=== PATIENT | male | born 1950 | race Caucasian/White ===

== ENCOUNTER 2020-07-22 20:35 | Inpatient (IN) | payer MEDICARE, SELFPAY ==
[2020-07-23] VITALS (7 sets, daily range): BP systolic 131–142; BP diastolic 72–81; PULSE 80–100; RESP 20; TEMP 36.7–39.5; O2SAT 90–96; BMI 27.4
--- NOTE | 2020-07-23 06:36 | PM.IMHP ---
History of Present Illness Date of Service: 07/23/20 Chief Complaint: shortness of breath patient presents to the hospital with complaints of shortness of breath, cough, fever and chills. Patient was recently diagnosed with COVID-19. Was recently seen in the hospital and sent home. Patient not hypoxic, satting in the 90s on room air. Chest x-ray shows multifocal pneumonia patient returns today saying that his symptoms are worsening, he is not feeling better. On arrival to the ED hemodynamically stable with no hypoxia chest x-ray showing multifocal pneumonia Review of Systems Review of Systems: Yes all other systems are reviewed and are negative [facility] Social History Advance Directives: No Advance Directives Information Provided: No Meds Allergies Allergy/AdvReac Type Severity Reaction Status Date / Time No Known Allergies Allergy Unverified 07/09/20 15:41 [No Known Allergies*] Physical Exam Vital Signs and Narrative: Vital Signs: Body Mass Index 27.4 Const: Other: appears ill, no apparent distress Orientation/consciousness: patient oriented x3 Eyes: General: appearance normal, both eyes and all related structures Resp: Effort & Inspection: normal respiratory effort, Actively coughing and labored Cardio: Rate: regular rate Rhythm: regular rhythm Skin: General skin exam: no rashes or lesions noted Neuro: General: patient oriented x3 Extrem: General: Yes normal to inspection Assessment and Plan (1) Multifocal pneumonia: Status: Acute - secondary to COVID-19 infection versus bacterial infection - chest x-ray showing multifocal pneumonia with no hypoxia Plan - ceftriaxone azithromycin - monitor respiratory status (2) COVID-19 virus infection: Status: Acute
[2020-07-23] MEDS: Enoxaparin Sodium 40 MG/0.4 ML SYRINGE SUBCUT (07:58)
[2020-07-23] MEDS: ondansetron HCL 4 MG/2 ML VIAL IVPUSH (07:58)
[2020-07-23] MEDS: Acetaminophen 325 MG TABLET 650 MG PO ×3 (10:55→22:19)
[2020-07-23] MEDS: cefTRIAXone sodium 1 GM in 0.9 % Sodium Chloride 50 ML IV (11:03)
[2020-07-23 11:52] LABS: Hematocrit 33.6 % (42-52); Imm Gran Abs Auto 0.04 X10*3/uL (0.00-0.03); Imm Gran Pct Auto 0.5 % (0.0-0.4); Lymphocytes Absolute Auto 0.3 X10*3/uL (1.2-4.9); Lymphocytes Percent Auto 4.3 % (20-40); MANUAL DIFF FLAG SCAN; Mean Corpuscular HGB Conc 32.7 g/dl (31.0-36.0); Mean Corpuscular Hemoglobin 32.4 pg (27.0-33.0); Mean Corpuscular Volume 98.8 fL (80-98); Mean Platelet Volume 9.6 fL (9.4-12.4); Monocytes Absolute Auto 0.2 X10*3/uL (0.1-1.2); Monocytes Percent Auto 2.7 % (2-11); Neutrophils Absolute Auto 7.3 X10*3/uL (2.0-8.3); Neutrophils Percent Auto 92.5 % (45-73); Platelet Count 191 X10*3/uL (160-400); Red Cell Distribution Width 11.3 % (11.0-16.0); SCAN SMEAR FLAG 1; White Blood Count 7.9 X10*3/uL (4.8-10.8)
[2020-07-23 12:27] LABS: Anion Gap 13 (12-20); Carbon Dioxide 23 mmol/L (22-29); Chloride 109 mmol/L (96-108); Potassium 4.5 mmol/l (3.3-5.1); Sodium 140 mmol/L (135-145)
[2020-07-23 12:31] LABS: SLIDE REVIEW VERIFIED
--- NOTE | 2020-07-23 13:46 | MHC.CM.PN ---
CM met with patient at the bedside who reports he is independent and lives with his . Patient does not have a HCP and declines filling one out today. Discussed discharge plan home no services. Family will provide transport. CM will continue to follow patient for discharge needs.
[2020-07-23] MEDS: Levothyroxine Sodium 100 MCG TABLET PO (15:44)
[2020-07-23] MEDS: Cyanocobalamin (Vitamin B-12) 100 MCG TABLET PO (15:45)
[2020-07-23] MEDS: Cholecalciferol (Vitamin D3) 25 MCG TABLET PO (15:45)
[2020-07-23] MEDS: Albuterol Sulfate (0.083%) 2.5 MG/3 ML VIAL.NEB 5 MG INHALE (17:22)
[2020-07-24] VITALS: BP 128/62; PULSE 81; RESP 20; TEMP 39.1; O2SAT 2
[2020-07-24 03:30] VITALS: BP 134/71; PULSE 82; RESP 20; TEMP 38.7; O2SAT 94
[2020-07-24] MEDS: Acetaminophen 325 MG TABLET 650 MG PO ×4 (04:10→22:22)
[2020-07-24] MEDS: Enoxaparin Sodium 40 MG/0.4 ML SYRINGE SUBCUT (04:11)
[2020-07-24] MEDS: cefTRIAXone sodium 1 GM in 0.9 % Sodium Chloride 50 ML IV (06:25)
[2020-07-24 07:41] VITALS: BP 109/60; PULSE 73; RESP 20; TEMP 37.8; O2SAT 96
[2020-07-24] MEDS: Levothyroxine Sodium 100 MCG TABLET PO (08:59)
[2020-07-24] MEDS: Cyanocobalamin (Vitamin B-12) 100 MCG TABLET PO (08:59)
[2020-07-24] MEDS: Cholecalciferol (Vitamin D3) 25 MCG TABLET PO (08:59)
[2020-07-24 12:00] VITALS: BP 139/64; PULSE 91; RESP 20; TEMP 39.4; O2SAT 92
--- NOTE | 2020-07-24 14:30 | PC.NURSE ---
1200 temp of [address] Dunlap. pt was medicated with tylenol repeat temp was 102. pt also on 2 iv antibiotics
--- NOTE | 2020-07-24 14:33 | MHC.CM.PN ---
DP home no services family transport
[2020-07-24 16:00] VITALS: BP 137/72; PULSE 89; RESP 24; TEMP 39.5; O2SAT 93
--- NOTE | 2020-07-24 16:12 | P.PNIM_ITS ---
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[employer] no headache no dizziness CVS no chest pain, no palpitation Gastrointestinal no nausea no vomiting Skin no rash Physical Exam Vital Signs and I&O and Narrative: Vital Signs and I&O: Vital Signs Temp 103.1 F H 07/24/20 16:00 Pulse 89 07/24/20 16:00 Resp 24 H 07/24/20 16:00 BP 137/72 07/24/20 16:00 Pulse Ox 93 07/24/20 16:00 Intake & Output 07/23/20 07/24/20 07/24/20 18:59 06:59 18:59 Intake Total 780 / 1020 240 / 1020 540 / 540 Output Total 2 / 2 Balance 778 / 1018 240 / 1018 540 / 540 Urine Output (Aver age ml/kg/hr) 0.00 0.00 0.00 Intake: Intake, Oral Elvis unt 480 / 720 240 / 720 240 / 240 Intake, IV Amoun t 300 / 300 300 / 300 Azithromycin 5 00 mg In 0.9 % 250 / 250 250 / 250 Sodium Chlorid e PVC Free 250 ml @ 250 mls/hr I V Q24H [facility] Rx#: [id number] cefTRIAXone so dium 1 gm In 0.9 50 / 50 50 / 50 % Sodium Chlor karina 50 ml @ 100 mls/hr IV Q24H [facility] Rx#: [id number] Output: Output, Urine Am ount 2 / 2 Other: Breakfast % Eate n 100% Lunch % Eaten 100% Dinner % Eaten 75% Number of Unmeas ured Voids 3 1 Urine Bathroom Bathroom Bathroom Body Mass Index 27.4 general patient is sitting comfortably in bed in no acute distress Neck is supple Respiratory bilateral coarse breath sound, no wheeze, no rhonchi CVS regular rate rhythm Gastrointestinal abdomen soft nontender bowel sounds are audible Skin no rash Neuro nonfocal, moving all 4 extremities Objective Data Current Medications Generic Name Dose Route Start Last Admin Trade Name Freq PRN Reason Stop Dose Admin Acetaminophen 650 mg 07/23/20 05:30 07/24/20 11:09 Acetaminophen 325 Mg Tablet PO 650 mg Q6H PRN Administration Pain, Mild (Pain Scale 1-3) Albuterol Sulfate 2.5 mg 07/23/20 12:25 Albuterol Sulfate (0.083%) 2.5 Mg/3 Ml Vial.Neb INHALE Q3H PRN sob Cyanocobalamin 100 mcg 07/23/20 12:30 07/24/20 08:59 Cyanocobalamin (Vitamin B-12) 100 Mcg Tablet PO 100 mcg DAILY [facility] Administration Enoxaparin Sodium 40 mg 07/23/20 06:00 07/24/20 04:11 Enoxaparin Sodium 40 Mg/0.4 Ml Syringe SUBCUT 40 mg Q24H [facility] Administration Ceftriaxone Sodium 1 gm/ 50 mls @ 100 mls/hr 07/23/20 07:00 07/24/20 14:03 Sodium Chloride IV Infused Q24H [facility] Infusion Azithromycin 500 mg/ Sodium 250 mls @ 250 mls/hr 07/23/20 07:00 07/24/20 14:0 1 Chloride IV Infused Q24H [facility] Infusion Levothyroxine Sodium 100 mcg 07/23/20 12:30 07/24/20 08:59 Levothyroxine Sodium 100 Mcg Tablet PO 100 mcg DAILY PEPE Administration Ondansetron HCl 4 mg 07/23/20 05:32 07/23/20 07:58 Ondansetron Hcl 4 Mg/2 Ml Vial IVPUSH 4 mg Q8H PRN Administration Nausea and Vomiting Pharmacy Consult 1 each 07/23/20 07:19 Consult Rx Perform Med Rec MISCELLANE ONCE PRN Consult order Vitamin D 25 mcg 07/23/20 12:30 07/24/20 08:59 Cholecalciferol (Vitamin D3) 25 Mcg Tablet PO 25 mcg DAILY PEPE Administration Labs CBC & Chem 7: 07/23/20 11:20 07/23/20 11:20 Assessment and Plan (1) COVID-19 virus infection: Problem details: persistent fever , patient shortness of breath and cough is better no hypoxia, will check CRP ,CBC and electrolyte tomorrow morning continue supportive care. Status: Acute (2) Multifocal pneumonia: Problem details: Likely due to COVID 19 infection continue IV ceftriaxone and azithromycin follow CRP if negative then in will discontinue antibiotics Status: Acute (3) Hypothyroidism: Problem details: continue Synthroid. Status: Acute
--- NOTE | 2020-07-24 16:55 | PC.NURSE ---
Temperature 103.1 , oxygen saturation 92 % 0n 2l via nc, pt reporting some sob. Dr estrella was notified. Pt medicated with Tylenol 650 mg PO. Md planningto add cough medication and steroids. Pt informed
[2020-07-24] MEDS: guaiFENesin DM 100/10/5 ML 5 ML SYRUP 10 ML PO ×2 (17:00→22:22)
[2020-07-24 19:21] VITALS: BP 110/66; PULSE 79; RESP 20; TEMP 37.6; O2SAT 92
[2020-07-25] VITALS (8 sets, daily range): BP systolic 124–161; BP diastolic 69–80; PULSE 60–90; RESP 18–20; TEMP 36.6–38.3; O2SAT 93–98
[2020-07-25] MEDS: guaiFENesin DM 100/10/5 ML 5 ML SYRUP 10 ML PO ×4 (05:31→22:57)
[2020-07-25] MEDS: Enoxaparin Sodium 40 MG/0.4 ML SYRINGE SUBCUT (05:32)
[2020-07-25] MEDS: cefTRIAXone sodium 1 GM in 0.9 % Sodium Chloride 50 ML IV (05:34)
[2020-07-25] MEDS: Acetaminophen 325 MG TABLET 650 MG PO ×3 (06:08→18:01)
[2020-07-25 06:41] LABS: Hematocrit 35.1 % (42-52); Hemoglobin 11.6 g/dl (14.0-18.0); Imm Gran Abs Auto 0.11 X10*3/uL (0.00-0.03); Imm Gran Pct Auto 1.1 % (0.0-0.4); Lymphocytes Absolute Auto 0.3 X10*3/uL (1.2-4.9); Lymphocytes Percent Auto 3.2 % (20-40); MANUAL DIFF FLAG SCAN; Mean Corpuscular Hemoglobin 32.6 pg (27.0-33.0); Mean Corpuscular Volume 98.6 fL (80-98); Monocytes Absolute Auto 0.2 X10*3/uL (0.1-1.2); Neutrophils Absolute Auto 9.6 X10*3/uL (2.0-8.3); Neutrophils Percent Auto 93.7 % (45-73); Platelet Count 232 X10*3/uL (160-400); Red Blood Count 3.56 X10*6/uL (4.60-5.80); Red Cell Distribution Width 11.3 % (11.0-16.0); SCAN SMEAR FLAG 1; White Blood Count 10.3 X10*3/uL (4.8-10.8)
[2020-07-25 07:00] LABS: C Reactive Protein 29.14 mg/dL (< or = 0.50)
[2020-07-25 07:14] LABS: SLIDE REVIEW VERIFIED
[2020-07-25] MEDS: Cyanocobalamin (Vitamin B-12) 100 MCG TABLET PO (09:56)
[2020-07-25] MEDS: Levothyroxine Sodium 100 MCG TABLET PO (09:56)
[2020-07-25] MEDS: Cholecalciferol (Vitamin D3) 25 MCG TABLET PO (09:57)
--- NOTE | 2020-07-25 14:29 | P.PNIM_ITS ---
Subjective Subjective Date of Service: 07/25/20 Interval History: admitted for shortness of breath with recently diagnosed COVID-19 infection patient feels better this morning is still complaining of back and chest pain with coughing no further bouts of fever since yesterday afternoon, no nausea vomiting tolerating diet. 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 CVS no chest pain, no palpitation Gastrointestinal no nausea no vomiting Skin no rash Physical Exam Vital Signs and I&O and Narrative: Vital Signs and I&O: Vital Signs Temp 98.7 F 07/25/20 11:31 Pulse 75 07/25/20 11:31 Resp 20 07/25/20 11:31 BP 130/69 07/25/20 11:31 Pulse Ox 95 07/25/20 11:31 Intake & Output 07/24/20 07/25/20 07/25/20 18:59 06:59 18:59 Intake Total 540 / 1590 1050 / 1590 500 / 500 Output Total 450 / 450 Balance 540 / 1590 1050 / 1590 50 / 50 Urine Output (Aver age ml/kg/hr) 0.46 Intake: Intake, Oral [place] unt 240 / 1240 1000 / 1240 250 / 250 Intake, IV Amoun t 300 / 350 50 / 350 250 / 250 Azithromycin 5 00 mg In 0.9 % 250 / 250 250 / 250 Sodium Chlorid e PVC Free 250 ml @ 250 mls/hr I V Q24H [facility] Rx#: [id number] cefTRIAXone so dium 1 gm In 0.9 50 / 100 50 / 100 % Sodium Chlor karina 50 ml @ 100 mls/hr IV Q24H [facility] Rx#: [id number] Output: Output, Urine Am ount 450 / 450 Other: Breakfast % Eate n 100% 100% Lunch % Eaten 25% Number of Unmeas ured Voids 1 2 Urine Bathroom Bathroom Bathroom Body Mass Index 27.4 General patient is sitting comfortably in bed in no acute distress Neck supple Respiratory bilateral coarse breath sound, no wheeze, no rhonchi , no respiratory distress CVS regular rate rhythm Gastrointestinal abdomen soft, nontender, bowel sounds are audible. Skin no rash Neuro nonfocal, moving all 4 extremities Objective Data Current Medications Generic Name Dose Route Start Last Admin Trade Name Freq PRN Reason Stop Dose Admin Acetaminophen 650 mg 07/23/20 05:30 10/03/20 12:05 Acetaminophen 325 Mg Tablet PO 650 mg Q6H PRN Administration Pain, Mild (Pain Scale 1-3) Albuterol Sulfate 2.5 mg 07/23/20 12:25 Albuterol Sulfate (0.083%) 2.5 Mg/3 Ml Vial.Neb INHALE Q3H PRN sob Cyanocobalamin 100 mcg 07/23/20 12:30 07/25/20 09:56 Cyanocobalamin (Vitamin B-12) 100 Mcg Tablet PO 100 mcg DAILY PEPE Administration Enoxaparin Sodium 40 mg 07/23/20 06:00 07/25/20 05:32 Enoxaparin Sodium 40 Mg/0.4 Ml Syringe SUBCUT 40 mg Q24H [facility] Administration Guaifenesin/Dextromethorphan 10 ml 07/24/20 17:00 07/25/20 09:56 Guaifenesin Dm 100/10/5 Ml 5 Ml Syrup PO 10 ml Q6H [facility] Administration Ceftriaxone Sodium 1 gm/ 50 mls @ 100 mls/hr 07/23/20 07:00 07/25/20 06:26 Sodium Chloride IV Infused Q24H [facility] Infusion Azithromycin 500 mg/ Sodium 250 mls @ 250 mls/hr 07/23/20 07:00 07/25/20 07:34 Chloride IV Infused Q24H [facility] Infusion Dexamethasone Sodium Phosphate 50.6 mls @ 202.4 mls/hr 07/24/20 17:06 07/25/20 09:56 6 mg/ Sodium Chloride IV 07/27/20 09:14 202.4 mls/hr DAILY [facility] Administration Levothyroxine Sodium 100 mcg 07/23/20 12:30 07/25/20 09:56 Levothyroxine Sodium 100 Mcg Tablet PO 100 mcg DAILY [facility]PE Administration Ondansetron HCl 4 mg 07/23/20 05:32 07/23/20 07:58 Ondansetron Hcl 4 Mg/2 Ml Vial IVPUSH 4 mg Q8H PRN Administration Nausea and Vomiting Pharmacy Consult 1 each 07/23/20 07:19 Consult Rx Perform Med Rec MISCELLANE ONCE PRN Consult order Vitamin D 25 mcg 07/23/20 12:30 07/25/20 09:57 Cholecalciferol (Vitamin D3) 25 Mcg Tablet PO 25 mcg DAILY [facility]PE Administration Labs CBC & Chem 7: 07/25/20 06:04 07/23/20 11:20 Labs: Laboratory Results - last 24 hr 07/25/20 07/25/20 06:04 06:04 MCV 98.6 H MCH 32.6 MCHC 33.0 RDW 11.3 Plt Count 232 MPV 10.0 Immature Gran % (Auto) 1.1 H Neut % (Auto) 93.7 H Lymph % (Auto) 3.2 L [place] % (Auto) 2.0 Eos % (Auto) 0.0 Baso % (Auto) 0.0 Neut # (Auto) 9.6 H Lymph # (Auto) 0.3 L [place] # (Auto) 0.2 Eos # (Auto) 0.0 Baso # (Auto) 0.0 Abs Immat Gran (auto) 0.11 H Absolute Nucleated RBC 0.000 Nucleated RBC % (auto) 0.0 Smear Tech's Comments VERIFIED C-Reactive Protein 29.14 H Assessment and Plan (1) COVID-19 virus infection: Problem details: persistent fever , patient shortness of breath and cough is better no hypoxia, will check CRP ,CBC and electrolyte tomorrow morning continue supportive care. Status: Acute (2) Multifocal pneumonia: Problem details: Likely due to COVID 19 infection continue IV ceftriaxone and azithromycin follow CRP if negative then in will discontinue antibiotics Status: Acute (3) Hypothyroidism: Problem details: continue Synthroid. Status: Acute Assessment and Plan: (1) COVID-19 virus infection: No further bout of fever since yesterday, patient shortness of breath and cough is improving no hypoxia, CRP 29.14 ,CBC and electrolyte is stable, continue supportive care. will encourage ambulation (2) Multifocal pneumonia: Likely due to COVID 19 infection continue IV ceftriaxone and azithromycin will checks procalcitonin, if negative then will discontinue antibiotics Status: Acute (3) Hypothyroidism: Problem details: continue Synthroid.
[2020-07-25 15:22] LABS: Procalcitonin 1.14 ng/mL
[2020-07-26] MEDS: Acetaminophen 325 MG TABLET 650 MG PO ×3 (00:17→22:03)
[2020-07-26 03:52] VITALS: BP 122/69; PULSE 71; RESP 18; TEMP 37.1; O2SAT 96
[2020-07-26] MEDS: guaiFENesin DM 100/10/5 ML 5 ML SYRUP 10 ML PO ×4 (06:17→21:58)
[2020-07-26] MEDS: Enoxaparin Sodium 40 MG/0.4 ML SYRINGE SUBCUT (06:18)
[2020-07-26] MEDS: cefTRIAXone sodium 1 GM in 0.9 % Sodium Chloride 50 ML IV (06:21)
[2020-07-26 07:03] VITALS: BP 144/77; PULSE 81; RESP 22; TEMP 37.4; O2SAT 92
[2020-07-26] MEDS: Cyanocobalamin (Vitamin B-12) 100 MCG TABLET PO (09:44)
[2020-07-26] MEDS: Cholecalciferol (Vitamin D3) 25 MCG TABLET PO (09:44)
[2020-07-26] MEDS: Levothyroxine Sodium 100 MCG TABLET PO (09:45)
[2020-07-26 11:48] VITALS: BP 147/78; PULSE 88; RESP 18; TEMP 37.5; O2SAT 94
[2020-07-26 16:00] VITALS: BP 135/68; PULSE 78; RESP 18; TEMP 37.7; O2SAT 94
--- NOTE | 2020-07-26 17:01 | P.PNIM_ITS ---
Subjective Subjective Interval History: admitted for shortness of breath with recently diagnosed COVID-19 infection patient complaining of generalized pain and fever still coughing and complaining of chest tightness, feels like his asthma ,still having fever but low-grade, tolerating diet. 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 Gastrointestinal no nausea, no vomiting Skin no rash Physical Exam Vital Signs and I&O and Narrative: Vital Signs and I&O: Vital Signs Temp 99.8 F 07/26/20 16:00 Pulse 78 07/26/20 16:00 Resp 18 07/26/20 16:00 BP 135/68 07/26/20 16:00 Pulse Ox 94 07/26/20 16:00 Intake & Output 07/25/20 07/26/20 07/26/20 18:59 06:59 18:59 Intake Total 500 / 1180 680 / 1180 550 / 550 Output Total 450 / 700 250 / 700 650 / 650 Balance 50 / 480 430 / 480 -100 / -100 Urine Output (Aver age ml/kg/hr) 0.46 0.25 0.66 Intake: Intake, Oral Elvis unt 250 / 930 680 / 930 250 / 250 Intake, IV Amoun t 250 / 250 300 / 300 Azithromycin 5 00 mg In 0.9 % 250 / 250 250 / 250 Sodium Chlorid e PVC Free 250 ml @ 250 mls/hr I V Q24H [facility] Rx#: [id number] cefTRIAXone so dium 1 gm In 0.9 50 / 50 % Sodium Chlor karina 50 ml @ 100 mls/hr IV Q24H [facility] Rx#: [id number] Output: Output, Urine Am ount 450 / 700 250 / 700 650 / 650 Other: Meal Refused No NPO No Breakfast % Eate n 100% 50% Lunch % Eaten 25% 50% Number of Incont inent Voids 1 Urine Bathroom Urinal Urinal Urine Color Yellow Body Mass Index 27.4 General appears flushed due to fever, no acute respiratory distress Neck supple Respiratory bilateral coarse diminished breath sound, no rhonchi , no respiratory distress CVS regular rate rhythm Gastrointestinal abdomen soft, nontender, bowel sounds are audible. Skin no rash Neuro nonfocal, moving all 4 extremities Objective Data Current Medications Generic Name Dose Route Start Last Admin Trade Name Freq PRN Reason Stop Dose Admin Acetaminophen 650 mg 07/23/20 05:30 07/26/20 10:52 Acetaminophen 325 Mg Tablet PO 650 mg Q6H PRN Administration Pain, Mild (Pain Scale 1-3) Albuterol Sulfate 2.5 mg 07/23/20 12:25 Albuterol Sulfate (0.083%) 2.5 Mg/3 Ml Vial.Neb INHALE Q3H PRN sob Albuterol Sulfate 2 puff 07/26/20 20:00 Albuterol Sulfate 90 Mcg 18 Gm Inhaler INHALE RQ4H WHILE AWAKE [facility] Cyanocobalamin 100 mcg 07/23/20 12:30 07/26/20 09:44 Cyanocobalamin (Vitamin B-12) 100 Mcg Tablet PO 100 mcg DAILY PEPE Administration Enoxaparin Sodium 40 mg 07/23/20 06:00 07/26/20 06:18 Enoxaparin Sodium 40 Mg/0.4 Ml Syringe SUBCUT 40 mg Q24H [facility] Administration Guaifenesin/Dextromethorphan 10 ml 07/24/20 17:00 07/26/20 16:44 Guaifenesin Dm 100/10/5 Ml 5 Ml Syrup PO 10 ml Q6H [facility] Administration Ceftriaxone Sodium 1 gm/ 50 mls @ 100 mls/hr 07/23/20 07:00 07/26/20 07:19 Sodium Chloride IV Infused Q24H [facility] Infusion Dexamethasone Sodium Phosphate 50.6 mls @ 202.4 mls/hr 07/24/20 17:06 07/26/20 10:52 6 mg/ Sodium Chloride IV 07/27/20 09:14 200 mls/hr DAILY [facility] Administration Azithromycin 500 mg/ Sodium 250 mls @ 125 mls/hr 07/27/20 07:00 Chloride IV Q24H [facility] Levothyroxine Sodium 100 mcg 07/23/20 12:30 07/26/20 09:45 Levothyroxine Sodium 100 Mcg Tablet PO 100 mcg DAILY [facility] Administration Ondansetron HCl 4 mg 07/23/20 05:32 07/23/20 07:58 Ondansetron Hcl 4 Mg/2 Ml Vial IVPUSH 4 mg Q8H PRN Administration Nausea and Vomiting Pharmacy Consult 1 each 07/23/20 07:19 Consult Rx Perform Med Rec MISCELLANE ONCE PRN Consult order Vitamin D 25 mcg 07/23/20 12:30 07/26/20 09:44 Cholecalciferol (Vitamin D3) 25 Mcg Tablet PO 25 mcg DAILY [facility]PE Administration Labs CBC & Chem 7: 07/25/20 06:04 07/23/20 11:20 Assessment and Plan (1) COVID-19 virus infection: Problem details: Status: Acute (2) Multifocal pneumonia: Problem details: Status: Acute (3) Hypothyroidism: Problem details: Status: Acute Assessment and Plan: (1) COVID-19 virus infection: patient was doing better yesterday but started to have low-grade fever since yesterday evening, today have shortness of breath and cough requiring 4 L of oxygen, increased requirement of oxygen since admission CRP 29.14 ,CBC and electrolyte is stable, continue supportive care. continue IV steroid and incentive spirometry, add scheduled MDI and cough medication will encourage ambulation patient with underlying history of asthma that is contributing to symptoms of shortness of breath and chest tightness. (2) Multifocal pneumonia: Likely due to COVID 19 infection ,on IV ceftriaxone and azithromycin procalcitonin, 1.14 will continue antibiotics Status: Acute (3) Hypothyroidism: continue Synthroid.
[2020-07-26 20:00] VITALS: BP 126/60; PULSE 71; RESP 16; TEMP 37.4; O2SAT 96
[2020-07-27] VITALS (7 sets, daily range): BP systolic 120–154; BP diastolic 59–74; PULSE 57–86; RESP 16–19; TEMP 36.1–37.2; O2SAT 93–98
[2020-07-27] MEDS: Enoxaparin Sodium 40 MG/0.4 ML SYRINGE SUBCUT (06:37)
[2020-07-27] MEDS: guaiFENesin DM 100/10/5 ML 5 ML SYRUP 10 ML PO ×4 (06:37→22:40)
[2020-07-27] MEDS: Levothyroxine Sodium 100 MCG TABLET PO (07:41)
[2020-07-27] MEDS: cefTRIAXone sodium 1 GM in 0.9 % Sodium Chloride 50 ML IV (07:41)
[2020-07-27] MEDS: Cyanocobalamin (Vitamin B-12) 100 MCG TABLET PO (07:42)
[2020-07-27] MEDS: Cholecalciferol (Vitamin D3) 25 MCG TABLET PO (07:42)
[2020-07-27] MEDS: Azithromycin 500 MG in 0.9 % Sodium Chloride 250 ML 125 MG IV (08:33)
--- NOTE | 2020-07-27 14:18 | MHC.CM.PN ---
DP home no services family will provide transport.
--- NOTE | 2020-07-27 16:00 | HO.PM.IMPN ---
Subjective Subjective Interval History: admitted for shortness of breath with recently diagnosed COVID-19 infection patient feeling better this morning less short of breath, no chest tightness, less oxygen requirements on 2 L with finger oximetry 93%, patient using incentive spirometry and frequently changing position. 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 Gastrointestinal no nausea, no vomiting Skin no rash Physical Exam Vital Signs and I&O and Narrative: Vital Signs and I&O: Vital Signs Temp 98.7 F 07/27/20 12:00 Pulse 86 07/27/20 12:00 Resp 18 07/27/20 12:00 BP 130/72 07/27/20 12:00 Pulse Ox 96 07/27/20 13:00 Intake & Output 07/26/20 07/27/20 07/27/20 18:59 06:59 18:59 Intake Total 600.6 / 771.2 170.6 / 771.2 660 / 660 Output Total 1050 / 1050 Balance -449.4 / -278.8 170.6 / -278.8 660 / 660 Urine Output (Aver age ml/kg/hr) 1.07 1.07 1.07 Intake: Intake, Oral Elvis unt 250 / 370 120 / 370 360 / 360 Intake, IV Amoun t 350.6 / 401.2 50.6 / 401.2 300 / 300 Azithromycin 5 00 mg In 0.9 % 250 / 250 Sodium Chlorid e 250 ml @ 125 mls/hr IV Q24H [facility] Rx#: [id number] Azithromycin 5 00 mg In 0.9 % 250 / 250 Sodium Chlorid e PVC Free 250 ml @ 250 mls/hr I V Q24H [facility] Rx#: [id number] cefTRIAXone so dium 1 gm In 0.9 50 / 50 50 / 50 % Sodium Chlor karina 50 ml @ 100 mls/hr IV Q24H [facility] Rx#: [id number] dexAMETHasone Sod Phosphate/PF 50.6 / 50.6 6 mg In 0.9 % Sodium Chloride 50 ml @ 202.4 mls/hr IV ONCE ONE Rx#:[id number] dexAMETHasone sod phosphate 6 50.6 / 50.6 mg In 0.9 % So dium Chloride 50 ml @ 202.4 mls /hr IV DAILY [facility] Rx#:[id number] Output: Output, Urine Am ount 1050 / 1050 Other: Meal Refused No NPO No Breakfast % Eate n 50% 100% Lunch % Eaten 50% 100% Dinner % Eaten 50% Number of Unmeas ured Voids 1 Urine Urinal Urinal Bathroom Urine Color Yellow Yellow Body Mass Index 27.4 General Sitting comfortably, no acute respiratory distress Neck supple Respiratory bilateral coarse diminished breath sound, no rhonchi , no respiratory distress CVS regular rate rhythm Gastrointestinal abdomen soft, nontender, bowel sounds are audible. Skin no rash Neuro nonfocal, moving all 4 extremities Objective Data Current Medications Generic Name Dose Route Start Last Admin Trade Name Freq PRN Reason Stop Dose Admin Acetaminophen 650 mg 07/23/20 05:30 07/26/20 22:03 Acetaminophen 325 Mg Tablet PO 650 mg Q6H PRN Administration Pain, Mild (Pain Scale 1-3) Albuterol Sulfate 2.5 mg 07/23/20 12:25 Albuterol Sulfate (0.083%) 2.5 Mg/3 Ml Vial.Neb INHALE Q3H PRN sob Albuterol Sulfate 2 puff 07/26/20 20:00 07/27/20 14:19 Albuterol Sulfate 90 Mcg 18 Gm Inhaler INHALE 2 puff RQ4H WHILE AWAKE [facility] Administration Cyanocobalamin 100 mcg 07/23/20 12:30 07/27/20 07:42 Cyanocobalamin (Vitamin B-12) 100 Mcg Tablet PO 100 mcg DAILY [facility] Administration Enoxaparin Sodium 40 mg 07/23/20 06:00 07/27/20 06:37 Enoxaparin Sodium 40 Mg/0.4 Ml Syringe SUBCUT 40 mg Q24H [facility] Administration Guaifenesin/Dextromethorphan 10 ml 07/24/20 17:00 07/27/20 11:17 Guaifenesin Dm 100/10/5 Ml 5 Ml Syrup PO 10 ml Q6H [facility] Administration Ceftriaxone Sodium 1 gm/ 50 mls @ 100 mls/hr 07/23/20 07:00 07/27/20 08:11 Sodium Chloride IV Infused Q24H [facility] Infusion Azithromycin 500 mg/ Sodium 250 mls @ 125 mls/hr 07/27/20 07:00 07/27/20 10:56 Chloride IV Infused Q24H [facility] Infusion Levothyroxine Sodium 100 mcg 07/23/20 12:30 07/27/20 07:41 Levothyroxine Sodium 100 Mcg Tablet PO 100 mcg DAILY [facility] Administration Ondansetron HCl 4 mg 07/23/20 05:32 07/23/20 07:58 Ondansetron Hcl 4 Mg/2 Ml Vial IVPUSH 4 mg Q8H PRN Administration Nausea and Vomiting Pharmacy Consult 1 each 07/23/20 07:19 Consult Rx Perform Med Rec MISCELLANE ONCE PRN Consult order Vitamin D 25 mcg 07/23/20 12:30 07/27/20 07:42 Cholecalciferol (Vitamin D3) 25 Mcg Tablet PO 25 mcg DAILY [facility] Administration Labs CBC & Chem 7: 07/25/20 06:04 07/23/20 11:20 Assessment and Plan (1) COVID-19 virus infection: Problem details: Status: Acute (2) Multifocal pneumonia: Problem details: Status: Acute (3) Hypothyroidism: Problem details: Status: Acute Assessment and Plan: (1) COVID-19 virus infection: patient clinical condition improved this morning, less shortness of breath and less oxygen requirement, no further bouts of high-grade fever CRP 29.14 ,CBC and electrolyte stable, continue supportive care. continue IV steroid and incentive spirometry, scheduled MDI and cough medication, encourage out of bed and ambulation patient with underlying history of asthma likely contributing to symptoms. if unable to wean oxygen in next 24-48 hours will do home O2 evaluation. (2) Multifocal pneumonia: Likely due to COVID 19 infection ,on IV ceftriaxone and azithromycin procalcitonin, 1.14 will continue antibiotics Status: Acute (3) Hypothyroidism: continue Synthroid.
[2020-07-27] MEDS: Acetaminophen 325 MG TABLET 650 MG PO (20:09)
[2020-07-28] VITALS (9 sets, daily range): BP systolic 125–150; BP diastolic 65–74; PULSE 53–86; RESP 16–20; TEMP 36.2–39.2; O2SAT 90–94
[2020-07-28] MEDS: guaiFENesin DM 100/10/5 ML 5 ML SYRUP 10 ML PO (04:54)
[2020-07-28] MEDS: Enoxaparin Sodium 40 MG/0.4 ML SYRINGE SUBCUT (05:08)
[2020-07-28] MEDS: cefTRIAXone sodium 1 GM in 0.9 % Sodium Chloride 50 ML IV (06:14)
[2020-07-28] MEDS: Azithromycin 500 MG in 0.9 % Sodium Chloride 250 ML 250 MG IV (06:45)
[2020-07-28 06:52] LABS: Basophils Percent Auto 0.1 % (0-2); Hematocrit 34.1 % (42-52); Hemoglobin 11.3 g/dl (14.0-18.0); Imm Gran Abs Auto 0.27 X10*3/uL (0.00-0.03); Imm Gran Pct Auto 2.8 % (0.0-0.4); Lymphocytes Absolute Auto 0.5 X10*3/uL (1.2-4.9); Lymphocytes Percent Auto 5.7 % (20-40); MANUAL DIFF FLAG SCAN; Mean Corpuscular HGB Conc 33.1 g/dl (31.0-36.0); Mean Corpuscular Hemoglobin 32.3 pg (27.0-33.0); Mean Corpuscular Volume 97.4 fL (80-98); Mean Platelet Volume 11.1 fL (9.4-12.4); Monocytes Absolute Auto 0.2 X10*3/uL (0.1-1.2); Monocytes Percent Auto 2.5 % (2-11); Neutrophils Absolute Auto 8.5 X10*3/uL (2.0-8.3); Neutrophils Percent Auto 88.9 % (45-73); Platelet Count 167 X10*3/uL (160-400); Red Cell Distribution Width 11.5 % (11.0-16.0); SCAN SMEAR FLAG 1; White Blood Count 9.5 X10*3/uL (4.8-10.8)
[2020-07-28 07:19] LABS: Anion Gap 13 (12-20); Blood Urea Nitrogen 23 mg/dL (9-16); Calcium 8.1 mg/dL (8.4-10.2); Carbon Dioxide 27 mmol/L (22-29); Chloride 104 mmol/L (96-108); Creatinine Clr Calc Pharmacy 67.8; Estimated Glomerular Filt Rate > 60; Glucose Random 104 mg/dL (60-115); Potassium 4.6 mmol/l (3.3-5.1); Sodium 139 mmol/L (135-145)
[2020-07-28 07:26] LABS: SLIDE REVIEW VERIFIED
[2020-07-28] MEDS: Cyanocobalamin (Vitamin B-12) 100 MCG TABLET PO (07:55)
[2020-07-28] MEDS: Levothyroxine Sodium 100 MCG TABLET PO (07:55)
[2020-07-28] MEDS: Cholecalciferol (Vitamin D3) 25 MCG TABLET PO (07:55)
[2020-07-28] MEDS: Acetaminophen 325 MG TABLET 650 MG PO ×3 (08:29→20:44)
--- NOTE | 2020-07-28 10:51 | P.CDIC_ITS ---
CDI Concurrent Query Service Date: 07/29/20 Documentation Clarification: Please clarify if you are treating a proba ble/suspected/likely or confirmed: Viral Sepsis due to Covid 19-Pneumonia POA Please specify if known Provider Response: Other Other Diagnosis: sepsis due to COVID-19 infection. PLEASE DO NOT DELETE/MODIFY EXISTING CONTENT Additional information is needed in order to code to the highest accuracy and appropriate Severity of Illness (SOI). Please clarify the information noted below in your progress notes and discharge summary. Risk Factors/Clinical Indicators/Treatments Patient returned to [facility] after recent diagnosis of Covid 19 with shortness of breath, Temp 103.1 HR 24(H) CRP 29.14 Procalcitonin 1.14, placed on IV Ceftriaxone, IV Azithromycin, oxygen, follow CRP. Admit. CDS: Margarette Edwards CCS, CDIS Contact Number: [phone] Please Review the information above and exercise your independent professional judgment in responding to the query. If you concur, pleas document in the PROGRESS NOTES and DISCHARGE SUMMARY. If you do not agree with the query, please document in the query above. THIS QUERY IS PART OF THE PERMANENT MEDICAL RECORD
[2020-07-28] MEDS: guaiFENesin DM 200/20/10 ML 10 ML SYRUP PO ×3 (11:13→23:36)
--- NOTE | 2020-07-28 17:41 | P.PNIM_ITS ---
Subjective Subjective Date of Service: 07/28/20 Review of Systems General no headache no dizziness no fever chills. CVS no chest pain, no palpitation. Respiratory no cough no sputum production no respiratory distress. Gastrointestinal no nausea no vomiting, no abdominal pain Physical Exam Vital Signs and I&O and Narrative: Vital Signs and I&O: Vital Signs Temp 99.6 F 07/28/20 16:00 Pulse 80 07/28/20 16:00 Resp 18 07/28/20 16:00 BP 129/65 07/28/20 16:00 Pulse Ox 92 07/28/20 16:00 Intake & Output 07/27/20 07/28/20 07/28/20 18:59 06:59 18:59 Intake Total 870 / 1960 1090 / 1960 750 / 750 Output Total 303 / 303 1000 / 1000 Balance 870 / 1657 787 / 1657 -250 / -250 Urine Output (Aver age ml/kg/hr) 0.31 1.02 Intake: Intake, Oral Elvis unt 570 / 1610 1040 / 1610 220 / 220 Intake, Oral Sup plement Amount 280 / 280 Intake, IV Amoun t 300 / 350 50 / 350 250 / 250 Azithromycin 5 00 mg In 0.9 % 250 / 250 250 / 250 Sodium Chlorid e 250 ml @ 125 mls/hr IV Q24H [facility] Rx#: [id number] cefTRIAXone so dium 1 gm In 0.9 50 / 100 50 / 100 % Sodium Chlor karina 50 ml @ 100 mls/hr IV Q24H [facility] Rx#: [id number] Output: Output, Urine Am ount 303 / 303 1000 / 1000 Other: Meal Refused Yes Breakfast % Eate n 100% Lunch % Eaten 100% 50% Dinner % Eaten 100% Urine Bathroom Urine Color Yellow Body Mass Index 27.4 General patient resting comfortably in no acute distress. Neck is supple no JVD. CVS regular rate rhythm, Respiratory lungs clear to auscultation, diminished breath sound, no respiratory distress, few scattered wheeze, no rhonchi. Gastrointestinal abdomen soft, nontender, bowel sounds audible, no no guarding , no rigidity. Extremities no clubbing cyanosis or edema. Neuro nonfocal patient moving all 4 extremity speech clear. Skin no rash Objective Data Current Medications Generic Name Dose Route Start Last Admin Trade Name Freq PRN Reason Stop Dose Admin Acetaminophen 650 mg 07/23/20 05:30 07/28/20 14:53 Acetaminophen 325 Mg Tablet PO 650 mg Q6H PRN Administration Pain, Mild (Pain Scale 1-3) Albuterol Sulfate 2.5 mg 07/23/20 12:25 Albuterol Sulfate (0.083%) 2.5 Mg/3 Ml Vial.Neb INHALE Q3H PRN sob Albuterol Sulfate 2 puff 07/28/20 08:00 07/28/20 15:14 Albuterol Sulfate 90 Mcg 18 Gm Inhaler INHALE 2 puff RQ4H WHILE AWAKE PEPE Administration Cyanocobalamin 100 mcg 07/23/20 12:30 07/28/20 07:55 Cyanocobalamin (Vitamin B-12) 100 Mcg Tablet PO 100 mcg DAILY PEPE Administration Enoxaparin Sodium 40 mg 07/23/20 06:00 07/28/20 05:08 Enoxaparin Sodium 40 Mg/0.4 Ml Syringe SUBCUT 40 mg Q24H PEPE Administration Guaifenesin/Dextromethorphan 10 ml 07/28/20 11:15 07/28/20 16:22 Guaifenesin Dm 200/20/10 Ml 10 Ml Syrup PO 10 ml Q6H PEPE Administration Ceftriaxone Sodium 1 gm/ 50 mls @ 100 mls/hr 07/23/20 07:00 07/28/20 06:44 Sodium Chloride IV Infused Q24H PEPE Infusion Azithromycin 500 mg/ Sodium 250 mls @ 125 mls/hr 07/27/20 07:00 07/28/20 08:29 Chloride IV Infused Q24H PEPE Infusion Levothyroxine Sodium 100 mcg 07/23/20 12:30 07/28/20 07:55 Levothyroxine Sodium 100 Mcg Tablet PO 100 mcg DAILY PEPE Administration Ondansetron HCl 4 mg 07/23/20 05:32 07/23/20 07:58 Ondansetron Hcl 4 Mg/2 Ml Vial IVPUSH 4 mg Q8H PRN Administration Nausea and Vomiting Pharmacy Consult 1 each 07/23/20 07:19 Consult Rx Perform Med Rec MISCELLANE ONCE PRN Consult order Vitamin D 25 mcg 07/23/20 12:30 07/28/20 07:55 Cholecalciferol (Vitamin D3) 25 Mcg Tablet PO 25 mcg DAILY PEPE Administration Labs CBC & Chem 7: 07/28/20 05:58 07/28/20 05:58 Labs: Laboratory Results - last 24 hr 07/28/20 07/28/20 05:58 05:58 MCV 97.4 MCH 32.3 MCHC 33.1 RDW 11.5 Plt Count 167 D MPV 11.1 Immature Gran % (Auto) 2.8 H Neut % (Auto) 88.9 H Lymph % (Auto) 5.7 L [place] % (Auto) 2.5 Eos % (Auto) 0.0 Baso % (Auto) 0.1 Neut # (Auto) 8.5 H Lymph # (Auto) 0.5 L [place] # (Auto) 0.2 Eos # (Auto) 0.0 Baso # (Auto) 0.0 Abs Immat Gran (auto) 0.27 H Absolute Nucleated RBC 0.000 Nucleated RBC % (auto) 0.0 Smear Tech's Comments VERIFIED Anion Gap 13 Estim Creat Clear Calc 67.8 Estimated GFR > 60 Random Glucose 104 Calcium 8.1 L Assessment and Plan (1) COVID-19 virus infection: Problem details: Status: Acute (2) Multifocal pneumonia: Problem details: Status: Acute (3) Hypothyroidism: Problem details: Status: Acute Assessment and Plan: (1) COVID-19 virus infection/ patient on admission had sepsis related to COVID- 19 infection with fever and tachycardia, sepsis now resolved. patient clinical condition improving graduallye, less shortness of breath , having low-grade fevers, requiring oxygen by nasal cannula, no further bouts of high-grade fever CRP 29.14 ,CBC and electrolyte stable, continue supportive care. continue IV steroid and incentive spirometry, scheduled MDI and cough medication, encourage out of bed and ambulation patient with underlying history of asthma likely contributing to symptoms. will add Spiriva, and gradually wean oxygen. will follow CRP (2) Multifocal pneumonia: Likely due to COVID 19 infection ,on IV ceftriaxone and azithromycin procalcitonin, 1.14 will continue antibiotics for total 7 day Status: Acute (3) Hypothyroidism: continue Synthroid.
[2020-07-29] VITALS (10 sets, daily range): BP systolic 106–126; BP diastolic 55–66; PULSE 71–88; RESP 16–20; TEMP 36.6–38.4; O2SAT 86–93
[2020-07-29] MEDS: Acetaminophen 325 MG TABLET 650 MG PO ×3 (02:32→21:10)
[2020-07-29] MEDS: Enoxaparin Sodium 40 MG/0.4 ML SYRINGE SUBCUT (05:56)
[2020-07-29] MEDS: guaiFENesin DM 200/20/10 ML 10 ML SYRUP PO ×3 (05:56→21:11)
[2020-07-29] MEDS: cefTRIAXone sodium 1 GM in 0.9 % Sodium Chloride 50 ML IV (05:57)
[2020-07-29] MEDS: Azithromycin 500 MG in 0.9 % Sodium Chloride 250 ML 250 MG IV (06:33)
[2020-07-29] MEDS: Levothyroxine Sodium 100 MCG TABLET PO (08:00)
[2020-07-29] MEDS: Cholecalciferol (Vitamin D3) 25 MCG TABLET PO (08:01)
[2020-07-29] MEDS: Cyanocobalamin (Vitamin B-12) 100 MCG TABLET PO (08:01)
--- NOTE | 2020-07-29 12:00 | MHC.CM.PN ---
DP per MD rounds Pt continues 4L O2 via [place] Spo2 93%. Home o2 eval will be done once Pt can andrade 2lo2 via [place]. Home no services family transport. CM will follow.
--- NOTE | 2020-07-29 17:10 | HO.PM.IMPN ---
Subjective Subjective Date of Service: 07/29/20 Interval History: patient admitted with shortness of breath with recently diagnosed COVID-19 infection. Patient feels better complaining of less shortness of breath and cough is sitting on chair comfortably, no acute issues overnight patient continue to require 4 L of oxygen Review of Systems General no headache no dizziness no fever chills. CVS no chest pain, no palpitation. Respiratory no cough ,no sputum, production, no respiratory distress. Gastrointestinal no nausea, no vomiting, no abdominal pain Physical Exam Vital Signs and I&O and Narrative: Vital Signs and I&O: Vital Signs Temp 99.1 F 07/29/20 15:13 Pulse 88 07/29/20 15:13 Resp 20 07/29/20 15:13 BP 126/61 07/29/20 15:13 Pulse Ox 90 L 07/29/20 15:13 Intake & Output 07/28/20 07/29/20 07/29/20 18:59 06:59 18:59 Intake Total 990 / 1160 170 / 1160 590 / 590 Output Total 1399 / 1999 600 / 2000 700 / 700 Balance -410 / -840 -430 / -840 -110 / -110 Urine Output (Aver age ml/kg/hr) 1.43 0.61 0.71 Intake: Intake, Oral [place] unt 460 / 460 340 / 340 Intake, Oral Sup plement Amount 280 / 280 Intake, Intraper itoneal Amount 120 / 120 Intake, IV Amoun t 250 / 300 50 / 300 250 / 250 Azithromycin 5 00 mg In 0.9 % 250 / 250 250 / 250 Sodium Chlorid e 250 ml @ 125 mls/hr IV Q24H [facility] Rx#: [id number] cefTRIAXone so dium 1 gm In 0.9 50 / 50 % Sodium Chlor karina 50 ml @ 100 mls/hr IV Q24H [facility] Rx#: [id number] Output: Output, Urine Am ount 1399 / 1999 600 / 2000 700 / 700 Other: Meal Refused Yes No Lunch % Eaten 50% 75% Dinner % Eaten 100% Urine Urinal Urinal Urine Color Concentrated Yellow Body Mass Index 27.4 General patient resting comfortably in no acute distress. Neck is supple no JVD. CVS regular rate rhythm, Respiratory lungs clear to auscultation, no respiratory distress, diminished breath sound, occasional wheeze, no rhonchi. Gastrointestinal abdomen soft, nontender, bowel sounds audible, no no guarding , no rigidity. Extremities no clubbing cyanosis or edema. Neuro nonfocal patient moving all 4 extremity speech clear. Skin no rash Objective Data Current Medications Generic Name Dose Route Start Last Admin Trade Name Freq PRN Reason Stop Dose Admin Acetaminophen 650 mg 07/23/20 05:30 07/29/20 15:11 Acetaminophen 325 Mg Tablet PO 650 mg Q6H PRN Administration Pain, Mild (Pain Scale 1-3) Albuterol Sulfate 2.5 mg 07/23/20 12:25 Albuterol Sulfate (0.083%) 2.5 Mg/3 Ml Vial.Neb INHALE Q3H PRN sob Albuterol Sulfate 2 puff 07/28/20 08:00 07/29/20 07:40 Albuterol Sulfate 90 Mcg 18 Gm Inhaler INHALE 2 puff RQ4H WHILE AWAKE PEPE Administration Cyanocobalamin 100 mcg 07/23/20 12:30 07/29/20 08:01 Cyanocobalamin (Vitamin B-12) 100 Mcg Tablet PO 100 mcg DAILY PEPE Administration Enoxaparin Sodium 40 mg 07/23/20 06:00 07/29/20 05:56 Enoxaparin Sodium 40 Mg/0.4 Ml Syringe SUBCUT 40 mg Q24H PEPE Administration Guaifenesin/Dextromethorphan 10 ml 07/28/20 11:15 07/29/20 12:20 Guaifenesin Dm 200/20/10 Ml 10 Ml Syrup PO 10 ml Q6H PEPE Administration Ceftriaxone Sodium 1 gm/ 50 mls @ 100 mls/hr 07/23/20 07:00 07/29/20 06:31 Sodium Chloride IV Infused Q24H [facility] Infusion Azithromycin 500 mg/ Sodium 250 mls @ 125 mls/hr 07/27/20 07:00 07/29/20 07:53 Chloride IV Infused Q24H [facility] Infusion Levothyroxine Sodium 100 mcg 07/23/20 12:30 07/29/20 08:00 Levothyroxine Sodium 100 Mcg Tablet PO 100 mcg DAILY PEPE Administration Ondansetron HCl 4 mg 07/23/20 05:32 07/23/20 07:58 Ondansetron Hcl 4 Mg/2 Ml Vial IVPUSH 4 mg Q8H PRN Administration Nausea and Vomiting Pharmacy Consult 1 each 07/23/20 07:19 Consult Rx Perform Med Rec MISCELLANE ONCE PRN Consult order Tiotropium [place] 1 puff 07/28/20 08:00 07/29/20 08:55 Tiotropium [place] 18 Mcg Cap.W.Dev INHALE 1 puff RDAILY PEPE Administration Vitamin D 25 mcg 07/23/20 12:30 07/29/20 08:01 Cholecalciferol (Vitamin D3) 25 Mcg Tablet PO 25 mcg DAILY PEPE Administration Labs CBC & Chem 7: 07/28/20 05:58 07/28/20 05:58 Labs: Laboratory Results - last 24 hr 07/28/20 05:58 C-Reactive Protein 8.70 H Assessment and Plan (1) Acute respiratory failure with hypoxia: Status: Acute (2) COVID-19 virus infection: Problem details: Status: Acute (3) Hypothyroidism: Problem details: Status: Acute (4) Multifocal pneumonia: Problem details: Status: Acute Assessment and Plan: (1) Acute hypoxic respiratory failure/ COVID-19 virus infection/ patient on admission had sepsis related to COVID-19 infection with fever and tachycardia, sepsis now resolved. patient clinical condition improving gradually, less shortness of breath , having low-grade fevers, requiring oxygen 4 L by nasal cannula, unable to wean down, no further bouts of high-grade fever CRP 29.14 on admission trended down to 8.7,CBC and electrolyte stable, continue supportive care. continue IV steroid and incentive spirometry, scheduled MDI and cough medication, encourage out of bed and ambulation patient with underlying history of asthma likely contributing to symptoms. continue Spiriva, and gradually wean oxygen. (2) Multifocal pneumonia: Likely due to COVID 19 infection ,on IV ceftriaxone and azithromycin day 6, procalcitonin, 1.14 will continue antibiotics for total 7 day Status: Acute (3) Hypothyroidism: continue Synthroid.
[2020-07-30 03:21] VITALS: BP 128/69; PULSE 73; RESP 18; TEMP 37.1; O2SAT 92
[2020-07-30] MEDS: Acetaminophen 325 MG TABLET 650 MG PO ×4 (04:50→22:56)
[2020-07-30] MEDS: guaiFENesin DM 200/20/10 ML 10 ML SYRUP PO ×4 (04:50→22:57)
[2020-07-30] MEDS: Enoxaparin Sodium 40 MG/0.4 ML SYRINGE SUBCUT (04:56)
[2020-07-30] MEDS: Azithromycin 500 MG in 0.9 % Sodium Chloride 250 ML 125 MG IV (06:05)
[2020-07-30 07:48] VITALS: BP 114/57; PULSE 76; RESP 16; TEMP 37.1; O2SAT 93
[2020-07-30] MEDS: Fluticasone Propionate Nasal 16 GM SPRAY 1 SPRAY NOSTRIL-B (07:49)
[2020-07-30] MEDS: Levothyroxine Sodium 100 MCG TABLET PO (07:49)
[2020-07-30] MEDS: Cholecalciferol (Vitamin D3) 25 MCG TABLET PO (07:49)
[2020-07-30] MEDS: Cyanocobalamin (Vitamin B-12) 100 MCG TABLET PO (07:49)
[2020-07-30 11:05] VITALS: BP 124/70; PULSE 81; RESP 18; TEMP 37.2; O2SAT 92
[2020-07-30 16:00] VITALS: BP 138/66; PULSE 72; RESP 18; TEMP 36.8; O2SAT 91
--- NOTE | 2020-07-30 17:22 | P.PNIM_ITS ---
Subjective Subjective Date of Service: 07/30/20 Interval History: shortness of breath with recently diagnosed COVID-19 infection. Review of Systems Patient says shortness of breath is slightly better, has slightly dry cough. Physical Exam Vital Signs and I&O and Narrative: Vital Signs and I&O: Vital Signs Temp 98.2 F 07/30/20 16:00 Pulse 72 07/30/20 16:00 Resp 18 07/30/20 16:00 BP 138/66 07/30/20 16:00 Pulse Ox 91 L 07/30/20 16:00 Intake & Output 07/29/20 07/30/20 07/30/20 18:59 06:59 18:59 Intake Total 590 / 950 360 / 950 250 / 250 Output Total 700 / 1675 975 / 1675 500 / 500 Balance -110 / -725 -615 / -725 -250 / -250 Urine Output (Aver age ml/kg/hr) 0.71 0.99 0.51 Intake: Intake, Oral [place] unt 340 / 700 360 / 700 Intake, IV Amoun t 250 / 250 250 / 250 Azithromycin 5 00 mg In 0.9 % 250 / 250 250 / 250 Sodium Chlorid e 250 ml @ 125 mls/hr IV Q24H [facility] Rx#: [id number] Output: Output, Urine Am ount 700 / 1675 975 / 1675 500 / 500 Other: Meal Refused No Breakfast % Eate n 100% Lunch % Eaten 75% 100% Dinner % Eaten 75% Number of Bowel Movements 1 Urine Urinal Urine Color Dilute Body Mass Index 27.4 physio: Cvs: rrr, [id number] . res: lungs fair air entry, diminished breath sound, occasional wheeze, no rhonchi. abd: no rebound or guarding ,nt, bs present. ext pulses present , no cyanosis , no edema neuro: axo3 , nonfocal. Objective Data Current Medications Generic Name Dose Route Start Last Admin Trade Name Freq PRN Reason Stop Dose Admin Acetaminophen 650 mg 07/23/20 05:30 07/30/20 16:49 Acetaminophen 325 Mg Tablet PO 650 mg Q6H PRN Administration Pain, Mild (Pain Scale 1-3) Albuterol Sulfate 2.5 mg 07/23/20 12:25 Albuterol Sulfate (0.083%) 2.5 Mg/3 Ml Vial.Neb INHALE Q3H PRN sob Albuterol Sulfate 2 puff 07/28/20 08:00 07/30/20 15:14 Albuterol Sulfate 90 Mcg 18 Gm Inhaler INHALE 2 puff RQ4H WHILE AWAKE PEPE Administration Cyanocobalamin 100 mcg 07/23/20 12:30 07/30/20 07:49 Cyanocobalamin (Vitamin B-12) 100 Mcg Tablet PO 100 mcg DAILY PEPE Administration Enoxaparin Sodium 40 mg 07/23/20 06:00 07/30/20 04:56 Enoxaparin Sodium 40 Mg/0.4 Ml Syringe SUBCUT 40 mg Q24H PEPE Administration Guaifenesin/Dextromethorphan 10 ml 07/28/20 11:15 07/30/20 16:49 Guaifenesin Dm 200/20/10 Ml 10 Ml Syrup PO 10 ml Q6H PEPE Administration Azithromycin 500 mg/ Sodium 250 mls @ 125 mls/hr 07/27/20 07:00 07/30/20 09:5 3 Chloride IV Infused Q24H [facility]PE Infusion Levothyroxine Sodium 100 mcg 07/23/20 12:30 07/30/20 07:49 Levothyroxine Sodium 100 Mcg Tablet PO 100 mcg DAILY PEPE Administration Ondansetron HCl 4 mg 07/23/20 05:32 07/23/20 07:58 Ondansetron Hcl 4 Mg/2 Ml Vial IVPUSH 4 mg Q8H PRN Administration Nausea and Vomiting Pharmacy Consult 1 each 07/23/20 07:19 Consult Rx Perform Med Rec MISCELLANE ONCE PRN Consult order Tiotropium [place] 1 puff 07/28/20 08:00 07/30/20 07:47 Tiotropium [place] 18 Mcg Cap.W.Dev INHALE 1 puff RDAILY PEPE Administration Vitamin D 25 mcg 07/23/20 12:30 07/30/20 07:49 Cholecalciferol (Vitamin D3) 25 Mcg Tablet PO 25 mcg DAILY EPPE Administration Labs CBC & Chem 7: 07/28/20 05:58 07/28/20 05:58 Progress Note: A&P (1) COVID-19 virus infection: Problem details: Status: Acute (2) Acute respiratory failure with hypoxia: Status: Acute (3) Multifocal pneumonia: Problem details: Status: Acute Assessment and Plan: 1. Acute hypoxic respiratory failure/ COVID-19 virus infection/ patient on admission had sepsis related to COVID-19 infection with fever and tachycardia, sepsis now resolved. today shortness of breath seems improving , having low-grade fevers improving , requiring oxygen 4 L by nasal cannula yesterday CRP 29.14 on admission trended down to 8.7 continue IV steroid and incentive spirometry, scheduled MDI and cough medica tion, ceftriaxone 7 days -switched to po ceftin , continue azithromycin, encourage out of bed , Spiriva, and gradually wean oxygen. 2. Multifocal pneumonia: Likely due to COVID 19 infection ,on IV ceftriaxone and azithromycin day 6, procalcitonin, 1.14 will continue antibiotics for total 7 day Status: Acute 3. Hypothyroidism: continue Synthroid. (4) Hypothyroidism: Problem details: Status: Acute
[2020-07-30 19:05] VITALS: BP 115/55; PULSE 74; RESP 18; TEMP 37.2; O2SAT 92
[2020-07-31] VITALS (7 sets, daily range): BP systolic 109–141; BP diastolic 58–76; PULSE 62–82; RESP 18–20; TEMP 36–37.4; O2SAT 90–93
[2020-07-31] MEDS: guaiFENesin DM 200/20/10 ML 10 ML SYRUP PO ×4 (05:30→23:55)
[2020-07-31] MEDS: Enoxaparin Sodium 40 MG/0.4 ML SYRINGE SUBCUT (05:30)
[2020-07-31] MEDS: Azithromycin 500 MG in 0.9 % Sodium Chloride 250 ML 125 MG IV (06:36)
[2020-07-31] MEDS: Cholecalciferol (Vitamin D3) 25 MCG TABLET PO (07:36)
[2020-07-31] MEDS: Cyanocobalamin (Vitamin B-12) 100 MCG TABLET PO (07:36)
[2020-07-31] MEDS: Levothyroxine Sodium 100 MCG TABLET PO (07:36)
--- NOTE | 2020-07-31 10:13 | PM.PNPUL ---
Subjective Subjective Principal diagnosis: COVID pneumonia Interval history: this gentleman has been admitted since 07/24 with fever and shortness of breath, chest x-ray showing infiltrate on both sides. he has been hypoxemic. tested positive for COVID-19 fraction. he has been treated with IV ease Rocephin, Zithromax, IV dexamethasone for 4 days, and oxygen supplements. clinically he is recovering but still requires oxygen. he has been a febrile denies much cough or expectoration. pulmonary evaluation requested because of his continued dependence on oxygen. Objective Data Labs CBC & Chem 7: 07/28/20 05:58 07/28/20 05:58 Physical Exam Vital Signs and I&O and Narrative: Vital Signs and I&O: Vital Signs Temp 98.7 F 07/31/20 07:58 Pulse 77 07/31/20 07:58 Resp 20 07/31/20 07:58 BP 122/76 07/31/20 07:58 Pulse Ox 91 L 07/31/20 07:58 Intake & Output 07/30/20 07/31/20 07/31/20 18:59 06:59 18:59 Intake Total 250 / 500 250 / 500 250 / 250 Output Total 500 / 1700 1200 / 1700 Balance -250 / -1200 -950 / -1200 250 / 250 Urine Output (Aver age ml/kg/hr) 0.51 1.22 1.22 Intake: Intake, Oral Elvis unt 250 / 250 Intake, IV Amoun t 250 / 250 250 / 250 Azithromycin 5 00 mg In 0.9 % 250 / 250 250 / 250 Sodium Chlorid e 250 ml @ 125 mls/hr IV Q24H [facility] Rx#: [id number] Output: Output, Urine Am ount 500 / 1700 1200 / 1700 Other: Meal Refused No NPO No Breakfast % Eate n 100% Lunch % Eaten 100% Dinner % Eaten 75% Urine Urinal Urinal Urine Color Dilute Pale Yellow Body Mass Index 27.4 Const: Other: he is alert and orientated and does not seem to be in distress at this time. HENMT: Other: nose is clear, no throat infection. noted Neck: Neck: Yes normal visual inspection, Yes no lymphadenopathy and Yes trachea midline Thyroid: Thyroid normal Chest: Chest palpation & inspection: normal inspection of the chest Resp: Other: percussion note resonant, breath sounds are equal on both sides but it is seem to be diminished. no wheezes or crepitations are heard. Cardio: Other: rhythm is regular heart sounds normal, no murmur. GI: Other: abdomen flat soft nontender no palpable mass. Psych: Appearance: grossly normal
[2020-07-31] MEDS: dexAMETHasone 6 MG TABLET PO ×2 (11:04→19:53)
[2020-07-31] MEDS: Acetaminophen 325 MG TABLET 650 MG PO ×2 (11:12→19:53)
--- NOTE | 2020-07-31 13:14 | MHC.CM.PN ---
Patient is still requiring 3 liters O2, unable to wean. Discharge plan is home no services. CM will continue to follow patient for discharge needs.
--- NOTE | 2020-07-31 16:40 | W.PM.IDCN ---
History of Present Illness Data of Consult Service Date: 07/31/20 Requesting physician: Janeen Ann Primary Care Provider: Unknown Physician HPI Reason for consult: shortness of breath He presents with shortness of breath and vomiting and diarrhea for 5 days He has positive COVID test on 07/19, now day 12 He has no fever or chills He is on 3 1/2 liter oxygen PMFSH Past Medical History Medical History Hypothyroidism Social History Social History Currently Displaying Signs/Symptoms of Drug Intoxication Withdrawal: No Advance Directives: No Advance Directives Information Provided: No Do you have thoughts of harming others: None Do you have a plan to hurt others: No Plan service: No Current occupational status: retired [employer] Allergies Allergy/AdvReac Type Severity Reaction Status Date / Time No Known Allergies Allergy Verified 07/23/20 17:58 [No Known Allergies*] Home Medications Medication Instructions Recorded Confirmed Type albuterol sulfate [ProAir HFA] 2 puff INHALATION Q4H PRN 07/23/20 07/23/20 History cholecalciferol (vitamin D3) 25 mcg PO DAILY 07/23/20 07/23/20 History [Vitamin D3] cyanocobalamin (vitamin B-12) 100 mcg PO DAILY 07/23/20 07/23/20 History fluticasone furoate [Arnuity 1 inh INHALATION DAILY 07/23/20 07/23/20 History Ellipta] fluticasone propionate [Flonase] 2 spray INTRANASAL DAILY PRN 07/23/20 07/23/20 History levothyroxine 100 mcg PO DAILY 07/23/20 07/23/20 History lisinopril 10 mg PO DAILY 07/23/20 07/23/20 History loratadine 10 mg PO DAILY 07/23/20 07/23/20 History rosuvastatin 5 mg PO DAILY 07/23/20 07/23/20 History Physical Exam Vital Signs and I&O and Narrative: Vital Signs and I&O: Vital Signs Temp 97.6 F 07/31/20 16:00 Pulse 70 07/31/20 16:00 Resp 18 07/31/20 16:00 BP 141/72 H 07/31/20 16:00 Pulse Ox 93 07/31/20 16:00 Intake & Output 07/30/20 07/31/20 07/31/20 18:59 06:59 18:59 Intake Total 250 / 500 250 / 500 610 / 610 Output Total 500 / 1700 1200 / 1700 1000 / 1000 Balance -250 / -1200 -950 / -1200 -390 / -390 Urine Output (Aver age ml/kg/hr) 0.51 1.22 1.02 Intake: Intake, Oral [place] unt 250 / 250 360 / 360 Intake, IV Amoun t 250 / 250 250 / 250 Azithromycin 5 00 mg In 0.9 % 250 / 250 250 / 250 Sodium Chlorid e 250 ml @ 125 mls/hr IV Q24H [facility] Rx#: [id number] Output: Output, Urine Am ount 500 / 1700 1200 / 1700 1000 / 1000 Other: Meal Refused No No NPO No No Breakfast % Eate n 100% 75% Lunch % Eaten 100% Dinner % Eaten 75% Urine Urinal Urinal Urinal Urine Color Dilute Pale Yellow Yellow Body Mass Index 27.4 Const: General: no acute distress HENMT: Head: Yes normal to inspection Resp: Effort & Inspection: able to speak in complete sentences Cardio: Rate: regular rate Rhythm: regular rhythm GI: Inspection: Yes normal to inspection : General: Yes no CVA tenderness Back/Spine/Pelvis: Back: no CVA tenderness Skin: General skin exam: no rashes or lesions noted Extrem: General: Yes normal to inspection Assessment and Plan (1) Acute respiratory failure with hypoxia: Status: Acute Possibly lung damage from COVID MISC-A,some postCOVID damage Now not generally contagious Check COVID antibodies Supportive care per Pulmonary Did stop ZIthromax (2) COVID-19 virus infection: Status: Acute
--- NOTE | 2020-07-31 18:41 | PM.IMPN ---
Subjective Subjective Date of Service: 07/31/20 Interval History: Pneumonia Review of Systems Shortness of breath slowly improving but still difficult to wean. Physical Exam Vital Signs and I&O and Narrative: Vital Signs and I&O: Vital Signs Temp 97.6 F 07/31/20 16:00 Pulse 70 07/31/20 16:00 Resp 18 07/31/20 16:00 BP 141/72 H 07/31/20 16:00 Pulse Ox 93 07/31/20 16:00 Intake & Output 07/30/20 07/31/20 07/31/20 18:59 06:59 18:59 Intake Total 250 / 500 250 / 500 610 / 610 Output Total 500 / 1700 1200 / 1700 1000 / 1000 Balance -250 / -1200 -950 / -1200 -390 / -390 Urine Output (Aver age ml/kg/hr) 0.51 1.22 1.02 Intake: Intake, Oral [place] unt 250 / 250 360 / 360 Intake, IV Amoun t 250 / 250 250 / 250 Azithromycin 5 00 mg In 0.9 % 250 / 250 250 / 250 Sodium Chlorid e 250 ml @ 125 mls/hr IV Q24H [facility] Rx#: [id number] Output: Output, Urine Am ount 500 / 1700 1200 / 1700 1000 / 1000 Other: Meal Refused No No NPO No No Breakfast % Eate n 100% 75% Lunch % Eaten 100% Dinner % Eaten 75% Urine Urinal Urinal Urinal Urine Color Dilute Pale Yellow Yellow Body Mass Index 27.4 physio: cvs: [id number], [id number] , no murmur res: lungs fair air entry, diminished breath sound, occasional wheeze, no rales or wheezin abd: no rebound or guarding ,nt, bs present. ext pulses present , no cyanosis neuro: axo3 , nonfocal. Objective Data Current Medications Generic Name Dose Route Start Last Admin Trade Name Freq PRN Reason Stop Dose Admin Acetaminophen 650 mg 07/23/20 05:30 07/31/20 11:12 Acetaminophen 325 Mg Tablet PO 650 mg Q6H PRN Administration Pain, Mild (Pain Scale 1-3) Albuterol Sulfate 2.5 mg 07/23/20 12:25 Albuterol Sulfate (0.083%) 2.5 Mg/3 Ml Vial.Neb INHALE Q3H PRN sob Albuterol Sulfate 2 puff 07/28/20 08:00 07/31/20 15:34 Albuterol Sulfate 90 Mcg 18 Gm Inhaler INHALE Not Given RQ4H WHILE AWAKE [facility] Cefuroxime Axetil 500 mg 07/30/20 18:00 07/31/20 17:27 Cefuroxime Axetil 500 Mg Tablet PO 500 mg Q12H [facility] Administration Cyanocobalamin 100 mcg 07/23/20 12:30 07/31/20 07:36 Cyanocobalamin (Vitamin B-12) 100 Mcg Tablet PO 100 mcg DAILY [facility] Administration Dexamethasone 6 mg 07/31/20 10:30 07/31/20 11:04 Dexamethasone 6 Mg Tablet PO 6 mg BID [facility]PE Administration Enoxaparin Sodium 40 mg 07/23/20 06:00 07/31/20 05:30 Enoxaparin Sodium 40 Mg/0.4 Ml Syringe SUBCUT 40 mg Q24H [facility]PE Administration Guaifenesin/Dextromethorphan 10 ml 07/28/20 11:15 07/31/20 17:27 Guaifenesin Dm 200/20/10 Ml 10 Ml Syrup PO 10 ml Q6H [facility]PE Administration Levothyroxine Sodium 100 mcg 07/23/20 12:30 07/31/20 07:36 Levothyroxine Sodium 100 Mcg Tablet PO 100 mcg DAILY [facility] Administration Ondansetron HCl 4 mg 07/23/20 05:32 07/23/20 07:58 Ondansetron Hcl 4 Mg/2 Ml Vial IVPUSH 4 mg Q8H PRN Administration Nausea and Vomiting Pharmacy Consult 1 each 07/23/20 07:19 Consult Rx Perform Med Rec MISCELLANE ONCE PRN Consult order Tiotropium [place] 1 puff 07/28/20 08:00 07/31/20 08:44 Tiotropium [place] 18 Mcg Cap.W.Dev INHALE 1 puff RDAILY [facility] Administration Vitamin D 25 mcg 07/23/20 12:30 07/31/20 07:36 Cholecalciferol (Vitamin D3) 25 Mcg Tablet PO 25 mcg DAILY [facility] Administration Labs CBC & Chem 7: 07/28/20 05:58 07/28/20 05:58 Progress Note: A&P (1) Acute respiratory failure with hypoxia: Status: Acute (2) COVID-19 virus infection: Status: Acute (3) Multifocal pneumonia: Status: Acute (4) Hypothyroidism: Problem details: Status: Acute Assessment and Plan: 1. Acute hypoxic respiratory failure/ COVID-19 virus infection/ patient on admission had sepsis related to COVID-19 infection with fever and tachycardia, sepsis now resolved. today shortness of breath seems improving , having low-grade fevers improving , requiring oxygen 4 L by nasal cannula yesterday CRP 29.14 on admission trended down to 8.7 continue IV steroid and incentive spirometry, scheduled MDI and cough medication, ceftriaxone 7 days -switched to po ceftin , continue azithromycin, encourage out of bed , Spiriva, and gradually wean oxygen. 2. Multifocal pneumonia: Thought to be likely due to COVID 19 infection ,on IV ceftriaxone and azithromycin day 6, procalcitonin, 1.14 will continue antibiotics for total 7 day pulmonary evaluation added- recommended to continue above management in addition add dexamethasone 6 mg bid . Id evaluation added. 3. Hypothyroidism: continue Synthroid.
[2020-08-01] VITALS (7 sets, daily range): BP systolic 120–140; BP diastolic 64–75; PULSE 60–81; RESP 16–18; TEMP 36.1–36.6; O2SAT 89–98
--- NOTE | 2020-08-01 | XR_ITS ---
EXAMINATION: XR CHEST CLINICAL INFORMATION: Pneumonia. COMPARISON: CXR from 07/19/2020. Chest CT from 07/22/2020. TECHNIQUE: Frontal view of the chest was obtained. FINDINGS: Lungs are well expanded. Interval worsening of interstitial and airspace opacities of both lungs. These findings are nonspecific and could be caused by viral or bacterial pneumonia. Differential diagnosis includes COVID-19 pneumonitis. Cardiac silhouette has normal size and contour. No pleural effusion or pneumothorax. The visualized bones are intact. Degenerative arthropathy of the shoulders. IMPRESSION: Interval worsening of multilobar pneumonia compared to 07/19/2020 and 07/22/2020.
[2020-08-01] MEDS: guaiFENesin DM 200/20/10 ML 10 ML SYRUP PO ×4 (05:59→22:56)
[2020-08-01] MEDS: Enoxaparin Sodium 40 MG/0.4 ML SYRINGE SUBCUT (05:59)
[2020-08-01] MEDS: Cyanocobalamin (Vitamin B-12) 100 MCG TABLET PO (08:23)
[2020-08-01] MEDS: dexAMETHasone 6 MG TABLET PO (08:23)
[2020-08-01] MEDS: Cholecalciferol (Vitamin D3) 25 MCG TABLET PO (08:23)
[2020-08-01] MEDS: Levothyroxine Sodium 100 MCG TABLET PO (08:23)
--- NOTE | 2020-08-01 09:56 | PM.PNPUL ---
Subjective Subjective Principal diagnosis: COVID pneumonia Interval history: Pneumonia this gentleman has recovered from active COVID-19 infection. subjectively he feels well and has no distress. he is also remaining afebrile. he does not have much cough or expectoration. the main issue at this time is that he still remains hypoxic and requires oxygen 3.5 L/minute. since yesterday started on dexamethasone 6 mg b.i.d. for possibility of post COVID-19 fraction pneumonitis and VQ abnormalities. today he feels little bit better but still needs oxygen Objective Data Labs CBC & Chem 7: 07/28/20 05:58 07/28/20 05:58 Physical Exam Vital Signs: Vital Signs: Vital Signs Temp Pulse Resp BP Pulse Ox 08/01/20 08:00 98 F 67 16 120/71 90 L 08/01/20 03:18 96.9 F 60 18 129/70 98 07/31/20 23:28 97.8 F 62 18 141/75 H 90 L 07/31/20 19:13 96.8 F 82 18 137/72 90 L 07/31/20 16:00 97.6 F 70 18 141/72 H 93 07/31/20 10:49 98.5 F 78 18 122/58 L 91 L Body Mass Index 27.4 Const: Other: appears well, in no acute distress, on oxygen 3.5 L/minute HENMT: Other: normal Eyes: General: appearance normal, both eyes and all related structures Neck: Other: normal Chest: Other: no chest wall deformity or tenderness noted Resp: Other: percussion note is resonant breath sounds equal on both sides I did not hear any wheezes or crepitations. Cardio: Other: rhythm regular, heart sounds are normal, no murmur or gallop GI: Other: flat soft nontender no palpable mass Skin: General skin exam: no rashes or lesions noted Neuro: Other: no focal motor or sensory deficit except for general muscular weakness Psych: Appearance: grossly normal
--- NOTE | 2020-08-01 10:01 | PM.PNPUL ---
Subjective Subjective Principal diagnosis: COVID pneumonia Interval history: Pneumonia this gentleman has recovered from active COVID-19 infection. subjectively he feels well and has no distress. he is also remaining afebrile. he does not have much cough or expectoration. the main issue at this time is that he still remains hypoxic and requires oxygen 3.5 L/minute. since yesterday started on dexamethasone 6 mg b.i.d. for possibility of post COVID-19 fraction pneumonitis and VQ abnormalities. today he feels little bit better but still needs oxygen Objective Data Labs CBC & Chem 7: 07/28/20 05:58 07/28/20 05:58 Physical Exam Vital Signs: Vital Signs: Vital Signs Temp Pulse Resp BP Pulse Ox 08/01/20 08:00 98 F 67 16 120/71 90 L 08/01/20 03:18 96.9 F 60 18 129/70 98 07/31/20 23:28 97.8 F 62 18 141/75 H 90 L 07/31/20 19:13 96.8 F 82 18 137/72 90 L 07/31/20 16:00 97.6 F 70 18 141/72 H 93 07/31/20 10:49 98.5 F 78 18 122/58 L 91 L Body Mass Index 27.4
--- NOTE | 2020-08-01 12:51 | PC.NURSE ---
respirstory therapy in room, pt having low sats 87% on 4 liters. HE has been placed on 5L humidified oxygen by respiratory. MD aware, will monitor oxygen saturation hourly. Pt reports his nose was dry and congested but denies pain.
--- NOTE | 2020-08-01 13:59 | P.PNIM_ITS ---
Subjective Subjective Date of Service: 08/01/20 Interval History: acute respiratory failure. Review of Systems has shortness of breath with walking and desats intermittently, increased oxygen joel on 5 L now. Physical Exam Vital Signs: Vital Signs: Vital Signs Temp Pulse Resp BP Pulse Ox 08/01/20 13:28 16 92 08/01/20 12:00 97.4 F 81 18 140/75 H 89 L 08/01/20 08:00 98 F 67 16 120/71 90 L 08/01/20 03:18 96.9 F 60 18 129/70 98 07/31/20 23:28 97.8 F 62 18 141/75 H 90 L 07/31/20 19:13 96.8 F 82 18 137/72 90 L 07/31/20 16:00 97.6 F 70 18 141/72 H 93 Body Mass Index 27.4 Physical exam: Cvs: [id number], [id number] , no murmur res: seems slighty diminshed at bases , no rales or wheezin abd: no rebound or guarding ,nt, bs present. ext pulses present , no cyanosis neuro: axo3 , nonfocal. Objective Data Current Medications Generic Name Dose Route Start Last Admin Trade Name Freq PRN Reason Stop Dose Admin Acetaminophen 650 mg 07/23/20 05:30 07/31/20 19:53 Acetaminophen 325 Mg Tablet PO 650 mg Q6H PRN Administration Pain, Mild (Pain Scale 1-3) Albuterol Sulfate 2.5 mg 07/23/20 12:25 Albuterol Sulfate (0.083%) 2.5 Mg/3 Ml Vial.Neb INHALE Q3H PRN sob Albuterol Sulfate 2 puff 07/28/20 08:00 08/01/20 11:40 Albuterol Sulfate 90 Mcg 18 Gm Inhaler INHALE 2 puff RQ4H WHILE AWAKE [facility] Administration Cefuroxime Axetil 500 mg 07/30/20 18:00 08/01/20 05:59 Cefuroxime Axetil 500 Mg Tablet PO 500 mg Q12H [facility] Administration Cyanocobalamin 100 mcg 07/23/20 12:30 08/01/20 08:23 Cyanocobalamin (Vitamin B-12) 100 Mcg Tablet PO 100 mcg DAILY [facility] Administration Dexamethasone Sodium Phosphate 6 mg 08/01/20 21:00 Dexamethasone Sod Phosphate 4 Mg/Ml Vial IVPUSH BID [facility] Enoxaparin Sodium 40 mg 07/23/20 06:00 08/01/20 05:59 Enoxaparin Sodium 40 Mg/0.4 Ml Syringe SUBCUT 40 mg Q24H [facility] Administration Guaifenesin/Dextromethorphan 10 ml 07/28/20 11:15 08/01/20 12:06 Guaifenesin Dm 200/20/10 Ml 10 Ml Syrup PO 10 ml Q6H [facility] Administration Levothyroxine Sodium 100 mcg 07/23/20 12:30 08/01/20 08:23 Levothyroxine Sodium 100 Mcg Tablet PO 100 mcg DAILY [facility] Administration Ondansetron HCl 4 mg 07/23/20 05:32 07/23/20 07:58 Ondansetron Hcl 4 Mg/2 Ml Vial IVPUSH 4 mg Q8H PRN Administration Nausea and Vomiting Pharmacy Consult 1 each 07/23/20 07:19 Consult Rx Perform Med Rec MISCELLANE ONCE PRN Consult order Tiotropium [place] 1 puff 07/28/20 08:00 08/01/20 08:02 Tiotropium [place] 18 Mcg Cap.W.Dev INHALE 1 puff RDAILY [facility] Administration Vitamin D 25 mcg 07/23/20 12:30 08/01/20 08:23 Cholecalciferol (Vitamin D3) 25 Mcg Tablet PO 25 mcg DAILY [facility] Administration Labs CBC & Chem 7: 07/28/20 05:58 07/28/20 05:58 Progress Note: A&P (1) Acute respiratory failure with hypoxia: Status: Acute (2) COVID-19 virus infection: Status: Acute (3) Multifocal pneumonia: Problem details: Status: Acute (4) Hypothyroidism: Problem details: Status: Acute Assessment and Plan: 1. Acute hypoxic respiratory failure/ COVID-19 virus infection/ patient on admission had sepsis related to COVID-19 infection with fever and tachycardia, sepsis now resolved. today shortness of breath seems improving , having low-grade fevers improving , requiring oxygen 5L by nasal cannula yesterday CRP 29.14 on admission trended down to 8.7 Added procalcitonin level, chest x-ray, Legionella antigen, HIV continue monitor oxygen switched to IV dexamethasone and incentive spirometry, scheduled MDI and cough medication, may need to start on broad-spectrum antibiotics depending on chest x-ray and above labs results. encourage out of bed , Spiriva, and gradually wean oxygen. 2. Multifocal pneumonia: Thought to be likely due to COVID 19 infection , Received ceftriaxone and azithromycin for 8 Days. discussed with Pulmonary recommended to discuss further with id : recommended to continue above management and evaluation with above labs and chest x-ray and further management accordingly afterwards. 3. Hypothyroidism: continue Synthroid.
[2020-08-01 15:37] LABS: Anion Gap 15 (12-20); Blood Urea Nitrogen 27 mg/dL (9-16); Calcium 9.2 mg/dL (8.4-10.2); Carbon Dioxide 26 mmol/L (22-29); Chloride 102 mmol/L (96-108); Creatinine Clr Calc Pharmacy 57.3; Estimated Glomerular Filt Rate > 60; Glucose Random 155 mg/dL (60-115); Potassium 4.9 mmol/l (3.3-5.1); Sodium 138 mmol/L (135-145)
[2020-08-01] MEDS: dexAMETHasone sod phosphate 4 MG/ML VIAL 6 MG IVPUSH (21:38)
[2020-08-02 03:21] VITALS: BP 108/58; PULSE 60; RESP 19; TEMP 36; O2SAT 96
[2020-08-02] MEDS: Enoxaparin Sodium 40 MG/0.4 ML SYRINGE SUBCUT (06:11)
[2020-08-02] MEDS: guaiFENesin DM 200/20/10 ML 10 ML SYRUP PO ×4 (06:12→21:36)
[2020-08-02 06:13] LABS: Hematocrit 30.3 % (42-52); Hemoglobin 9.7 g/dl (14.0-18.0); Mean Corpuscular Hemoglobin 31.8 pg (27.0-33.0); Mean Corpuscular Volume 99.3 fL (80-98); Mean Platelet Volume 9.5 fL (9.4-12.4); Platelet Count 474 X10*3/uL (160-400); Red Blood Count 3.05 X10*6/uL (4.60-5.80); Red Cell Distribution Width 11.9 % (11.0-16.0); White Blood Count 15.5 X10*3/uL (4.8-10.8)
[2020-08-02 06:45] LABS: Anion Gap 13 (12-20); Blood Urea Nitrogen 27 mg/dL (9-16); Calcium 8.4 mg/dL (8.4-10.2); Carbon Dioxide 25 mmol/L (22-29); Chloride 103 mmol/L (96-108); Creatinine Clr Calc Pharmacy 62.7; Estimated Glomerular Filt Rate > 60; Glucose Random 166 mg/dL (60-115); Sodium 136 mmol/L (135-145)
[2020-08-02 07:45] VITALS: BP 126/73; PULSE 69; RESP 16; TEMP 36.2; O2SAT 92
[2020-08-02] MEDS: dexAMETHasone sod phosphate 4 MG/ML VIAL 6 MG IVPUSH ×2 (07:58→21:35)
[2020-08-02] MEDS: Levothyroxine Sodium 100 MCG TABLET PO (07:58)
[2020-08-02] MEDS: Cyanocobalamin (Vitamin B-12) 100 MCG TABLET PO (07:59)
[2020-08-02] MEDS: Cholecalciferol (Vitamin D3) 25 MCG TABLET PO (07:59)
[2020-08-02 10:52] LABS: MRSA Nasal PCR NEGATIVE (Negative); SA Nasal PCR NEGATIVE (Negative)
[2020-08-02 11:16] VITALS: BP 109/64; PULSE 72; RESP 16; TEMP 36.7; O2SAT 94
[2020-08-02] MEDS: Piperacillin Sodium/Tazobactam 3.375 GM in 0.9 % Sodium Chloride 50 ML IV ×3 (11:17→21:36)
[2020-08-02 13:40] LABS: Procalcitonin 0.16 ng/mL
[2020-08-02] MEDS: 0.9 % Sodium Chloride Flush 3 ML SYRINGE IVFLUSH ×2 (15:29→21:36)
--- NOTE | 2020-08-02 15:30 | HO.PM.IMPN ---
Subjective Subjective Date of Service: 08/02/20 Interval History: acute respiratory failure secondary to pneumonia. Review of Systems shortness of breath seems slightly better but still has difficulty, denies any chest pain or abdominal pain or fever or chills. Physical Exam Vital Signs: Vital Signs: Vital Signs Temp Pulse Resp BP Pulse Ox 08/02/20 11:16 98.1 F 72 16 109/64 94 08/02/20 07:45 97.1 F 69 16 126/73 92 08/02/20 03:21 96.8 F 60 19 108/58 L 96 08/01/20 23:26 97.4 F 60 18 124/74 96 08/01/20 20:00 97.7 F 66 18 123/71 95 08/01/20 16:00 98 F 80 18 120/64 93 Body Mass Index 27.4 Physical exam: Cvs: [id number], [id number] , no murmur res: Diminished at bases, otherwise air entry seems slightly better than yesterday. abd: no rebound or guarding ,nt, bs present. ext pulses present , no cyanosis neuro: axo3 , nonfocal. Objective Data Current Medications Generic Name Dose Route Start Last Admin Trade Name Freq PRN Reason Stop Dose Admin Acetaminophen 650 mg 07/23/20 05:30 07/31/20 19:53 Acetaminophen 325 Mg Tablet PO 650 mg Q6H PRN Administration Pain, Mild (Pain Scale 1-3) Albuterol Sulfate 2.5 mg 07/23/20 12:25 Albuterol Sulfate (0.083%) 2.5 Mg/3 Ml Vial.Neb INHALE Q3H PRN sob Albuterol Sulfate 2 puff 07/28/20 08:00 08/02/20 15:04 Albuterol Sulfate 90 Mcg 18 Gm Inhaler INHALE 2 puff RQ4H WHILE AWAKE [facility] Administration Cyanocobalamin 100 mcg 07/23/20 12:30 08/02/20 07:59 Cyanocobalamin (Vitamin B-12) 100 Mcg Tablet PO 100 mcg DAILY [facility] Administration Dexamethasone Sodium Phosphate 6 mg 08/01/20 21:00 08/02/20 07:58 Dexamethasone Sod Phosphate 4 Mg/Ml Vial IVPUSH 6 mg BID [facility] Administration Enoxaparin Sodium 40 mg 07/23/20 06:00 08/02/20 06:11 Enoxaparin Sodium 40 Mg/0.4 Ml Syringe SUBCUT 40 mg Q24H [facility] Administration Guaifenesin/Dextromethorphan 10 ml 07/28/20 11:15 08/02/20 11:18 Guaifenesin Dm 200/20/10 Ml 10 Ml Syrup PO 10 ml Q6H [facility] Administration Piperacillin Sod/Tazobactam 50 mls @ 100 mls/hr 08/02/20 10:00 08/02/20 15:28 Sod 3.375 gm/ Sodium Chloride IV 100 mls/hr Q6H [facility] Administration Vancomycin HCl 750 mg/ Sodium 265 mls @ 265 mls/hr 08/02/20 21:00 Chloride IV Q12H [facility] Levothyroxine Sodium 100 mcg 07/23/20 12:30 08/02/20 07:58 Levothyroxine Sodium 100 Mcg Tablet PO 100 mcg DAILY [facility] Administration Ondansetron HCl 4 mg 07/23/20 05:32 07/23/20 07:58 Ondansetron Hcl 4 Mg/2 Ml Vial IVPUSH 4 mg Q8H PRN Administration Nausea and Vomiting Pharmacy Consult 1 each 07/23/20 07:19 Consult Rx Perform Med Rec MISCELLANE ONCE PRN Consult order Sodium Chloride 3 ml 08/02/20 16:00 08/02/20 15:29 0.9 % Sodium Chloride Flush 3 Ml Syringe IVFLUSH 3 ml QSHIFT [facility] Administration Tiotropium [place] 1 puff 07/28/20 08:00 08/02/20 07:40 Tiotropium [place] 18 Mcg Cap.W.Dev INHALE 1 puff RDAILY [facility] Administration Vitamin D 25 mcg 07/23/20 12:30 08/02/20 07:59 Cholecalciferol (Vitamin D3) 25 Mcg Tablet PO 25 mcg DAILY [facility] Administration Labs CBC & Chem 7: 08/02/20 05:31 08/02/20 05:31 Assessment and Plan (1) Acute respiratory failure with hypoxia: Status: Acute (2) COVID-19 virus infection: Status: Acute (3) Hypothyroidism: Problem details: Status: Acute (4) Multifocal pneumonia: Problem details: Status: Acute Assessment and Plan: (1) Acute hypoxic respiratory failure/ COVID-19 virus infection/ patient on admission had sepsis related to COVID-19 infection with fever and tachycardia, sepsis now resolved. patient clinical condition improving gradually, Still shortness of breath shortness of breath requiring oxygen 5 L by nasal cannula, unable to wean down, no further bouts of high-grade fever CRP 29.14 on admission trended down to 8.7,CBC and electrolyte stable, continue supportive care. yesterday discussed with ID: Added procalcitonin, chest x-ray shows slightly worsening of infiltrates, HIV pending continue IV steroid and incentive spirometry, scheduled MDI , id recommended to add Vanco and Zosyn- his MRSA nares is negative so will switch to IV doxycycline instead Vanco. patient with underlying history of asthma likely contributing to symptoms. continue Spiriva, and gradually wean oxygen. (2) Multifocal pneumonia: Likely due to COVID 19 infection ,on IV ceftriaxone and azithromycin day 6, procalcitonin, 1.14 will continue antibiotics for total 7 day Status: Acute (3) Hypothyroidism: continue Synthroid.
[2020-08-02 16:15] VITALS: BP 124/66; PULSE 66; RESP 18; TEMP 36.6; O2SAT 94
[2020-08-02] MEDS: Doxycycline Hyclate 100 MG in 0.9 % Sodium Chloride 250 ML 250 MG IV (17:05)
[2020-08-02 20:00] VITALS: BP 116/58; PULSE 69; RESP 18; TEMP 36.6; O2SAT 97
[2020-08-03] VITALS (7 sets, daily range): BP systolic 112–129; BP diastolic 60–76; PULSE 55–75; RESP 16–20; TEMP 36.7–36.8; O2SAT 93–96
[2020-08-03] MEDS: Enoxaparin Sodium 40 MG/0.4 ML SYRINGE SUBCUT (05:00)
[2020-08-03] MEDS: guaiFENesin DM 200/20/10 ML 10 ML SYRUP PO ×3 (05:00→22:01)
[2020-08-03] MEDS: Piperacillin Sodium/Tazobactam 3.375 GM in 0.9 % Sodium Chloride 50 ML IV ×4 (05:01→22:01)
[2020-08-03] MEDS: Doxycycline Hyclate 100 MG in 0.9 % Sodium Chloride 250 ML 250 MG IV ×2 (05:01→18:20)
[2020-08-03 08:53] LABS: HIV AB/AG Nonreactive (Nonreactive); HIV Num 1 0.12 S/CO (0.00-0.99)
[2020-08-03] MEDS: Cyanocobalamin (Vitamin B-12) 100 MCG TABLET PO (09:37)
[2020-08-03] MEDS: 0.9 % Sodium Chloride Flush 3 ML SYRINGE IVFLUSH ×3 (09:37→22:01)
[2020-08-03] MEDS: dexAMETHasone sod phosphate 4 MG/ML VIAL 6 MG IVPUSH ×2 (09:37→22:01)
[2020-08-03] MEDS: Levothyroxine Sodium 100 MCG TABLET PO (09:38)
[2020-08-03] MEDS: Cholecalciferol (Vitamin D3) 25 MCG TABLET PO (09:38)
[2020-08-03 13:15] LABS: Vancomycin Trough 4.8 mcg/mL (10.0-20.0)
--- NOTE | 2020-08-03 16:32 | HO.PM.IMPN ---
Subjective Subjective Date of Service: 08/03/20 Interval History: acute respiratory failure secondary to pneumonia. Review of Systems Patient still short of breath, but slightly seems better than yesterday. Denies any chest pain or abdominal pain or fever or chills. Physical Exam Vital Signs: Vital Signs: Vital Signs Temp Pulse Resp BP Pulse Ox 08/03/20 15:55 98.2 F 66 18 116/68 95 08/03/20 12:00 98.2 F 75 20 121/71 93 08/03/20 08:00 98.2 F 65 20 112/71 93 08/03/20 06:45 94 08/03/20 03:55 98.0 F 58 16 129/76 96 08/03/20 00:00 98.0 F 55 16 122/60 96 08/02/20 20:00 98 F 69 18 116/58 L 97 Body Mass Index 27.4 Physical exam: cvs: [id number], [id number] , no murmur res: grossly fair air entry slightly diminished at bases, has few scattered rhonchi. abd: no rebound or guarding ,nt, bs present. ext pulses present , no cyanosis neuro: axo3 , nonfocal. Objective Data Current Medications Generic Name Dose Route Start Last Admin Trade Name Freq PRN Reason Stop Dose Admin Acetaminophen 650 mg 07/23/20 05:30 07/31/20 19:53 Acetaminophen 325 Mg Tablet PO 650 mg Q6H PRN Administration Pain, Mild (Pain Scale 1-3) Albuterol Sulfate 2.5 mg 07/23/20 12:25 Albuterol Sulfate (0.083%) 2.5 Mg/3 Ml Vial.Neb INHALE Q3H PRN sob Albuterol Sulfate 2 puff 07/28/20 08:00 08/03/20 12:03 Albuterol Sulfate 90 Mcg 18 Gm Inhaler INHALE 2 puff RQ4H WHILE AWAKE [facility] Administration Cyanocobalamin 100 mcg 07/23/20 12:30 08/03/20 09:37 Cyanocobalamin (Vitamin B-12) 100 Mcg Tablet PO 100 mcg DAILY [facility] Administration Dexamethasone Sodium Phosphate 6 mg 08/01/20 21:00 08/03/20 09:37 Dexamethasone Sod Phosphate 4 Mg/Ml Vial IVPUSH 6 mg BID [facility] Administration Enoxaparin Sodium 40 mg 07/23/20 06:00 08/03/20 05:00 Enoxaparin Sodium 40 Mg/0.4 Ml Syringe SUBCUT 40 mg Q24H [facility] Administration Guaifenesin/Dextromethorphan 10 ml 07/28/20 11:15 08/03/20 14:26 Guaifenesin Dm 200/20/10 Ml 10 Ml Syrup PO 10 ml Q6H [facility] Administration Piperacillin Sod/Tazobactam 50 mls @ 100 mls/hr 08/02/20 10:00 08/03/20 10:05 Sod 3.375 gm/ Sodium Chloride IV 0 mls/hr Q6H [facility] Infusion Doxycycline Hyclate 100 mg/ 250 mls @ 250 mls/hr 08/02/20 18:00 08/03/20 06:05 Sodium Chloride IV Infused Q12H [facility] Infusion Levothyroxine Sodium 100 mcg 07/23/20 12:30 08/03/20 09:38 Levothyroxine Sodium 100 Mcg Tablet PO 100 mcg DAILY [facility] Administration Ondansetron HCl 4 mg 07/23/20 05:32 07/23/20 07:58 Ondansetron Hcl 4 Mg/2 Ml Vial IVPUSH 4 mg Q8H PRN Administration Nausea and Vomiting Pharmacy Consult 1 each 07/23/20 07:19 Consult Rx Perform Med Rec MISCELLANE ONCE PRN Consult order Sodium Chloride 3 ml 08/02/20 16:00 08/03/20 09:37 0.9 % Sodium Chloride Flush 3 Ml Syringe IVFLUSH 3 ml QSHIFT [facility] Administration Tiotropium [place] 1 puff 07/28/20 08:00 08/03/20 07:50 Tiotropium [place] 18 Mcg Cap.W.Dev INHALE Not Given RDAILY [facility] Vitamin D 25 mcg 07/23/20 12:30 08/03/20 09:38 Cholecalciferol (Vitamin D3) 25 Mcg Tablet PO 25 mcg DAILY [facility] Administration Labs CBC & Chem 7: 08/02/20 05:31 08/02/20 05:31 Assessment and Plan (1) Acute respiratory failure with hypoxia: Status: Acute (2) Multifocal pneumonia: Problem details: Status: Acute Assessment and Plan: (1) Acute hypoxic respiratory failure/ COVID-19 virus infection/ patient on admission had sepsis related to COVID-19 infection with fever and tachycardia, sepsis now resolved. patient clinical condition improving gradually, Still shortness of breath shortness of breath taper oxygen 3L by nasal cannula, unable to wean down, no further bouts of high-grade fever CRP 29.14 on admission trended down to 8.7,CBC and electrolyte stable, continue supportive care. procalcitonin level seems improving, chest x-ray shows slightly worsening of infiltrates, HIV pending, sars I gG pending. continue IV steroid and incentive spirometry, scheduled MDI , id recommended to add Vanco and Zosyn MRSA nares is negative switch to IV doxycycline instead Vanco/ continue zosyn. patient with underlying history of asthma likely contributing to symptoms. continue Spiriva, and gradually wean oxygen. (2) Multifocal pneumonia: Likely due to COVID 19 infection , initially received azithromycin and ceftriaxone, subsequently you to question of worsening pneumonia on chest x-ray started on above antibiotics IV doxy /Zosyn. (3) Hypothyroidism: continue Synthroid. (3) COVID-19 virus infection: Status: Acute (4) Hypothyroidism: Problem details: Status: Acute
[2020-08-04] VITALS (7 sets, daily range): BP systolic 107–136; BP diastolic 59–72; PULSE 52–68; RESP 16–19; TEMP 35.7–36.9; O2SAT 90–96
--- NOTE | 2020-08-04 04:10 | PC.NURSE ---
PT TITRATED TO ROOM AIR WITH O2 SATS 92-94%. PT DENIES SOB/COUGH. CALL [facility]A IN REACH. WILL CONTINUE TO MONITOR
[2020-08-04] MEDS: guaiFENesin DM 200/20/10 ML 10 ML SYRUP PO ×4 (04:51→22:21)
[2020-08-04] MEDS: Piperacillin Sodium/Tazobactam 3.375 GM in 0.9 % Sodium Chloride 50 ML IV ×4 (04:51→20:46)
[2020-08-04] MEDS: Doxycycline Hyclate 100 MG in 0.9 % Sodium Chloride 250 ML 250 MG IV ×2 (04:52→18:26)
[2020-08-04] MEDS: Enoxaparin Sodium 40 MG/0.4 ML SYRINGE SUBCUT (04:52)
[2020-08-04] MEDS: dexAMETHasone sod phosphate 4 MG/ML VIAL 6 MG IVPUSH ×2 (08:24→20:46)
[2020-08-04] MEDS: Cyanocobalamin (Vitamin B-12) 100 MCG TABLET PO (08:24)
[2020-08-04] MEDS: 0.9 % Sodium Chloride Flush 3 ML SYRINGE IVFLUSH ×3 (08:25→17:39)
[2020-08-04] MEDS: Levothyroxine Sodium 100 MCG TABLET PO (08:25)
[2020-08-04] MEDS: Cholecalciferol (Vitamin D3) 25 MCG TABLET PO (08:25)
[2020-08-04 11:30] LABS: SARS COV2 IgG Positive (Negative)
--- NOTE | 2020-08-04 16:38 | PM.PNPUL ---
Subjective Subjective Principal diagnosis: COVID pneumonia Interval history: improving slowly, oxygen requirements decreasing, exercise tolerance improving. Objective Data Labs CBC & Chem 7: 08/02/20 05:31 08/02/20 05:31 Labs: Laboratory Results - last 24 hr 08/01/20 08/01/20 14:17 14:17 HIV 1&2 Ab/P24 Ag 4thGn Nonreactive SARS-CoV-2 IgG Ab Positive Review of Systems Constitutional: Denies fever(s) and Denies malaise Cardiovascular: Denies chest pain Respiratory: Reports dyspnea ( mild shortness of breath with activity) and Denies wheezing Allergic/Immunologic: Denies wheezing Physical Exam Vital Signs: Vital Signs: Vital Signs Temp Pulse Resp BP Pulse Ox 08/04/20 16:00 97.5 F 66 16 128/69 96 08/04/20 11:12 97.8 F 65 18 122/72 91 L 08/04/20 08:00 97.9 F 68 16 124/66 90 L 08/04/20 03:35 98.3 F 61 18 115/68 93 08/04/20 00:00 98.4 F 52 18 107/59 L 91 L 08/03/20 19:22 98.1 F 63 18 119/66 96 Body Mass Index 27.4 Const: General: no acute distress, alert and awake Eyes: Sclerae: sclerae normal EOM: EOMs intact bilaterally Neck: Neck: Yes no lymphadenopathy, Yes trachea midline and Yes supple Resp: Effort & Inspection: normal respiratory effort and no respiratory distress Auscultation: clear to auscultation bilaterally Cardio: Rate: regular rate Rhythm: regular rhythm Heart sounds: no gallops, no murmurs and no rubs GI: Palpation (GI): Soft to palpation and Other GI palpation findings present ( Nontender) Auscultation: normal bowel sounds Extrem: General: Yes no pedal edema, No clubbing and No cyanosis Assessment and Plan Assessment and plan (1) Acute respiratory failure with hypoxia: Status: Acute (2) COVID-19 virus infection: Status: Acute Assessment and Plan: Impression: 69-year-old gentleman with acute hypoxic respiratory failure secondary to COVID-19 pneumonia with residual pneumonitis improving slowly on systemic glucocorticoids. No evidence of bacterial pneumonia at this time. Recommendations: Consider discontinuation of broad-spectrum antibiotic. Consider slow taper of systemic glucocorticoids over next 2 weeks. Time Spent With Patient Time: Total time spent is greater than 50% in coordination of care (as documented) at patient's floor/unit and/or counseling patient: Time with patient: 15 - 24 minutes
--- NOTE | 2020-08-04 18:51 | P.PNIM_ITS ---
Subjective Subjective Date of Service: 08/03/20 Interval History: acute respiratory failure secondary to pneumonia. Review of Systems Patient still short of breath, but seems slowly improving Physical Exam Vital Signs: Vital Signs: Vital Signs Temp Pulse Resp BP Pulse Ox 08/04/20 16:00 97.5 F 66 16 128/69 96 08/04/20 11:12 97.8 F 65 18 122/72 91 L 08/04/20 08:00 97.9 F 68 16 124/66 90 L 08/04/20 03:35 98.3 F 61 18 115/68 93 08/04/20 00:00 98.4 F 52 18 107/59 L 91 L 08/03/20 19:22 98.1 F 63 18 119/66 96 Body Mass Index 27.4 physical exam: Cvs: [id number], [id number] , no murmur res: Grossly fair entry slightly better than yesterday, no wheezing or rales abd: no rebound or guarding ,nt, bs present. ext pulses present , no cyanosis neuro: axo3 , nonfocal. Objective Data Current Medications Generic Name Dose Route Start Last Admin Trade Name Freq PRN Reason Stop Dose Admin Acetaminophen 650 mg 07/23/20 05:30 07/31/20 19:53 Acetaminophen 325 Mg Tablet PO 650 mg Q6H PRN Administration Pain, Mild (Pain Scale 1-3) Albuterol Sulfate 2.5 mg 07/23/20 12:25 Albuterol Sulfate (0.083%) 2.5 Mg/3 Ml Vial.Neb INHALE Q3H PRN sob Albuterol Sulfate 2 puff 07/28/20 08:00 08/04/20 16:20 Albuterol Sulfate 90 Mcg 18 Gm Inhaler INHALE 2 puff RQ4H WHILE AWAKE PEPE Administration Cyanocobalamin 100 mcg 07/23/20 12:30 08/04/20 08:24 Cyanocobalamin (Vitamin B-12) 100 Mcg Tablet PO 100 mcg DAILY PEPE Administration Dexamethasone Sodium Phosphate 6 mg 08/01/20 21:00 08/04/20 08:24 Dexamethasone Sod Phosphate 4 Mg/Ml Vial IVPUSH 6 mg BID PEPE Administration Enoxaparin Sodium 40 mg 07/23/20 06:00 08/04/20 04:52 Enoxaparin Sodium 40 Mg/0.4 Ml Syringe SUBCUT 40 mg Q24H PEPE Administration Guaifenesin/Dextromethorphan 10 ml 07/28/20 11:15 08/04/20 17:39 Guaifenesin Dm 200/20/10 Ml 10 Ml Syrup PO 10 ml Q6H PEPE Administration Piperacillin Sod/Tazobactam 50 mls @ 100 mls/hr 08/02/20 10:00 08/04/20 18:18 Sod 3.375 gm/ Sodium Chloride IV Infused Q6H PEPE Infusion Doxycycline Hyclate 100 mg/ 250 mls @ 250 mls/hr 08/02/20 18:00 08/04/20 18:26 Sodium Chloride IV 250 mls/hr Q12H PEPE Administration Levothyroxine Sodium 100 mcg 07/23/20 12:30 08/04/20 08:25 Levothyroxine Sodium 100 Mcg Tablet PO 100 mcg DAILY PEPE Administration Ondansetron HCl 4 mg 07/23/20 05:32 07/23/20 07:58 Ondansetron Hcl 4 Mg/2 Ml Vial IVPUSH 4 mg Q8H PRN Administration Nausea and Vomiting Pharmacy Consult 1 each 07/23/20 07:19 Consult Rx Perform Med Rec MISCELLANE ONCE PRN Consult order Sodium Chloride 3 ml 08/02/20 16:00 08/04/20 17:39 0.9 % Sodium Chloride Flush 3 Ml Syringe IVFLUSH 3 ml QSHIFT PEPE Administration Tiotropium [place] 1 puff 07/28/20 08:00 08/04/20 07:57 Tiotropium [place] 18 Mcg Cap.W.Dev INHALE 1 puff RDAILY PEPE Administration Vitamin D 25 mcg 07/23/20 12:30 08/04/20 08:25 Cholecalciferol (Vitamin D3) 25 Mcg Tablet PO 25 mcg DAILY PEPE Administration Labs CBC & Chem 7: 08/02/20 05:31 08/02/20 05:31 Assessment and Plan (1) Acute respiratory failure with hypoxia: Status: Acute (2) COVID-19 virus infection: Status: Acute (3) Multifocal pneumonia: Problem details: Status: Acute Assessment and Plan: (1) Acute hypoxic respiratory failure/ COVID-19 virus infection/ patient on admission had sepsis related to COVID-19 infection with fever and tachycardia, sepsis now resolved. patient clinical condition improving gradually, Still shortness of breath shortness of breath taper oxygen 2L to 1 liter by nasal cannula, slowly improving, no further bouts of high-grade fever CRP 29.14 on admission trended down to 8.7,CBC and electrolyte stable, continue supportive care. procalcitonin level seems improving, chest x-ray shows slightly worsening of infiltrates, HIV pending, sars I gG pending. continue IV steroid and incentive spirometry, scheduled MDI ,doxyand Zosyn day 3 MRSA nares is negative patient with underlying history of asthma likely contributing to symptoms. continue Spiriva, and gradually wean oxygen. (2) Multifocal pneumonia: Likely due to COVID 19 infection , initially received azithromycin and ceftriaxone, subsequently you to question of worsening pneumonia on chest x-ray started on above antibiotics IV doxy /Zosyn. (3) Hypothyroidism: continue Synthroid. (4) Hypothyroidism: Problem details: Status: Acute
[2020-08-04] MEDS: Acetaminophen 325 MG TABLET 650 MG PO (22:19)
[2020-08-05] MEDS: Piperacillin Sodium/Tazobactam 3.375 GM in 0.9 % Sodium Chloride 50 ML IV ×4 (03:02→22:32)
[2020-08-05 03:24] VITALS: BP 111/63; PULSE 80; RESP 19; TEMP 36.4; O2SAT 95
[2020-08-05] MEDS: Doxycycline Hyclate 100 MG in 0.9 % Sodium Chloride 250 ML 250 MG IV ×2 (04:54→18:41)
[2020-08-05] MEDS: guaiFENesin DM 200/20/10 ML 10 ML SYRUP PO ×4 (04:54→22:33)
[2020-08-05] MEDS: Enoxaparin Sodium 40 MG/0.4 ML SYRINGE SUBCUT (05:15)
[2020-08-05 07:16] VITALS: BP 123/73; PULSE 53; RESP 16; TEMP 36.6; O2SAT 94
[2020-08-05] MEDS: Cholecalciferol (Vitamin D3) 25 MCG TABLET PO (08:53)
[2020-08-05] MEDS: Levothyroxine Sodium 100 MCG TABLET PO (08:53)
[2020-08-05] MEDS: dexAMETHasone sod phosphate 4 MG/ML VIAL 6 MG IVPUSH ×2 (08:53→20:12)
[2020-08-05] MEDS: 0.9 % Sodium Chloride Flush 3 ML SYRINGE IVFLUSH ×3 (08:53→23:48)
[2020-08-05] MEDS: Cyanocobalamin (Vitamin B-12) 100 MCG TABLET PO (08:53)
--- NOTE | 2020-08-05 14:56 | PC.RT ---
Pt walked for home 02 eval. pt taken off o2 and sp02 remained 92 at rest on room air. o2 titrated to all the way to 6L with spo2 dropping below 88 and long recovery when placed back on 3L o2 . MD notified and would like to keep patient in the hospital. Documentation for this walk would not save because rt unable to enter parameters into system.
--- NOTE | 2020-08-05 15:08 | MHC.CM.PN ---
DP on hold today due to O2 eval. Home with family transport at discharge.
--- NOTE | 2020-08-05 15:10 | P.PNIM_ITS ---
Subjective Subjective Date of Service: 08/05/20 Interval History: acute hypoxic respiratory failure sec Topneumonia. Review of Systems patient still short of breath specially when walking require more oxygen. Denies any chest pain or abdominal pain Physical Exam Vital Signs: Vital Signs: Vital Signs Temp Pulse Resp BP Pulse Ox 08/05/20 07:16 97.9 F 53 16 123/73 94 08/05/20 03:24 97.6 F 80 19 111/63 95 08/04/20 23:38 96.2 F L 66 19 136/68 96 08/04/20 20:00 98 F 64 18 123/72 95 08/04/20 16:00 97.5 F 66 16 128/69 96 Body Mass Index 27.4 physical exam: cvs: [id number], [id number] , no murmur res: air enrty seems similar to yesterday, slightly diminished at bases. abd: no rebound or guarding ,nt, bs present. ext pulses present , no cyanosis neuro: axo3 , nonfocal. Objective Data Current Medications Generic Name Dose Route Start Last Admin Trade Name Freq PRN Reason Stop Dose Admin Acetaminophen 650 mg 07/23/20 05:30 08/04/20 22:19 Acetaminophen 325 Mg Tablet PO 650 mg Q6H PRN Administration Pain, Mild (Pain Scale 1-3) Albuterol Sulfate 2.5 mg 07/23/20 12:25 Albuterol Sulfate (0.083%) 2.5 Mg/3 Ml Vial.Neb INHALE Q3H PRN sob Albuterol Sulfate 2 puff 07/28/20 08:00 08/05/20 11:42 Albuterol Sulfate 90 Mcg 18 Gm Inhaler INHALE 2 puff RQ4H WHILE AWAKE PEPE Administration Cyanocobalamin 100 mcg 07/23/20 12:30 08/05/20 08:53 Cyanocobalamin (Vitamin B-12) 100 Mcg Tablet PO 100 mcg DAILY PEPE Administration Dexamethasone Sodium Phosphate 6 mg 08/01/20 21:00 08/05/20 08:53 Dexamethasone Sod Phosphate 4 Mg/Ml Vial IVPUSH 6 mg BID PEPE Administration Enoxaparin Sodium 40 mg 07/23/20 06:00 08/05/20 05:15 Enoxaparin Sodium 40 Mg/0.4 Ml Syringe SUBCUT 40 mg Q24H PEPE Administration Guaifenesin/Dextromethorphan 10 ml 07/28/20 11:15 08/05/20 12:28 Guaifenesin Dm 200/20/10 Ml 10 Ml Syrup PO 10 ml Q6H PEPE Administration Piperacillin Sod/Tazobactam 50 mls @ 100 mls/hr 08/02/20 10:00 08/05/20 10:16 Sod 3.375 gm/ Sodium Chloride IV Infused Q6H PEPE Infusion Doxycycline Hyclate 100 mg/ 250 mls @ 250 mls/hr 08/02/20 18:00 08/05/20 06:10 Sodium Chloride IV Infused Q12H PEPE Infusion Levothyroxine Sodium 100 mcg 07/23/20 12:30 08/05/20 08:53 Levothyroxine Sodium 100 Mcg Tablet PO 100 mcg DAILY PEPE Administration Ondansetron HCl 4 mg 07/23/20 05:32 07/23/20 07:58 Ondansetron Hcl 4 Mg/2 Ml Vial IVPUSH 4 mg Q8H PRN Administration Nausea and Vomiting Pharmacy Consult 1 each 07/23/20 07:19 Consult Rx Perform Med Rec MISCELLANE ONCE PRN Consult order Sodium Chloride 3 ml 08/02/20 16:00 08/05/20 08:53 0.9 % Sodium Chloride Flush 3 Ml Syringe IVFLUSH 3 ml QSHIFT PEPE Administration Tiotropium [place] 1 puff 07/28/20 08:00 08/05/20 08:20 Tiotropium [place] 18 Mcg Cap.W.Dev INHALE 1 puff RDAILY PEPE Administration Vitamin D 25 mcg 07/23/20 12:30 08/05/20 08:53 Cholecalciferol (Vitamin D3) 25 Mcg Tablet PO 25 mcg DAILY PEPE Administration Labs CBC & Chem 7: 08/02/20 05:31 08/02/20 05:31 Assessment and Plan (1) Acute respiratory failure with hypoxia: Status: Acute (2) COVID-19 virus infection: Status: Acute (3) Multifocal pneumonia: Problem details: Status: Acute Assessment and Plan: (1) Acute hypoxic respiratory failure/ COVID-19 virus infection/ patient on admission had sepsis related to COVID-19 infection with fever and tachycardia, sepsis now resolved. patient clinical condition improving gradually, Still shortness of breath shortness of breath oxygen 4 liter by nasal cannula, no further bouts of high-grade fever CRP 29.14 on admission trended down to 8.7,CBC and electrolyte stable, continue supportive care. procalcitonin level seems improving, chest x-ray shows slightly worsening of infiltrates, HIV pending, sars I gG pending. continue IV steroid and incentive spirometry, scheduled MDI ,latoya Zosyn day 3 MRSA nares is negative patient with underlying history of asthma likely contributing to symptom s. continue Spiriva, and gradually wean oxygen. Needs pulmonary follow-up because patient is still needs excessive oxygen. (2) Multifocal pneumonia: Likely due to COVID 19 infection , initially received azithromycin and ceftriaxone, subsequently you to question of worsening pneumonia on chest x-ray started on above antibiotics IV doxy /Zosyn. (3) Hypothyroidism: continue Synthroid. (4) Hypothyroidism: Problem details: Status: Acute
[2020-08-05 15:33] VITALS: BP 125/77; PULSE 69; RESP 20; TEMP 36.6; O2SAT 97
[2020-08-05 18:42] LABS: Legionella Ag Urine Not Detected (Not Detected)
[2020-08-05 19:53] VITALS: BP 102/51; PULSE 71; RESP 18; TEMP 36.5; O2SAT 95
[2020-08-06] VITALS (7 sets, daily range): BP systolic 110–132; BP diastolic 66–78; PULSE 60–74; RESP 14–20; TEMP 36.1–36.9; O2SAT 93–98
[2020-08-06] MEDS: guaiFENesin DM 200/20/10 ML 10 ML SYRUP PO ×4 (04:25→23:52)
[2020-08-06] MEDS: Piperacillin Sodium/Tazobactam 3.375 GM in 0.9 % Sodium Chloride 50 ML IV ×3 (04:25→15:10)
[2020-08-06] MEDS: Doxycycline Hyclate 100 MG in 0.9 % Sodium Chloride 250 ML 250 MG IV (06:02)
[2020-08-06] MEDS: Enoxaparin Sodium 40 MG/0.4 ML SYRINGE SUBCUT (06:02)
[2020-08-06 06:58] LABS: Hematocrit 34.4 % (42-52); Hemoglobin 10.9 g/dl (14.0-18.0); Mean Corpuscular HGB Conc 31.7 g/dl (31.0-36.0); Mean Corpuscular Hemoglobin 32.2 pg (27.0-33.0); Mean Corpuscular Volume 101.5 fL (80-98); Mean Platelet Volume 9.2 fL (9.4-12.4); Platelet Count 492 X10*3/uL (160-400); Red Blood Count 3.39 X10*6/uL (4.60-5.80); Red Cell Distribution Width 12.6 % (11.0-16.0); White Blood Count 13.1 X10*3/uL (4.8-10.8)
[2020-08-06] MEDS: 0.9 % Sodium Chloride Flush 3 ML SYRINGE IVFLUSH ×3 (08:53→23:52)
[2020-08-06] MEDS: Cholecalciferol (Vitamin D3) 25 MCG TABLET PO (08:53)
[2020-08-06] MEDS: Cyanocobalamin (Vitamin B-12) 100 MCG TABLET PO (08:53)
[2020-08-06] MEDS: Levothyroxine Sodium 100 MCG TABLET PO (08:53)
[2020-08-06] MEDS: dexAMETHasone sod phosphate 4 MG/ML VIAL 6 MG IVPUSH (08:54)
--- NOTE | 2020-08-06 15:21 | P.PNIM_ITS ---
Subjective Subjective Date of Service: 08/06/20 Interval History: Seen in f/u for covid related acute hypoxic respiratory failure. He is still fairly hypoxic with O2 droping even at 6 liters by nasal canula Review of Systems denies sob no fever Physical Exam Vital Signs: Vital Signs: Vital Signs Temp Pulse Resp BP Pulse Ox 08/06/20 13:12 93 08/06/20 11:09 97.0 F 66 16 110/66 96 08/06/20 07:43 98.0 F 60 16 132/78 98 08/06/20 03:57 98.4 F 62 18 119/76 98 08/06/20 00:00 98.2 F 69 20 125/71 96 08/05/20 19:53 97.7 F 71 18 102/51 L 95 08/05/20 15:33 97.8 F 69 20 125/77 97 Body Mass Index 27.4 Constitutional Awake and Alert, No apparent distress Neck Supple, No lymphadenopathy Cardiovascular RRR, No M/R/G, S1 S2, No S3 S4, No pedal edema Respiratory normal respiratory effort Gastrointestinal Non tender, Non-distended Skin No rash Neurological Alert & oriented x3 Psychological Appropriate affect Objective Data Current Medications Generic Name Dose Route Start Last Admin Trade Name Freq PRN Reason Stop Dose Admin Acetaminophen 650 mg 07/23/20 05:30 08/04/20 22:19 Acetaminophen 325 Mg Tablet PO 650 mg Q6H PRN Administration Pain, Mild (Pain Scale 1-3) Albuterol Sulfate 2 puff 07/28/20 08:00 08/06/20 11:23 Albuterol Sulfate 90 Mcg 18 Gm Inhaler INHALE 2 puff RQ4H WHILE AWAKE PEPE Administration Cyanocobalamin 100 mcg 07/23/20 12:30 08/06/20 08:53 Cyanocobalamin (Vitamin B-12) 100 Mcg Tablet PO 100 mcg DAILY PEPE Administration Dexamethasone Sodium Phosphate 6 mg 08/01/20 21:00 08/06/20 08:54 Dexamethasone Sod Phosphate 4 Mg/Ml Vial IVPUSH 6 mg BID PEPE Administration Enoxaparin Sodium 40 mg 07/23/20 06:00 08/06/20 06:02 Enoxaparin Sodium 40 Mg/0.4 Ml Syringe SUBCUT 40 mg Q24H PPEE Administration Guaifenesin/Dextromethorphan 10 ml 07/28/20 11:15 08/06/20 10:51 Guaifenesin Dm 200/20/10 Ml 10 Ml Syrup PO 10 ml Q6H PEPE Administration Piperacillin Sod/Tazobactam 50 mls @ 100 mls/hr 08/02/20 10:00 08/06/20 15:10 Sod 3.375 gm/ Sodium Chloride IV 100 mls/hr Q6H PEPE Administration Doxycycline Hyclate 100 mg/ 250 mls @ 250 mls/hr 08/02/20 18:00 08/06/20 07:21 Sodium Chloride IV Infused Q12H PEPE Infusion Levothyroxine Sodium 100 mcg 07/23/20 12:30 08/06/20 08:53 Levothyroxine Sodium 100 Mcg Tablet PO 100 mcg DAILY PEPE Administration Ondansetron HCl 4 mg 07/23/20 05:32 07/23/20 07:58 Ondansetron Hcl 4 Mg/2 Ml Vial IVPUSH 4 mg Q8H PRN Administration Nausea and Vomiting Pharmacy Consult 1 each 07/23/20 07:19 Consult Rx Perform Med Rec MISCELLANE ONCE PRN Consult order Sodium Chloride 3 ml 08/02/20 16:00 08/06/20 15:11 0.9 % Sodium Chloride Flush 3 Ml Syringe IVFLUSH 3 ml QSHIFT PEPE Administration Tiotropium [place] 1 puff 07/28/20 08:00 08/06/20 08:04 Tiotropium [place] 18 Mcg Cap.W.Dev INHALE 1 puff RDAILY PEPE Administration Vitamin D 25 mcg 07/23/20 12:30 08/06/20 08:53 Cholecalciferol (Vitamin D3) 25 Mcg Tablet PO 25 mcg DAILY PEPE Administration Labs CBC & Chem 7: 08/06/20 05:52 08/02/20 05:31 Assessment and Plan (1) Acute respiratory failure with hypoxia: Status: Acute (2) COVID-19 virus infection: Status: Acute (3) Multifocal pneumonia: Problem details: Status: Acute Assessment and Plan: 1 Acute hypoxic respiratory failure due to covid 19 sequelae covid 19 pneumonia underlying asthma/reactive airway disease -continue Dexamethasone, change to PO 6 mg daily for total of 10 days -D/C IV Zosyn and Doxycyline -bronchodilators by MDI -wean off oxygen - consider rehab at discharge 2. hypothyroidism--LT4 3.Vit B12 def--oral replacement 4. He is requiring too much oxygen at this point to go home, but refusing rehab
[2020-08-07] VITALS: BP 115/69; PULSE 65; RESP 18; TEMP 36.7; O2SAT 96
[2020-08-07 04:00] VITALS: BP 115/57; PULSE 66; RESP 19; TEMP 36.6; O2SAT 96
[2020-08-07] MEDS: Enoxaparin Sodium 40 MG/0.4 ML SYRINGE SUBCUT (06:48)
[2020-08-07] MEDS: guaiFENesin DM 200/20/10 ML 10 ML SYRUP PO ×2 (06:48→10:50)
[2020-08-07] MEDS: Cyanocobalamin (Vitamin B-12) 100 MCG TABLET PO (07:37)
[2020-08-07] MEDS: Levothyroxine Sodium 100 MCG TABLET PO (07:37)
[2020-08-07] MEDS: 0.9 % Sodium Chloride Flush 3 ML SYRINGE IVFLUSH (07:37)
[2020-08-07] MEDS: dexAMETHasone 6 MG TABLET PO (07:37)
[2020-08-07] MEDS: Cholecalciferol (Vitamin D3) 25 MCG TABLET PO (07:37)
[2020-08-07 08:00] VITALS: BP 116/73; PULSE 76; RESP 20; TEMP 36.9; O2SAT 96
[2020-08-07 12:00] VITALS: BP 125/66; PULSE 88; RESP 18; TEMP 36.4; O2SAT 95
--- NOTE | 2020-08-07 12:29 | MHC.CM.PN ---
DC home [facility] new oxygen. Family transport.
[2020-08-07 13:43] VITALS: PULSE 82; O2SAT 96
--- NOTE | 2020-08-07 14:27 | MHC.CM.PN ---
DP home with [facility] via family transport. SPO2 WNL on AA
--- NOTE | 2020-08-07 15:16 | P.DS_ITS ---
DS: Providers Provider Date of admission: 07/23/20 04:30 Primary care physician: Unknown Physician Consults: 07/31/20 09:27 Consult to Pulmonology Routine Consulting Provider: [facility] Reason for consultation: acute repiratory failure /pneumonia Has provider been notified: No 07/31/20 12:09 Consult to Infectious Diseases Routine Consulting Provider: Leana Lindsay Reason for consultation: ?ACUTE RESPIRATORY FAILURE / PNEUMONIA/COVID - question me need plasma Has provider been notified: No DS: Diagnosis Discharge Diagnosis (1) Acute respiratory failure with hypoxia: Status: Acute (2) COVID-19 virus infection: Status: Acute (3) Multifocal pneumonia: Status: Acute Problem details: DS: Summary Hospital Course Hospital Course: Patient presented with acute hypoxic respriatory failure and tested positive for covid and found to have multifocal penumonia which was treated with IV Zosyn and Doxycyline with advise of infectious disease and now will be discharged home with oral Doxycyline and Augmentin. Hospital course was lenghty due to persistent hypoxia which fortunately has now resolved and sating 94 to 97 % on room air and very eager to go home. He is advised to follow up with PCP within a week and to self isolate until complete therapy Time Spent with Patient Time attestation: Total time spent providing and/or coordinating discharge services: Physical Exam Vital Signs: Vital Signs: Vital Signs Temp Pulse Resp BP Pulse Ox 08/07/20 12:00 97.6 F 88 18 125/66 95 08/07/20 08:00 98.4 F 76 20 116/73 96 08/07/20 04:00 98 F 66 19 115/57 L 96 08/07/20 00:00 98.1 F 65 18 115/69 96 08/06/20 20:00 97.9 F 66 14 125/69 96 08/06/20 16:00 97.5 F 74 16 118/66 96 Body Mass Index 27.4 Constitutional Awake and Alert, No apparent distress Neck Supple, No lymphadenopathy Cardiovascular RRR, No M/R/G, S1 S2, No S3 S4, No pedal edema Respiratory normal respiratory effort Gastrointestinal Non tender, Non-distended Skin No rash Neurological Alert & oriented x3 Psychological Appropriate affect Discharge Plan Discharge Anticipated Discharge Date/Time: 08/07/20 14:39 Patient Disposition: Home Health Service Referrals: YUAN ROWLEY [Other] ([facility] oxygen management education ) Physician,Unknown [Primary Care Provider] - Discharge Medications: New amoxicillin-pot clavulanate [Augmentin] 875-125 mg tablet 1 tab PO BID Qty: 10 RF: 0 doxycycline monohydrate 100 mg capsule 100 mg PO BID Qty: 10 RF: 0 dexamethasone 4 mg tablet 8 mg PO DAILY Qty: 10 RF: 0 Continued levothyroxine 100 mcg Tablet 100 mcg PO DAILY RF: 0 albuterol sulfate [ProAir HFA] 90 mcg/actuation Hfa Aerosol Inhaler 2 puff INHALATION Q4H PRN (Reason: cough/wheeze) RF: 0 loratadine 10 mg Tablet 10 mg PO DAILY RF: 0 Arnuity Ellipta 100 mcg/actuation Blister With Device 1 inh INHALATION DAILY RF: 0 cyanocobalamin (vitamin B-12) 100 mcg Tablet 100 mcg PO DAILY RF: 0 lisinopril 10 mg Tablet 10 mg PO DAILY RF: 0 fluticasone propionate 50 mcg/actuation [place],Suspension 2 spray INTRANASAL DAILY PRN (Reason: Allergic Symptoms) RF: 0 rosuvastatin 5 mg Tablet 5 mg PO DAILY RF: 0 cholecalciferol (vitamin D3) [Vitamin D3] 25 mcg (1,000 unit) Tablet 25 mcg PO DAILY RF: 0 Discharge Orders: Discharge Order (Routine); Ordered 08/07/20 Ordered By: Bryan Cooper Diet: advance to your usual diet Activity on Discharge: As tolerated Discharge Date/Time: 08/07/20 16:13 Visit Report Forms: Patient Portal Discharge page Care Plan Goals: Acute hypoxic respiratory failure/ COVID-19 virus infection/ patient on admission had sepsis related to COVID-19 infection : Initially received dexamethasone, antibiotics, oxygen: But his respiratory failure afterwards -subsequently was seen by infectious disease and it was thought that probably have component of bacterial pneumonia on top of that: Patient antibiotics was changed to Vanco and Zosyn that time and then switched to p.o. doxy and Augmentin upon discharge. in addition patient will also receive p.o. dexamethasone at home. Patient condition seems to be improved significantly, home oxygen evaluation is still pending. CDC Guidelines for home isolation: - Stay away from others - Limit contact with pets and animals: If you must care for a pet, wash your hands before and after interacting with them - Wear a mask if you are sick - Cover your mouth and nose with a tissue when you cough or sneeze. Dispose of tissues in a lined trash can and wash your hands immediately with soap and water for at least 20 seconds. If soap and water are not available, clean hands with alcohol-based hand sleeve setter safety stitch that contains at least 60% alcohol. - Clean your hands often with soap and water for at least 20 seconds - Avoid touching your eyes, nose and mouth with unwashed hands - Do not share dishes, drinking glasses, cups, eating utensils, towels, or bedding with other people in your home. After using these items, wash them thoroughly with soap and water or put in the lingo cleaner. - Clean high-touch surfaces in your isolation area ( sick room and bathroom) every day; let a caregiver clean and disinfect high-touch surfaces in other areas of the home. Clean the area or item with soap and water or another detergent if it is dirty. Then, use a household disinfectant. Seek medical attention, but call first: - Seek medical care right away if your illness is worsening (for example, if you have difficulty breathing). - Call your doctor before going in: Before going to the doctor's office or emergency room, call ahead and tell them your symptoms. They will tell you what to do. - If possible, put on a facemask before you enter the building. If you can't put on a facemask, try to keep a safe distance from other people (at least 6 feet away). This will help protect the people in the office or waiting room. - Follow care instructions from your healthcare provider and local health department: Your local health authorities will give instructions on checking your symptoms and reporting information. Emergency warning signs for COVID-19: - Difficulty breathing or shortness of breath - Persistent pain or pressure in the chest - New confusion or inability to arouse - Bluish lips or face Additional Instructions: - [] Health Concerns: As above. Plan of Treatment: as above.
== END 2020-08-07 16:13 | disposition home health service (06) | DRG 871 ==
LOC: HO.ED 07-23 05:20 → HO.IMC 07-23 05:33
PROVIDERS: Hospitalist; Internal Medicine; Admitting Provider Internal Medicine; Visit Provider Internal Medicine
DX: A41.89 Other specified sepsis (principal); U07.1 COVID-19; J12.89 Other viral pneumonia; J96.01 Acute respiratory failure with hypoxia; E53.8 Deficiency of other specified B group vitamins; E03.9 Hypothyroidism, unspecified; Z79.51 Long term (current) use of inhaled steroids; Z79.890 Hormone replacement therapy; Z79.899 Other long term (current) drug therapy
CPT/HCPCS: 36415; 71045; 80048; 80051; 80202; 84145; 85025; 85027; 86140; 86769; 87389; 87449; 87640; 87641; 94664; 96365; 96375; 99285; J0456; J0696; J1100; J1650; J2405; J3370; J8540

== ENCOUNTER 2020-11-17 10:16 | Outpatient (REF) | payer MEDICARE, SELFPAY | END 2020-11-17 10:17 | disposition home or self-care (01) | LOC: HO.LAB 10:16 | PROVIDERS: Visit Provider Internal Medicine | DX: Z20.822 Contact with and (suspected) exposure to COVID-19 (principal) | CPT/HCPCS: 36415; C9803; U0003 ==

== ENCOUNTER 2021-02-03 12:31 | Outpatient (REF) | payer MEDICARE, SELFPAY | END 2021-02-03 12:32 | disposition home or self-care (01) | LOC: HO.LAB 12:31 | PROVIDERS: Visit Provider Internal Medicine | DX: Z20.822 Contact with and (suspected) exposure to COVID-19 (principal) | CPT/HCPCS: C9803; U0003; U0005 ==

== ENCOUNTER 2021-04-05 10:53 | Outpatient (REF) | payer MEDICARE, SELFPAY | END 2021-04-05 10:54 | disposition home or self-care (01) | LOC: HO.LAB 10:53 | PROVIDERS: PCP Internal Medicine; Visit Provider Internal Medicine | DX: Z20.822 Contact with and (suspected) exposure to COVID-19 (principal) | CPT/HCPCS: C9803; U0003; U0005 ==

== ENCOUNTER → 2022-01-04 09:51 | Outpatient (BNVA) | payer MEDICARE, SELFPAY | PROVIDERS: PCP Internal Medicine; Visit Provider Hospitalist | DX: J45.909 Unspecified asthma, uncomplicated (principal); R05.3 Chronic cough | CPT/HCPCS: 99202 ==

== ENCOUNTER 2022-01-18 10:28 | Outpatient (REF) | payer OTHER, SELFPAY ==
--- NOTE | ~2022-01-18 | XR_ITS ---
EXAMINATION: XR CHEST CLINICAL INFORMATION: Asthma. COMPARISON: Chest 08/01/2020 TECHNIQUE: 2 views of the chest were obtained. FINDINGS: The lungs are well-expanded and clear of acute process. The heart size and pulmonary vascularity is normal. No gross bony abnormality seen. XR/XR chest 2V IMPRESSION: Unremarkable chest exam.
[2022-01-18 10:42] LABS: MANUAL DIFF FLAG NO
[2022-01-18 11:02] LABS: Basophils Percent Auto 0.2 % (0-2); Eosinophils Absolute Auto 0.2 X10*3/uL (0.0-0.4); Eosinophils Percent Auto 5.1 % (0-4); Hematocrit 44.8 % (42.0-52.0); Hemoglobin 14.1 g/dl (14.0-18.0); Imm Gran Abs Auto 0.02 X10*3/uL (0.00-0.03); Imm Gran Pct Auto 0.4 % (0.0-0.4); Lymphocytes Absolute Auto 1.7 X10*3/uL (1.2-4.9); Lymphocytes Percent Auto 37.6 % (20-40); Mean Corpuscular HGB Conc 31.5 g/dl (31.0-36.0); Mean Corpuscular Hemoglobin 32.3 pg (27.0-33.0); Mean Corpuscular Volume 102.8 fL (80.0-98.0); Monocytes Absolute Auto 0.4 X10*3/uL (0.1-1.2); Monocytes Percent Auto 9.2 % (2-11); Neutrophils Absolute Auto 2.2 x10*3/uL (2.0-8.3); Neutrophils Percent Auto 47.5 % (45-73); Platelet Count 230 X10*3/uL (160-400); Red Blood Count 4.36 X10*6/uL (4.60-5.80); Red Cell Distribution Width 11.3 % (11.0-16.0); White Blood Count 4.6 X10*3/uL (4.8-10.8)
[2022-01-18 11:42] LABS: Erythrocyte Sedimentation Rate 2 MM/HR (0-15)
== END 2022-01-18 10:29 | disposition home or self-care (01) ==
LOC: HO.XRAY 10:28
PROVIDERS: PCP Internal Medicine; Visit Provider Hospitalist
DX: J45.909 Unspecified asthma, uncomplicated (principal)
CPT/HCPCS: 36415; 71046; 82785; 85025; 85652; 86003

== ENCOUNTER → 2022-03-03 09:28 | Outpatient (BNVA) | payer OTHER, SELFPAY | PROVIDERS: PCP Internal Medicine; Visit Provider Hospitalist | DX: J45.909 Unspecified asthma, uncomplicated (principal); R05.3 Chronic cough | CPT/HCPCS: 99212 ==

== ENCOUNTER 2022-03-14 07:07 | Outpatient (REF) | payer OTHER, SELFPAY ==
--- NOTE | ~2022-03-14 | XR_ITS ---
EXAMINATION: XR KNEE, RIGHT XR KNEE AP STANDING CLINICAL INFORMATION: Pain. COMPARISON: Radiographs dated 08/12/2019. TECHNIQUE: AP and axial views of the right knee were obtained. AP bilateral standing view of the knees was obtained. FINDINGS: There is moderately severe asymmetric narrowing of the medial joint space compartment of the right knee, and the lateral joint base compartment is well-maintained. There is a secondary mild valgus configuration. There is mild narrowing of the right patellofemoral compartment. There is mild tricompartment peripheral osteophyte formation. No fracture or dislocation is seen. There is a moderate to large joint effusion. No foreign body is seen. 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 XR/XR knee standing BI IMPRESSION: 1. There is tricompartment osteoarthritic change of the left knee, most pronounced of the lateral joint space compartment, where it is moderately severe. There is a secondary mild valgus configuration of the right knee. 2. There is a moderately large right knee joint effusion. 3. 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
--- NOTE | ~2022-03-14 | XR_ITS ---
EXAMINATION: XR KNEE, RIGHT XR KNEE AP STANDING CLINICAL INFORMATION: Pain. COMPARISON: Radiographs dated 08/12/2019. TECHNIQUE: AP and axial views of the right knee were obtained. AP bilateral standing view of the knees was obtained. FINDINGS: There is moderately severe asymmetric narrowing of the medial joint space compartment of the right knee, and the lateral joint base compartment is well-maintained. There is a secondary mild valgus configuration. There is mild narrowing of the right patellofemoral compartment. There is mild tricompartment peripheral osteophyte formation. No fracture or dislocation is seen. There is a moderate to large joint effusion. No foreign body is seen. 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 XR/XR knee RT 2V IMPRESSION: 1. There is tricompartment osteoarthritic change of the left knee, most pronounced of the lateral joint space compartment, where it is moderately severe. There is a secondary mild valgus configuration of the right knee. 2. There is a moderately large right knee joint effusion. 3. 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
== END 2022-03-14 07:08 | disposition home or self-care (01) ==
LOC: HO.HOSX 07:07
PROVIDERS: Visit Provider Orthopaedic Surgery
DX: M17.11 Unilateral primary osteoarthritis, right knee (principal)
CPT/HCPCS: 20610; 73560; 73565; 99212; J1100

== ENCOUNTER → 2022-07-11 12:06 | Outpatient (BNVA) | payer OTHER, SELFPAY | PROVIDERS: PCP Internal Medicine; Visit Provider Orthopaedic Surgery | DX: M17.11 Unilateral primary osteoarthritis, right knee (principal); Z96.652 Presence of left artificial knee joint | CPT/HCPCS: 20610; 99212; J1100 ==

== ENCOUNTER → 2022-09-08 09:13 | Outpatient (BNVA) | payer OTHER, SELFPAY | PROVIDERS: PCP Internal Medicine; Visit Provider Hospitalist | DX: J45.909 Unspecified asthma, uncomplicated (principal); R05.3 Chronic cough | CPT/HCPCS: 99212 ==

== ENCOUNTER → 2022-10-10 11:38 | Outpatient (BNVA) | payer OTHER, SELFPAY | PROVIDERS: PCP Internal Medicine; Visit Provider Orthopaedic Surgery | DX: M17.11 Unilateral primary osteoarthritis, right knee (principal) | CPT/HCPCS: 99212 ==

== ENCOUNTER → 2022-11-03 10:57 | Outpatient (BNVA) | payer OTHER, SELFPAY | PROVIDERS: PCP Internal Medicine; Visit Provider Orthopaedic Surgery | DX: M17.11 Unilateral primary osteoarthritis, right knee (principal) | CPT/HCPCS: 20610; 99212; J7318 ==

== ENCOUNTER 2022-12-12 19:17 | Emergency (ER) | payer OTHER, SELFPAY ==
[2022-12-12 20:37] VITALS: BP 131/79; PULSE 83; RESP 20; TEMP 37; O2SAT 96; BMI 27.3
--- NOTE | 2022-12-12 20:39 | ED_ITS ---
HPI - SOB/Dyspnea General Chief Complaint: Dyspnea Stated Complaint: asthma Related Data Home Medications Medication Instructions Recorded Confirmed albuterol sulfate 90 mcg/actuation 2 puff inhalation Q4H PRN 07/23/20 10/10/22 aerosol inhaler (ProAir HFA) cough/wheeze cholecalciferol (vitamin D3) 25 25 mcg PO DAILY 07/23/20 10/10/22 mcg (1,000 unit) tablet (Vitamin D3) cyanocobalamin (vitamin B-12) 100 100 mcg PO DAILY 07/23/20 10/10/22 mcg tablet levothyroxine 100 mcg tablet 100 mcg PO DAILY 07/23/20 10/10/22 lisinopril 10 mg tablet 10 mg PO DAILY 07/23/20 10/10/22 rosuvastatin 5 mg tablet 5 mg PO DAILY 07/23/20 10/10/22 ibuprofen 800 mg tablet 800 mg PO TID 03/03/22 10/10/22 tamsulosin 0.4 mg capsule 0.4 mg PO DAILY 09/08/22 10/10/22 Previous Rx's Medication Instructions Recorded azelastine 137 mcg (0.1 %) nasal 2 spray intranasal BID 30 days #30 01/04/22 spray aerosol mL montelukast 10 mg tablet 10 mg PO BEDTIME 30 days #30 tabs 01/04/22 (Singulair) benzonatate 200 mg capsule 200 mg PO BID PRN cough 30 days 03/03/22 #30 caps fluticasone furoate 100 1 inh inhalation DAILY #30 ea 03/03/22 mcg/actuation blister powder for inhalation (Arnuity Ellipta) fluticasone propionate 50 2 spray intranasal DAILY PRN 03/03/22 mcg/actuation nasal Allergic Symptoms #16 grams spray,suspension loratadine 10 mg tablet 10 mg PO DAILY 30 days #30 tabs 03/03/22 Allergies Allergy/AdvReac Type Severity Reaction Status Date / Time No Known Allergies Allergy Verified 12/12/22 20:40 [No Known Allergies*] [facility] Past Medical History Medical History (Updated 12/15/22 @ 18:59 by HERMAN Jordan) Asthma Chronic allergic rhinitis Chronic cough Hypothyroidism Social History Social History (Updated 01/04/22 @ 10:09 by REGINALDO Holliday) Patient Tobacco Use Status: Never used Tobacco Advance Directives: No Advance Directives Information Provided: No service: No Current occupational status: retired Physical Exam Vital Signs: Vital Signs: Last Vital Signs Temp 98.6 F 12/12/22 20:37 Pulse 83 12/12/22 20:37 Resp 20 12/12/22 20:37 BP 131/79 12/12/22 20:37 Pulse Ox 96 12/12/22 20:37 O2 Del Method 12/12/22 20:37 BMI result Body Mass Index 27.3 Course Course Course Narrative: RME - 72 yo male with history of asthma, multifocal PNA who presents to the ER for evaluation of 3 days of SOB, wheezing, productive cough. No improvement with inhalers and OTC cough medications. Reports coughing is causing chest wall antonio ns. Worse at night and when laying flat. No fever, chills, or sick contacts. VSS in triage. Lungs diminished but not wheezy, speaking in complete sentences. Will get CXR, EKG, lab workup. Stable to go to waiting room until treatment room is available. Discharge Plan Discharge Clinical Impression: Cough Patient Disposition: Elopement Prescriptions: No Action levothyroxine 100 mcg Tablet 100 mcg PO DAILY albuterol sulfate [ProAir HFA] 90 mcg/actuation Hfa Aerosol Inhaler 2 puff INHALATION Q4H PRN (Reason: cough/wheeze) cyanocobalamin (vitamin B-12) 100 mcg Tablet 100 mcg PO DAILY lisinopril 10 mg Tablet 10 mg PO DAILY rosuvastatin 5 mg Tablet 5 mg PO DAILY cholecalciferol (vitamin D3) [Vitamin D3] 25 mcg (1,000 unit) Tablet 25 mcg PO DAILY ibuprofen 800 mg tablet 800 mg PO TID benzonatate 200 mg capsule 200 mg PO BID PRN (Reason: cough) 30 Days Qty: 30 3RF Arnuity Ellipta 100 mcg/actuation blister with device 1 inh INHALATION DAILY Qty: 30 11RF fluticasone propionate 50 mcg/actuation spray,suspension 2 spray INTRANASAL DAILY PRN (Reason: Allergic Symptoms) Qty: 16 11RF loratadine 10 mg tablet 10 mg PO DAILY 30 Days Qty: 30 11RF azelastine 137 mcg (0.1 %) aerosol,spray 2 spray intranasal BID 30 Days Qty: 30 6RF Rx Instructions: administer into each nostril montelukast [Singulair] 10 mg tablet 10 mg PO BEDTIME 30 Days Qty: 30 11RF tamsulosin 0.4 mg capsule 0.4 mg PO DAILY Interventions: ED Discharge Assessment Last Done: 12/12/22 21:14 Discharge Date/Time: 12/12/22 21:18
== END 2022-12-12 21:18 | disposition left against medical advice (07) ==
PROVIDERS: Emergency Provider Emergency Medicine; PCP Internal Medicine
DX: R06.02 Shortness of breath (principal); R05.9 Cough, unspecified; Z79.899 Other long term (current) drug therapy
CPT/HCPCS: 99282

== ENCOUNTER → 2023-02-02 11:23 | Outpatient (BNVA) | payer OTHER, SELFPAY | PROVIDERS: PCP Internal Medicine; Visit Provider Orthopaedic Surgery | DX: M17.11 Unilateral primary osteoarthritis, right knee (principal); M71.21 Synovial cyst of popliteal space [Baker], right knee | CPT/HCPCS: 99212 ==

== ENCOUNTER → 2023-05-30 13:12 | Outpatient (BNV) | payer OTHER, SELFPAY | PROVIDERS: Admitting Provider Orthopaedic Surgery; PCP Internal Medicine; Visit Provider Internal Medicine Cardiovascular Disease | DX: R94.31 Abnormal electrocardiogram [ECG] [EKG] (principal) | CPT/HCPCS: 93010 ==

== ENCOUNTER 2023-06-15 09:27 | Outpatient (AMB) | payer OTHER, SELFPAY ==
[2023-06-15 09:39] VITALS: BMI 27.4
--- NOTE | 2023-06-15 09:39 | A.OFFVIS_ITS ---
Intake Vital Signs 06/15/23 09:39 Height 5 ft 8 in Weight 180 lb BMI 27.4 Intake Visit Reasons: Preop RT TKA 06/20/23 NE Intake Note: Jeremiah is a 72 year old male who presents today for a pre op appointment for his right TKA, 06/20/23 NE. Patient reports still having pain and discomfort in his right knee. Allergies Latex, Natural Rubber Allergy (Verified 06/15/23 09:40) Rash HPI Preop RT TKA 06/20/23 NE HPI0 Details 72-year-old male, who is [place] speaking, presents in the office today for his preoperative history and physical exam prior to a right total knee art hroplasty to be performed on 06/20/[address] Erickson. The patient reports he is still having pain with discomfort in the right knee. OF NOTE: Should not place PATTY wrap after surgery due to prior allergic reaction. Patient has an allergy history, as follows: -Latex; rash Patient is currently taking, as follows: -Albuterol sulfate 90 mcg/actuation aerosol inhaler(ProAir HFA) -Azelastine 2 sprays intranasal BID -Benzonatate 200 mg PO BID PRN -Celecoxib 200 mg PO daily -Cholecalciferol (Vitamin D3) 25 mcg PO daily -Cyanocobalamin (Vitamin B-12) 100 mcg PO daily -Docusate sodium 100 mg PO BID -Fluticasone furoate 100 mcg/actuation (Arnuity Ellipta) 1 inhalation daily -Ibuprofen 800 mg PO TID PRN -Levothyroxine 100 mcg PO daily -Lisinopril 10 mg PO daily -Loratadine 10 mg PO daily -Montelukast 10 mg PO bedtime -Rosuvastatin 5 mg PO bedtime -Tamsulosin 0.4 mg PO bedtime Patient has a medical history, as follows: -Asthma -Chronic allergic rhinitis -Hx of renal calculi -Hypothyroidism Patient has a surgical history, as follows: -Hx of lithotripsy -Hx of total left knee arthroplasty; 2020 -Hx of colonoscopy -Hx of cystoscopy PFSH Medical History Asthma Chronic allergic rhinitis Chronic cough Hx of renal calculi Hypothyroidism Surgical History H/O lithotripsy History of total left knee replacement (TKR) Hx of colonoscopy Hx of cystoscopy Social History Household Members: Spouse Housing: Apartment Are you a primary wound care nurse to a significant other at home: No Do you presently have visiting nurse or other home services: Yes (DIGITAL MARKETING ANALYST 2-3 x week for ) Patient Tobacco Use Status: Never used Tobacco service: No Current occupational status: retired Review of Systems Const All systems reviewed & are unremarkable except as noted in HPI and below Physical Exam Vital Signs: BMI result Body Mass Index 27.4 Const General: cooperative, healthy appearing, comfortable, no acute distress, well developed, alert and awake Orientation/consciousness: patient oriented x3 HEENT Head: Yes normal to inspection, Yes normocephalic and Yes atraumatic Eyes General: appearance normal, both eyes and all related structures Neck Neck: Yes normal visual inspection and Yes no lymphadenopathy Resp Effort & Inspection: normal respiratory effort and able to speak in complete sentences Cardio Rate: regular rate Peripheral pulses: Peripheral pulses 2+ throughout GI Inspection: Yes normal to inspection Palpation (GI): Soft to palpation Skin General skin exam: no rashes or lesions noted Neuro General: patient oriented x3 Extrem Other: Right Knee: Skin is clean, dry, and intact. Stevens's cyst TTP lateral and medial joint line Psych Appearance: grossly normal Mental Status: mental status grossly normal Affect: normal affect Attitude: cooperative Assessment & Plan Assessment & Plan (1) Osteoarthritis of right knee: Code(s): M17.11 - Unilateral primary osteoarthritis, right knee (2) Synovial cyst of popliteal space [Stevens], right knee: Code(s): M71.21 - Synovial cyst of popliteal space [Stevens], right knee Plan Mr. Thomas is a 72-year-old male, who is [place] speaking, presents in the office today for his preoperative history and physical exam prior to a right total knee arthroplasty to be performed on 06/20/[address] Erickson. The patient reports he is still having pain with discomfort in the right knee. Patient has an allergy history, as follows: -Latex; rash Patient is currently taking, as follows: -Albuterol sulfate 90 mcg/actuation aerosol inhaler(ProAir HFA) -Azelastine 2 sprays intranasal BID -Benzonatate 200 mg PO BID PRN -Celecoxib 200 mg PO daily -Cholecalciferol (Vitamin D3) 25 mcg PO daily -Cyanocobalamin (Vitamin B-12) 100 mcg PO daily -Docusate sodium 100 mg PO BID -Fluticasone furoate 100 mcg/actuation (Arnuity Ellipta) 1 inhalation daily -Ibuprofen 800 mg PO TID PRN -Levothyroxine 100 mcg PO daily -Lisinopril 10 mg PO daily -Loratadine 10 mg PO daily -Montelukast 10 mg PO bedtime -Rosuvastatin 5 mg PO bedtime -Tamsulosin 0.4 mg PO bedtime Patient has a medical history, as follows: -Asthma -Chronic allergic rhinitis -Hx of renal calculi -Hypothyroidism Patient has a surgical history, as follows: -Hx of lithotripsy -Hx of total left knee arthroplasty; 2020 -Hx of colonoscopy -Hx of cystoscopy I discussed in detail the procedure and what to expect pre and post operatively. We discussed the risks, benefits and alternatives to the surgery as well as the rehabilitation course. The risks; which include, but are not limited to infection, bleeding, nerve injury, ongoing pain, swelling, and stiffness, perioperative risk of injury to bones and soft tissues, and blood clots. I have answered all questions and with their understanding they have consented to move forward with a right total knee arthroplasty to be performed on 06/20/[address] Slade Erickson. Follow up will be at the post operative appointment on 07/06/2023 at 2:00 pm, or sooner if needed. OF NOTE: Should not place PATTY wrap after surgery due to prior allergic reaction. Orders: Orders Type and Screen 06/13/23 Z01.812 - Encounter for preprocedural laboratory examination Patient Instructions: Scribed for Shanda Ortiz PA-C by Micaela Crawford health care / medical job titles, on 06/15/2023 at 9:29 am, EST. Coding Level of Care Code Global (80421) Diagnoses Osteoarthritis of right knee M17.11 Synovial cyst of popliteal space [Stevens], right knee M71.21
== END 2023-06-15 11:18 | disposition home or self-care (01) ==
PROVIDERS: Visit Provider Physician Assistant
DX: M17.11 Unilateral primary osteoarthritis, right knee (principal); M71.21 Synovial cyst of popliteal space [Baker], right knee
CPT/HCPCS: 99024

== ENCOUNTER → 2023-06-15 09:27 | Outpatient (BNVA) | payer OTHER, SELFPAY | PROVIDERS: Visit Provider Physician Assistant ==

== ENCOUNTER 2023-06-20 05:59 | Inpatient (IN) | payer OTHER, SELFPAY ==
--- NOTE | 2023-05-30 | ECG_ITS ---
Test Reason : PREOP Blood Pressure : / mmHG Vent. Rate : 073 BPM Atrial Rate : 073 BPM P-R Int : 170 ms QRS Dur : 082 ms QT Int : 340 ms P-R-T Axes : 067 -41 064 degrees QTc Int : 374 ms Normal sinus rhythm Left axis deviation Nonspecific ST and T wave abnormality Abnormal ECG When compared with ECG of 22-JUL-2020 21:29, Nonspecific T wave abnormality now evident in Lateral leads Referred By: Jad Martínez Electronically Signed By:Froylan Gonzalez
[2023-05-30 12:06] VITALS: BP 147/83; PULSE 81; RESP 16; O2SAT 95; BMI 27.4
--- NOTE | 2023-05-30 12:20 | HO.ANESPROP2 ---
Documented by User: Katya Lopez NP 06/19/23 09:09 HPI - Anesthesia Eval Consult details Narrative: 72yo M for Right Knee Replacement Total, 06/20/23 Medically optimized s/p L TKA 2020 with spinal/block. No issues per patient. No recent illness No CP Asthma stable. Elipta daily. Albuterol 1-2 x weekly PMFSH Active Problems Active Problems: All Active Problems (Updated 05/30/23 @ 12:06 by Maria A Arvizu RN) Multifocal pneumonia (Acute) COVID-19 virus infection (Acute) Acute respiratory failure with hypoxia (Acute) Osteoarthritis of right knee (Acute) Synovial cyst of popliteal space [Stevens], right knee (Acute) Chronic allergic rhinitis (Acute) Chronic cough (Acute) Asthma (Acute) Past Medical History Medical History Asthma BPH (benign prostatic hyperplasia) Chronic allergic rhinitis Chronic cough Hx of renal calculi Hyperlipidemia Hypertension Hypothyroidism Family History Family history of problems with anesthesia: No Surgical History Surgical History H/O lithotripsy History of total left knee replacement (TKR) Hx of colonoscopy Hx of cystoscopy History of Problems with Anesthesia: No Social History Social History Household Members: Spouse Housing: Apartment Are you a primary managed care liaison to a significant other at home: No Do you presently have visiting nurse or other home services: No Patient Tobacco Use Status: Never used Tobacco Use of substances other than those prescribed or required for medical reasons: No Currently Displaying Signs/Symptoms of Drug Intoxication Withdrawal: No Have you been hit, kicked, punched, or otherwise hurt by someone within the past year? If so, by whom?: No Do you feel safe in your current relationship?: No Current Relationship Is there a partner from a previous relationship who is making you feel unsafe now?: No Are you made to feel afraid or neglected: No Are you DNR?: No Advance Directives: No Advance Directives Information Provided: Yes Advance Directives on File: No Do you have thoughts of harming others: None Do you have a plan to hurt others: No Plan Recently lost weight without trying: No Eating poorly because of decreased appetite: No Nutrition Risks: No Nutritional Risk Poor oral hygiene: No service: No Current occupational status: retired Meds Allergies Allergy/AdvReac Type Severity Reaction Status Date / Time Latex, Natural Rubber Allergy Rash Verified 06/15/23 09:40 Home Medications Medication Instructions Recorded Confirmed Last Taken Type albuterol sulfate 90 mcg/actuation 2 puff inhalation Q4H PRN 07/23/20 06/20/23 06/20/23 History aerosol inhaler (ProAir HFA) cough/wheeze cholecalciferol (vitamin D3) 25 25 mcg PO DAILY 07/23/20 06/20/23 06/16/23 History mcg (1,000 unit) tablet (Vitamin D3) cyanocobalamin (vitamin B-12) 100 100 mcg PO DAILY 07/23/20 06/20/23 06/16/23 History mcg tablet levothyroxine 100 mcg tablet 100 mcg PO DAILY 07/23/20 06/20/23 06/16/23 History lisinopril 10 mg tablet 10 mg PO DAILY 07/23/20 06/20/23 06/16/23 History rosuvastatin 5 mg tablet 5 mg PO BEDTIME 07/23/20 06/20/23 06/16/23 History ibuprofen 800 mg tablet 800 mg PO TID PRN Pain 03/03/22 06/20/23 06/13/23 History tamsulosin 0.4 mg capsule 0.4 mg PO BEDTIME 09/08/22 06/20/23 06/16/23 History celecoxib 200 mg capsule 200 mg PO DAILY 05/30/23 06/20/23 06/13/23 History docusate sodium 100 mg capsule 100 mg PO BID 05/30/23 06/20/23 06/16/23 History fluticasone furoate 100 1 inh inhalation DAILY 05/30/23 06/20/23 06/16/23 History mcg/actuation blister powder for inhalation (Arnuity Ellipta) Exam Exam Date and Time: May 30, 2023 1220 Height,Weight and Vital Signs: Height 5 ft 8 in Weight 81.8 kg Last Vital Signs Pulse 81 05/30/23 12:06 Resp 16 05/30/23 12:06 BP 147/83 H 05/30/23 12:06 Pulse Ox 95 05/30/23 12:06 O2 Del Method Room Air 05/30/23 12:06 Pertinent Lab Results Pertinent Lab Results: Lab Results 05/30/23 05/30/23 05/30/23 Range/Units 12:30 12:55 12:55 WBC 6.3 (4.8-10.8) X10*3/uL RBC 4.26 L (4.60-5.80) X10*6/uL Hgb 14.0 (14.0-18.0) g/dl Hct 43.0 (42.0-52.0) % MCV 100.9 H (80.0-98.0) fL MCH 32.9 (27.0-33.0) pg MCHC 32.6 (31.0-36.0) g/dl RDW 11.7 (11.0-16.0) % Plt Count 317 D (160-400) X10*3/uL MPV 10.0 (9.4-12.4) fL Immature Gran % (Auto) 0.3 (0.0-0.4) % Neut % (Auto) 70.8 (45-73) % Lymph % (Auto) 18.0 L (20-40) % Arroyo % (Auto) 8.0 (2-11) % Eos % (Auto) 2.7 (0-4) % Baso % (Auto) 0.2 (0-2) % Lymph # (Auto) 1.1 L (1.2-4.9) X10*3/uL Arroyo # (Auto) 0.5 (0.1-1.2) X10*3/uL Eos # (Auto) 0.2 (0.0-0.4) X10*3/uL Baso # (Auto) 0.0 (0.0-0.2) X10*3/uL Abs Immat Gran (auto) 0.02 (0.00-0.03) X10*3/uL Absolute Neuts (auto) 4.5 (2.0-8.3) x10*3/uL Absolute Nucleated RBC 0.000 (0.0-0.012) X10*3/uL Nucleated RBC % (auto) 0.0 (0.0-0.2) /100WBC Sodium 139 (135-145) mmol/L Potassium 4.3 (3.3-5.1) mmol/L Chloride 104 (96-108) mmol/L Carbon Dioxide 29 (22-29) mmol/L Anion Gap 10 L (12-20) BUN 16 (9-16) mg/dL Creatinine 1.18 (0.5-1.4) mg/dL Estim Creat Clear Calc 53.9 Estimated GFR > 60 Random Glucose 98 (60-115) mg/dL Calcium 9.4 D (8.4-10.2) mg/dL Nasal Screen MRSA (PCR) NEGATIVE (Negative) Nasal S. aureus Screen NEGATIVE (Negative) Nasal MRSA/S.aureus Interp SEE NOTE Narrative Narrative: EKG 05/2023 Vent. Rate : 073 BPM ? ? Atrial Rate : 073 BPM ?? P-R Int : 170 ms? QRS Dur : 082 ms ? ? QT Int : 340 ms ? ? ? P-R-T Axes : 067 -41 064 degrees ?? QTc Int : 374 ms ? Normal sinus rhythm Left axis deviation Nonspecific ST and T wave abnormality Abnormal ECG When compared with ECG of 22-JUL-2020 21:29, Nonspecific T wave abnormality now evident in Lateral leads Airway Mallampati Class: II TM Dist: >3cm Neck ROM: Full Partial: Upper Heart: RRR Lungs: CTAB Assessment and Plan Assessment Anesthesia Assessment: Anesthesia Plan Discussed and PAT Visit Final Anesthetic Review Family History of Problems with Anesthesia: No History of Problems with Anesthesia: No Documented by User: Jose Cruz Pickens MD 06/21/23 02:00 [facility] Past Medical History Medical History Asthma BPH (benign prostatic hyperplasia) Chronic allergic rhinitis Chronic cough Hx of renal calculi Hyperlipidemia Hypertension Hypothyroidism Surgical History Surgical History H/O lithotripsy History of total left knee replacement (TKR) Hx of colonoscopy Hx of cystoscopy Social History Social History Household Members: Spouse Housing: Apartment Are you a primary managed care liaison to a significant other at home: No Do you presently have visiting nurse or other home services: No Patient Tobacco Use Status: Never used Tobacco Use of substances other than those prescribed or required for medical reasons: No Currently Displaying Signs/Symptoms of Drug Intoxication Withdrawal: No Have you been hit, kicked, punched, or otherwise hurt by someone within the past year? If so, by whom?: No Do you feel safe in your current relationship?: No Current Relationship Is there a partner from a previous relationship who is making you feel unsafe now?: No Are you made to feel afraid or neglected: No Are you DNR?: No Advance Directives: No Advance Directives Information Provided: Yes Advance Directives on File: No Do you have thoughts of harming others: None Do you have a plan to hurt others: No Plan Recently lost weight without trying: No Eating poorly because of decreased appetite: No Nutrition Risks: No Nutritional Risk Poor oral hygiene: No service: No Current occupational status: retired [employer] Allergies Allergy/AdvReac Type Severity Reaction Status Date / Time Latex, Natural Rubber Allergy Rash Verified 06/15/23 09:40 Home Medications Medication Instructions Recorded Confirmed Last Taken Type albuterol sulfate 90 mcg/actuation 2 puff inhalation Q4H PRN 07/23/20 06/20/23 06/20/23 History aerosol inhaler (ProAir HFA) cough/wheeze cholecalciferol (vitamin D3) 25 25 mcg PO DAILY 07/23/20 06/20/23 06/16/23 History mcg (1,000 unit) tablet (Vitamin D3) cyanocobalamin (vitamin B-12) 100 100 mcg PO DAILY 07/23/20 06/20/23 06/16/23 History mcg tablet levothyroxine 100 mcg tablet 100 mcg PO DAILY 07/23/20 06/20/23 06/16/23 History lisinopril 10 mg tablet 10 mg PO DAILY 07/23/20 06/20/23 06/16/23 History rosuvastatin 5 mg tablet 5 mg PO BEDTIME 07/23/20 06/20/23 06/16/23 History ibuprofen 800 mg tablet 800 mg PO TID PRN Pain 03/03/22 06/20/23 06/13/23 History tamsulosin 0.4 mg capsule 0.4 mg PO BEDTIME 09/08/22 06/20/23 06/16/23 History celecoxib 200 mg capsule 200 mg PO DAILY 05/30/23 06/20/23 06/13/23 History docusate sodium 100 mg capsule 100 mg PO BID 05/30/23 06/20/23 06/16/23 History fluticasone furoate 100 1 inh inhalation DAILY 05/30/23 06/20/23 06/16/23 History mcg/actuation blister powder for inhalation (Arnuity Ellipta) Exam Airway Loose/Missing/Broken Teeth: Yes Assessment and Plan Assessment Anesthesia Assessment: Chart Reviewed Final Anesthetic Review NPO: Yes Final Preanesthetic Review: Meds/Allgs Chart Reviewed, Consent Obtained/Reviewed and Anes Risks/Benef Reviewed Patient Risk: Intermediate Procedure Risk: Intermediate Anesthetic Plan Anesthetic Plan: Spinal, Regional Block and Agree w/ Assess. and Plan Disposition: Standard PACU
[2023-05-30 12:56] LABS: MANUAL DIFF FLAG NO
[2023-05-30 14:10] LABS: Basophils Percent Auto 0.2 % (0-2); Eosinophils Absolute Auto 0.2 X10*3/uL (0.0-0.4); Eosinophils Percent Auto 2.7 % (0-4); Imm Gran Abs Auto 0.02 X10*3/uL (0.00-0.03); Imm Gran Pct Auto 0.3 % (0.0-0.4); Lymphocytes Absolute Auto 1.1 X10*3/uL (1.2-4.9); Mean Corpuscular HGB Conc 32.6 g/dl (31.0-36.0); Mean Corpuscular Hemoglobin 32.9 pg (27.0-33.0); Mean Corpuscular Volume 100.9 fL (80.0-98.0); Monocytes Absolute Auto 0.5 X10*3/uL (0.1-1.2); Neutrophils Absolute Auto 4.5 x10*3/uL (2.0-8.3); Neutrophils Percent Auto 70.8 % (45-73); Platelet Count 317 X10*3/uL (160-400); Red Blood Count 4.26 X10*6/uL (4.60-5.80); Red Cell Distribution Width 11.7 % (11.0-16.0); White Blood Count 6.3 X10*3/uL (4.8-10.8)
[2023-05-30 14:27] LABS: MRSA Nasal PCR NEGATIVE (Negative); SA Nasal PCR NEGATIVE (Negative)
[2023-05-30 14:56] LABS: Anion Gap 10 (12-20); Blood Urea Nitrogen 16 mg/dL (9-16); Calcium 9.4 mg/dL (8.4-10.2); Carbon Dioxide 29 mmol/L (22-29); Chloride 104 mmol/L (96-108); Creatinine Clr Calc Pharmacy 53.9; Estimated Glomerular Filt Rate > 60; Glucose Random 98 mg/dL (60-115); Potassium 4.3 mmol/L (3.3-5.1); Sodium 139 mmol/L (135-145)
[2023-06-20] VITALS (11 sets, daily range): BP systolic 101–144; BP diastolic 53–88; PULSE 51–95; RESP 16–20; TEMP 36.1–37.9; O2SAT 94–98; BMI 28.8
--- NOTE | ~2023-06-20 | XR_ITS ---
EXAMINATION: XR KNEE, RIGHT CLINICAL INFORMATION: Right total knee arthroplasty. COMPARISON: Right knee radiographs dated 03/14/2020. TECHNIQUE: 2 view of the right knee. FINDINGS: The patient is status post right knee arthroplasty showing good anatomic alignment and no evidence for hardware malfunction. Mild to moderate intra-articular and subcutaneous air is seen. Multiple surgical skin clips are seen anteriorly. XR/XR knee RT 2V IMPRESSION: Postoperative changes without hardware abnormality.
[2023-06-20] MEDS: Lactated Ringers 1,000 ML 100 ML IVCONT ×3 (06:37→19:34)
[2023-06-20 06:51] LABS: Hematocrit 38.2 % (42.0-52.0); Hemoglobin 12.5 g/dl (14.0-18.0)
--- NOTE | 2023-06-20 07:27 | MHC.SHP ---
Pre-Procedural Eval Section A Date of Service: 06/20/23 The patient is an INPATIENT: No Changes since office visit: No Cold of Flu in the past 2 weeks, No New Medical Problems, No Changes in Medication and No Patient answered all questions The History & Physical has been completed within 30 days and I have reviewed it.: Yes Section B Chief Complaint: Unilateral primary osteoarthritis, right knee Allergies: Allergies Allergy/AdvReac Type Severity Reaction Status Date / Time Latex, Natural Rubber Allergy Rash Verified 06/15/23 09:40 Plan I have reviewed the history and physical and performed a pertinent physical examination on my patient. No changes have occurred unless specified. Time Spent With Patient Time: Total time managing care of this patient today ____ minutes.
--- NOTE | 2023-06-20 09:00 | PM.OP ---
Brief Operative Note Date of Service: 06/20/23 Pre-op diagnosis: Right knee OA Post-op diagnosis: same Procedure: Right TKA Implants: Nilam Triathalon press fit cruciate retaining 01/25/12/32a Surgeon: Slade Erickson MD Anesthesia: GETA and regional Was an Carbon Sequestration Plant Engineer used for this Procedure?: Yes Carbon Sequestration Plant Engineer: Jad Martínez Estimated blood loss (mL): 20 Tourniquet time (min): 48 IV fluids (mL): 1,000 Pathology: other Condition: stable Disposition: PACU
[2023-06-20] MEDS: oxyCODONE HCl Immed Release 5 MG TABLET PO ×2 (11:10→15:05)
[2023-06-20] MEDS: HYDROmorphone HCl 0.5 MG/0.5 ML SYRINGE 0.25 MG IVPUSH ×2 (12:23→16:12)
[2023-06-20] MEDS: ceFAZolin Sodium/Dextrose,Iso 2 GM/50 ML PIGGYBACK IV (12:24)
[2023-06-20] MEDS: Acetaminophen 325 MG TABLET 650 MG PO ×2 (12:24→19:35)
--- NOTE | 2023-06-20 13:30 | HO.PM.IMCN ---
History of Present Illness Data of Consult Service Date: 06/20/23 Requesting physician: Slade Erickson Primary Care Provider: Lester Rivera III, MD HPI Reason for consult: medical management 72-year-old male with history of moderate persistent asthma, hypothyroidism, hypertension, hyperlipidemia, BPH chronic allergic cough, and osteoarthritis of the right knee admitted to Orthopedic surgery with consult placed to hospital service for medical management. He underwent TKA of the right knee earlier today. Currently reports poorly controlled pain rated as a 9/10 in the right knee. RN has notified orthopedic team. Does still have some numbness in the right lower extremity s/p nerve block. He has no other complaints at this time. Denies any alcohol use, cigarette smoking, or illicit drug use. Review of Systems Review of Systems: Yes all other systems are reviewed and are negative [facility] Medical History Asthma BPH (benign prostatic hyperplasia) Chronic allergic rhinitis Chronic cough Hx of renal calculi Hyperlipidemia Hypertension Hypothyroidism Surgical History H/O lithotripsy History of total left knee replacement (TKR) Hx of colonoscopy Hx of cystoscopy Social History Household Members: Spouse Housing: Apartment Are you a primary daycare provider to a significant other at home: No Do you presently have visiting nurse or other home services: No Patient Tobacco Use Status: Never used Tobacco Use of substances other than those prescribed or required for medical reasons: No Have you been hit, kicked, punched, or otherwise hurt by someone within the past year? If so, by whom?: No Do you feel safe in your current relationship?: No Current Relationship Is there a partner from a previous relationship who is making you feel unsafe now?: No Are you made to feel afraid or neglected: No Are you DNR?: No Advance Directives: No Advance Directives Information Provided: Yes Advance Directives on File: No Do you have thoughts of harming others: None Do you have a plan to hurt others: No Plan Recently lost weight without trying: No Eating poorly because of decreased appetite: No Nutrition Risks: No Nutritional Risk Poor oral hygiene: No service: No Current occupational status: retired Meds Allergies Allergy/AdvReac Type Severity Reaction Status Date / Time Latex, Natural Rubber Allergy Rash Verified 06/15/23 09:40 Active Medications: Current Medications Acetaminophen (Acetaminophen 325 Mg Tablet) 650 mg PO Q6H PRN PRN Reason: Pain, Mild (Pain Scale 1-3) Last Admin: 06/20/23 12:24 Dose: 650 mg Aspirin (Aspirin 325 Mg Tablet) 325 mg PO BID [facility] Celecoxib (Celecoxib 200 Mg Capsule) 200 mg PO BID [facility] Docusate Sodium (Docusate Sodium 100 Mg Capsule) 100 mg PO BID [facility] Hydromorphone HCl (Hydromorphone Hcl 0.5 Mg/0.5 Ml Syringe) 0.25 mg IVPUSH Q4H PRN; Protocol PRN Reason: Pain, Severe (Pain Scale 7-10) Last Admin: 06/20/23 12:23 Dose: 0.25 mg Lactated Ringer's (Lr) 1,000 mls @ 100 mls/hr IVCONT .Q10H [facility] Stop: 06/21/23 09:19 Last Admin: 06/20/23 09:58 Dose: 100 mls/hr Cefazolin Sodium/Dextrose (Ancef) 2 gm in 50 mls @ 100 mls/hr IV POSTOP ONE Stop: 06/20/23 14:29 Last Infusion: 06/20/23 13:18 Dose: Infused Levothyroxine Sodium (Levothyroxine Sodium 100 Mcg Tablet) 100 mcg PO DAILY@0600 [facility] Ondansetron HCl (Ondansetron Hcl 4 Mg/2 Ml Vial) 4 mg IVPUSH Q8H PRN PRN Reason: Nausea and Vomiting Oxycodone HCl (Oxycodone Hcl Immed Release 5 Mg Tablet) 5 mg PO Q4H PRN PRN Reason: Pain, Moderate(Pain Scale 4-6) Last Admin: 06/20/23 11:10 Dose: 5 mg Oxycodone HCl (Oxycodone Hcl Er 10 Mg Tab.Er.12h) 10 mg PO BID [facility] Sodium Chloride (0.9 % Sodium Chloride Flush 3 Ml Syringe) 3 ml IVFLUSH QSHIFT [facility] Home Medications Medication Instructions Recorded Confirmed Last Taken Type albuterol sulfate 90 mcg/actuation 2 puff inhalation Q4H PRN 07/23/20 06/20/23 06/20/23 History aerosol inhaler (ProAir HFA) cough/wheeze cholecalciferol (vitamin D3) 25 25 mcg PO DAILY 07/23/20 06/20/23 06/16/23 History mcg (1,000 unit) tablet (Vitamin D3) cyanocobalamin (vitamin B-12) 100 100 mcg PO DAILY 07/23/20 06/20/23 06/16/23 History mcg tablet levothyroxine 100 mcg tablet 100 mcg PO DAILY 07/23/20 06/20/23 06/16/23 History lisinopril 10 mg tablet 10 mg PO DAILY 07/23/20 06/20/23 06/16/23 History rosuvastatin 5 mg tablet 5 mg PO BEDTIME 07/23/20 06/20/23 06/16/23 History ibuprofen 800 mg tablet 800 mg PO TID PRN Pain 03/03/22 06/20/23 06/13/23 History tamsulosin 0.4 mg capsule 0.4 mg PO BEDTIME 09/08/22 06/20/23 06/16/23 History celecoxib 200 mg capsule 200 mg PO DAILY 05/30/23 06/20/23 06/13/23 History docusate sodium 100 mg capsule 100 mg PO BID 05/30/23 06/20/23 06/16/23 History fluticasone furoate 100 1 inh inhalation DAILY 05/30/23 06/20/23 06/16/23 History mcg/actuation blister powder for inhalation (Arnuity Ellipta) Physical Exam Vital Signs and Narrative: Vital Signs: Last Vital Signs Temp 97.4 F 06/20/23 11:11 Pulse 55 06/20/23 11:11 Resp 20 06/20/23 11:11 BP 132/75 06/20/23 11:11 Pulse Ox 96 06/20/23 11:11 O2 Del Method Room Air 06/20/23 11:11 BMI result Body Mass Index 28.8 Constitutional - Awake and Alert, No apparent distress Eyes - PERRLA, EOMI Cardiovascular - S1S2, RRR, No edema Respiratory - Normal lung expansion, Normal respiratory effort, No respiratory distress, CTA bilaterally Gastrointestinal - NT / ND; +BS; No rebound or guarding Extremities - no calf tenderness bilaterally, no swelling Musculoskeletal - post-op bandage right knee in place Skin - Warm/Dry Neurological - Alert & oriented x3, decreased sensation right lower extremity Results Labs 06/20/23 06:38 05/30/23 12:55 Labs: Laboratory Results - last 24 hr 06/20/23 06:39 Blood Type A Negative Antibody Screen NEGATIVE Imaging Radiologist's Impressions: Impressions Knee X-Ray 06/20/23 09:57 IMPRESSION: Postoperative changes without hardware abnormality. Assessment and Plan (1) Osteoarthritis of right knee: Status: Acute Plan 72-year-old male with history of moderate persistent asthma, hypothyroidism, hypertension, hyperlipidemia, BPH chronic allergic cough, and osteoarthritis of the right knee admitted to Orthopedic surgery with consult placed to hospital service for medical management. # osteoarthritis right knee s/p right TKA pod 0 -plan/pain management per Orthopedic surgery -uncontrolled pain levels reported to Orthopedic team by RN # hypertension -blood pressure reasonably controlled -resume lisinopril on discharge # hypothyroidism -continue levothyroxine # BPH -resume Flomax # moderate persistent asthma -no acute exacerbation -continue maintenance inhalers, Singulair, albuterol p.r.n. # chronic allergic cough -continue home meds # HLD -resume rosuvastatin on discharge Thank you for allowing us to participate in this consult. We will continue following Time Spent With Patient Time: Total time managing care of this patient today ____ minutes.
[2023-06-20] MEDS: ondansetron HCL 4 MG/2 ML VIAL IVPUSH (15:29)
[2023-06-20] MEDS: Montelukast Sodium 10 MG TABLET PO (19:34)
[2023-06-20] MEDS: Docusate Sodium 100 MG CAPSULE PO (19:35)
[2023-06-20] MEDS: oxyCODONE HCl ER 10 MG TAB.ER.12H PO (19:35)
[2023-06-20] MEDS: Celecoxib 200 MG CAPSULE PO (19:35)
[2023-06-20] MEDS: Tamsulosin HCL 0.4 MG CAPSULE PO (19:35)
[2023-06-21] VITALS (7 sets, daily range): BP systolic 109–155; BP diastolic 56–77; PULSE 65–93; RESP 16–18; TEMP 36.4–36.8; O2SAT 93–96
[2023-06-21] MEDS: Lactated Ringers 1,000 ML 100 ML IVCONT (04:49)
[2023-06-21] MEDS: oxyCODONE HCl Immed Release 5 MG TABLET PO ×2 (04:49→11:03)
[2023-06-21] MEDS: Acetaminophen 325 MG TABLET 650 MG PO ×3 (04:53→16:12)
[2023-06-21 06:01] LABS: MANUAL DIFF FLAG NO
[2023-06-21 06:03] LABS: Basophils Percent Auto 0.1 % (0-2); Eosinophils Absolute Auto 0.1 X10*3/uL (0.0-0.4); Eosinophils Percent Auto 0.6 % (0-4); Hematocrit 36.9 % (42.0-52.0); Hemoglobin 12.3 g/dl (14.0-18.0); Imm Gran Abs Auto 0.03 X10*3/uL (0.00-0.03); Imm Gran Pct Auto 0.3 % (0.0-0.4); Lymphocytes Absolute Auto 0.8 X10*3/uL (1.2-4.9); Lymphocytes Percent Auto 9.3 % (20-40); Mean Corpuscular HGB Conc 33.3 g/dl (31.0-36.0); Mean Corpuscular Hemoglobin 33.1 pg (27.0-33.0); Mean Corpuscular Volume 99.2 fL (80.0-98.0); Mean Platelet Volume 9.5 fL (9.4-12.4); Monocytes Absolute Auto 0.9 X10*3/uL (0.1-1.2); Monocytes Percent Auto 10.1 % (2-11); Neutrophils Absolute Auto 6.9 x10*3/uL (2.0-8.3); Neutrophils Percent Auto 79.6 % (45-73); Platelet Count 218 X10*3/uL (160-400); Red Blood Count 3.72 X10*6/uL (4.60-5.80); Red Cell Distribution Width 11.8 % (11.0-16.0); White Blood Count 8.7 X10*3/uL (4.8-10.8)
[2023-06-21 06:19] LABS: Anion Gap 11 (12-20); Blood Urea Nitrogen 15 mg/dL (9-16); Calcium 8.4 mg/dL (8.4-10.2); Carbon Dioxide 25 mmol/L (22-29); Chloride 105 mmol/L (96-108); Creatinine Clr Calc Pharmacy 59.4; Estimated Glomerular Filt Rate > 60; Glucose Fasting 131 mg/dL (60-99); Potassium 4.4 mmol/L (3.3-5.1); Sodium 137 mmol/L (135-145)
--- NOTE | 2023-06-21 07:36 | PM.PNORT ---
Subjective Subjective Date of Service: 06/21/23 Interval history: POD1 s/p RTKA. Patient is resting in bed comfortably. No overnight events. Pain is managed. No additional complaints. Physical Exam Vital Signs: Vital Signs: Last Vital Signs Temp 98.1 F 06/21/23 07:15 Pulse 65 06/21/23 07:15 Resp 16 06/21/23 07:15 BP 129/67 06/21/23 07:15 Pulse Ox 94 06/21/23 07:15 O2 Del Method Room Air 06/21/23 07:15 BMI result Body Mass Index 28.8 Const: General: cooperative, healthy appearing and no acute distress Resp: Effort & Inspection: normal respiratory effort and able to speak in complete sentences Cardio: Rate: regular rate Peripheral pulses: Peripheral pulses 2+ throughout GI: Palpation (GI): Soft to palpation Skin: Lesions: no lesions Rashes: no rashes Extrem: Other: Right knee Dressing is c/d/i. Able to dorsi/plantar flex. NVI. Procedures Date of Service Date of Service: 06/21/23 Progress Note: A&P Assessment and plan (1) Status post total knee replacement, right: Status: Acute Plan Continue pain mgmnt Begin ASA for dvt ppx begin PT for RTKA Dispo planning-Pending PT eval, pain mgmnt Time Spent With Patient Time: Total time managing care of this patient today ____ minutes. Quality Stroke Does the patient have a stroke diagnosis?: No VTE Prior VTE?: No VTE Risk Level:: Medical - moderate - high VTE Device Contraindication: N/A - Device Ordered VTE Drug Contraindication: N/A - Med Ordered
[2023-06-21] MEDS: HYDROmorphone HCl 0.5 MG/0.5 ML SYRINGE 0.25 MG IVPUSH ×2 (08:00→19:40)
[2023-06-21] MEDS: Celecoxib 200 MG CAPSULE PO ×2 (08:01→18:32)
[2023-06-21] MEDS: Aspirin 325 MG TABLET PO ×2 (08:01→19:39)
[2023-06-21] MEDS: oxyCODONE HCl ER 10 MG TAB.ER.12H PO ×2 (08:01→18:32)
[2023-06-21] MEDS: Loratadine 10 MG TABLET PO (08:01)
[2023-06-21] MEDS: Docusate Sodium 100 MG CAPSULE PO ×2 (08:01→19:40)
[2023-06-21] MEDS: Levothyroxine Sodium 100 MCG TABLET PO (08:01)
--- NOTE | 2023-06-21 08:15 | P.DS_ITS ---
DS: Providers Provider Date of Service: 06/22/23 Date of admission: 06/20/23 05:59 Primary care physician: Lester Rivera III, MD Consults: 06/20/23 10:53 Consult to Hospitalist Routine Comment: Consulting Provider: Hospitalist Reason For Exam: MEDICAL MANAGEMENT DS: Diagnosis Discharge Diagnosis (1) Status post total knee replacement, right: Status: Acute DS: Summary Hospital Course Hospital Course: The patient underwent a successful left total knee arthroplasty, they were transferred to PACU and then to the floor to recover. During their stay, their vitals were stable, afebrile at 98.1. Labs were unremarkable, H/H 12.3/36.9. POD 1 they were started on Aspirin 325mg po bid for DVT ppx, they also received Physical Therapy services twice a day. Prior to discharge, their dressing was changed, incision clean dry and intact, new Aquacel dressing applied and the plan was to be discharged home with VNA services. Time Spent with Patient Time attestation: Total time managing care of this patient today ____ minutes. Discharge coordination time: Less than 30 minutes Quality: Safe Use of Opioids Does Pt have an Active Cancer Diagnosis on the Problem List?: No Quality: Stroke Does the patient have a stroke diagnosis?: No Physical Exam Vital Signs: Vital Signs: Last Vital Signs Temp 98.1 F 06/21/23 07:15 Pulse 65 06/21/23 07:15 Resp 16 06/21/23 07:15 BP 129/67 06/21/23 07:15 Pulse Ox 94 06/21/23 07:15 O2 Del Method Room Air 06/21/23 07:15 BMI result Body Mass Index 28.8 Const: General: cooperative, healthy appearing and no acute distress Resp: Effort & Inspection: normal respiratory effort and able to speak in complete sentences Cardio: Rate: regular rate Peripheral pulses: Peripheral pulses 2+ t hroughout GI: Palpation (GI): Soft to palpation Skin: Lesions: no lesions Rashes: no rashes Extrem: Other: Right knee Dressing is c/d/i. Able to dorsi/plantar flex. NVI. DS: Data Data Completed and Pending Pending studies at discharge: Pending at discharge 06/20/23 09:01 Surgical [PTH] Routine Labs on day of discharge: Laboratory Results - last 24 hr 06/21/23 06/21/23 05:52 05:52 WBC 8.7 RBC 3.72 L Hgb 12.3 L Hct 36.9 L MCV 99.2 H MCH 33.1 H MCHC 33.3 RDW 11.8 Plt Count 218 D MPV 9.5 Immature Gran % (Auto) 0.3 Neut % (Auto) 79.6 H Lymph % (Auto) 9.3 L [place] % (Auto) 10.1 Eos % (Auto) 0.6 Baso % (Auto) 0.1 Lymph # (Auto) 0.8 L [place] # (Auto) 0.9 Eos # (Auto) 0.1 Baso # (Auto) 0.0 Abs Immat Gran (auto) 0.03 Absolute Neuts (auto) 6.9 Absolute Nucleated RBC 0.000 Nucleated RBC % (auto) 0.0 Sodium 137 Potassium 4.4 Chloride 105 Carbon Dioxide 25 Anion Gap 11 L BUN 15 Creatinine 1.18 Estim Creat Clear Calc 59.4 Estimated GFR > 60 Fasting Glucose 131 H Calcium 8.4 D Discharge Plan Discharge Anticipated Discharge Date/Time: 06/22/23 15:14 Patient Disposition: Home Health Service Discharge Diagnosis: s/p RTKA Referrals: Jad Martínez PA-C [Physician Product Marketing Consultant] - 07/06/23 2:00 pm Discharge Medications: No Action montelukast 10 mg tablet 10 mg PO BEDTIME Qty: 90 0RF fluticasone propionate 50 mcg/actuation spray,suspension 2 spray intranasal DAILY PRN (Reason: for allergies) Qty: 16 0RF levothyroxine 100 mcg Tablet 100 mcg PO DAILY albuterol sulfate [ProAir HFA] 90 mcg/actuation Hfa Aerosol Inhaler 2 puff INHALATION Q4H PRN (Reason: cough/wheeze) cyanocobalamin (vitamin B-12) 100 mcg Tablet 100 mcg PO DAILY lisinopril 10 mg Tablet 10 mg PO DAILY rosuvastatin 5 mg Tablet 5 mg PO BEDTIME cholecalciferol (vitamin D3) [Vitamin D3] 25 mcg (1,000 unit) Tablet 25 mcg PO DAILY docusate sodium 100 mg capsule 100 mg PO BID Arnuity Ellipta 100 mcg/actuation Blister With Device 1 inh INHALATION DAILY celecoxib 200 mg Capsule 200 mg PO DAILY ibuprofen 800 mg tablet 800 mg PO TID PRN (Reason: Pain) benzonatate 200 mg capsule 200 mg PO BID PRN (Reason: cough) 30 Days Qty: 30 3RF loratadine 10 mg tablet 10 mg PO DAILY 30 Days Qty: 30 11RF azelastine 137 mcg (0.1 %) aerosol,spray 2 spray intranasal BID 30 Days Qty: 30 6RF Rx Instructions: administer into each nostril tamsulosin 0.4 mg capsule 0.4 mg PO BEDTIME Discharge Orders: Discharge Order (Routine); Ordered 06/22/23 Ordered By: Shanda Ortiz Diet: Advance to usual diet Activity on Discharge: Use cane or walker Stand Alone Forms: Patient Portal Discharge page Care Plan Goals: restore fxn to left knee Health Concerns: none Plan of Treatment: Physical Therapy for ROM 0-120, quad strength, gait training. Use walker for ambulation Limit stair climbing, No shower, No tub bath, No driving Continue anticoagulant Keep Aquacel dressing clean, dry and intact. Follow up with orthopedics in 2 weeks Assessment: stable for d/c
--- NOTE | 2023-06-21 08:16 | P.F2F_ITS ---
Service Date Service Date: 06/22/23 Encounter Date of encounter: 06/22/23 Reasons for Services Signs and symptoms assessed: s/p LTKA. Pt. is considered homebound due to recent surgery. Unable to drive, poor balance, poor gait mechanics. Reason for physical therapy: home safety and mobility, therapeutic exercises, restore joint function, gait/transfer training, assess need for DME and ADL training Homebound: Leaving the home is medically contraindicated at this time without the asist of a device and/or another person due th the listed conditions above and below. Reason homebound: unsteady gait / fall risk, leg weakness, pain with ambulation, pain with transfers, poor balance / fall risk and unable to drive Certification: Based on the above findings, I certify that this patient is confined to the home and needs intermittent retirement care, physical therapy and/or speech therapy, or continues to need occupational therapy. The patient is under my care, and I have initiated the establishment of the plan of care. The patient will be followed by a physician who will periodically review the plan of care. Time Spent With Patient Time: Total time managing care of this patient today ____ minutes.
--- NOTE | 2023-06-21 08:21 | W.PM.OPN ---
Operative Note Operative Note Date of Service: 06/20/23 Narrative: Date of Service: 06/20/23 Pre-op diagnosis: Right knee OA Post-op diagnosis: same Procedure: Right TKA Implants: [place] [employer] press fit cruciate retaining 01/25/12cr/32a Surgeon: Slade Erickson MD Anesthesia: GETA and regional Was an Scooping Machine Tender used for this Procedure?: Yes Scooping Machine Tender: Jad Martínez Estimated blood loss (mL): 20 Tourniquet time (min): 48 IV fluids (mL): 1,000 Pathology: other Condition: stable Disposition: PACU Procedure in detail: The patient was brought to the operating room and prepped and draped in standard sterile fashion. A time-out was called to identify proper site proper procedure proper surgeon and IV antibiotics were administered. 1 g of IV tranexamic acid wa administered. I began by making a midline incision to the retinaculum and performed a medial parapatellar arthrotomy. The patella was translated laterally and the knee was flexed up. There was medial comaprtment eburnation. I performed a small medial peel and resected the infrapatellar fat pad. Meigs's line was then used to drill my intramedullary femoral guide and my distal femur cut of 10mm was made in 5 degrees of valgus while protecting the soft tissues. I then measured a # 4 femur and placed my cutting guide and made my anterior posterior and chamfer cuts protecting the soft tissues at all times. Once I was satisfied with my cuts I turned my attention to the tibia. I removed the meniscus medially and laterally and , using an external cutting guide, in line with the tibial crest and the third ray, I made my distal tibial cut in 3 deg slope of while protecting the PCL the posterior soft tissues at all times. An extension block was used to confirm appropriate amount of bony resection. I then sized a #4 tibia and once I was satisfied that there was complete tibial coverage I placed my trial and with the trial femur in place took the knee through range of motion. I was satisfied with the extension and flexion as well as the stability and balance at 0, 30 and 90 degrees. I then turned my attention to the patella where I removed 1 cm from the undersurface of the patella and then trialed a 32a patellar button. Again the knee was taken through range of motion I was satisfied with the tracking. I then returned to the femur and drilled my femoral lug holes and prepared the tibia. A femoral bone plug was placed and the knee was irrigated copiously. I then press fit the patella, tibia and femur in standard fashion. I trialed different inserts until I selected a #12 insert. The final insert was placed and a 3 minutes iodine soak with local TXA was performed. A Werewolf cautery wand was used to maintain hemostasis over the capsule and meniscal beds, the gutters and peripatellar soft tissues. The knee was then closed with a running Quill suture, a 3 0 Vicryl and renée on the skin. Patient was then placed in sterile dressing and brought to recovery room in stable condition there were no known complications.
[2023-06-21] MEDS: oxyCODONE HCl Immed Release 5 MG TABLET 10 MG PO ×2 (12:38→16:12)
--- NOTE | 2023-06-21 13:40 | P.PNIM_ITS ---
Subjective Subjective Date of Service: 06/21/23 Interval History: Good pain control is status post right knee arthroplasty felt little lightheaded while ambulating with physical therapy otherwise denies headache lightheadedness or dizziness no chest pain no palpitation, tolerating diet no nausea no vomiting no abdominal pain no other acute issues overnight. Review of Systems All other system reviewed and negative. Physical Exam Vital Signs: Vital Signs: Last Vital Signs Temp 98.1 F 06/21/23 07:15 Pulse 65 06/21/23 08:25 Resp 16 06/21/23 07:15 BP 129/67 06/21/23 08:25 Pulse Ox 94 06/21/23 08:25 O2 Del Method Room Air 06/21/23 07:15 BMI result Body Mass Index 28.8 Const: Other: General alert oriented x3, in no acute distress. Neck supple no JVD. CVS regular rate rhythm, Respiratory lungs clear to auscultation, no respiratory distress, no wheeze, no rhonchi. Gastrointestinal abdomen soft, non tender, bowel sounds audible, no guarding , no rigidity. Extremities right knee bandage in place. Neuro non focal , speech clear. Skin no rash Psych appropriate affect Objective Data Active Medications Acetaminophen (Acetaminophen 325 Mg Tablet) 650 mg PO Q6H PRN PRN Reason: Pain, Mild (Pain Scale 1-3) Last Admin: 06/21/23 11:03 Dose: 650 mg Documented By: EMANI Albuterol Sulfate (Albuterol Sulfate 90 Mcg 8 Gm Inhaler) 2 puff INHALE Q4H PRN PRN Reason: cough/wheeze Aspirin (Aspirin 325 Mg Tablet) 325 mg PO BID [facility] Last Admin: 06/21/23 08:01 Dose: 325 mg Documented By: CHEMA Benzonatate (Benzonatate 100 Mg Capsule) 200 mg PO BID PRN PRN Reason: cough Celecoxib (Celecoxib 200 Mg Capsule) 200 mg PO BID [facility] Last Admin: 06/21/23 08:01 Dose: 200 mg Documented By: CHEMA Docusate Sodium (Docusate Sodium 100 Mg Capsule) 100 mg PO BID [facility] Last Admin: 06/21/23 08:01 Dose: 100 mg Documented By: CHEMA Fluticasone Propionate (Fluticasone Propionate Nasal 16 Gm Lead) 2 spray NOSTRIL-B DAILY PRN PRN Reason: for allergies Hydromorphone HCl (Hydromorphone Hcl 0.5 Mg/0.5 Ml Syringe) 0.25 mg IVPUSH Q4H PRN; Protocol PRN Reason: Pain, Severe (Pain Scale 7-10) Last Admin: 06/21/23 08:00 Dose: 0.25 mg Documented By: CHEMA Levothyroxine Sodium (Levothyroxine Sodium 100 Mcg Tablet) 100 mcg PO DAILY@0600 [facility] Last Admin: 06/21/23 08:01 Dose: 100 mcg Documented By: CHEMA Loratadine (Loratadine 10 Mg Tablet) 10 mg PO DAILY [facility] Last Admin: 06/21/23 08:01 Dose: 10 mg Documented By: CHEMA Montelukast Sodium (Montelukast Sodium 10 Mg Tablet) 10 mg PO BEDTIME [facility] Last Admin: 06/20/23 19:34 Dose: 10 mg Documented By: CINTHIA Non-Formulary Medication (Fluticasone Furoate [Arnuity Ellipta]) 1 inhalation INHALE DAILY [facility] Ondansetron HCl (Ondansetron Hcl 4 Mg/2 Ml Vial) 4 mg IVPUSH Q8H PRN PRN Reason: Nausea and Vomiting Last Admin: 06/20/23 15:29 Dose: 4 mg Documented By: TRAMINO Oxycodone HCl (Oxycodone Hcl Er 10 Mg Tab.Er.12h) 10 mg PO BID [facility] Last Admin: 06/21/23 08:01 Dose: 10 mg Documented By: CHEMA Oxycodone HCl (Oxycodone Hcl Immed Release 5 Mg Tablet) 10 mg PO Q4H PRN PRN Reason: Pain, Moderate(Pain Scale 4-6) Last Admin: 06/21/23 12:38 Dose: 10 mg Documented By: EMANI Sodium Chloride (0.9 % Sodium Chloride Flush 3 Ml Syringe) 3 ml IVFLUSH QSHIFT [facility] Last Admin: 06/21/23 08:04 Dose: Not Given Documented By: CHEMA Non-Admin Reason: IV Running Tamsulosin HCl (Tamsulosin Hcl 0.4 Mg Capsule) 0.4 mg PO BEDTIME [facility] Last Admin: 06/20/23 19:35 Dose: 0.4 mg Documented By: CINTHIA Labs 06/21/23 05:52 08/30/23 05:52 Labs: Laboratory Results - last 24 hr 06/21/23 06/21/23 05:52 05:52 MCV 99.2 H MCH 33.1 H MCHC 33.3 RDW 11.8 Plt Count 218 D MPV 9.5 Immature Gran % (Auto) 0.3 Neut % (Auto) 79.6 H Lymph % (Auto) 9.3 L [place] % (Auto) 10.1 Eos % (Auto) 0.6 Baso % (Auto) 0.1 Lymph # (Auto) 0.8 L [place] # (Auto) 0.9 Eos # (Auto) 0.1 Baso # (Auto) 0.0 Abs Immat Gran (auto) 0.03 Absolute Neuts (auto) 6.9 Absolute Nucleated RBC 0.000 Nucleated RBC % (auto) 0.0 Anion Gap 11 L Estim Creat Clear Calc 59.4 Estimated GFR > 60 Fasting Glucose 131 H Calcium 8.4 D Assessment and Plan (1) Status post total knee replacement, right: Status: Acute (2) Asthma: Status: Acute (3) Chronic allergic rhinitis: Status: Acute Plan 72-year-old male with history of moderate persistent asthma, hypothyroidism, hypertension, hyperlipidemia, BPH chronic allergic cough, and osteoarthritis of the right knee admitted to Orthopedic surgery with consult placed to hospital service for medical management. # osteoarthritis right knee s/p right TKA pod 0 -plan/pain management per Orthopedic surgery -good pain control DC IV fluids , recommend incentive spirometry, stool softeners # hypertension -blood pressure stable continue to hold lisinopril today , follow BP closely # hypothyroidism -continue levothyroxine # BPH -resume Flomax # moderate persistent asthma -no acute exacerbation -continue maintenance inhalers, Singulair, albuterol p.r.n. # chronic allergic cough -no worsening symptoms, continue home meds # HLD -resume rosuvastatin Disposition as per Orthopedic surgery Time Spent With Patient Time: Total time managing care of this patient today ____ minutes. Quality Stroke Does the patient have a stroke diagnosis?: No VTE Prior VTE?: No VTE Risk Level:: Medical - moderate - high VTE Device Contraindication: N/A - Device Ordered VTE Drug Contraindication: N/A - Med Ordered
--- NOTE | 2023-06-21 14:18 | HO.POSTANES ---
Post Anesthesia Evaluation Post Anesthesia Evaluation Date of Service: 06/21/23 Vital Signs: Vital Signs Temp Pulse Resp BP Pulse Ox O2 Del Method 06/21/23 14:00 65 129/67 94 06/21/23 08:25 65 129/67 94 06/21/23 07:15 98.1 F 65 16 129/67 94 Room Air 06/21/23 02:53 97.5 F 66 17 109/56 L 93 Room Air Anesthesia: Spinal and Nerve Block Mental Status: Awake Pain Control: Satisfactory Nausea/Vomiting: None Hydration: Adequate Anesthesia-Related Issues: No Anes. Related Issues
--- NOTE | 2023-06-21 15:20 | MHC.CM.PN ---
pt lives with has own ride home will be going home w/hvns
[2023-06-21] MEDS: Montelukast Sodium 10 MG TABLET PO (19:39)
[2023-06-21] MEDS: Tamsulosin HCL 0.4 MG CAPSULE PO (19:40)
[2023-06-21] MEDS: 0.9 % Sodium Chloride Flush 3 ML SYRINGE IVFLUSH (19:40)
[2023-06-21] MEDS: ondansetron HCL 4 MG/2 ML VIAL IVPUSH (19:43)
[2023-06-21] MEDS: traZODone HCL 50 MG TABLET PO (20:08)
--- NOTE | 2023-06-21 20:52 | PM.EVENT ---
Event Note Date of Service: 06/21/23 Event Note: Rn notified provider of mechanical fall sustained by patient this evening. He got out of bed to use the restroom, lost his footing and fell. The patient reports he landed on his buttocks and on the right elbow. He denies any head strike. RNs assisted patient immediately. He was easily assisted to his feet and ambulated to the bathroom without issue per nursing staff. On exam, patient is resting comfortably in bed is alert and oriented x4. He currently denies any pain. RN to notify Orthopedic team. Time Spent With Patient Time: Total time managing care of this patient today ____ minutes.
--- NOTE | 2023-06-21 22:34 | PC.NURSE ---
Around 2024 pt got up to use the bathroom using his walker, he lost his balance and fell back onto his buttocks and hit his right elbow. Assisted pt back up, and he ambulated to the bathroom using the walker. No injuries sustained. Hospitalist, ortho team and nursing supervisor claims made aware. Hospitalist examined patient. High fall risk precautions placed - red socks, bed alarm, bracelet, red star outside door and telestiter placed. Will continue to monitor.
[2023-06-22] MEDS: Acetaminophen 325 MG TABLET 650 MG PO ×2 (05:38→11:24)
[2023-06-22] MEDS: Levothyroxine Sodium 100 MCG TABLET PO (05:38)
[2023-06-22] MEDS: oxyCODONE HCl Immed Release 5 MG TABLET 10 MG PO ×2 (05:38→11:25)
[2023-06-22 05:39] LABS: MANUAL DIFF FLAG NO
[2023-06-22 05:44] LABS: Basophils Percent Auto 0.1 % (0-2); Eosinophils Absolute Auto 0.1 X10*3/uL (0.0-0.4); Eosinophils Percent Auto 0.9 % (0-4); Hematocrit 35.2 % (42.0-52.0); Hemoglobin 11.5 g/dl (14.0-18.0); Imm Gran Abs Auto 0.03 X10*3/uL (0.00-0.03); Imm Gran Pct Auto 0.4 % (0.0-0.4); Lymphocytes Absolute Auto 0.8 X10*3/uL (1.2-4.9); Lymphocytes Percent Auto 9.8 % (20-40); Mean Corpuscular HGB Conc 32.7 g/dl (31.0-36.0); Mean Corpuscular Hemoglobin 32.5 pg (27.0-33.0); Mean Corpuscular Volume 99.4 fL (80.0-98.0); Mean Platelet Volume 9.7 fL (9.4-12.4); Monocytes Absolute Auto 0.7 X10*3/uL (0.1-1.2); Monocytes Percent Auto 8.1 % (2-11); Neutrophils Absolute Auto 6.6 x10*3/uL (2.0-8.3); Neutrophils Percent Auto 80.7 % (45-73); Platelet Count 218 X10*3/uL (160-400); Red Blood Count 3.54 X10*6/uL (4.60-5.80); Red Cell Distribution Width 11.8 % (11.0-16.0); White Blood Count 8.1 X10*3/uL (4.8-10.8)
[2023-06-22 06:05] LABS: Anion Gap 11 (12-20); Blood Urea Nitrogen 11 mg/dL (9-16); Calcium 8.8 mg/dL (8.4-10.2); Carbon Dioxide 26 mmol/L (22-29); Chloride 104 mmol/L (96-108); Creatinine Clr Calc Pharmacy 63.2; Estimated Glomerular Filt Rate > 60; Glucose Fasting 110 mg/dL (60-99); Potassium 4.4 mmol/L (3.3-5.1); Sodium 137 mmol/L (135-145)
[2023-06-22 07:44] VITALS: BP 126/77; PULSE 90; O2SAT 94
[2023-06-22] MEDS: Celecoxib 200 MG CAPSULE PO (07:44)
[2023-06-22] MEDS: Loratadine 10 MG TABLET PO (07:44)
[2023-06-22] MEDS: Docusate Sodium 100 MG CAPSULE PO (07:44)
[2023-06-22] MEDS: Aspirin 325 MG TABLET PO (07:45)
[2023-06-22] MEDS: oxyCODONE HCl ER 10 MG TAB.ER.12H PO (07:45)
[2023-06-22] MEDS: 0.9 % Sodium Chloride Flush 3 ML SYRINGE IVFLUSH (07:45)
[2023-06-22 08:00] VITALS: BP 111/65; PULSE 92; RESP 18; TEMP 36.7; O2SAT 92
--- NOTE | 2023-06-22 09:09 | HO.PM.IMPN ---
Subjective Subjective Date of Service: 06/22/23 Interval History: Events from last night noted patient lost balance and fell down, no head injury or trauma, complaining of good pain control right knee, no bowel movement and tolerating diet no nausea no vomiting no abdominal pain no other acute issues overnight. Review of Systems All other system reviewed and negative Physical Exam Vital Signs: Vital Signs: Last Vital Signs Temp 98.0 F 06/22/23 08:00 Pulse 92 06/22/23 08:00 Resp 18 06/22/23 08:00 BP 111/65 06/22/23 08:00 Pulse Ox 92 06/22/23 08:00 O2 Del Method Room Air 06/22/23 08:00 BMI result Body Mass Index 28.8 Const: Other: General alert oriented x3, in no acute distress.? Neck? supple no JVD. CVS? regular rate rhythm, Respiratory lungs clear to auscultation, no respiratory distress, no wheeze, no rhonchi. Gastrointestinal abdomen soft, non tender, bowel sounds audible,? no guarding , no rigidity. Extremities right knee bandage in place. Neuro non focal , speech clear. Skin no rash Psych appropriate affect Objective Data Active Medications Acetaminophen (Acetaminophen 325 Mg Tablet) 650 mg PO Q6H PRN PRN Reason: Pain, Mild (Pain Scale 1-3) Last Admin: 06/22/23 05:38 Dose: 650 mg Documented By: BERNARDO Albuterol Sulfate (Albuterol Sulfate 90 Mcg 8 Gm Inhaler) 2 puff INHALE Q4H PRN PRN Reason: cough/wheeze Aspirin (Aspirin 325 Mg Tablet) 325 mg PO BID [facility] Last Admin: 06/22/23 07:45 Dose: 325 mg Documented By: ASIA Benzonatate (Benzonatate 100 Mg Capsule) 200 mg PO BID PRN PRN Reason: cough Celecoxib (Celecoxib 200 Mg Capsule) 200 mg PO BID [facility] Last Admin: 06/22/23 07:44 Dose: 200 mg Documented By: ASIA Docusate Sodium (Docusate Sodium 100 Mg Capsule) 100 mg PO BID [facility] Last Admin: 06/22/23 07:44 Dose: 100 mg Documented By: ASIA Fluticasone Propionate (Fluticasone Propionate Nasal 16 Gm [place]) 2 spray NOSTRIL-B DAILY PRN PRN Reason: for allergies Hydromorphone HCl (Hydromorphone Hcl 0.5 Mg/0.5 Ml Syringe) 0.25 mg IVPUSH Q4H PRN; Protocol PRN Reason: Pain, Severe (Pain Scale 7-10) Last Admin: 06/21/23 19:40 Dose: 0.25 mg Documented By: BERNARDO Levothyroxine Sodium (Levothyroxine Sodium 100 Mcg Tablet) 100 mcg PO DAILY@0600 [facility] Last Admin: 06/22/23 05:38 Dose: 100 mcg Documented By: BERNARDO Loratadine (Loratadine 10 Mg Tablet) 10 mg PO DAILY [facility] Last Admin: 06/22/23 07:44 Dose: 10 mg Documented By: ASIA Montelukast Sodium (Montelukast Sodium 10 Mg Tablet) 10 mg PO BEDTIME [facility] Last Admin: 06/21/23 19:39 Dose: 10 mg Documented By: BERNARDO Non-Formulary Medication (Fluticasone Furoate [Arnuity Ellipta]) 1 inhalation INHALE DAILY [facility] Ondansetron HCl (Ondansetron Hcl 4 Mg/2 Ml Vial) 4 mg IVPUSH Q8H PRN PRN Reason: Nausea and Vomiting Last Admin: 06/21/23 19:43 Dose: 4 mg Documented By: BERNARDO Oxycodone HCl (Oxycodone Hcl Er 10 Mg Tab.Er.12h) 10 mg PO BID [facility] Last Admin: 06/22/23 07:45 Dose: 10 mg Documented By: ASIA Oxycodone HCl (Oxycodone Hcl Immed Release 5 Mg Tablet) 10 mg PO Q4H PRN PRN Reason: Pain, Moderate(Pain Scale 4-6) Last Admin: 06/22/23 05:38 Dose: 10 mg Documented By: BERNARDO Sodium Chloride (0.9 % Sodium Chloride Flush 3 Ml Syringe) 3 ml IVFLUSH QSHIFT [facility] Last Admin: 06/22/23 07:45 Dose: 3 ml Documented By: ASIA Tamsulosin HCl (Tamsulosin Hcl 0.4 Mg Capsule) 0.4 mg PO BEDTIME [facility] Last Admin: 06/21/23 19:40 Dose: 0.4 mg Documented By: BERNARDO Trazodone HCl (Trazodone Hcl 50 Mg Tablet) 50 mg PO BEDTIME MRX1 PRN PRN Reason: insomnia\ Last Admin: 06/21/23 20:08 Dose: 50 mg Documented By: BERNARDO Labs 06/22/23 05:16 06/22/23 05:16 Labs: Laboratory Results - last 24 hr 06/22/23 06/22/23 05:16 05:16 MCV 99.4 H MCH 32.5 MCHC 32.7 RDW 11.8 Plt Count 218 MPV 9.7 Immature Gran % (Auto) 0.4 Neut % (Auto) 80.7 H Lymph % (Auto) 9.8 L [place] % (Auto) 8.1 Eos % (Auto) 0.9 Baso % (Auto) 0.1 Lymph # (Auto) 0.8 L [place] # (Auto) 0.7 Eos # (Auto) 0.1 Baso # (Auto) 0.0 Abs Immat Gran (auto) 0.03 Absolute Neuts (auto) 6.6 Absolute Nucleated RBC 0.000 Nucleated RBC % (auto) 0.0 Anion Gap 11 L Estim Creat Clear Calc 63.2 Estimated GFR > 60 Fasting Glucose 110 H Calcium 8.8 Assessment and Plan (1) Status post total knee replacement, right: Status: Acute (2) Asthma: Status: Acute (3) Chronic allergic rhinitis: Status: Acute Plan 72-year-old male with history of moderate persistent asthma, hypothyroidism, hypertension, hyperlipidemia, BPH chronic allergic cough, and osteoarthritis of the right knee admitted to Orthopedic surgery with consult placed to hospital service for medical management. # osteoarthritis right knee s/p right TKA pod 2 -plan/pain management per Orthopedic surgery -good pain control, on Colace no bowel movement will add milk of Mag, encourage whatincentive spirometry, continue stool softeners, add MiraLax # hypertension -blood pressure stable, resume lisinopril upon discharge # hypothyroidism -continue levothyroxine # BPH -resume Flomax # moderate persistent asthma -no acute exacerbation -continue maintenance inhalers, Singulair, albuterol p.r.n. # chronic allergic cough -no worsening symptoms, continue home meds # HLD -resume rosuvastatin Disposition as per Orthopedic surgery Time Spent With Patient Time: Total time managing care of this patient today ____ minutes. Quality Stroke Does the patient have a stroke diagnosis?: No VTE Prior VTE?: No VTE Risk Level:: Medical - moderate - high VTE Device Contraindication: N/A - Device Ordered VTE Drug Contraindication: N/A - Med Ordered
--- NOTE | 2023-06-22 09:25 | MHC.CM.PN ---
PT WILL DC HOME TODAY WITH [facility]IA [facility]
[2023-06-22] MEDS: Milk of Magnesia 30 ML ORAL.SUSP PO (09:26)
[2023-06-22] MEDS: polyethylene glycoL 3350 17 GM POWD.PACK PO (09:28)
== END 2023-06-22 12:13 | disposition home health service (06) | DRG 470 ==
LOC: HO.SSSA 06:01 → HO.S3 09:58
PROVIDERS: Physician Assistant; Admitting Provider Orthopaedic Surgery; PCP Internal Medicine; Visit Provider Orthopaedic Surgery
PROC: 0SRC0JA Replacement of Right Knee Joint with Synthetic Substitute, Uncemented, Open Approach (ICD-10-PCS; CPT 27447; principal; 2023-06-20 07:30)
DX: M17.11 Unilateral primary osteoarthritis, right knee (principal); N40.0 Benign prostatic hyperplasia without lower urinary tract symptoms; J45.30 Mild persistent asthma, uncomplicated; E78.5 Hyperlipidemia, unspecified; E03.9 Hypothyroidism, unspecified; G89.18 Other acute postprocedural pain; Z79.51 Long term (current) use of inhaled steroids; Z79.82 Long term (current) use of aspirin; Z79.890 Hormone replacement therapy; Z79.899 Other long term (current) drug therapy
CPT/HCPCS: 36415; 73560; 80048; 85014; 85018; 85025; 86850; 86900; 86901; 87640; 87641; 88305; 88311; 93005; 97110; 97116; 97162; C1776; J0690; J1170; J2405; J2795

== ENCOUNTER → 2023-06-20 05:59 | Outpatient (BNV) | payer OTHER, SELFPAY | PROVIDERS: Admitting Provider Orthopaedic Surgery; PCP Internal Medicine; Visit Provider Orthopaedic Surgery | DX: Z47.1 Aftercare following joint replacement surgery (principal); Z96.651 Presence of right artificial knee joint | CPT/HCPCS: 27447; 99024; G0180 ==

== ENCOUNTER → 2023-06-20 05:59 | Outpatient (BNV) | payer OTHER, SELFPAY | PROVIDERS: Admitting Provider Orthopaedic Surgery; PCP Internal Medicine; Visit Provider Physician Assistant | DX: J45.909 Unspecified asthma, uncomplicated (principal); Z96.651 Presence of right artificial knee joint; J30.9 Allergic rhinitis, unspecified | CPT/HCPCS: 99222; 99232; 99499 ==

== ENCOUNTER 2023-07-06 13:44 | Outpatient (AMB) | payer OTHER, SELFPAY ==
--- NOTE | 2023-07-06 13:53 | MHC.OFFVIS ---
Intake Intake Visit Reasons: PO-RT TKA 06/20/23 NE Intake Note: Jeremiah a 72 year old male who presents today for a post operative right TKA on 06/20/23. Patient reports he continues to have pain and pain medication is causing him itchiness. His pain level is 8 out of 10. Allergies Latex, Natural Rubber Allergy (Verified 07/06/23 13:56) Rash HPI PO-RT TKA 06/20/23 NE HPI Details 72-year-old male who returns to the office today for post-op right TKA, 06/20/[address] Erickson. He continues to have pain in his knee and rates the pain as 8 on the scale of 0-10. He also c/o experiencing itchiness with the medication. He is doing well otherwise and has no concerns today. [facility] Medical History BPH (benign prostatic hyperplasia) Hyperlipidemia Hypertension Hx of renal calculi Osteoarthritis of right knee Chronic allergic rhinitis Chronic cough Asthma Hypothyroidism Surgical History Hx of cystoscopy H/O lithotripsy Hx of colonoscopy History of total left knee replacement (TKR) Social History Household Members: Spouse Housing: Apartment Are you a primary home health care coordinator to a significant other at home: No Do you presently have visiting nurse or other home services: No Patient Tobacco Use Status: Never used Tobacco service: No Current occupational status: retired Review of Systems Const All systems reviewed & are unremarkable except as noted in HPI and below Physical Exam Extrem Other: Right knee: Incision clean, dry and intact. No erythema or joint effusion. ROM is 0-110 degrees Calf supple, nontender. NVI. Assessment & Plan Assessment & Plan (1) Status post total knee replacement, right: Code(s): Z96.651 - Presence of right artificial knee joint Plan Titus removed, steri strips applied. He will begin to transition to Outpatient PT to continue working on Gait training, ROM and quad strength. No driving for another 4 weeks. He will require ppx abx for dental procedures. He will f/u in 4 weeks, sooner if needed. Patient Instructions: Scribed for Barry-Olivia Martínez PA-C, by Uday Kendrick, medical records clerk, on 07/06/2023 at 2:00 PM GISELA. Barry Tang-Olivia Martínez PA-C, have personally reviewed and agree with the information entered by the scribe. Coding Level of Care Code Global (00212) Diagnoses Status post total knee replacement, right Z96.651
== END 2023-07-06 14:34 | disposition home or self-care (01) ==
PROVIDERS: Visit Provider Physician Assistant
DX: Z96.651 Presence of right artificial knee joint (principal)
CPT/HCPCS: 99024

== ENCOUNTER → 2023-07-06 13:44 | Outpatient (BNVA) | payer OTHER, SELFPAY | PROVIDERS: Visit Provider Physician Assistant ==

== ENCOUNTER 2023-07-24 14:00 | Outpatient (RCR) | payer OTHER, SELFPAY ==
--- NOTE | 2023-07-06 14:45 | MHC.PT.EP ---
[facility] [place] Office [place] Office [place] Office [address] Mark Roman [address] [phone] F: [phone] F: [phone] F: [phone] F: [phone] Physical Therapy Plan of Care Date of Evaluation: 07/06/23 Date of Surgery: 06/20/23 Diagnosis: S/P RIGHT TKA Assessment: 72 YO MALE REF TO PT S/P Rt TKA ON 06/20/23. HE RESIDES W HIS IN A 4TH FLOOR APT, (+) ELEVATOR AND IS CURRENTLY AMB W A CANE. OBJECTIVE FINDINGS: PO ROM DEFICITS RIGHT KNEE, TIGHT HIP FLEXORS/ CALF MM, (+) STRENGTH DEFICITS, AND PAIN IN RIGHT KNEE. FUNCTIONALLY, THE Pt IS LIMITED WITH STANDING АННА, ALTERED GAIT MECHANICS, STAIR MGMT, AND RESTRICTED WITH MORE PHYSICALLY DEMANDING ADLs. Pt WOULD BENEFIT FROM PT AT THIS TIME TO GUIDE HIM IN HIS POST-OP COURSE, DEV A PROGR HEP, ADDRESS PAIN MGMT, AND OBTAINING MAXIMAL LEVEL OF FUNCTIONAL INDEPENDENCE. Frequency and Duration: The patient will be seen 2 X WK x 8 WKS Short Term Goals: *Pt DEMON Rt KNEE AROM 0* TO 120* *Pt WILL DEMON EFFICIENT GAIT MECHANICS W LEAST RESTRICTIVE ASST DEVICE ON LEVEL GROUND AND STAIRS *Pt'S RIGHT KNEE PAIN WILL DECR TO 2-3/10 *Pt DEMON APPROP BED MOB/ POSITIONING/ SIT <-> STAND/ CAR TRANSFERS Sports Commentator Goals: *Pt WILL IMPROVE LUMBOPELVIC/ Rt LE STRENGTH TO AT LEAST 5-/5 *Pt PERFORM REG ADLs EVIDENT W IMPROVED LEFI SCORE *Pt INDEP W PROGR HEP AND SELF-SX MGMT TECHN Treatment Plan: Modalities to reduce pain, spasms and effusion. Manual therapy to restore motion and function. Therapeutic exercise to improve strength and flexibility. Neuromuscular re-education for posture and balance. Therapeutic activities to return to functional activities of daily living. Electronically signed by: ALLEN CARRINGTON,PT Please sign and return to therapist. Thank you for your referral.
--- NOTE | 2023-07-27 15:06 | MHC.PT.DC ---
[facility] [place] Office [place] Office [place] Office [address] Mark Roman [address] [facility] [phone] F: [phone] F: [phone] F: [phone] F: [phone] Physical Therapy Discharge Report Diagnosis: S/P RIGHT TKA Date of Surgery: 06/20/23 Date of Evaluation: 07/06/23 Date of Discharge: 07/27/23 Treatments to Date: 5 Cancellations to Date: 0 No Shows to Date: 0 Discharge Status: Physician Discontinued Tx Discharge Summary: THE Pt IS DISCHARGED THIS DATE DUE TO SUSTAINING A FALL AND CHANGE IN STATUS Electronically signed by: ALLEN CARRINGTON,PT Please sign and return to therapist. Thank you for your referral.
== END 2023-07-27 15:07 | disposition home or self-care (01) ==
LOC: HO.PT 14:00
PROVIDERS: PCP Internal Medicine; Visit Provider Physician Assistant
DX: Z96.651 Presence of right artificial knee joint (principal)
CPT/HCPCS: 97110; 97140; 97162

== ENCOUNTER 2023-07-26 15:18 | Inpatient (IN) | payer OTHER, SELFPAY ==
--- NOTE | ~2023-07-26 | XR_ITS ---
EXAMINATION: XR CHEST CLINICAL INFORMATION: Fall COMPARISON: Chest x-ray 01/18/2022 TECHNIQUE: Frontal view of the chest was obtained. FINDINGS: No significant abnormality is noted involving the heart, lungs, mediastinum, bony thorax or soft tissues. XR/XR chest 1V IMPRESSION: Unremarkable examination.
--- NOTE | ~2023-07-26 | XR_ITS ---
EXAMINATION: XR HIP, RIGHT CLINICAL INFORMATION: Pain COMPARISON: Same-day knee radiographs TECHNIQUE: AP view of the right hip. FINDINGS: Only a limited single view was obtained as patient was unable to tolerate positioning. The distal femoral diaphyseal fracture is only partially imaged. No other fracture or dislocation. Atherosclerotic vascular calcification. Mild degenerative changes of the hip with degenerative spurring. XR/XR hip RT w PEL1V IMPRESSION: The distal femoral diaphyseal fracture is only partially imaged, better characterized on same-day knee radiographs. No other fracture or dislocation.
--- NOTE | ~2023-07-26 | XR_ITS ---
EXAMINATION: XR KNEE, RIGHT CLINICAL INFORMATION: Fall COMPARISON: Knee radiographs 06/20/2023 TECHNIQUE: Two views of the right knee. FINDINGS: Acute comminuted and displaced fracture of the distal femoral diaphysis with posterior displacement of the distal fracture fragment by one shaft width. Status post total knee arthroplasty in anatomic alignment. Atherosclerotic vascular calcification. Large suprapatellar joint effusion. Soft tissue swelling. XR/XR knee RT 4V IMPRESSION: 1. Acute comminuted and displaced fracture of the distal femoral diaphysis with posterior displacement of the distal fracture fragment by one shaft width. 2. Status post total knee arthroplasty in anatomic alignment. 3. Large suprapatellar joint effusion and soft tissue swelling.
[2023-07-26 15:46] VITALS: BP 151/90; BP 160/100; PULSE 115; PULSE 86; RESP 20; TEMP 36.8; O2SAT 96; O2SAT 98; BMI 27.4
--- NOTE | 2023-07-26 15:54 | ED_ITS ---
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 He reports pain in R thigh and knee. He denies LOC or headstrike. No numbness. complaint: fall Onset (ago): hour(s) (1) Fall from: standing Fall witnessed: no Place fall occurred: home Loss of consciousness: none Prolonged down time: no Symptoms prior to fall: none Context: tripped/slipped Location of injury - extremities: right: thigh and knee Severity: severe Quality: crushing Associated symptoms (after fall): unable to walk Related Data Home Medications Medication Instructions Recorded Confirmed cholecalciferol (vitamin D3) 25 25 mcg PO DAILY 07/23/20 07/26/23 mcg (1,000 unit) tablet (Vitamin D3) cyanocobalamin (vitamin B-12) 100 100 mcg PO DAILY 07/23/20 07/26/23 mcg tablet levothyroxine 100 mcg tablet 100 mcg PO DAILY 07/23/20 07/26/23 lisinopril 10 mg tablet 10 mg PO DAILY 07/23/20 07/26/23 rosuvastatin 5 mg tablet 5 mg PO BEDTIME 07/23/20 07/26/23 ibuprofen 800 mg tablet 800 mg PO TID PRN Pain 03/03/22 07/26/23 tamsulosin 0.4 mg capsule 0.4 mg PO BEDTIME 09/08/22 07/26/23 fluticasone furoate 100 1 inh inhalation DAILY 05/30/23 07/26/23 mcg/actuation blister powder for inhalation (Arnuity Ellipta) albuterol sulfate 90 mcg/actuation 2 puff inhalation Q4H PRN wheezing 07/26/23 07/26/23 aerosol inhaler sennosides 8.6 mg-docusate sodium 1 tab PO DAILY 07/26/23 07/26/23 50 mg tablet (Stimulant Laxative Plus) Previous Rx's Medication Instructions Recorded loratadine 10 mg tablet 10 mg PO DAILY 30 days #30 tabs 03/03/22 montelukast 10 mg tablet 10 mg PO BEDTIME #90 tabs 05/02/23 fluticasone propionate 50 2 spray intranasal DAILY PRN for 05/29/23 mcg/actuation nasal allergies #16 grams spray,suspension acetaminophen 325 mg tablet 650 mg (2 x 325 mg) PO Q6H PRN 06/22/23 Pain, Mild (Pain Scale 1-3) 30 days #240 tabs aspirin 325 mg tablet 325 mg PO BID 42 days #84 tabs 06/22/23 celecoxib 200 mg capsule 200 mg PO BID 30 days #60 caps 06/22/23 docusate sodium 100 mg capsule 100 mg PO BID 30 days #60 caps 06/22/23 oxycodone-acetaminophen 5 mg-325 1 tab PO Q6H PRN pain 7 days #28 07/06/23 mg tablet (Percocet) tabs Allergies Allergy/AdvReac Type Severity Reaction Status Date / Time Latex, Natural Rubber Allergy Rash Verified 07/26/23 19:34 Review of Systems 2 Review of Systems: Constitutional : No Fever, No Chills ENT/Mouth : No Ear Pain, No Hoarseness, No sore throat Eyes: No Eye Pain, No Swelling, No Redness, No Foreign Body Cardiovascular : No Chest Pain, No SOB Respiratory : No Cough, No Dyspnea Gastrointestinal : No Nausea, No Vomiting, No Diarrhea, No abdominal Pain Genitourinary : No Dysuria, No Hematuria Musculoskeletal : positive joint pain, No Myalgias, pos Joint Swelling Skin : No Skin lacerations, No rash Neuro : No Weakness, No Numbness, No Loss of Consciousness, No Dizziness, No Headache Psych : No Anxiety/Panic, No Depression All other systems reviewed and are negative [facility] Past Medical History Attestation statement: The following information was validated with the patient. Source: old records reviewed Medical History BPH (benign prostatic hyperplasia) Hyperlipidemia Hypertension Hx of renal calculi Osteoarthritis of right knee Chronic allergic rhinitis Chronic cough Asthma Hypothyroidism Surgical History Hx of cystoscopy H/O lithotripsy Hx of colonoscopy History of total left knee replacement (TKR) Social History Social History Household Members: Spouse Housing: Apartment Are you a primary anesthesiologist and critical care to a significant other at home: No Do you presently have visiting nurse or other home services: No Patient Tobacco Use Status: Never used Tobacco Smoked in Last 30 Days: No Use of substances other than those prescribed or required for medical reasons: No Advance Directives: No Advance Directives Information Provided: No Nutrition Risks: No Nutritional Risk service: No Current occupational status: retired Physical Exam 2 Vital Signs: Vital Signs: Last Vital Signs Temp 98.5 F 07/26/23 19:20 Pulse 84 07/26/23 19:20 Resp 18 07/26/23 19:20 BP 142/82 H 07/26/23 19:20 Pulse Ox 95 07/26/23 19:20 O2 Del Method Room Air 07/26/23 19:20 BMI result Body Mass Index 27.4 Appearance: Alert. Oriented X3. No acute distress. Eyes: Pupils equal, round and reactive to light. ENT: Pharynx normal. Neck: Normal inspection. Neck supple. CVS: Normal heart rate and rhythm. Pulses normal. Respiratory: No respiratory distress. Breath sounds normal. Abdomen: Soft and nontender. Skin: Skin warm and dry. Normal skin color. Normal skin turgor. Extremities: R leg rotated externally distal NV intact c/o pain to palpation in R thigh and knee - compartments are soft and compressible Neuro: Oriented X 3. No motor deficit. No sensory deficit. Course Course Course Narrative: IV dilaudid for pain ordered improved pain Medications Administered Generic Name Dose Route Start Last Admin Trade Name Kamron PRN Reason Stop Dose Admin Atorvastatin Calcium 20 mg 07/26/23 21:00 07/26/23 20:49 Atorvastatin Calcium 20 Mg Tablet PO 20 mg BEDTIME PEPE Administration Celecoxib 200 mg 07/26/23 21:00 07/26/23 20:51 Celecoxib 200 Mg Capsule PO 200 mg BID PPEE Administration Docusate Sodium 100 mg 07/26/23 21:00 07/26/23 20:49 Docusate Sodium 100 Mg Capsule PO 100 mg BID PEPE Administration Docusate Sodium 100 mg 07/26/23 21:00 07/26/23 20:51 Docusate Sodium 100 Mg Capsule PO Not Given BID PEPE Hydromorphone HCl 0.25 mg 07/26/23 18:44 07/26/23 19:32 Hydromorphone Hcl 0.5 Mg/0.5 Ml Syringe IVPUSH 0.25 mg Q4H PRN Administration Pain, Severe (Pain Scale 7-10) Protocol Lactated Ringer's 1,000 mls @ 100 mls/hr 07/26/23 18:45 07/26/23 19:22 Lr IVCONT 100 mls/hr .Q10H PEPE Administration Montelukast Sodium 10 mg 07/26/23 21:00 07/26/23 20:50 Montelukast Sodium 10 Mg Tablet PO 10 mg BEDTIME PEPE Administration Oxycodone HCl 10 mg 07/26/23 21:00 07/26/23 20:48 Oxycodone Hcl Er 10 Mg Tab.Er.12h PO 10 mg BID PEPE Administration Tamsulosin HCl 0.4 mg 07/26/23 21:00 07/26/23 20:50 Tamsulosin Hcl 0.4 Mg Capsule PO 0.4 mg BEDTIME PEPE Administration Discontinued Medications Generic Name Dose Route Start Last Admin Trade Name Freq PRN Reason Stop Dose Admin Hydromorphone HCl 1 mg 07/26/23 17:16 07/26/23 17:21 Hydromorphone Hcl 1 Mg/Ml Syringe IVPUSH 07/26/23 17:17 1 mg ONCE ONE Administration Protocol Morphine Sulfate 4 mg 07/26/23 15:47 07/26/23 15:57 Morphine Sulfate 4 Mg/Ml Cartridge IVPUSH 07/26/23 15:48 4 mg ONCE ONE Administration Protocol Ondansetron HCl 4 mg 07/26/23 15:47 07/26/23 15:58 Ondansetron Hcl 4 Mg/2 Ml Vial IVPUSH 07/26/23 15:48 4 mg ONCE ONE Administration Medical Decision Making Medical Decision Making MDM Narrative: 72 yo male with PMH of hypothyroidism, HLD, asthma s/p R TKR 06/20 now with mechanical fall no head or neck pain c/o pain in R knee and hip distal NV intact - IV morphine for pain, labs and xray ordered, concern for fracture. Differential Diagnosis Differential Diagnoses: The differential diagnosis associated with the presentation includes fracture contusion sprain strain Admission/Observation Consideration of admission/observation: Escalation of care including admission/observation considered admit Consult Healthcare Provider Management of the patient was discussed with: Senior Principal Process Engineer (orthopedics) Mauricio SUTTON to admit Lab Data MDM Lab Attestation statement: I reviewed the patient's lab results. 07/26/23 16:04 07/26/23 16:04 Labs: Lab Results 07/26/23 07/26/23 Range/Units 16:04 18:12 WBC 10.1 (4.8-10.8) X10*3/uL RBC 3.90 L (4.60-5.80) X10*6/uL Hgb 12.6 L (14.0-18.0) g/dl Hct 37.7 L (42.0-52.0) % MCV 96.7 (80.0-98.0) fL MCH 32.3 (27.0-33.0) pg MCHC 33.4 (31.0-36.0) g/dl RDW 12.1 (11.0-16.0) % Plt Count 254 (160-400) X10*3/uL MPV 9.7 (9.4-12.4) fL Immature Gran % (Auto) 0.4 (0.0-0.4) % Neut % (Auto) 79.6 H (45-73) % Lymph % (Auto) 12.6 L (20-40) % [place] % (Auto) 5.7 (2-11) % Eos % (Auto) 1.4 (0-4) % Baso % (Auto) 0.3 (0-2) % Lymph # (Auto) 1.3 (1.2-4.9) X10*3/uL [place] # (Auto) 0.6 (0.1-1.2) X10*3/uL Eos # (Auto) 0.1 (0.0-0.4) X10*3/uL Baso # (Auto) 0.0 (0.0-0.2) X10*3/uL Abs Immat Gran (auto) 0.04 H (0.00-0.03) X10*3/uL Absolute Neuts (auto) 8.0 (2.0-8.3) x10*3/uL Absolute Nucleated RBC 0.000 (0.0-0.012) X10*3/uL Nucleated RBC % (auto) 0.0 (0.0-0.2) /100WBC PT 11.7 (11.1-13.3) SEC INR 1.0 (0.9-1.1) Sodium 138 (135-145) mmol/L Potassium 4.0 (3.3-5.1) mmol/L Chloride 105 (96-108) mmol/L Carbon Dioxide 25 (22-29) mmol/L Anion Gap 12 (12-20) BUN 11 (9-16) mg/dL Creatinine 1.13 (0.5-1.4) mg/dL Estim Creat Clear Calc 56.3 Estimated GFR > 60 Random Glucose 169 H (60-115) mg/dL Calcium 8.5 (8.4-10.2) mg/dL Blood Type A Negative Antibody Screen NEGATIVE Independent Interpretation I performed an independent interpretation of an: EKG and Plain X-Ray (fracture) Interpretation: Rate: 87 Rhythm: NSR [place]: left, LVH Normal P waves. Normal SHWETA. Normal QRS complex. ST T wave : no RYAN, nonspecific findings qTC: normal prior studies: no acute ischemia The study has been interpreted contemporaneously by me. . Radiology Impression Discussion of test interpretation with radiology: I have reviewed the radiologist's reading. Independent Historian Clinical information obtained from an independent historian. History obtained from or confirmed by: EMS External Record Review External record reviewed: Inpatient record Critical Care Time Critical Care Time Critical Care Time: Yes Total Critical Care Time: 45 Attestation: repeat IV pain medications, pain improved with IV morphine/dilaudid, ortho consult, admission I attest to this time spent taking care of the patient Discharge Plan Discharge Clinical Impression: Femur fracture, right Qualifiers: Encounter type: initial encounter Femur location: distal, unspecified portion F racture type: closed Fracture morphology: unspecified fracture morphology Q ualified Code(s): S72.401A - Unspecified fracture of lower end of right femur, initial encounter for closed fracture Fall Qualifiers: Encounter type: initial encounter Qualified Code(s): W19.XXXA - Unspecified fall, initial encounter Patient Disposition: Admitted As Inpatient
[2023-07-26] MEDS: Morphine Sulfate 4 MG/ML CARTRIDGE IVPUSH (15:57)
[2023-07-26] MEDS: ondansetron HCL 4 MG/2 ML VIAL IVPUSH (15:58)
[2023-07-26 16:11] LABS: MANUAL DIFF FLAG NO
[2023-07-26 16:17] LABS: Basophils Percent Auto 0.3 % (0-2); Eosinophils Absolute Auto 0.1 X10*3/uL (0.0-0.4); Eosinophils Percent Auto 1.4 % (0-4); Hematocrit 37.7 % (42.0-52.0); Hemoglobin 12.6 g/dl (14.0-18.0); Imm Gran Abs Auto 0.04 X10*3/uL (0.00-0.03); Imm Gran Pct Auto 0.4 % (0.0-0.4); Lymphocytes Absolute Auto 1.3 X10*3/uL (1.2-4.9); Lymphocytes Percent Auto 12.6 % (20-40); Mean Corpuscular HGB Conc 33.4 g/dl (31.0-36.0); Mean Corpuscular Hemoglobin 32.3 pg (27.0-33.0); Mean Corpuscular Volume 96.7 fL (80.0-98.0); Mean Platelet Volume 9.7 fL (9.4-12.4); Monocytes Absolute Auto 0.6 X10*3/uL (0.1-1.2); Monocytes Percent Auto 5.7 % (2-11); Neutrophils Percent Auto 79.6 % (45-73); Platelet Count 254 X10*3/uL (160-400); Red Cell Distribution Width 12.1 % (11.0-16.0); White Blood Count 10.1 X10*3/uL (4.8-10.8)
[2023-07-26 16:22] LABS: Prothrombin Time 11.7 SEC (11.1-13.3)
[2023-07-26 16:28] LABS: Anion Gap 12 (12-20); Blood Urea Nitrogen 11 mg/dL (9-16); Calcium 8.5 mg/dL (8.4-10.2); Carbon Dioxide 25 mmol/L (22-29); Chloride 105 mmol/L (96-108); Creatinine Clr Calc Pharmacy 56.3; Estimated Glomerular Filt Rate > 60; Glucose Random 169 mg/dL (60-115); Sodium 138 mmol/L (135-145)
--- NOTE | 2023-07-26 17:18 | ECG_ITS ---
Test Reason : FALL Blood Pressure : / mmHG Vent. Rate : 087 BPM Atrial Rate : 087 BPM P-R Int : 162 ms QRS Dur : 082 ms QT Int : 344 ms P-R-T Axes : 050 -44 057 degrees QTc Int : 413 ms Normal sinus rhythm Left axis deviation Minimal voltage criteria for LVH, may be normal variant ( R in aVL ) Nonspecific ST and T wave abnormality Abnormal ECG When compared with ECG of 30-MAY-2023 13:12, No significant change was found Referred By: Lianna Ojeda Electronically Signed By:RAYMOND ONEAL
[2023-07-26] MEDS: HYDROmorphone HCl 1 MG/ML SYRINGE IVPUSH (17:21)
--- NOTE | 2023-07-26 18:15 | PHA.MEDREC ---
Pharmacy Consult ? Medication Reconciliation Pharmacy has completed the medication reconciliation. Patient confirmed medications. Patient confirmed taking medications that have no recent fill including levothyroxine, tamsulosin and Arnuity Ellipta Arianne AlmodovarD
[2023-07-26 19:20] VITALS: BP 142/82; PULSE 84; RESP 18; TEMP 36.9; O2SAT 95
[2023-07-26] MEDS: Lactated Ringers 1,000 ML 100 ML IVCONT (19:22)
--- NOTE | 2023-07-26 19:30 | PC.NURSE ---
This casualty underwriter assumed care at 1900, AOx4, pt reports 10/10 right leg pain, after falling today. Pt unable to move right leg, swelling noted to knee and lower thigh, pedal pulses palpable, pt able to wiggle toes on right foot. Family at bedside, and updated with plan of care. Plan for NPO after midnight.
[2023-07-26] MEDS: HYDROmorphone HCl 0.5 MG/0.5 ML SYRINGE 0.25 MG IVPUSH (19:32)
--- NOTE | 2023-07-26 19:40 | P.CONHOSP_ITS ---
History of Present Illness Data of Consult Service Date: 07/26/23 Primary Care Provider: Lester Rivera III, MD [facility] Reason for consult: Pre-op clearance Patient is a 72-year-old male with a PMH of moderate persistent asthma, hypothyroidism, HTN, HLD, BPH, and osteo arthritis of the right knee s/p right TKA on 06/20/2023 who presents to the hospital today after mechanical fall and suffering a comminuted and displaced fracture of the distal femoral diaphysis. Hospitalist consult for preop clearance. Patient states that he has been progressing well after his recent TKA. Has been attending sessions with PT and feels like he has been moving around more effectively until earlier today. Patient was visiting his granddaughter and they have a ?soft? floor that had water on it. Patient slipped and fell backwards, landing on his right leg as it was twisted and under him. Patient heard a crack and immediately felt a great deal of pain in his right knee all the way to right hip. Patient denies loss of consciousness, head strike, any lightheadedness or dizziness. No numbness or tingling. No loss of bowel or bladder function. No saddle anesthesia. Patient also denies any systemic symptoms: No fever, chills, nausea, vomiting. Denies chest pain/pressure, palpitations. No abdominal pain. Labs reviewed. No leukocytosis. Stable H&H of 12.6/37.7. Electrolytes WNL. Renal function baseline. CXR showed no evidence for acute cardiopulmonary disease. X-ray of hip and pelvis and right knee showed acute comminuted and displaced fracture of the distal femoral diaphysis with posterior displacement of the distal fracture fragment by 1 shaft with. Right TKA a in anatomic alignment with large suprapatellar joint effusion and soft tissue swelling. EKG showed normal sinus rhythm with nonspecific ST and t-wave abnormalities. Review of Systems 2 Review of Systems: Mechanical fall at home Right leg pain from knee to hip Denies any other symptoms [facility] Medical History BPH (benign prostatic hyperplasia) Hyperlipidemia Hypertension Hx of renal calculi Osteoarthritis of right knee Chronic allergic rhinitis Chronic cough Asthma Hypothyroidism Surgical History Hx of cystoscopy H/O lithotripsy Hx of colonoscopy History of total left knee replacement (TKR) Social History Household Members: Spouse Housing: Apartment Are you a primary ambulatory care to a significant other at home: No Do you presently have visiting nurse or other home services: No Patient Tobacco Use Status: Never used Tobacco Smoked in Last 30 Days: No Use of substances other than those prescribed or required for medical reasons: No Advance Directives: No Advance Directives Information Provided: No Nutrition Risks: No Nutritional Risk service: No Current occupational status: retired [employer] Allergies Allergy/AdvReac Type Severity Reaction Status Date / Time Latex, Natural Rubber Allergy Rash Verified 07/26/23 19:34 Active Medications: Current Medications Acetaminophen (Acetaminophen 325 Mg Tablet) 650 mg PO Q6H PRN PRN Reason: Pain, Mild (Pain Scale 1-3) Celecoxib (Celecoxib 200 Mg Capsule) 200 mg PO BID [facility] Docusate Sodium (Docusate Sodium 100 Mg Capsule) 100 mg PO BID [facility] Hydromorphone HCl (Hydromorphone Hcl 0.5 Mg/0.5 Ml Syringe) 0.25 mg IVPUSH Q4H PRN; Protocol PRN Reason: Pain, Severe (Pain Scale 7-10) Last Admin: 07/26/23 19:32 Dose: 0.25 mg Lactated Ringer's (Lr) 1,000 mls @ 100 mls/hr IVCONT .Q10H [facility] Last Admin: 07/26/23 19:22 Dose: 100 mls/hr Ondansetron HCl (Ondansetron Hcl 4 Mg/2 Ml Vial) 4 mg IVPUSH Q8H PRN PRN Reason: Nausea and Vomiting Oxycodone HCl (Oxycodone Hcl Immed Release 5 Mg Tablet) 5 mg PO Q4H PRN PRN Reason: Pain, Moderate(Pain Scale 4-6) Oxycodone HCl (Oxycodone Hcl Er 10 Mg Tab.Er.12h) 10 mg PO BID [facility] Sodium Chloride (0.9 % Sodium Chloride Flush 3 Ml Syringe) 3 ml IVFLUSH QSHIFT [facility] Home Medications Medication Instructions Recorded Confirmed Last Taken Type cholecalciferol (vitamin D3) 25 25 mcg PO DAILY 07/23/20 07/26/23 06/16/23 History mcg (1,000 unit) tablet (Vitamin D3) cyanocobalamin (vitamin B-12) 100 100 mcg PO DAILY 07/23/20 07/26/23 06/16/23 History mcg tablet levothyroxine 100 mcg tablet 100 mcg PO DAILY 07/23/20 07/26/23 06/16/23 History lisinopril 10 mg tablet 10 mg PO DAILY 07/23/20 07/26/23 06/16/23 History rosuvastatin 5 mg tablet 5 mg PO BEDTIME 07/23/20 07/26/23 06/16/23 History ibuprofen 800 mg tablet 800 mg PO TID PRN Pain 03/03/22 07/26/23 06/13/23 History tamsulosin 0.4 mg capsule 0.4 mg PO BEDTIME 09/08/22 07/26/23 06/16/23 History fluticasone furoate 100 1 inh inhalation DAILY 05/30/23 07/26/23 06/16/23 History mcg/actuation blister powder for inhalation (Arnuity Ellipta) albuterol sulfate 90 mcg/actuation 2 puff inhalation Q4H PRN wheezing 07/26/23 07/26/23 Unknown History aerosol inhaler sennosides 8.6 mg-docusate sodium 1 tab PO DAILY 07/26/23 07/26/23 Unknown History 50 mg tablet (Stimulant Laxative Plus) Physical Exam 2 Vital Signs and Narrative: Vital Signs: Last Vital Signs Temp 98.5 F 07/26/23 19:20 Pulse 84 07/26/23 19:20 Resp 18 07/26/23 19:20 BP 142/82 H 07/26/23 19:20 Pulse Ox 95 07/26/23 19:20 O2 Del Method Room Air 07/26/23 19:20 BMI result Body Mass Index 27.4 General: AOx3, no acute distress Resp: CTA bilaterally CVS: S1, S2, RRR GI: +BS, NT, no distention Skin: No rash Neuro: Cranial nerves II-XII grossly intact bilaterally. Motor grossly intact bilaterally Musculoskeletal: Right upper leg extremely tender. Right knee externally rotated. Extremities: No edema Psych: Appropriate affect Results Labs 07/26/23 16:04 07/26/23 16:04 Labs: Laboratory Results - last 24 hr 07/26/23 07/26/23 16:04 18:12 MCV 96.7 MCH 32.3 MCHC 33.4 RDW 12.1 Plt Count 254 MPV 9.7 Immature Gran % (Auto) 0.4 Neut % (Auto) 79.6 H Lymph % (Auto) 12.6 L [place] % (Auto) 5.7 Eos % (Auto) 1.4 Baso % (Auto) 0.3 Lymph # (Auto) 1.3 [place] # (Auto) 0.6 Eos # (Auto) 0.1 Baso # (Auto) 0.0 Abs Immat Gran (auto) 0.04 H Absolute Neuts (auto) 8.0 Absolute Nucleated RBC 0.000 Nucleated RBC % (auto) 0.0 PT 11.7 INR 1.0 Anion Gap 12 Estim Creat Clear Calc 56.3 Estimated GFR > 60 Random Glucose 169 H Calcium 8.5 Blood Type A Negative Antibody Screen NEGATIVE Imaging Radiologist's Impressions: Impressions Hip/Pelvis X-Ray 07/26/23 16:42 IMPRESSION: The distal femoral diaphyseal fracture is only partially imaged, better characterized on same-day knee radiographs. No other fracture or dislocation. Knee X-Ray 07/26/23 16:42 IMPRESSION: 1. Acute comminuted and displaced fracture of the distal femoral diaphysis with posterior displacement of the distal fracture fragment by one shaft width. 2. Status post total knee arthroplasty in anatomic alignment. 3. Large suprapatellar joint effusion and soft tissue swelling. Chest X-Ray 07/26/23 17:45 IMPRESSION: Unremarkable examination. Assessment and Plan (1) Fall: Qualifiers: Encounter type: initial encounter Qualified Code(s): W19.XXXA - Unspecified fall, initial encounter Status: Acute (2) Femur fracture, right: Qualifiers: Encounter type: initial encounter Femur location: distal, unspecified portion Fracture morphology: unspecified fracture morphology Fracture type: c losed Qualified Code(s): S72.401A - Unspecified fracture of lower end of right femur, initial encounter for closed fracture Status: Acute Plan Patient is a 72-year-old male with a PMH of moderate persistent asthma, hypothyroidism, HTN, HLD, BPH, and osteo arthritis of the right knee s/p right TKA on 06/20/2023 who presents to the hospital today after mechanical fall and suffering a comminuted and displaced fracture of the distal femoral diaphysis. Hospitalist consult for preop clearance. Right femoral fracture Labs reviewed, grossly unremarkable, vital signs stable, EKG showed normal sinus rhythm with nonspecific ST and T-wave abnormalities without significant change from previous EKG on 05/30/2023 Patient without known significant cardiac history After pt's chart review, history, and physical, there are no obvious medical contraindications to the planned procedure Patient is a moderate to high risk for planned procedure given age, comorbidities, and recent right TKA HTN BP reasonably controlled on current therapy Continue lisinopril HLD Continue statin Moderate persistent asthma Not in acute exacerbation Continue home inhalers Hypothyroidism Continue levothyroxine BPH Continue Flomax Thank you for allowing us to participate in the care of this patient. Will continue to follow for now. Please let us know if there are any acute complaints or questions. Time Spent With Patient Time: Total time managing care of this patient today ____ minutes.
[2023-07-26] MEDS: oxyCODONE HCl ER 10 MG TAB.ER.12H PO (20:48)
[2023-07-26] MEDS: Docusate Sodium 100 MG CAPSULE PO (20:49)
[2023-07-26] MEDS: Atorvastatin Calcium 20 MG TABLET PO (20:49)
[2023-07-26] MEDS: Montelukast Sodium 10 MG TABLET PO (20:50)
[2023-07-26] MEDS: Tamsulosin HCL 0.4 MG CAPSULE PO (20:50)
[2023-07-26] MEDS: Celecoxib 200 MG CAPSULE PO (20:51)
[2023-07-26 23:05] VITALS: BP 148/84; PULSE 77; RESP 18; O2SAT 94
[2023-07-26] MEDS: Acetaminophen 1,000 MG/100 ML PIGGYBACK 400 MG IV (23:08)
[2023-07-26] MEDS: 0.9 % Sodium Chloride Flush 3 ML SYRINGE IVFLUSH (23:11)
[2023-07-27] MEDS: HYDROmorphone HCl 0.5 MG/0.5 ML SYRINGE 0.25 MG IVPUSH (01:29)
[2023-07-27 03:22] VITALS: BP 154/79; PULSE 72; RESP 14; TEMP 36.8; O2SAT 94
[2023-07-27] MEDS: Acetaminophen 1,000 MG/100 ML PIGGYBACK 400 MG IV (05:12)
--- NOTE | 2023-07-27 05:16 | PC.NURSE ---
Pt appears to be sleeping, awakens with verbal stimuli, reports effectiveness to pain med given. Pt maintains NPO. Pt updated of plan.
[2023-07-27] MEDS: Lactated Ringers 1,000 ML 100 ML IVCONT (05:35)
[2023-07-27 06:29] LABS: MANUAL DIFF FLAG NO
[2023-07-27 06:41] LABS: Basophils Percent Auto 0.1 % (0-2); Eosinophils Absolute Auto 0.1 X10*3/uL (0.0-0.4); Eosinophils Percent Auto 0.7 % (0-4); Hematocrit 34.3 % (42.0-52.0); Hemoglobin 11.2 g/dl (14.0-18.0); Imm Gran Abs Auto 0.02 X10*3/uL (0.00-0.03); Imm Gran Pct Auto 0.3 % (0.0-0.4); Lymphocytes Absolute Auto 1.2 X10*3/uL (1.2-4.9); Lymphocytes Percent Auto 16.9 % (20-40); Mean Corpuscular HGB Conc 32.7 g/dl (31.0-36.0); Mean Corpuscular Hemoglobin 31.9 pg (27.0-33.0); Mean Corpuscular Volume 97.7 fL (80.0-98.0); Monocytes Absolute Auto 0.8 X10*3/uL (0.1-1.2); Monocytes Percent Auto 11.5 % (2-11); Neutrophils Absolute Auto 5.1 x10*3/uL (2.0-8.3); Neutrophils Percent Auto 70.5 % (45-73); Platelet Count 206 X10*3/uL (160-400); Red Blood Count 3.51 X10*6/uL (4.60-5.80); Red Cell Distribution Width 12.1 % (11.0-16.0); White Blood Count 7.2 X10*3/uL (4.8-10.8)
[2023-07-27 06:47] LABS: Anion Gap 13 (12-20); Blood Urea Nitrogen 13 mg/dL (9-16); Calcium 8.4 mg/dL (8.4-10.2); Carbon Dioxide 23 mmol/L (22-29); Chloride 105 mmol/L (96-108); Creatinine Clr Calc Pharmacy 63.6; Estimated Glomerular Filt Rate > 60; Glucose Fasting 119 mg/dL (60-99); Potassium 4.2 mmol/L (3.3-5.1); Sodium 137 mmol/L (135-145)
[2023-07-27] MEDS: Levothyroxine Sodium 100 MCG TABLET PO (06:50)
--- NOTE | 2023-07-27 08:40 | PC.NURSE ---
nurse-nurse report given, othro surgery at bedside.
--- NOTE | 2023-07-27 09:01 | PM.HPOR ---
History of Present Illness History of Present Illness Date of Service: 07/27/23 Chief complaint: Rt periprosthetic fracture Narrative: 72 yo male with PMH of hypothyroidism, HLD, asthma s/p R TKA 06/20/[address] Erickson presented to the ED after sustaining and injury to the right leg. He states he was walking when he slipped on water and his R leg went under him and he heard a crack. He was unable to get up and bear weight. He reports pain in R thigh and knee. He denies LOC or headstrike. No numbness. He was admitted to the orthopedic service for further surgical planning. Review of Systems Review of Systems: Yes all other systems are reviewed and are negative PMFSH Past Medical History Medical History BPH (benign prostatic hyperplasia) Hyperlipidemia Hypertension Hx of renal calculi Osteoarthritis of right knee Chronic allergic rhinitis Chronic cough Asthma Hypothyroidism Surgical History Surgical History Hx of cystoscopy H/O lithotripsy Hx of colonoscopy History of total left knee replacement (TKR) Social History Social History Household Members: Spouse Housing: Apartment Are you a primary md do resident urgent care to a significant other at home: No Do you presently have visiting nurse or other home services: Yes Patient Tobacco Use Status: Never used Tobacco Smoked in Last 30 Days: No Use of substances other than those prescribed or required for medical reasons: No Have you been hit, kicked, punched, or otherwise hurt by someone within the past year? If so, by whom?: No Do you feel safe in your current relationship?: Yes Is there a partner from a previous relationship who is making you feel unsafe now?: No Are you made to feel afraid or neglected: No [facility] Practices: [employer] Advance Directives: No Advance Directives Information Provided: No Advance Directives on File: No Do you have thoughts of harming others: None Recently lost weight without trying: No Nutrition Risks: No Nutritional Risk Poor oral hygiene: No service: No Current occupational status: retired Meds Allergies Allergy/AdvReac Type Severity Reaction Status Date / Time Latex, Natural Rubber Allergy Rash Verified 07/26/23 19:34 Active Medications: Current Medications Acetaminophen (Acetaminophen 325 Mg Tablet) 650 mg PO Q6H PRN PRN Reason: Pain, Mild (Pain Scale 1-3) Albuterol Sulfate (Albuterol Sulfate 90 Mcg 8 Gm Inhaler) 2 puff INHALE Q4H PRN PRN Reason: Shortness of Breath/Wheezing Atorvastatin Calcium (Atorvastatin Calcium 20 Mg Tablet) 20 mg PO BEDTIME [facility] Last Admin: 07/26/23 20:49 Dose: 20 mg Celecoxib (Celecoxib 200 Mg Capsule) 200 mg PO BID [facility] Last Admin: 07/26/23 20:51 Dose: 200 mg Cyanocobalamin (Cyanocobalamin (Vitamin B-12) 100 Mcg Tablet) 100 mcg PO DAILY [facility] Docusate Sodium (Docusate Sodium 100 Mg Capsule) 100 mg PO BID [facility] Last Admin: 07/26/23 20:49 Dose: 100 mg Docusate Sodium (Docusate Sodium 100 Mg Capsule) 100 mg PO BID [facility] Last Admin: 07/26/23 20:51 Dose: Not Given Fluticasone Propionate (Fluticasone Propionate Nasal 16 Gm [place]) 2 spray NOSTRIL-B DAILY PRN PRN Reason: Allergic Symptoms Hydromorphone HCl (Hydromorphone Hcl 0.5 Mg/0.5 Ml Syringe) 0.25 mg IVPUSH Q4H PRN; Protocol PRN Reason: Pain, Severe (Pain Scale 7-10) Last Admin: 07/27/23 01:29 Dose: 0.25 mg Lactated Ringer's (Lr) 1,000 mls @ 100 mls/hr IVCONT .Q10H [facility] Last Admin: 07/27/23 05:35 Dose: 100 mls/hr Acetaminophen (Ofirmev) 1,000 mg in 100 mls @ 400 mls/hr IV Q6H [facility] Stop: 07/27/23 16:59 Last Infusion: 07/27/23 05:34 Dose: Infused Levothyroxine Sodium (Levothyroxine Sodium 100 Mcg Tablet) 100 mcg PO DAILY@0600 [facility] Last Admin: 07/27/23 06:50 Dose: 100 mcg Lisinopril (Lisinopril 10 Mg Tablet) 10 mg PO DAILY [facility]; Protocol Loratadine (Loratadine 10 Mg Tablet) 10 mg PO DAILY [facility] Melatonin (Melatonin 3 Mg Tablet) 6 mg PO BEDTIME PRN PRN Reason: Insomnia Montelukast Sodium (Montelukast Sodium 10 Mg Tablet) 10 mg PO BEDTIME [facility] Last Admin: 07/26/23 20:50 Dose: 10 mg Ondansetron HCl (Ondansetron Hcl 4 Mg/2 Ml Vial) 4 mg IVPUSH Q8H PRN PRN Reason: Nausea and Vomiting Oxycodone HCl (Oxycodone Hcl Er 10 Mg Tab.Er.12h) 10 mg PO BID [facility] Last Admin: 07/26/23 20:48 Dose: 10 mg Oxycodone HCl (Oxycodone Hcl Immed Release 5 Mg Tablet) 10 mg PO Q4H PRN PRN Reason: Pain, Moderate(Pain Scale 4-6) Senna/Docusate Sodium (Sennosides/Docusate Sodium Tablet) 1 tab PO DAILY [facility] Sodium Chloride (0.9 % Sodium Chloride Flush 3 Ml Syringe) 3 ml IVFLUSH QSHIFT [facility] Last Admin: 07/27/23 08:00 Dose: Not Given Tamsulosin HCl (Tamsulosin Hcl 0.4 Mg Capsule) 0.4 mg PO BEDTIME [facility] Last Admin: 07/26/23 20:50 Dose: 0.4 mg Vitamin D (Cholecalciferol (Vitamin D3) 25 Mcg Tablet) 25 mcg PO DAILY [facility] Home Medications Medication Instructions Recorded Confirmed Last Taken Type cholecalciferol (vitamin D3) 25 25 mcg PO DAILY 07/23/20 07/26/23 06/16/23 History mcg (1,000 unit) tablet (Vitamin D3) cyanocobalamin (vitamin B-12) 100 100 mcg PO DAILY 07/23/20 07/26/23 06/16/23 History mcg tablet levothyroxine 100 mcg tablet 100 mcg PO DAILY 07/23/20 07/26/23 06/16/23 History lisinopril 10 mg tablet 10 mg PO DAILY 07/23/20 07/26/23 06/16/23 History rosuvastatin 5 mg tablet 5 mg PO BEDTIME 07/23/20 07/26/23 06/16/23 History ibuprofen 800 mg tablet 800 mg PO TID PRN Pain 03/03/22 07/26/23 06/13/23 History tamsulosin 0.4 mg capsule 0.4 mg PO BEDTIME 09/08/22 07/26/23 06/16/23 History fluticasone furoate 100 1 inh inhalation DAILY 05/30/23 07/26/23 06/16/23 History mcg/actuation blister powder for inhalation (Arnuity Ellipta) albuterol sulfate 90 mcg/actuation 2 puff inhalation Q4H PRN wheezing 07/26/23 07/26/23 Unknown History aerosol inhaler sennosides 8.6 mg-docusate sodium 1 tab PO DAILY 07/26/23 07/26/23 Unknown History 50 mg tablet (Stimulant Laxative Plus) Physical Exam Vital Signs: Vital Signs: Last Vital Signs Temp 98.2 F 07/27/23 03:22 Pulse 72 07/27/23 03:22 Resp 14 07/27/23 03:22 BP 154/79 H 07/27/23 03:22 Pulse Ox 94 07/27/23 03:22 O2 Del Method Room Air 07/27/23 03:22 BMI result Body Mass Index 27.4 Const: General: cooperative, healthy appearing, comfortable, no acute distress, well developed and alert Orientation/consciousness: patient oriented x3 HEENT: Head: Yes normal to inspection, Yes normocephalic and Yes atraumatic Eyes: General: appearance normal, both eyes and all related structures Neck: Neck: Yes normal visual inspection and Yes no lymphadenopathy Resp: Effort & Inspection: normal respiratory effort and able to speak in complete sentences Cardio: Rate: regular rate Peripheral pulses: Peripheral pulses 2+ throughout GI: Inspection: Yes normal to inspection Palpation (GI): Soft to palpation Skin: General skin exam: no rashes or lesions noted Neuro: General: patient oriented x3 Extrem: Other: Right knee surgical scar well healed. Right knee is resting in a flexed position. He has tenderness to palpation over the distal femur. Sensation and pulses intact. Psych: Appearance: grossly normal Mental Status: mental status grossly normal Results Labs 07/27/23 06:11 07/27/23 06:11 Labs: Abnormal lab results 07/26/23 07/27/23 Range/Units 16:04 06:11 RBC 3.90 L 3.51 L (4.60-5.80) X10*6/uL Hgb 12.6 L 11.2 L (14.0-18.0) g/dl Hct 37.7 L 34.3 L (42.0-52.0) % Neut % (Auto) 79.6 H (45-73) % Lymph % (Auto) 12.6 L 16.9 L (20-40) % [place] % (Auto) 11.5 H (2-11) % Abs Immat Gran (auto) 0.04 H (0.00-0.03) X10*3/uL Random Glucose 169 H (60-115) mg/dL Fasting Glucose 119 H (60-99) mg/dL H & H 07/26/23 07/27/23 Range/Units 16:04 06:11 Hgb 12.6 L 11.2 L (14.0-18.0) g/dl Hct 37.7 L 34.3 L (42.0-52.0) % Coagulation 07/26/23 Range/Units 16:04 INR 1.0 (0.9-1.1) All other labs normal. Diagnostic results Knee x-ray: image reviewed (periprosthetic fx of the right femur ) Assessment and Plan (1) Femur fracture, right: Qualifiers: Encounter type: initial encounter Femur location: distal, unspecified portion Fracture morphology: unspecified fracture morphology Fracture type: closed Qualified Code(s): S72.401A - Unspecified fracture of lower end of right femur, initial encounter for closed fracture Status: Acute Plan I discussed the case with Dr Bedolla explained the extent of the injury to the patient and options available which include surgical intervention. I explained the procedure in detail along with the length of recovery and rehab course. I explained the risk, benefits and alternatives. Risk including, but not limited to infection, blood clots, bleeding, non union or malunion and nerve/tissue damage to surrounding areas. I answered all their questions and with their understanding they have consented to move forward with Operative Fixation of the right femur . The patient will be T&S, med clearance obtained and remain NPO after midnight . Time Spent With Patient Time: Total time managing care of this patient today ____ minutes. Quality Stroke Does the patient have a stroke diagnosis?: No VTE Prior VTE?: No VTE Risk Level:: Surgical - very high VTE Device Contraindication: N/A - Device Ordered VTE Drug Contraindication: N/A - Med Ordered Procedures Date of Service Date of Service: 07/27/23
[2023-07-27 09:09] VITALS: BP 140/74; PULSE 73; RESP 17; TEMP 36.8; O2SAT 98
[2023-07-27 09:33] VITALS: BP 182/88; PULSE 84; RESP 20; TEMP 36.6; O2SAT 97
[2023-07-27] MEDS: Sennosides/Docusate Sodium TABLET 1 TAB PO (09:57)
[2023-07-27] MEDS: Cholecalciferol (Vitamin D3) 25 MCG TABLET PO (09:57)
[2023-07-27] MEDS: oxyCODONE HCl Immed Release 5 MG TABLET 10 MG PO (09:57)
[2023-07-27] MEDS: Celecoxib 200 MG CAPSULE PO ×2 (09:57→19:42)
[2023-07-27] MEDS: Loratadine 10 MG TABLET PO (09:58)
[2023-07-27] MEDS: Docusate Sodium 100 MG CAPSULE PO ×2 (09:58→19:41)
[2023-07-27] MEDS: Cyanocobalamin (Vitamin B-12) 100 MCG TABLET PO (09:58)
[2023-07-27] MEDS: lisinopriL 10 MG TABLET PO (09:58)
[2023-07-27] MEDS: oxyCODONE HCl ER 10 MG TAB.ER.12H PO ×2 (11:29→19:41)
[2023-07-27 12:48] VITALS: BMI 26.3
--- NOTE | 2023-07-27 15:14 | MHC.CM.PN ---
PT REPORTS HE LIVES WITH HIS AND IS INDEPENDENT AT BASELINE HE SAYS HE HAS A CANE AND A WALKER AT HOME PT REPORTS HE DID HAVE [facility] FOR HOME PT, BUT NO SERVICES RECYCLING OPERATIONS MANAGER HE HAS A HCP ON FILE PCP: STEPHANIE MAYO IMM DELIVERED DCP TBD PENDING PT EVAL HOME WITH [facility] VS STR WILL TRANSPORT IF PT IS CLEARED TO DC HOME
[2023-07-27 15:20] VITALS: BP 151/72; PULSE 66; RESP 20; TEMP 36.4; O2SAT 95
--- NOTE | 2023-07-27 17:06 | HO.PM.IMPN ---
Subjective Subjective Date of Service: 07/27/23 Interval History: seen and examined this morning follow up for medical consultation patient awake, alert, reporting right leg pain, no other complaints at this time Review of Systems Review of Systems: Yes all other systems are reviewed and are negative Constitutional Constitutional: Denies chills and Denies fever(s) Cardiovascular Cardiovascular: Denies chest pain, Denies palpitations and Denies dyspnea Respiratory Respiratory: Denies cough and Denies dyspnea Gastrointestinal Gastrointestinal: Denies abdominal pain, Denies nausea and Denies vomiting Endocrine Endocrine: Denies palpitations Physical Exam Vital Signs: Vital Signs: Last Vital Signs Temp 97.6 F 07/27/23 15:20 Pulse 66 07/27/23 15:20 Resp 20 07/27/23 15:20 BP 151/72 H 07/27/23 15:20 Pulse Ox 95 07/27/23 15:20 O2 Del Method Room Air 07/27/23 15:20 BMI result Body Mass Index 26.3 Const: General: cooperative, comfortable, no acute distress, alert and awake Nutritional Appearance: average body habitus Orientation/consciousness: patient oriented x3 Resp: Effort & Inspection: normal respiratory effort, able to speak in complete sentences, no respiratory distress and no use of accessory muscles Cardio: Rate: regular rate GI: Inspection: No distended Palpation (GI): Soft to palpation and nontender Neuro: General: patient oriented x3, moves all extremities and CN's II-XI intact bilaterally Objective Data Active Medications Acetaminophen (Acetaminophen 325 Mg Tablet) 650 mg PO Q6H PRN PRN Reason: Pain, Mild (Pain Scale 1-3) Albuterol Sulfate (Albuterol Sulfate 90 Mcg 8 Gm Inhaler) 2 puff INHALE Q4H PRN PRN Reason: Shortness of Breath/Wheezing Atorvastatin Calcium (Atorvastatin Calcium 20 Mg Tablet) 20 mg PO BEDTIME [facility] Last Admin: 07/26/23 20:49 Dose: 20 mg Documented By: ROBLES Celecoxib (Celecoxib 200 Mg Capsule) 200 mg PO BID [facility] Last Admin: 07/27/23 09:57 Dose: 200 mg Documented By: RYAN Cyanocobalamin (Cyanocobalamin (Vitamin B-12) 100 Mcg Tablet) 100 mcg PO DAILY [facility] Last Admin: 07/27/23 09:58 Dose: 100 mcg Documented By: RYAN Docusate Sodium (Docusate Sodium 100 Mg Capsule) 100 mg PO BID [facility] Last Admin: 07/27/23 09:58 Dose: 100 mg Documented By: RYAN Docusate Sodium (Docusate Sodium 100 Mg Capsule) 100 mg PO BID [facility] Last Admin: 07/27/23 11:25 Dose: Not Given Documented By: RYAN Non-Admin Reason: duplicate Fluticasone Propionate (Fluticasone Propionate Nasal 16 Gm [place]) 2 spray NOSTRIL-B DAILY PRN PRN Reason: Allergic Symptoms Hydromorphone HCl (Hydromorphone Hcl 0.5 Mg/0.5 Ml Syringe) 0.25 mg IVPUSH Q4H PRN; Protocol PRN Reason: Pain, Severe (Pain Scale 7-10) Last Admin: 07/27/23 01:29 Dose: 0.25 mg Documented By: ROBLES Lactated Ringer's (Lr) 1,000 mls @ 100 mls/hr IVCONT .Q10H [facility] Last Admin: 07/27/23 15:40 Dose: 100 mls/hr Documented By: RYAN Levothyroxine Sodium (Levothyroxine Sodium 100 Mcg Tablet) 100 mcg PO DAILY@0600 [facility] Last Admin: 07/27/23 06:50 Dose: 100 mcg Documented By: ROBLES Lisinopril (Lisinopril 10 Mg Tablet) 10 mg PO DAILY [facility]; Protocol Last Admin: 07/27/23 09:58 Dose: 10 mg Documented By: RYAN Loratadine (Loratadine 10 Mg Tablet) 10 mg PO DAILY [facility] Last Admin: 07/27/23 09:58 Dose: 10 mg Documented By: RYAN Melatonin (Melatonin 3 Mg Tablet) 6 mg PO BEDTIME PRN PRN Reason: Insomnia Montelukast Sodium (Montelukast Sodium 10 Mg Tablet) 10 mg PO BEDTIME [facility] Last Admin: 07/26/23 20:50 Dose: 10 mg Documented By: ROBLES Ondansetron HCl (Ondansetron Hcl 4 Mg/2 Ml Vial) 4 mg IVPUSH Q8H PRN PRN Reason: Nausea and Vomiting Oxycodone HCl (Oxycodone Hcl Er 10 Mg Tab.Er.12h) 10 mg PO BID [facility] Last Admin: 07/27/23 11:29 Dose: 10 mg Documented By: RYAN Oxycodone HCl (Oxycodone Hcl Immed Release 5 Mg Tablet) 10 mg PO Q4H PRN PRN Reason: Pain, Moderate(Pain Scale 4-6) Last Admin: 07/27/23 09:57 Dose: 10 mg Documented By: RYAN Senna/Docusate Sodium (Sennosides/Docusate Sodium Tablet) 1 tab PO DAILY [facility] Last Admin: 07/27/23 09:57 Dose: 1 tab Documented By: RYAN Sodium Chloride (0.9 % Sodium Chloride Flush 3 Ml Syringe) 3 ml IVFLUSH QSHIFT [facility] Last Admin: 07/27/23 15:35 Dose: Not Given Documented By: RYAN Non-Admin Reason: IV Running Tamsulosin HCl (Tamsulosin Hcl 0.4 Mg Capsule) 0.4 mg PO BEDTIME [facility] Last Admin: 07/26/23 20:50 Dose: 0.4 mg Documented By: ROBLES Vitamin D (Cholecalciferol (Vitamin D3) 25 Mcg Tablet) 25 mcg PO DAILY [facility] Last Admin: 07/27/23 09:57 Dose: 25 mcg Documented By: RYAN Labs 07/27/23 06:11 07/27/23 06:11 Labs: Laboratory Results - last 24 hr 07/26/23 07/27/23 18:12 06:11 MCV 97.7 MCH 31.9 MCHC 32.7 RDW 12.1 Plt Count 206 MPV 10.0 Immature Gran % (Auto) 0.3 Neut % (Auto) 70.5 Lymph % (Auto) 16.9 L [place] % (Auto) 11.5 H Eos % (Auto) 0.7 Baso % (Auto) 0.1 Lymph # (Auto) 1.2 Door # (Auto) 0.8 Eos # (Auto) 0.1 Baso # (Auto) 0.0 Abs Immat Gran (auto) 0.02 Absolute Neuts (auto) 5.1 Absolute Nucleated RBC 0.000 Nucleated RBC % (auto) 0.0 Anion Gap 13 Estim Creat Clear Calc 63.6 Estimated GFR > 60 Fasting Glucose 119 H Calcium 8.4 Blood Type A Negative Antibody Screen NEGATIVE Assessment and Plan (1) Status post total knee replacement, right: Status: Acute (2) Femur fracture, right: Status: Acute Plan This is a 72-year-old male with a PMH of moderate persistent asthma, hypothyroidism, HTN, HLD, BPH, and osteo arthritis of the right knee s/p right TKA on 06/20/2023 who presents to the hospital today after mechanical fall found to have a comminuted and displaced fracture of the distal femoral diaphysis. Hospitalist consult for preop clearance. Right periprosthetic femoral fracture management per orthopedic team NPO at midnight, plan for surgery in AM HTN BP reasonably controlled on current therapy Continue lisinopril HLD Continue statin Moderate persistent asthma Not in acute exacerbation Continue home inhalers chronic normocytic anemia above transfusion threshold follow CBC Hypothyroidism Continue levothyroxine BPH Continue Flomax Thank you for allowing us to participate in the care of this patient. Will continue to follow for now Time Spent With Patient Time: Total time managing care of this patient today ____ minutes. Quality Stroke Does the patient have a stroke diagnosis?: No VTE Prior VTE?: No VTE Risk Level:: Surgical - very high VTE Device Contraindication: N/A - Device Ordered VTE Drug Contraindication: N/A - Med Ordered
[2023-07-27 19:22] VITALS: BP 125/68; PULSE 75; RESP 18; TEMP 36.6; O2SAT 96
[2023-07-27] MEDS: Montelukast Sodium 10 MG TABLET PO (19:42)
[2023-07-27 23:36] VITALS: BP 125/66; PULSE 70; RESP 18; TEMP 36.2; O2SAT 97
[2023-07-28] VITALS (13 sets, daily range): BP systolic 112–152; BP diastolic 67–83; PULSE 68–111; RESP 16–20; TEMP 36.6–36.9; O2SAT 91–98
[2023-07-28 06:04] LABS: Anion Gap 14 (12-20); Blood Urea Nitrogen 13 mg/dL (9-16); Calcium 8.5 mg/dL (8.4-10.2); Carbon Dioxide 24 mmol/L (22-29); Chloride 106 mmol/L (96-108); Creatinine Clr Calc Pharmacy 73.1; Estimated Glomerular Filt Rate > 60; Glucose Fasting 98 mg/dL (60-99); Potassium 4.3 mmol/L (3.3-5.1); Sodium 140 mmol/L (135-145)
[2023-07-28] MEDS: Celecoxib 200 MG CAPSULE PO (06:22)
[2023-07-28] MEDS: oxyCODONE HCl ER 10 MG TAB.ER.12H PO (06:22)
--- NOTE | 2023-07-28 10:44 | P.CONAN_ITS ---
[facility] Active Problems Active Problems: All Active Problems (Updated 07/26/23 @ 17:32 by Lianna Ojeda DO) Fall (Acute) Femur fracture, right (Acute) Status post total knee replacement, right (Acute) Multifocal pneumonia (Acute) COVID-19 virus infection (Acute) Acute respiratory failure with hypoxia (Acute) Synovial cyst of popliteal space [Stevens], right knee (Acute) Chronic cough (Acute) Past Medical History Medical History BPH (benign prostatic hyperplasia) Hyperlipidemia Hypertension Hx of renal calculi Osteoarthritis of right knee Chronic allergic rhinitis Chronic cough Asthma Hypothyroidism Family History Family history of problems with anesthesia: No Surgical History Surgical History Hx of cystoscopy H/O lithotripsy Hx of colonoscopy History of total left knee replacement (TKR) History of Problems with Anesthesia: No Social History Social History Household Members: Spouse Housing: Apartment Are you a primary child care center administrator to a significant other at home: No Do you presently have visiting nurse or other home services: Yes Patient Tobacco Use Status: Never used Tobacco Smoked in Last 30 Days: No Use of substances other than those prescribed or required for medical reasons: No Currently Displaying Signs/Symptoms of Drug Intoxication Withdrawal: No Have you been hit, kicked, punched, or otherwise hurt by someone within the past year? If so, by whom?: No Do you feel safe in your current relationship?: Yes Is there a partner from a previous relationship who is making you feel unsafe now?: No Are you made to feel afraid or neglected: No [facility] Healthcare Practices: Baptism Advance Directives: No Advance Directives Information Provided: No Advance Directives on File: No Do you have thoughts of harming others: None Recently lost weight without trying: No Nutrition Risks: No Nutritional Risk Poor oral hygiene: No service: No Current occupational status: retired Meds Allergies Allergy/AdvReac Type Severity Reaction Status Date / Time Latex, Natural Rubber Allergy Rash Verified 07/26/23 19:34 Active Medications: Current Medications Acetaminophen (Acetaminophen 325 Mg Tablet) 650 mg PO Q6H PRN PRN Reason: Pain, Mild (Pain Scale 1-3) Albuterol Sulfate (Albuterol Sulfate 90 Mcg 8 Gm Inhaler) 2 puff INHALE Q4H PRN PRN Reason: Shortness of Breath/Wheezing Atorvastatin Calcium (Atorvastatin Calcium 20 Mg Tablet) 20 mg PO BEDTIME [facility] Last Admin: 07/27/23 19:42 Dose: 20 mg Celecoxib (Celecoxib 200 Mg Capsule) 200 mg PO BID [facility] Last Admin: 07/28/23 06:22 Dose: 200 mg Cyanocobalamin (Cyanocobalamin (Vitamin B-12) 100 Mcg Tablet) 100 mcg PO DAILY [facility] Last Admin: 07/28/23 07:33 Dose: Not Given Docusate Sodium (Docusate Sodium 100 Mg Capsule) 100 mg PO BID [facility] Last Admin: 07/28/23 07:33 Dose: Not Given Docusate Sodium (Docusate Sodium 100 Mg Capsule) 100 mg PO BID [facility] Last Admin: 07/28/23 07:33 Dose: Not Given Fluticasone Propionate (Fluticasone Propionate Nasal 16 Gm [place]) 2 spray NOSTRIL-B DAILY PRN PRN Reason: Allergic Symptoms Hydromorphone HCl (Hydromorphone Hcl 0.5 Mg/0.5 Ml Syringe) 0.25 mg IVPUSH Q4H PRN; Protocol PRN Reason: Pain, Severe (Pain Scale 7-10) Last Admin: 07/27/23 01:29 Dose: 0.25 mg Lactated Ringer's (Lr) 1,000 mls @ 100 mls/hr IVCONT .Q10H [facility] Last Infusion: 07/28/23 10:26 Dose: 0 mls/hr Levothyroxine Sodium (Levothyroxine Sodium 100 Mcg Tablet) 100 mcg PO DAILY@0600 [facility] Last Admin: 07/28/23 06:22 Dose: 100 mcg Lisinopril (Lisinopril 10 Mg Tablet) 10 mg PO DAILY [facility]; Protocol Last Admin: 07/28/23 07:33 Dose: Not Given Loratadine (Loratadine 10 Mg Tablet) 10 mg PO DAILY [facility] Last Admin: 07/28/23 07:34 Dose: Not Given Melatonin (Melatonin 3 Mg Tablet) 6 mg PO BEDTIME PRN PRN Reason: Insomnia Montelukast Sodium (Montelukast Sodium 10 Mg Tablet) 10 mg PO BEDTIME [facility] Last Admin: 07/27/23 19:42 Dose: 10 mg Ondansetron HCl (Ondansetron Hcl 4 Mg/2 Ml Vial) 4 mg IVPUSH Q8H PRN PRN Reason: Nausea and Vomiting Oxycodone HCl (Oxycodone Hcl Er 10 Mg Tab.Er.12h) 10 mg PO BID [facility] Last Admin: 07/28/23 06:22 Dose: 10 mg Oxycodone HCl (Oxycodone Hcl Immed Release 5 Mg Tablet) 10 mg PO Q4H PRN PRN Reason: Pain, Moderate(Pain Scale 4-6) Last Admin: 07/28/23 06:22 Dose: 10 mg Senna/Docusate Sodium (Sennosides/Docusate Sodium Tablet) 1 tab PO DAILY [facility] Last Admin: 07/28/23 07:34 Dose: Not Given Sodium Chloride (0.9 % Sodium Chloride Flush 3 Ml Syringe) 3 ml IVFLUSH QSHIFT [facility] Last Admin: 07/28/23 07:33 Dose: Not Given Tamsulosin HCl (Tamsulosin Hcl 0.4 Mg Capsule) 0.4 mg PO BEDTIME [facility] Last Admin: 07/27/23 19:43 Dose: 0.4 mg Vitamin D (Cholecalciferol (Vitamin D3) 25 Mcg Tablet) 25 mcg PO DAILY [facility] Last Admin: 07/28/23 07:33 Dose: Not Given Home Medications Medication Instructions Recorded Confirmed Last Taken Type cholecalciferol (vitamin D3) 25 25 mcg PO DAILY 07/23/20 07/26/23 06/16/23 History mcg (1,000 unit) tablet (Vitamin D3) cyanocobalamin (vitamin B-12) 100 100 mcg PO DAILY 07/23/20 07/26/23 06/16/23 History mcg tablet levothyroxine 100 mcg tablet 100 mcg PO DAILY 07/23/20 07/26/23 06/16/23 History lisinopril 10 mg tablet 10 mg PO DAILY 07/23/20 07/26/23 06/16/23 History rosuvastatin 5 mg tablet 5 mg PO BEDTIME 07/23/20 07/26/23 06/16/23 History ibuprofen 800 mg tablet 800 mg PO TID PRN Pain 03/03/22 07/26/23 06/13/23 History tamsulosin 0.4 mg capsule 0.4 mg PO BEDTIME 09/08/22 07/26/23 06/16/23 History fluticasone furoate 100 1 inh inhalation DAILY 05/30/23 07/26/23 06/16/23 History mcg/actuation blister powder for inhalation (Arnuity Ellipta) albuterol sulfate 90 mcg/actuation 2 puff inhalation Q4H PRN wheezing 07/26/23 07/26/23 Unknown History aerosol inhaler sennosides 8.6 mg-docusate sodium 1 tab PO DAILY 07/26/23 07/26/23 Unknown History 50 mg tablet (Stimulant Laxative Plus) Exam Exam Date and Time: July 28, 2023 1044 Height,Weight and Vital Signs: Height 5 ft 8 in Weight 78.6 kg Last Vital Signs Temp 97.8 F 07/28/23 07:19 Pulse 68 07/28/23 07:19 Resp 18 07/28/23 07:19 BP 124/71 07/28/23 07:19 Pulse Ox 96 07/28/23 07:19 O2 Del Method Room Air 07/28/23 07:19 Pertinent Lab Results Pertinent Lab Results: Laboratory Tests 07/26/23 07/26/23 07/27/23 16:04 18:12 06:11 WBC 10.1 7.2 RBC 3.90 L 3.51 L Hgb 12.6 L 11.2 L Hct 37.7 L 34.3 L MCV 96.7 97.7 MCH 32.3 31.9 MCHC 33.4 32.7 RDW 12.1 12.1 Plt Count 254 206 MPV 9.7 10.0 Immature Gran % (Auto) 0.4 0.3 Neut % (Auto) 79.6 H 70.5 Lymph % (Auto) 12.6 L 16.9 L [place] % (Auto) 5.7 11.5 H Eos % (Auto) 1.4 0.7 Baso % (Auto) 0.3 0.1 Lymph # (Auto) 1.3 1.2 [place] # (Auto) 0.6 0.8 Eos # (Auto) 0.1 0.1 Baso # (Auto) 0.0 0.0 Abs Immat Gran (auto) 0.04 H 0.02 Absolute Neuts (auto) 8.0 5.1 Absolute Nucleated RBC 0.000 0.000 Nucleated RBC % (auto) 0.0 0.0 PT 11.7 INR 1.0 Sodium 138 137 Potassium 4.0 4.2 Chloride 105 105 Carbon Dioxide 25 23 Anion Gap 12 13 BUN 11 13 Creatinine 1.13 1.00 Estim Creat Clear Calc 56.3 63.6 Estimated GFR > 60 > 60 Random Glucose 169 H Fasting Glucose 119 H Calcium 8.5 8.4 Blood Type A Negative Antibody Screen NEGATIVE 07/28/23 05:05 WBC 6.1 RBC 3.48 L Hgb 11.2 L Hct 33.7 L MCV 96.8 MCH 32.2 MCHC 33.2 RDW 12.4 Plt Count 186 MPV 9.7 Immature Gran % (Auto) 0.3 Neut % (Auto) 70.8 Lymph % (Auto) 16.0 L [place] % (Auto) 9.2 Eos % (Auto) 3.4 Baso % (Auto) 0.3 Lymph # (Auto) 1.0 L [place] # (Auto) 0.6 Eos # (Auto) 0.2 Baso # (Auto) 0.0 Abs Immat Gran (auto) 0.02 Absolute Neuts (auto) 4.3 Absolute Nucleated RBC 0.000 Nucleated RBC % (auto) 0.0 PT INR Sodium 140 Potassium 4.3 Chloride 106 Carbon Dioxide 24 Anion Gap 14 BUN 13 Creatinine 0.87 Estim Creat Clear Calc 73.1 Estimated GFR > 60 Random Glucose Fasting Glucose 98 Calcium 8.5 Blood Type Antibody Screen Airway Mallampati Class: III TM Dist: >3cm Neck ROM: Full Assessment and Plan Assessment Anesthesia Assessment: Anesthesia Plan Discussed and Chart Reviewed Final Anesthetic Review Family History of Problems with Anesthesia: No History of Problems with Anesthesia: No NPO: Yes ASA Class: III Final Preanesthetic Review: No Changes in Pt Med Stat, Meds/Allgs Chart Reviewed, Consent Obtained/Reviewed and Anes Risks/Benef Reviewed Patient Risk: Intermediate Procedure Risk: Intermediate
--- NOTE | 2023-07-28 13:39 | PM.OP ---
Brief Operative Note Date of Service: 07/28/23 Pre-op diagnosis: right femur fracture Post-op diagnosis: same Procedure: RIght femur retrograde IMN Implants: Nilam [id number] imn with 32.5 mm proximal interlock and 3 distal interlocking screws Surgeon: Slade Erickson MD Anesthesia: GETA Was an Laborer Shaft Sinking used for this Procedure?: Yes Laborer Sh[employer] Sinking: Jad Martínez Estimated blood loss (mL): 250 IV fluids (mL): 1,000 Pathology: none sent Condition: stable Disposition: PACU
--- NOTE | 2023-07-28 14:23 | MHC.CM.PN ---
per rounds pt going to or today dc plan pending pt eval post surgery
--- NOTE | 2023-07-28 14:46 | HO.PM.IMPN ---
Subjective Subjective Date of Service: 07/28/23 Interval History: seen and examined this morning follow up for medical consultation patient awake, alert, right leg pain controlled at this time denies sob, cough, abdominal pain, chest pain Review of Systems Review of Systems: Yes all other systems are reviewed and are negative Constitutional Constitutional: Denies chills and Denies fever(s) ENT Ears, Nose, Mouth, and Throat: Denies dizziness Cardiovascular Cardiovascular: Denies chest pain, Denies palpitations and Denies dyspnea Respiratory Respiratory: Denies cough and Denies dyspnea Gastrointestinal Gastrointestinal: Denies abdominal pain Neurologic Neurologic: Denies dizziness Endocrine Endocrine: Denies palpitations Physical Exam Vital Signs: Vital Signs: Last Vital Signs Temp 98.2 F 07/28/23 13:29 Pulse 111 H 07/28/23 13:57 Resp 20 07/28/23 14:08 BP 138/78 07/28/23 13:57 Pulse Ox 96 07/28/23 13:57 O2 Del Method Nasal Cannula 07/28/23 13:57 O2 Flow Rate 3 07/28/23 13:57 BMI result Body Mass Index 26.3 Const: General: cooperative, comfortable, no acute distress, alert and awake Nutritional Appearance: average body habitus Orientation/consciousness: patient oriented x3 Resp: Effort & Inspection: normal respiratory effort, able to speak in complete sentences, no respiratory distress and no use of accessory muscles Cardio: Rate: regular rate GI: Inspection: No distended Palpation (GI): Soft to palpation and nontender Neuro: General: patient oriented x3, moves all extremities and CN's II-XI intact bilaterally Objective Data Active Medications Acetaminophen (Acetaminophen 325 Mg Tablet) 650 mg PO Q6H PRN PRN Reason: Pain, Mild (Pain Scale 1-3) Albuterol Sulfate (Albuterol Sulfate 90 Mcg 8 Gm Inhaler) 2 puff INHALE Q4H PRN PRN Reason: Shortness of Breath/Wheezing Atorvastatin Calcium (Atorvastatin Calcium 20 Mg Tablet) 20 mg PO BEDTIME [facility] Last Admin: 07/27/23 19:42 Dose: 20 mg Documented By: RYAN Celecoxib (Celecoxib 200 Mg Capsule) 200 mg PO BID [facility] Last Admin: 07/28/23 06:22 Dose: 200 mg Documented By: EMANI Cyanocobalamin (Cyanocobalamin (Vitamin B-12) 100 Mcg Tablet) 100 mcg PO DAILY [facility] Last Admin: 07/28/23 07:33 Dose: Not Given Documented By: RYAN Non-Admin Reason: NPO Docusate Sodium (Docusate Sodium 100 Mg Capsule) 100 mg PO BID [facility] Last Admin: 07/28/23 07:33 Dose: Not Given Documented By: RYAN Non-Admin Reason: NPO Docusate Sodium (Docusate Sodium 100 Mg Capsule) 100 mg PO BID [facility] Last Admin: 07/28/23 07:33 Dose: Not Given Documented By: RYAN Non-Admin Reason: NPO Fentanyl (Fentanyl Citrate/Pf 100 Mcg/2 Ml Vial) 50 mcg IVPUSH Q5M PRN; Protocol PRN Reason: Pain, Severe (Pain Scale 7-10) Last Admin: 07/28/23 14:08 Dose: 50 mcg Documented By: MELODY Fluticasone Propionate (Fluticasone Propionate Nasal 16 Gm [place]) 2 spray NOSTRIL-B DAILY PRN PRN Reason: Allergic Symptoms Hydromorphone HCl (Hydromorphone Hcl 0.5 Mg/0.5 Ml Syringe) 0.25 mg IVPUSH Q4H PRN; Protocol PRN Reason: Pain, Severe (Pain Scale 7-10) Last Admin: 07/27/23 01:29 Dose: 0.25 mg Documented By: ROBLES Lactated Ringer's (Lr) 1,000 mls @ 100 mls/hr IVCONT .Q10H [facility] Last Infusion: 07/28/23 10:26 Dose: 0 mls/hr Documented By: RYAN Levothyroxine Sodium (Levothyroxine Sodium 100 Mcg Tablet) 100 mcg PO DAILY@0600 [facility] Last Admin: 07/28/23 06:22 Dose: 100 mcg Documented By: EMANI Lisinopril (Lisinopril 10 Mg Tablet) 10 mg PO DAILY [facility]; Protocol Last Admin: 07/28/23 07:33 Dose: Not Given Documented By: RYAN Non-Admin Reason: NPO Loratadine (Loratadine 10 Mg Tablet) 10 mg PO DAILY [facility] Last Admin: 07/28/23 07:34 Dose: Not Given Documented By: RYAN Non-Admin Reason: NPO Melatonin (Melatonin 3 Mg Tablet) 6 mg PO BEDTIME PRN PRN Reason: Insomnia Montelukast Sodium (Montelukast Sodium 10 Mg Tablet) 10 mg PO BEDTIME [facility] Last Admin: 07/27/23 19:42 Dose: 10 mg Documented By: RYAN Ondansetron HCl (Ondansetron Hcl 4 Mg/2 Ml Vial) 4 mg IVPUSH Q8H PRN PRN Reason: Nausea and Vomiting Ondansetron HCl (Ondansetron Hcl 4 Mg/2 Ml Vial) 4 mg IVPUSH ONCE PRN PRN Reason: Nausea and Vomiting Oxycodone HCl (Oxycodone Hcl Er 10 Mg Tab.Er.12h) 10 mg PO BID [facility] Last Admin: 07/28/23 06:22 Dose: 10 mg Documented By: EMANI Oxycodone HCl (Oxycodone Hcl Immed Release 5 Mg Tablet) 10 mg PO Q4H PRN PRN Reason: Pain, Moderate(Pain Scale 4-6) Last Admin: 07/28/23 06:22 Dose: 10 mg Documented By: EMANI Senna/Docusate Sodium (Sennosides/Docusate Sodium Tablet) 1 tab PO DAILY [facility] Last Admin: 07/28/23 07:34 Dose: Not Given Documented By: RYAN Non-Admin Reason: NPO Sodium Chloride (0.9 % Sodium Chloride Flush 3 Ml Syringe) 3 ml IVFLUSH QSHIFT [facility] Last Admin: 07/28/23 07:33 Dose: Not Given Documented By: RYAN Non-Admin Reason: IV Running Tamsulosin HCl (Tamsulosin Hcl 0.4 Mg Capsule) 0.4 mg PO BEDTIME [facility] Last Admin: 07/27/23 19:43 Dose: 0.4 mg Documented By: RYAN Vitamin D (Cholecalciferol (Vitamin D3) 25 Mcg Tablet) 25 mcg PO DAILY [facility] Last Admin: 07/28/23 07:33 Dose: Not Given Documented By: RYAN Non-Admin Reason: NPO Labs 07/28/23 05:05 07/28/23 05:05 Labs: Laboratory Results - last 24 hr 07/28/23 05:05 MCV 96.8 MCH 32.2 MCHC 33.2 RDW 12.4 Plt Count 186 MPV 9.7 Immature Gran % (Auto) 0.3 Neut % (Auto) 70.8 Lymph % (Auto) 16.0 L [place] % (Auto) 9.2 Eos % (Auto) 3.4 Baso % (Auto) 0.3 Lymph # (Auto) 1.0 L [place] # (Auto) 0.6 Eos # (Auto) 0.2 Baso # (Auto) 0.0 Abs Immat Gran (auto) 0.02 Absolute Neuts (auto) 4.3 Absolute Nucleated RBC 0.000 Nucleated RBC % (auto) 0.0 Anion Gap 14 Estim Creat Clear Calc 73.1 Estimated GFR > 60 Fasting Glucose 98 Calcium 8.5 Assessment and Plan (1) Femur fracture, right: Status: Acute Plan This is a 72-year-old male with a PMH of moderate persistent asthma, hypothyroidism, HTN, HLD, BPH, and osteo arthritis of the right knee s/p right TKA on 06/20/2023 who presents to the hospital today after mechanical fall found to have a comminuted and displaced fracture of the distal femoral diaphysis. Hospitalist consult for preop clearance. Right periprosthetic femoral fracture management per orthopedic team plan for surgery today HTN BP under adequate control Continue lisinopril HLD Continue statin Moderate persistent asthma Not in acute exacerbation Continue home inhalers chronic normocytic anemia above transfusion threshold H/H stable Hypothyroidism Continue levothyroxine BPH Continue Flomax Thank you for allowing us to participate in the care of this patient. Will continue to follow Time Spent With Patient Time: Total time managing care of this patient today ____ minutes. Quality Stroke Does the patient have a stroke diagnosis?: No VTE Prior VTE?: No VTE Risk Level:: Surgical - very high VTE Device Contraindication: N/A - Device Ordered VTE Drug Contraindication: N/A - Med Ordered
[2023-07-29 06:20] LABS: Anion Gap 17 (12-20); Blood Urea Nitrogen 15 mg/dL (9-16); Calcium 8.1 mg/dL (8.4-10.2); Carbon Dioxide 22 mmol/L (22-29); Chloride 104 mmol/L (96-108); Creatinine Clr Calc Pharmacy 55.8; Estimated Glomerular Filt Rate > 60; Glucose Fasting 153 mg/dL (60-99); Potassium 4.5 mmol/L (3.3-5.1); Sodium 138 mmol/L (135-145)
[2023-07-29 06:52] VITALS: BP 140/66; PULSE 73; RESP 17; TEMP 36.6; O2SAT 93
--- NOTE | 2023-07-29 07:43 | PM.PNORT ---
Subjective Subjective Date of Service: 07/29/23 Principal diagnosis: Right femur fracturee pod#1 s/p retrograde IMN Physical Exam Vital Signs: Vital Signs: Last Vital Signs Temp 98 F 07/29/23 06:52 Pulse 73 07/29/23 06:52 Resp 17 07/29/23 06:52 BP 140/66 H 07/29/23 06:52 Pulse Ox 93 07/29/23 06:52 O2 Del Method Room Air 07/29/23 06:52 O2 Flow Rate 2 07/28/23 14:59 BMI result Body Mass Index 26.3 Extrem: Other: minimal pain thigh soft dressing c/d/i Procedures Date of Service Date of Service: 07/29/23 Progress Note: A&P Assessment and plan (1) Femur fracture, right: Status: Acute Assessment and Plan: Doing very well WBAT DVT prophylaxis PO pain control Dispo planning (2) Status post total knee replacement, right: Status: Acute Time Spent With Patient Time: Total time managing care of this patient today ____ minutes. Quality Stroke Does the patient have a stroke diagnosis?: No VTE Prior VTE?: No VTE Risk Level:: Surgical - very high VTE Device Contraindication: N/A - Device Ordered VTE Drug Contraindication: N/A - Med Ordered
--- NOTE | 2023-07-29 11:40 | MHC.CM.PN ---
PT WILL DC HOME TOMORROW WITH [facility]SP[facility]
--- NOTE | 2023-07-29 11:45 | W.MHC.F2F ---
Service Date Service Date: 07/30/23 Encounter Date of encounter: 07/30/23 Reasons for Services Signs and symptoms assessed: Pt. is considered homebound due to recent surgery. Unable to drive, poor balance, poor gait mechanics. s/p rt femur ORIF Reason for physical therapy: home safety and mobility, therapeutic exercises, restore joint function, gait/transfer training, assess need for DME and ADL training Homebound: Leaving the home is medically contraindicated at this time without the asist of a device and/or another person due th the listed conditions above and below. Reason homebound: unsteady gait / fall risk, leg weakness, pain with ambulation, pain with transfers, poor balance / fall risk and unable to drive Certification: Based on the above findings, I certify that this patient is confined to the home and needs intermittent fdc care, physical therapy and/or speech therapy, or continues to need occupational therapy. The patient is under my care, and I have initiated the establishment of the plan of care. The patient will be followed by a physician who will periodically review the plan of care. Time Spent With Patient Time: Total time managing care of this patient today ____ minutes.
--- NOTE | 2023-07-29 11:45 | PM.DS ---
DS: Providers Provider Date of Service: 07/30/23 Date of admission: 07/26/23 18:41 Primary care physician: Lester Rivera III, MD Consults: 07/26/23 18:34 Consult to Hospitalist Routine Comment: Consulting Provider: Hospitalist Reason For Exam: pre op clearance DS: Diagnosis Discharge Diagnosis (1) Femur fracture, right: Status: Acute (2) Status post total knee replacement, right: Status: Acute DS: Summary Hospital Course Hospital Course: The patient underwent a successful right femur retrograde nail, they were transferred to PACU and then to the floor to recover. During their stay, their vitals were stable, afebrile at 97.0. Labs were unremarkable, H/H 8.4/26.6. POD 1 they were started on Lovenox for DVT ppx, they also received Physical Therapy services twice a day. Prior to discharge, their dressing and incision was clean dry and intact, and the plan was to be discharged home with VNA services. Time Spent with Patient Time attestation: Total time managing care of this patient today ____ minutes. Discharge coordination time: Less than 30 minutes Quality: Safe Use of Opioids Does Pt have an Active Cancer Diagnosis on the Problem List?: No Quality: Stroke Does the patient have a stroke diagnosis?: No Physical Exam Vital Signs: Vital Signs: Last Vital Signs Temp 98 F 07/29/23 06:52 Pulse 73 07/29/23 06:52 Resp 17 07/29/23 06:52 BP 140/66 H 07/29/23 06:52 Pulse Ox 93 07/29/23 06:52 O2 Del Method Room Air 07/29/23 06:52 O2 Flow Rate 2 07/28/23 14:59 BMI result Body Mass Index 26.3 Extrem: Other: minimal pain thigh soft dressing c/d/i DS: Data Data Completed and Pending Completed studies during hospitalization [Text1]: Procedures Introduction of Anesthetic Agent into Peripheral Nerves and Plexi, Percutaneous Approach (06/20/23) Replacement of Right Knee Joint with Synthetic Substitute, Uncemented, Open Approach (06/20/23) Labs on day of discharge: Laboratory Results - last 24 hr 07/29/23 05:39 WBC 9.2 RBC 2.82 L Hgb 9.1 L Hct 27.3 L MCV 96.8 MCH 32.3 MCHC 33.3 RDW 12.1 Plt Count 165 MPV 9.8 Immature Gran % (Auto) 0.4 Neut % (Auto) 87.6 H Lymph % (Auto) 6.5 L [place] % (Auto) 5.5 Eos % (Auto) 0.0 Baso % (Auto) 0.0 Lymph # (Auto) 0.6 L [place] # (Auto) 0.5 Eos # (Auto) 0.0 Baso # (Auto) 0.0 Abs Immat Gran (auto) 0.04 H Absolute Neuts (auto) 8.0 Absolute Nucleated RBC 0.000 Nucleated RBC % (auto) 0.0 Sodium 138 Potassium 4.5 Chloride 104 Carbon Dioxide 22 Anion Gap 17 BUN 15 Creatinine 1.14 Estim Creat Clear Calc 55.8 Estimated GFR > 60 Fasting Glucose 153 H Calcium 8.1 L Discharge Plan Discharge Anticipated Discharge Date/Time: 07/30/23 15:39 Patient Disposition: Home Health Service Discharge Diagnosis: s/p rt femur ORIF Referrals: Adam ROWLEY [Outside] - 1 Day Lester Rivera III, MD [Primary Care Provider] - 1 Week Jad Martínez PA-C [Physician Training And Documentation Specialist] - 2 Weeks Discharge Medications: New acetaminophen 325 mg Tablet 650 mg PO Q6H PRN (Reason: Pain, Mild (Pain Scale 1-3)) 30 Days Qty: 240 0RF enoxaparin 40 mg/0.4 mL Syringe 40 mg subcut Q24H 42 Days Qty: 16.8 0RF celecoxib 200 mg Capsule 200 mg PO BID 30 Days Qty: 60 0RF oxycodone 10 mg tablet 10 mg PO Q4H PRN (Reason: Pain, Moderate(Pain Scale 4-6)) 7 Days Qty: 42 0RF Rx Instructions: Partial Fill upon patient request. docusate sodium 100 mg Capsule 100 mg PO BID 30 Days Qty: 60 0RF Continued montelukast 10 mg tablet 10 mg PO BEDTIME Qty: 90 0RF fluticasone propionate 50 mcg/actuation spray,suspension 2 spray intranasal DAILY PRN (Reason: for allergies) Qty: 16 0RF levothyroxine 100 mcg Tablet 100 mcg PO DAILY cyanocobalamin (vitamin B-12) 100 mcg Tablet 100 mcg PO DAILY lisinopril 10 mg Tablet 10 mg PO DAILY rosuvastatin 5 mg Tablet 5 mg PO BEDTIME cholecalciferol (vitamin D3) [Vitamin D3] 25 mcg (1,000 unit) Tablet 25 mcg PO DAILY sennosides-docusate sodium [Stimulant Laxative Plus] 8.6-50 mg tablet 1 tab PO DAILY albuterol sulfate 90 mcg/actuation HFA aerosol inhaler 2 puff inhalation Q4H PRN (Reason: wheezing) Arnuity Ellipta 100 mcg/actuation Blister With Device 1 inh INHALATION DAILY loratadine 10 mg tablet 10 mg PO DAILY 30 Days Qty: 30 11RF tamsulosin 0.4 mg capsule 0.4 mg PO BEDTIME Discontinued acetaminophen 325 mg Tablet 650 mg PO Q6H PRN (Reason: Pain, Mild (Pain Scale 1-3)) 30 Days Qty: 240 0RF aspirin 325 mg Tablet 325 mg PO BID 42 Days Qty: 84 0RF celecoxib 200 mg Capsule 200 mg PO BID 30 Days Qty: 60 0RF docusate sodium 100 mg Capsule 100 mg PO BID 30 Days Qty: 60 0RF ibuprofen 800 mg tablet 800 mg PO TID PRN (Reason: Pain) oxycodone-acetaminophen [Percocet] 5-325 mg tablet 1 tab PO Q6H PRN (Reason: pain) 7 Days Qty: 28 0RF Rx Instructions: Partial Fill upon patient request. Discharge Orders: Discharge Order (Routine); Ordered 07/30/23 Ordered By: Shanda Ortiz Diet: Advance to usual diet Activity on Discharge: Use cane or walker Stand Alone Forms: Patient Portal Discharge page Care Plan Goals: restorn fxn to [facility] Concerns: None Plan of Treatment: Physical Therapy for ROM, quad strength, gait training. Use walker for ambulation Weight bear as tolerated Limit stair climbing, No shower, No tub bath, No driving Continue anticoagulant Lovenox injections x 6 weeks Keep dressing clean, dry and intact. Follow up with orthopedics in 2 weeks Assessment: Stable for d/c
--- NOTE | 2023-07-29 14:11 | HO.PM.IMPN ---
Subjective Subjective Date of Service: 07/29/23 Interval History: seen and examined this morning follow up for medical consultation s/p right femur retrograde nail no overnight events no specific complaints this morning. pain under adequate control Review of Systems Review of Systems: Yes all other systems are reviewed and are negative Constitutional Constitutional: Denies chills and Denies fever(s) Cardiovascular Cardiovascular: Denies chest pain, Denies palpitations and Denies dyspnea Respiratory Respiratory: Denies cough and Denies dyspnea Endocrine Endocrine: Denies palpitations Physical Exam Vital Signs: Vital Signs: Last Vital Signs Temp 98 F 07/29/23 06:52 Pulse 73 07/29/23 06:52 Resp 17 07/29/23 06:52 BP 140/66 H 07/29/23 06:52 Pulse Ox 93 07/29/23 06:52 O2 Del Method Room Air 07/29/23 06:52 O2 Flow Rate 2 07/28/23 14:59 BMI result Body Mass Index 26.3 Const: General: cooperative, comfortable, no acute distress, alert and awake Nutritional Appearance: average body habitus Orientation/consciousness: patient oriented x3 Resp: Effort & Inspection: normal respiratory effort, able to speak in complete sentences, no respiratory distress and no use of accessory muscles Cardio: Rate: regular rate GI: Inspection: No distended Palpation (GI): Soft to palpation and nontender Neuro: General: patient oriented x3, moves all extremities and CN's II-XI intact bilaterally Extrem: Other: right leg dressing c/d/i no staining Objective Data Active Medications Acetaminophen (Acetaminophen 325 Mg Tablet) 650 mg PO Q6H PRN PRN Reason: Pain, Mild (Pain Scale 1-3) Last Admin: 07/29/23 04:58 Dose: 650 mg Documented By: LIAM Al Hydroxide/Mg Hydroxide (Magnesium Hydrox/Alum Hydrox 30 Ml Oral.Susp) 30 ml PO Q6H PRN PRN Reason: Dyspepsia Last Admin: 07/29/23 07:29 Dose: 30 ml Documented By: GIORGIO Albuterol Sulfate (Albuterol Sulfate 90 Mcg 8 Gm Inhaler) 2 puff INHALE Q4H PRN PRN Reason: Shortness of Breath/Wheezing Atorvastatin Calcium (Atorvastatin Calcium 20 Mg Tablet) 20 mg PO BEDTIME [facility]PE Last Admin: 07/28/23 20:13 Dose: 20 mg Documented By: LIAM Celecoxib (Celecoxib 200 Mg Capsule) 200 mg PO BID [facility] Last Admin: 07/29/23 09:31 Dose: 200 mg Documented By: GIORGIO Cyanocobalamin (Cyanocobalamin (Vitamin B-12) 100 Mcg Tablet) 100 mcg PO DAILY [facility] Last Admin: 07/29/23 09:31 Dose: 100 mcg Documented By: GIORGIO Docusate Sodium (Docusate Sodium 100 Mg Capsule) 100 mg PO BID [facility] Last Admin: 07/29/23 09:32 Dose: Not Given Documented By: GIORGIO Non-Admin Reason: Duplicate Order Enoxaparin Sodium (Enoxaparin Sodium 40 Mg/0.4 Ml Syringe) 40 mg SUBCUT Q24H [facility] Last Admin: 07/29/23 12:01 Dose: 40 mg Documented By: GIORGIO Fluticasone Propionate (Fluticasone Propionate Nasal 16 Gm [place]) 2 spray NOSTRIL-B DAILY PRN PRN Reason: Allergic Symptoms Hydromorphone HCl (Hydromorphone Hcl 0.5 Mg/0.5 Ml Syringe) 0.25 mg IVPUSH Q4H PRN; Protocol PRN Reason: Pain, Severe (Pain Scale 7-10) Last Admin: 07/28/23 16:20 Dose: 0.25 mg Documented By: RYAN Cefazolin Sodium/Dextrose (Ancef) 2 gm in 50 mls @ 100 mls/hr IV POSTOP [facility] Levothyroxine Sodium (Levothyroxine Sodium 100 Mcg Tablet) 100 mcg PO DAILY@0600 [facility] Last Admin: 07/29/23 05:00 Dose: 100 mcg Documented By: LIAM Lisinopril (Lisinopril 10 Mg Tablet) 10 mg PO DAILY [facility]; Protocol Last Admin: 07/29/23 09:31 Dose: 10 mg Documented By: GIORGIO Loratadine (Loratadine 10 Mg Tablet) 10 mg PO DAILY [facility] Last Admin: 07/29/23 09:31 Dose: 10 mg Documented By: GIORGIO Melatonin (Melatonin 3 Mg Tablet) 6 mg PO BEDTIME PRN PRN Reason: Insomnia Last Admin: 07/28/23 20:13 Dose: 6 mg Documented By: LIAM Montelukast Sodium (Montelukast Sodium 10 Mg Tablet) 10 mg PO BEDTIME [facility] Last Admin: 07/28/23 20:12 Dose: 10 mg Documented By: LIAM Ondansetron HCl (Ondansetron Hcl 4 Mg/2 Ml Vial) 4 mg IVPUSH Q8H PRN PRN Reason: Nausea and Vomiting Oxycodone HCl (Oxycodone Hcl Er 10 Mg Tab.Er.12h) 10 mg PO BID [facility] Last Admin: 07/29/23 09:31 Dose: 10 mg Documented By: GIORGIO Oxycodone HCl (Oxycodone Hcl Immed Release 5 Mg Tablet) 10 mg PO Q4H PRN PRN Reason: Pain, Moderate(Pain Scale 4-6) Last Admin: 07/28/23 20:12 Dose: 10 mg Documented By: LIAM Polyethylene Glycol (Polyethylene Glycol 3350 17 Gm Powd.Pack) 17 gm PO DAILY [facility] Last Admin: 07/29/23 11:35 Dose: 17 gm Documented By: GIORGIO Senna/Docusate Sodium (Sennosides/Docusate Sodium Tablet) 1 tab PO DAILY [facility] Last Admin: 07/29/23 09:31 Dose: 1 tab Documented By: GIORGIO Sodium Chloride (0.9 % Sodium Chloride Flush 3 Ml Syringe) 3 ml IVFLUSH QSHIFT [facility] Last Admin: 07/29/23 09:31 Dose: 3 ml Documented By: GIORGIO Tamsulosin HCl (Tamsulosin Hcl 0.4 Mg Capsule) 0.4 mg PO BEDTIME [facility] Last Admin: 07/28/23 20:13 Dose: 0.4 mg Documented By: LIAM Vitamin D (Cholecalciferol (Vitamin D3) 25 Mcg Tablet) 25 mcg PO DAILY [facility] Last Admin: 07/29/23 09:31 Dose: 25 mcg Documented By: GIORGIO Labs 07/29/23 05:39 07/29/23 05:39 Labs: Laboratory Results - last 24 hr 07/29/23 05:39 MCV 96.8 MCH 32.3 MCHC 33.3 RDW 12.1 Plt Count 165 MPV 9.8 Immature Gran % (Auto) 0.4 Neut % (Auto) 87.6 H Lymph % (Auto) 6.5 L [place] % (Auto) 5.5 Eos % (Auto) 0.0 Baso % (Auto) 0.0 Lymph # (Auto) 0.6 L [place] # (Auto) 0.5 Eos # (Auto) 0.0 Baso # (Auto) 0.0 Abs Immat Gran (auto) 0.04 H Absolute Neuts (auto) 8.0 Absolute Nucleated RBC 0.000 Nucleated RBC % (auto) 0.0 Anion Gap 17 Estim Creat Clear Calc 55.8 Estimated GFR > 60 Fasting Glucose 153 H Calcium 8.1 L Assessment and Plan (1) Femur fracture, right: Status: Acute Plan This is a 72-year-old male with a PMH of moderate persistent asthma, hypothyroidism, HTN, HLD, BPH, and osteo arthritis of the right knee s/p right TKA on 06/20/2023 who presents to the hospital today after mechanical fall found to have a comminuted and displaced fracture of the distal femoral diaphysis. Hospitalist consult for preop clearance. Right periprosthetic femoral fracture POD #1 s/p retrograde IMN management per orthopedic team HTN BP under adequate control Continue lisinopril HLD Continue statin Moderate persistent asthma Not in acute exacerbation Continue home inhalers acute on chronic normocytic anemia H/H trending down, likely r/t acute blood loss in the setting of surgery pt asymptomatic if trends down further would consider blood transfusion follow H/H Hypothyroidism Continue levothyroxine BPH Continue Flomax Thank you for allowing us to participate in the care of this patient. Will continue to follow Time Spent With Patient Time: Total time managing care of this patient today ____ minutes. Quality Stroke Does the patient have a stroke diagnosis?: No VTE Prior VTE?: No VTE Risk Level:: Surgical - very high VTE Device Contraindication: N/A - Device Ordered VTE Drug Contraindication: N/A - Med Ordered
[2023-07-29 14:58] VITALS: BP 143/65; PULSE 85; RESP 18; TEMP 36; O2SAT 94
[2023-07-29 19:43] VITALS: BP 137/68; PULSE 92; RESP 17; TEMP 36.8; O2SAT 95
[2023-07-30 03:38] VITALS: BP 108/58; PULSE 76; RESP 18; TEMP 36.3; O2SAT 93
[2023-07-30 06:55] VITALS: BP 120/57; PULSE 74; RESP 16; TEMP 36.1; O2SAT 94
--- NOTE | 2023-07-30 09:50 | MHC.CM.PN ---
order D/C to home w/services. [facility] previously referred to and per the discussions from NA rep, Pt will be signed on to their service for either Monday or Monday for in-home PT. Per CM notes, to transport home. CM acknowledge.
--- NOTE | 2023-07-30 12:37 | HO.PM.IMPN ---
Subjective Subjective Date of Service: 07/30/23 Interval History: seen and examined this morning follow up for medical consultation no overnight events denies dizziness, sob, chest pain leg pain controlled Review of Systems Review of Systems: Yes all other systems are reviewed and are negative Constitutional Constitutional: Denies chills and Denies fever(s) Cardiovascular Cardiovascular: Denies chest pain, Denies palpitations and Denies dyspnea Respiratory Respiratory: Denies cough and Denies dyspnea Gastrointestinal Gastrointestinal: Denies abdominal pain, Denies nausea and Denies vomiting Endocrine Endocrine: Denies palpitations Physical Exam Vital Signs: Vital Signs: Last Vital Signs Temp 97 F 07/30/23 06:55 Pulse 74 07/30/23 06:55 Resp 16 07/30/23 06:55 BP 120/57 L 07/30/23 06:55 Pulse Ox 94 07/30/23 06:55 O2 Del Method Room Air 07/30/23 06:55 O2 Flow Rate 2 07/28/23 14:59 BMI result Body Mass Index 26.3 Const: General: cooperative, comfortable, no acute distress, alert and awake Nutritional Appearance: average body habitus Orientation/consciousness: patient oriented x3 Resp: Effort & Inspection: normal respiratory effort, able to speak in complete sentences, no respiratory distress and no use of accessory muscles Cardio: Rate: regular rate GI: Inspection: No distended Palpation (GI): Soft to palpation and nontender Neuro: General: patient oriented x3, moves all extremities and CN's II-XI intact bilaterally Extrem: Other: right leg dressing c/d/i no staining Objective Data Active Medications Acetaminophen (Acetaminophen 325 Mg Tablet) 650 mg PO Q6H PRN PRN Reason: Pain, Mild (Pain Scale 1-3) Last Admin: 07/30/23 10:53 Dose: 650 mg Documented By: GIORGIO Al Hydroxide/Mg Hydroxide (Magnesium Hydrox/Alum Hydrox 30 Ml Oral.Susp) 30 ml PO Q6H PRN PRN Reason: Dyspepsia Last Admin: 07/29/23 07:29 Dose: 30 ml Documented By: GIORGIO Albuterol Sulfate (Albuterol Sulfate 90 Mcg 8 Gm Inhaler) 2 puff INHALE Q4H PRN PRN Reason: Shortness of Breath/Wheezing Atorvastatin Calcium (Atorvastatin Calcium 20 Mg Tablet) 20 mg PO BEDTIME [facility] Last Admin: 07/29/23 20:23 Dose: 20 mg Documented By: LIAM Celecoxib (Celecoxib 200 Mg Capsule) 200 mg PO BID [facility] Last Admin: 07/30/23 08:44 Dose: 200 mg Documented By: GIORGIO Cyanocobalamin (Cyanocobalamin (Vitamin B-12) 100 Mcg Tablet) 100 mcg PO DAILY [facility] Last Admin: 07/30/23 08:44 Dose: 100 mcg Documented By: GIORGIO Docusate Sodium (Docusate Sodium 100 Mg Capsule) 100 mg PO BID [facility] Last Admin: 07/30/23 08:44 Dose: 100 mg Documented By: GIORGIO Enoxaparin Sodium (Enoxaparin Sodium 40 Mg/0.4 Ml Syringe) 40 mg SUBCUT Q24H [facility] Last Admin: 07/30/23 10:43 Dose: 40 mg Documented By: GIORGIO Fluticasone Propionate (Fluticasone Propionate Nasal 16 Gm [place]) 2 spray NOSTRIL-B DAILY PRN PRN Reason: Allergic Symptoms Hydromorphone HCl (Hydromorphone Hcl 0.5 Mg/0.5 Ml Syringe) 0.25 mg IVPUSH Q4H PRN; Protocol PRN Reason: Pain, Severe (Pain Scale 7-10) Last Admin: 07/28/23 16:20 Dose: 0.25 mg Documented By: RYAN Cefazolin Sodium/Dextrose (Ancef) 2 gm in 50 mls @ 100 mls/hr IV POSTOP [facility] Levothyroxine Sodium (Levothyroxine Sodium 100 Mcg Tablet) 100 mcg PO DAILY@0600 [facility] Last Admin: 07/30/23 05:01 Dose: 100 mcg Documented By: LIAM Lisinopril (Lisinopril 10 Mg Tablet) 10 mg PO DAILY [facility]; Protocol Last Admin: 07/30/23 08:44 Dose: 10 mg Documented By: GIORGIO Loratadine (Loratadine 10 Mg Tablet) 10 mg PO DAILY [facility] Last Admin: 07/30/23 08:44 Dose: 10 mg Documented By: GIORGIO Melatonin (Melatonin 3 Mg Tablet) 6 mg PO BEDTIME PRN PRN Reason: Insomnia Last Admin: 07/29/23 23:14 Dose: 6 mg Documented By: LIAM Montelukast Sodium (Montelukast Sodium 10 Mg Tablet) 10 mg PO BEDTIME [facility] Last Admin: 07/29/23 20:24 Dose: 10 mg Documented By: LIAM Ondansetron HCl (Ondansetron Hcl 4 Mg/2 Ml Vial) 4 mg IVPUSH Q8H PRN PRN Reason: Nausea and Vomiting Oxycodone HCl (Oxycodone Hcl Er 10 Mg Tab.Er.12h) 10 mg PO BID [facility] Last Admin: 07/30/23 08:44 Dose: 10 mg Documented By: GIORGIO Oxycodone HCl (Oxycodone Hcl Immed Release 5 Mg Tablet) 10 mg PO Q4H PRN PRN Reason: Pain, Moderate(Pain Scale 4-6) Last Admin: 07/29/23 23:14 Dose: 10 mg Documented By: LIAM Polyethylene Glycol (Polyethylene Glycol 3350 17 Gm Powd.Pack) 17 gm PO DAILY [facility] Last Admin: 07/30/23 08:45 Dose: 17 gm Documented By: GIORGIO Senna/Docusate Sodium (Sennosides/Docusate Sodium Tablet) 1 tab PO DAILY [facility] Last Admin: 07/30/23 08:44 Dose: 1 tab Documented By: GIORGIO Sodium Chloride (0.9 % Sodium Chloride Flush 3 Ml Syringe) 3 ml IVFLUSH QSHIFT [facility] Last Admin: 07/30/23 08:45 Dose: 3 ml Documented By: GIORGIO Tamsulosin HCl (Tamsulosin Hcl 0.4 Mg Capsule) 0.4 mg PO BEDTIME [facility] Last Admin: 07/29/23 20:23 Dose: 0.4 mg Documented By: LIAM Vitamin D (Cholecalciferol (Vitamin D3) 25 Mcg Tablet) 25 mcg PO DAILY [facility] Last Admin: 07/30/23 08:44 Dose: 25 mcg Documented By: GIORGIO Labs 07/30/23 05:35 07/29/23 05:39 Labs: Laboratory Results - last 24 hr 07/30/23 05:35 MCV 98.5 H MCH 31.1 MCHC 31.6 RDW 12.6 Plt Count 167 MPV 9.7 Absolute Nucleated RBC 0.000 Nucleated RBC % (auto) 0.0 Hold Yellow Top See Note Assessment and Plan (1) Femur fracture, right: Status: Acute Plan This is a 72-year-old male with a PMH of moderate persistent asthma, hypothyroidism, HTN, HLD, BPH, and osteo arthritis of the right knee s/p right TKA on 06/20/2023 who presents to the hospital today after mechanical fall found to have a comminuted and displaced fracture of the distal femoral diaphysis. Hospitalist consult for preop clearance. Right periprosthetic femoral fracture POD #2 s/p retrograde IMN management per orthopedic team HTN BP under adequate control Continue lisinopril HLD Continue statin Moderate persistent asthma Not in acute exacerbation Continue home inhalers acute on chronic normocytic anemia H/H trending down, likely r/t acute blood loss in the setting of surgery pt asymptomatic if trends down further would consider blood transfusion outpatient follow up Hypothyroidism Continue levothyroxine BPH Continue Flomax Time Spent With Patient Time: Total time managing care of this patient today ____ minutes. Quality Stroke Does the patient have a stroke diagnosis?: No VTE Prior VTE?: No VTE Risk Level:: Surgical - very high VTE Device Contraindication: N/A - Device Ordered VTE Drug Contraindication: N/A - Med Ordered
--- NOTE | 2023-07-30 13:40 | HO.POSTANES ---
Post Anesthesia Evaluation Post Anesthesia Evaluation Date of Service: 07/28/23 Vital Signs: Vital Signs Temp Pulse Resp BP Pulse Ox O2 Del Method 07/30/23 06:55 97 F 74 16 120/57 L 94 Room Air 07/30/23 03:38 97.4 F 76 18 108/58 L 93 Room Air Anesthesia: General Mental Status: Awake Pain Control: Satisfactory Nausea/Vomiting: None Hydration: Adequate Anesthesia-Related Issues: No Anes. Related Issues
--- NOTE | 2023-08-15 12:19 | P.OP_ITS ---
Operative Note Operative Note Date of Service: 07/28/23 Narrative: Date of Service: 07/28/23 Pre-op diagnosis: right periprosthetic femur fracture Post-op diagnosis: same Procedure: RIght femur retrograde IMN Implants: Nilam [id number] imn with 32.5 mm proximal interlock and 3 distal interlocking screws Surgeon: Slade Erickson MD Anesthesia: GETA Was an Prospecting Observer used for this Procedure?: Yes Prospecting Observer: Jad Martínez Estimated blood loss (mL): 250 IV fluids (mL): 1,000 Pathology: none sent Condition: stable Disposition: PACU Procedure in detail: Patient was brought to the operating room and prepped and draped in standard sterile fashion. Time-out was called to identify proper site procedure proper surgeon and IV antibiotics per weight were administered. He was positioned on the fracture table and biplanar fluoroscopy confirmed fracture. I made a small ( 4 cm) incision over the distal aspect of the prior incision. I then performed a transpatellar tendone approach and placed a k-wire into the distal femur through the notch of the the prior TKA. I then over reamed and with a reduction tool I levered the distal fragment into a reduced position and placed a ball-tipped guidewire up into the proximal femur. The reduction was maintained by my assisstant and a bump and I measured the nail as a 320. I reamed to a 12.5 and then placed the nail in retrograde fashion. I then placed 3 distal interlocking screws. Fracture reduction and hardare alignment was confirmed with biplanar fluro. . Once I was satisfied with the position of the nail distally I turned my attention to the proximal aspect of the nail. Using perfect nuiqsut technique I placed 1 static distal interlocking screw in standard AO technique from anterior to posterior. I then removed all extraneous instrumentation. Final biplanar radiographs were taken. I was satisfied with the position of the hardware and the fracture reduction. I think copiously irrigated closed with absorbable sutures renée and injected 30 mL of into the area of the incisions. Patient was placed in sterile dressing awakened from anesthesia brought to recovery room stable condition there were no known complications.
== END 2023-07-30 12:40 | disposition home health service (06) | DRG 482 ==
LOC: HO.ED 17:19 → HO.EDOVER 18:53 → HO.S3 07-27 07:59
PROVIDERS: Orthopaedic Surgery; Admitting Provider Physician Assistant; Emergency Provider Emergency Medicine; PCP Internal Medicine; Visit Provider Physician Assistant
PROC: 0QS636Z Reposition Right Upper Femur with Intramedullary Internal Fixation Device, Percutaneous Approach (ICD-10-PCS; principal; 2023-07-28 11:00)
DX: S72.491A Other fracture of lower end of right femur, initial encounter for closed fracture (principal); N40.0 Benign prostatic hyperplasia without lower urinary tract symptoms; J45.40 Moderate persistent asthma, uncomplicated; E03.9 Hypothyroidism, unspecified; E78.5 Hyperlipidemia, unspecified; W19.XXXA Unspecified fall, initial encounter; Z96.651 Presence of right artificial knee joint; Z91.040 Latex allergy status; Z79.51 Long term (current) use of inhaled steroids; Z79.890 Hormone replacement therapy; Z79.899 Other long term (current) drug therapy
CPT/HCPCS: 36415; 71045; 73502; 73564; 80048; 85025; 85027; 85610; 86850; 86900; 86901; 93005; 97161; 99285; C1713; C1769; J0131; J0690; J1100; J1170; J1650; J2250; J2270; J2371; J2405; J3010

== ENCOUNTER → 2023-07-26 18:41 | Outpatient (BNV) | payer OTHER, MEDICAID, SELFPAY | PROVIDERS: Admitting Provider Physician Assistant; Emergency Provider Emergency Medicine; PCP Internal Medicine; Visit Provider Physician Assistant Medical | DX: S72.401A Unspecified fracture of lower end of right femur, initial encounter for closed fracture (principal) | CPT/HCPCS: 99222; 99232 ==

== ENCOUNTER → 2023-07-26 18:41 | Outpatient (BNV) | payer OTHER, MEDICAID, SELFPAY | PROVIDERS: Admitting Provider Physician Assistant; Emergency Provider Emergency Medicine; PCP Internal Medicine; Visit Provider Physician Assistant | DX: M97.01XA Periprosthetic fracture around internal prosthetic right hip joint, initial encounter (principal) | CPT/HCPCS: 27245; 99024; 99232 ==

== ENCOUNTER 2023-08-07 09:33 | Outpatient (AMB) | payer OTHER, SELFPAY ==
--- NOTE | 2023-08-07 09:56 | A.OFFVIS_ITS ---
Intake Intake Visit Reasons: P.O RT TKA 06/20/23 Intake Note: Jeremiah chew 72 year old male presents today for a post operative right femur retrograde IMN, DOS 07/28/23. Patient reports he is doing well, currently denies pain, stating relief with pain medication. He continues to work with PT. Allergies Latex, Natural Rubber Allergy (Verified 08/07/23 10:02) Rash HPI P.O RT TKA 06/20/23 HPI Details 72-year-old male who returns to the [facility] today with an oncology consultant for post-op right femur retrograde IMN, 07/28/23. He states he has no pain and is doing well overall. He is taking medication for his pain with benefits. He continues to work with physical therapy as instructed. He has no other concerns today. [facility] Medical History BPH (benign prostatic hyperplasia) Hyperlipidemia Hypertension Hx of renal calculi Osteoarthritis of right knee Chronic allergic rhinitis Chronic cough Asthma Hypothyroidism Surgical History Status post total knee replacement, right Hx of cystoscopy H/O lithotripsy Hx of colonoscopy History of total left knee replacement (TKR) Social History Household Members: Spouse Housing: Apartment Are you a primary care manager cna to a significant other at home: No Do you presently have visiting nurse or other home services: Yes Patient Tobacco Use Status: Never used Tobacco Second Hand Smoke Exposure: No service: No Current occupational status: retired Review of Systems Const All systems reviewed & are unremarkable except as noted in HPI and below Physical Exam Extrem Other: Right femur: Incision clean, dry and intact. No erythema mild swelling around the knee. ROM is 5-95 degrees. He has good activation of quad muscles. NVI. Results Reviewed Results Reviewed: X-rays of the right femur obtained in the office today show IM nail intact with stable fracture. Total knee prosthesis intact. Assessment & Plan Assessment & Plan (1) Femur fracture, right: Code(s): S72.91XA - Unspecified fracture of right femur, initial encounter for closed fracture Qualifiers: Encounter type: initial encounter Femur location: distal, unspecified portion Fracture morphology: unspecified fracture morphology Fracture type: closed Qualified Code(s): S72.401A - Unspecified fracture of lower end of right femur, initial encounter for closed fracture Plan Titus removed, steri strips applied. He will continue with PT to continue working on Gait training, ROM and quad strength. No driving for another 4 weeks. He will require ppx abx for dental procedures. He will f/u in 4 weeks, sooner if needed. Orders: Orders XR femur RT 2V Today S72.142A - Displaced intertrochanteric fracture of left femur, initial encounter for closed fracture Patient Instructions: Scribed for Jad Martínez PA-C, by Uday Kendrick medical sales specialist, on 08/07/2023 at 10:15 AM EST. IJad PA-C, have personally reviewed and agree with the information entered by the scribe. Coding Level of Care Code Global (79195) Diagnoses Femur fracture, right S72.401A Encounter type: initial encounter Femur location: distal, unspecified portion Fracture morphology: unspecified fracture morphology Fracture type: closed
== END 2023-08-07 11:31 | disposition home or self-care (01) ==
PROVIDERS: PCP Internal Medicine; Visit Provider Physician Assistant
DX: S72.401A Unspecified fracture of lower end of right femur, initial encounter for closed fracture (principal)
CPT/HCPCS: 99024

== ENCOUNTER → 2023-08-07 09:33 | Outpatient (BNVA) | payer OTHER, SELFPAY | PROVIDERS: PCP Internal Medicine; Visit Provider Physician Assistant ==

== ENCOUNTER 2023-08-08 10:02 | Outpatient (REF) | payer OTHER, SELFPAY ==
--- NOTE | ~2023-08-08 | XR_ITS ---
EXAMINATION: XR FEMUR, RIGHT CLINICAL INFORMATION: Displaced intertrochanteric fracture left femur COMPARISON: None available. TECHNIQUE: AP and lateral views of the right femur were obtained. FINDINGS: There is an oblique comminuted fracture distal femur stabilized with intramedullary femoral chelly. Immediate postoperative changes are noted. There is a total knee arthroplasty in satisfactory alignment placed on 06/20/2023. XR/XR femur RT 2V IMPRESSION: 1. Comminuted fracture distal femur stabilized with intramedullary femoral chelly. Immediate postoperative changes are noted. 2. Total knee arthroplasty is in satisfactory alignment.
== END 2023-08-08 10:03 | disposition home or self-care (01) ==
LOC: HO.HOSX 10:02
PROVIDERS: Visit Provider Physician Assistant
DX: S72.141A Displaced intertrochanteric fracture of right femur, initial encounter for closed fracture (principal); X58.XXXA Exposure to other specified factors, initial encounter; Y93.9 Activity, unspecified; Y92.9 Unspecified place or not applicable; Y99.9 Unspecified external cause status; Z96.651 Presence of right artificial knee joint
CPT/HCPCS: 73552

== ENCOUNTER 2023-09-04 08:41 | Outpatient (REF) | payer OTHER, SELFPAY ==
--- NOTE | ~2023-09-04 | XR_ITS ---
EXAMINATION: XR FEMUR, RIGHT CLINICAL INFORMATION: Displaced fracture COMPARISON: 08/07/2023 TECHNIQUE: AP and lateral views of the right femur were obtained. FINDINGS: Patient is status post placement of hardware for fixation of comminuted fracture in the distal right femur. Fragments are close to anatomical alignment. Hardware well-positioned and an change since previous study. XR/XR femur RT 2V IMPRESSION: Comminuted fracture of distal femur on the right with well positioned hardware
== END 2023-09-04 08:42 | disposition home or self-care (01) ==
LOC: HO.HOSX 08:41
PROVIDERS: Visit Provider Physician Assistant
DX: S72.401D Unspecified fracture of lower end of right femur, subsequent encounter for closed fracture with routine healing (principal); Z96.651 Presence of right artificial knee joint
CPT/HCPCS: 73552; 99212

== ENCOUNTER 2023-09-04 13:21 | Outpatient (AMB) | payer OTHER, SELFPAY ==
--- NOTE | 2023-09-04 13:39 | MHC.OFFVIS ---
Intake Intake Visit Reasons: PO-RT periprosthetic fx s/p TKA w xrays Intake Note: Jeremiah chew 72 year old male presents today for a post operative right femur retrograde IMN, DOS 07/28/23. Patient reports he is doing well, he is requesting a refill on pain oxycodone-acetaminophen 5mg- 325mg. Allergies Latex, Natural Rubber Allergy (Verified 09/04/23 13:40) Rash HPI PO-RT periprosthetic fx s/p TKA w xrays HPI Details 72-year-old male who returns to the office today for post-op right femur retrograde IMN, 07/28/23. He states he has improvement in his pain and is doing well overall. He is requesting on his oxycodone-acetaminophen medication. He has no other concerns today. [facility] Medical History (Updated 08/04/23 @ 00:03 by Neo Farmer) Fall BPH (benign prostatic hyperplasia) Hyperlipidemia Hypertension Hx of renal calculi Osteoarthritis of right knee Chronic allergic rhinitis Chronic cough Asthma Hypothyroidism Surgical History Status post total knee replacement, right Hx of cystoscopy H/O lithotripsy Hx of colonoscopy History of total left knee replacement (TKR) Social History Household Members: Spouse Housing: Apartment Are you a primary child care team lead to a significant other at home: No Do you presently have visiting nurse or other home services: Yes Patient Tobacco Use Status: Never used Tobacco Second Hand Smoke Exposure: No service: No Current occupational status: retired Review of Systems Const All systems reviewed & are unremarkable except as noted in HPI and below Physical Exam Extrem Other: Right knee: Incision well healed. Femur incisions are well healed. ROM of knee is 0-110 degrees. He has good activation of quad muscles and can perform a SLR. Calf supple, nontender. NVI. Results Reviewed Results Reviewed: X-rays of the right femur obtained in the office today show IM nail intact with stable fracture. Total knee prosthesis intact. Assessment & Plan Assessment & Plan (1) Status post total knee replacement, right: Code(s): Z96.651 - Presence of right artificial knee joint (2) Femur fracture, right: Code(s): S72.91XA - Unspecified fracture of right femur, initial encounter for closed fracture Qualifiers: Encounter type: initial encounter Femur location: distal, unspecified portion Fracture morphology: unspecified fracture morphology Fracture type: closed Qualified Code(s): S72.401A - Unspecified fracture of lower end of right femur, initial encounter for closed fracture Plan He will continue working with physical therapy. He will transition to outpatient therapy and begin increasing activity as tolerated. I would like to see him back in [address] Erickson and new x-rays, sooner if needed. Orders: Orders XR femur RT 2V Today S72.142A - Displaced intertrochanteric fracture of left femur, initial encounter for closed fracture PT Evaluation and Treatment Today S72.91XA - Unspecified fracture of right femur, initial encounter for closed fracture, Z96.651 - Presence of right artificial knee joint Patient Instructions: Scribed for Jad Martínez PA-C, by Uday Kendrick medical office specialist, on 09/04/2023 at 1:30 PM EST. Jad Tang PA-C, have personally reviewed and agree with the information entered by the scribe. Coding Level of Care Code Global (91651) Diagnoses Status post total knee replacement, right Z96.651 Femur fracture, right S72.401A Encounter type: initial encounter Femur location: distal, unspecified portion Fracture morphology: unspecified fracture morphology Fracture type: closed
== END 2023-09-04 14:18 | disposition home or self-care (01) ==
PROVIDERS: PCP Internal Medicine; Visit Provider Physician Assistant
DX: Z96.651 Presence of right artificial knee joint (principal); S72.401A Unspecified fracture of lower end of right femur, initial encounter for closed fracture
CPT/HCPCS: 99024

== ENCOUNTER 2023-09-06 09:14 | Outpatient (REF) | payer OTHER, SELFPAY ==
[2023-09-06 09:49] LABS: MANUAL DIFF FLAG NO
[2023-09-06 10:15] LABS: Basophils Percent Auto 0.3 % (0-2); Eosinophils Absolute Auto 0.2 X10*3/uL (0.0-0.4); Eosinophils Percent Auto 3.6 % (0-4); Hematocrit 40.7 % (42.0-52.0); Imm Gran Abs Auto 0.02 X10*3/uL (0.00-0.03); Imm Gran Pct Auto 0.3 % (0.0-0.4); Lymphocytes Absolute Auto 1.8 X10*3/uL (1.2-4.9); Lymphocytes Percent Auto 29.8 % (20-40); Mean Corpuscular HGB Conc 31.9 g/dl (31.0-36.0); Mean Corpuscular Volume 100.2 fL (80.0-98.0); Mean Platelet Volume 9.9 fL (9.4-12.4); Monocytes Absolute Auto 0.5 X10*3/uL (0.1-1.2); Monocytes Percent Auto 8.3 % (2-11); Neutrophils Absolute Auto 3.6 x10*3/uL (2.0-8.3); Neutrophils Percent Auto 57.7 % (45-73); Platelet Count 294 X10*3/uL (160-400); Red Blood Count 4.06 X10*6/uL (4.60-5.80); White Blood Count 6.2 X10*3/uL (4.8-10.8)
[2023-09-06 10:49] LABS: Erythrocyte Sedimentation Rate 5 MM/HR (0-15)
[2023-09-06 11:07] LABS: Anion Gap 11 (12-20); Blood Urea Nitrogen 15 mg/dL (9-16); Calcium 9.1 mg/dL (8.4-10.2); Carbon Dioxide 27 mmol/L (22-29); Chloride 110 mmol/L (96-108); Estimated Glomerular Filt Rate > 60; Glucose Random 91 mg/dL (60-115); Potassium 4.2 mmol/L (3.3-5.1); Sodium 144 mmol/L (135-145)
== END 2023-09-06 09:15 | disposition home or self-care (01) ==
LOC: HO.LAB 09:14
PROVIDERS: PCP Internal Medicine; Visit Provider Hospitalist
DX: J45.40 Moderate persistent asthma, uncomplicated (principal); R05.3 Chronic cough; J30.9 Allergic rhinitis, unspecified; Z79.899 Other long term (current) drug therapy; D64.9 Anemia, unspecified
CPT/HCPCS: 36415; 80048; 85025; 85652; 99212

== ENCOUNTER 2023-09-06 09:14 | Outpatient (AMB) | payer OTHER, SELFPAY ==
[2023-09-06 09:25] VITALS: BP 128/70; PULSE 73; O2SAT 98; BMI 26.6
--- NOTE | 2023-09-06 09:25 | MHC.OFFVIS ---
Intake Vital Signs 09/06/23 09:25 Height 5 ft 8 in Weight 175 lb 4.28 oz BMI 26.6 BP 128/70 Blood Pressure Location Lt brachial Position Sitting Pulse 73 Pulse Source Pulse Oximeter Pulse Oximetry (%) 98 Oxygen Delivery Method Room Air Intake Visit Reasons: Asthma follow-up Boilermaker [employer] E[employer] Required: No Allergies Latex, Natural Rubber Allergy (Verified 09/06/23 09:28) Rash HPI HPI Comments History of Present Illness Details The patient is a 72-year-old gentleman with a known history of asthma with a positive methacholine challenge who apparently had been followed closely by a local railway track plant operator. Subsequently his railway track plant operator left the area and he is getting settled with the new pulmonary office. Overall the patient has been doing well from a respiratory status. He has been taking the Flovent twice a day for many years with good response. He also uses his albuterol twice a day when he does take the Flovent. Seems like he has been able to have good control of his asthma with his regimen. The patient also has issues with cough and specially at nighttime. He does bring up some phlegm that wakes him up at nighttime. Sometimes he chokes up with the phlegm. He states that he does have allergies. He is not sure when he is allergic 2. Will have to do on allergy testing. The meantime will treating for allergic rhinitis resulting in the postnasal drip in the upper airway cough syndrome. Back in 2019 the patient did have a series case of COVID-19 requiring a prolonged hospitalization. The patient did recover. We did review his chest x-ray during that time demonstrating extensive airspace disease left more than right. Now on examination he does have some crackles suggesting some residual scarring from the severe pneumonia. Otherwise patient is doing well denies any other complaints. 09/06/2023 the patient is here for a pulmonary follow-up visit. The patient overall has been doing well from a respiratory status. Unfortunately,he did undergo a total knee replacement without any complications but then fell fracturing his femur and also injuring the prosthetic area. He required additional surgery with internal fixation of the femur exploration of the knee. The patient did have a chest x-ray while in the hospital back in July without any acute disease which is reassuring. During the hospitalization he was noted to be anemic most likely from the injury in the surgery. He feels tired weak and he still has significant amount of pain at that site. Will do some blood work. [facility] Medical History (Updated 09/07/23 @ 20:15 by West Cunningham MD) Anemia Fall BPH (benign prostatic hyperplasia) Hyperlipidemia Hypertension Hx of renal calculi Osteoarthritis of right knee Chronic allergic rhinitis Chronic cough Asthma Hypothyroidism Surgical History Status post total knee replacement, right Hx of cystoscopy H/O lithotripsy Hx of colonoscopy History of total left knee replacement (TKR) Social History Household Members: Spouse Housing: Apartment Are you a primary toddler caregiver to a significant other at home: No Do you presently have visiting nurse or other home services: Yes Patient Tobacco Use Status: Never used Tobacco Second Hand Smoke Exposure: No service: No Current occupational status: retired Review of Systems Const Denies difficulty sleeping, Reports fatigue and Denies headache(s) Eyes Denies change in vision ENT Denies headache(s), Reports nasal congestion, Reports nasal discharge and Reports post nasal drip Card Denies chest pain and Denies dyspnea on exertion Resp Reports cough, Denies dyspnea on exertion and Denies wheezing GI Reports no additional complaints Musc Reports as per HPI, Reports abnormal gait, Reports arthralgias, Reports joint swelling and Reports limited range of motion Skin/Breast Denies rash Neuro Reports no additional complaints, Reports abnormal gait and Denies headache(s) Endo Reports fatigue Aller/Immun Denies wheezing Physical Exam Vital Signs: Last Vital Signs Pulse 73 09/06/23 09:25 BP 128/70 09/06/23 09:25 Pulse Ox 98 09/06/23 09:25 Oxygen Delivery Method Room Air 09/06/23 09:25 BMI result Body Mass Index 26.6 Const General: alert Neck Neck: Yes normal visual inspection, Yes full ROM and Yes no lymphadenopathy Chest Chest palpation & inspection: normal inspection of the chest Resp Effort & Inspection: normal respiratory effort Auscultation: clear to auscultation bilaterally and no crackles Cardio Rate: regular rate Rhythm: regular rhythm Heart sounds: S1 normal heart sound present and S2 normal heart sound present GI Palpation (GI): Soft to palpation and nontender Auscultation: normal bowel sounds Skin General skin exam: rashes and/or lesions noted Assessment & Plan Assessment & Plan (1) Asthma: Code(s): J45.909 - Unspecified asthma, uncomplicated Qualifiers: Asthma severity: moderate Asthma persistence: persistent Asthma complication type: uncomplicated Qualified Code(s): J45.40 - Moderate persistent asthma, uncomplicated (2) Chronic cough: Code(s): R05.3 - Chronic cough (3) Chronic allergic rhinitis: Code(s): J30.9 - Allergic rhinitis, unspecified Plan Continue Fluticasone Diskus Short-acting beta agonist as needed Continue loratadine Continue fluticasone continue singular Bloodwork F/U 12 months Orders: Orders Erythrocyte Sedimentation Rate 09/06/23 D64.9 - Anemia, unspecified Complete Blood Count Auto Diff 09/06/23 D64.9 - Anemia, unspecified Basic Metabolic Panel 09/06/23 D64.9 - Anemia, unspecified Coding Level of Care Code Est Pt Level 4 (28078) Diagnoses Moderate persistent asthma without complication J45.40 Asthma severity: moderate Asthma persistence: persistent Asthma complication type: uncomplicated Chronic cough R05.3 Chronic allergic rhinitis J30.9 Time Spent (min) 16
== END 2023-09-06 09:37 | disposition home or self-care (01) ==
PROVIDERS: PCP Internal Medicine; Visit Provider Hospitalist
DX: J45.40 Moderate persistent asthma, uncomplicated (principal); R05.3 Chronic cough; J30.9 Allergic rhinitis, unspecified
CPT/HCPCS: 99214

== ENCOUNTER 2023-10-12 13:00 | Outpatient (RCR) | payer OTHER, SELFPAY ==
--- NOTE | 2023-09-12 13:48 | MHC.PT.EP ---
[facility] [place] [facility] [place] [facility] [place] [facility] [address] Mark Roman [address] [phone] F: [phone] F: [phone] F: [phone] F: [phone] Physical Therapy Plan of Care Date of Evaluation: 09/12/23 Date of Surgery: 07/28/23 Diagnosis: R femur retrograde IMN 1 R TKA 06/20/23 Assessment: 72 y/o male referred to PT s/p R femoral IMN on 07/28/23 following a slip and fall. Of note, he had R TKA 06/20/23 but stopped PT after fall. He just finished home PT and is currently ambulating with cane. Currently reports difficulty with walking, stairs, and sleeping secondary to decreased knee ROM (0-104), decreased quad and hip strength, decreased patella mobility, and impaired gait pattern, Recommend PT 2x/week for 5 weeks to address impairments, implement HEP, and optimize functional mobility. Frequency and Duration: The patient will be seen 2x/week for 5 weeks Short Term Goals: 3 weeks Compliant with HEP Improve R knee flexion to 115 Meteorology Instructor Goals: 5 weeks I with HEP and self management of sx Pt will ambulate without assistive device > 20 min Pt will be able to ascend stairs in step through pattern and pain < 3/10 Treatment Plan: Modalities to reduce pain, spasms and effusion. Manual therapy to restore motion and function. Therapeutic exercise to improve strength and flexibility. Neuromuscular re-education for posture and balance. Therapeutic activities to return to functional activities of daily living. Electronically signed by: Marcela Abraham PT Please sign and return to therapist. Thank you for your referral.
--- NOTE | 2023-11-22 08:40 | MHC.PT.DC ---
[facility] [place] [facility] [place] Office [place] Office [address] Mark Roman [address] [phone] F: [phone] F: [phone] F: [phone] F: [phone] Physical Therapy Discharge Report Diagnosis: R femur retrograde IMN 1 R TKA 06/20/23 Date of Surgery: 07/28/23 Date of Evaluation: 09/12/23 Date of Discharge: 11/22/23 Treatments to Date: 5 Cancellations to Date: 1 No Shows to Date: 1 Discharge Status: Improved Function Independent with HEP Discharge Summary: Pt has made good progress and reports less pain overall. He is ambulating without assistive device and I with HEP. He reports feeling ready for d/c. Electronically signed by: Marcela Abraham PT Please sign and return to therapist. Thank you for your referral.
== END 2023-11-22 08:40 | disposition home or self-care (01) ==
LOC: HO.PT 13:00
PROVIDERS: PCP Internal Medicine; Visit Provider Physician Assistant
DX: S72.91XD Unspecified fracture of right femur, subsequent encounter for closed fracture with routine healing (principal); Z96.651 Presence of right artificial knee joint
CPT/HCPCS: 97110; 97112; 97161

== ENCOUNTER 2023-10-30 08:18 | Outpatient (REF) | payer OTHER, SELFPAY | END 2023-10-30 08:19 | disposition home or self-care (01) | LOC: HO.HOSX 08:18 | PROVIDERS: Visit Provider Orthopaedic Surgery | DX: Z13.89 Encounter for screening for other disorder (principal) ==

== ENCOUNTER 2023-11-06 09:46 | Outpatient (REF) | payer OTHER, SELFPAY ==
--- NOTE | ~2023-11-06 | XR_ITS ---
EXAMINATION: XR FEMUR, RIGHT CLINICAL INFORMATION: Fracture right femur COMPARISON: Right femur radiograph from 09/04/2023 TECHNIQUE: AP and lateral views of the right femur were obtained. FINDINGS: Redemonstration of a femoral retrograde intramedullary nail with proximal and distal locking screws stabilizing fracture of the mid to distal femoral diaphysis. Orthopedic hardware is grossly intact. Increased callus formation compatible with healing. Remote right knee arthroplasty visualized. Joint spaces and alignment are otherwise maintained. Soft tissues are unremarkable. XR/XR femur RT 2V IMPRESSION: 1. Redemonstration of a femoral retrograde intramedullary nail with proximal and distal locking screws stabilizing fracture of the mid to distal femoral diaphysis. Orthopedic hardware is grossly intact. 2. Increased callus formation compatible with healing.
== END 2023-11-06 09:47 | disposition home or self-care (01) ==
LOC: HO.HOSX 09:46
PROVIDERS: Visit Provider Orthopaedic Surgery
DX: M97.8XXA Periprosthetic fracture around other internal prosthetic joint, initial encounter (principal); Z96.641 Presence of right artificial hip joint
CPT/HCPCS: 73552; 99212

== ENCOUNTER 2023-11-06 13:38 | Outpatient (AMB) | payer OTHER, SELFPAY ==
--- NOTE | 2023-10-30 07:42 | MHC.OFFVIS ---
Intake Intake Visit Reasons: OV- RT tka/Rt IMN Allergies Latex, Natural Rubber Allergy (Verified 09/06/23 09:28) Rash HPI OV- RT tka/Rt IMN HPI Details ~10 weeks s/p periprosthetic femur fracture and s/p retograde IMN. [facility] Medical History (Updated 10/30/23 @ 07:43 by Slade Erickson MD) Anemia Fall BPH (benign prostatic hyperplasia) Hyperlipidemia Hypertension Hx of renal calculi Osteoarthritis of right knee Chronic allergic rhinitis Chronic cough Asthma Hypothyroidism Surgical History Status post total knee replacement, right Hx of cystoscopy H/O lithotripsy Hx of colonoscopy History of total left knee replacement (TKR) Social History Household Members: Spouse Housing: Apartment Are you a primary child care giver to a significant other at home: No Do you presently have visiting nurse or other home services: Yes Comment: sleeping Patient Tobacco Use Status: Never used Tobacco Second Hand Smoke Exposure: No service: No Current occupational status: retired Assessment & Plan Assessment & Plan (1) Zahra-prosthetic femoral shaft fracture: Code(s): M97.8XXA - Periprosthetic fracture around other internal prosthetic joint, initial encounter; Z96.649 - Presence of unspecified artificial hip joint Orders: Orders XR femur RT 2V Today S72.91XA - Unspecified fracture of right femur, initial encounter for closed fracture Coding Level of Care Code Global (25694) Diagnoses Zahra-prosthetic femoral shaft fracture M97.8XXA; Z96.649
--- NOTE | 2023-11-06 13:44 | A.OFFVIS_ITS ---
Intake Intake Visit Reasons: OV- RT tka/Rt IMN Intake Note: Jeremiah is a 73 year old male who presents today for a post operative appointment s/p right femur retrograde IMN, 07/28/23. Allergies Latex, Natural Rubber Allergy (Verified 11/06/23 13:44) Rash HPI OV- RT tka/Rt IMN HPI Details 07/28/23 surgery Doing well now. Minimal pain and walking without pain PFSH Medical History Anemia Fall BPH (benign prostatic hyperplasia) Hyperlipidemia Hypertension Hx of renal calculi Osteoarthritis of right knee Chronic allergic rhinitis Chronic cough Asthma Hypothyroidism Surgical History Status post total knee replacement, right Hx of cystoscopy H/O lithotripsy Hx of colonoscopy History of total left knee replacement (TKR) Social History Household Members: Spouse Housing: Apartment Are you a primary group care worker to a significant other at home: No Do you presently have visiting nurse or other home services: Yes Comment: sleeping Patient Tobacco Use Status: Never used Tobacco Second Hand Smoke Exposure: No service: No Current occupational status: retired Physical Exam Extrem Other: inc c/d/i 0-120 ROM Walking without limp inc c/d/i Results Reviewed Results Reviewed: I personally reviewed relevant radiographs. Retrograde IMN with no hardware complications Assessment & Plan Assessment & Plan (1) Zahra-prosthetic femoral shaft fracture: Code(s): M97.8XXA - Periprosthetic fracture around other internal prosthetic joint, initial encounter; Z96.649 - Presence of unspecified artificial hip joint Plan: DOing excep[tionally well SHould still be careful f/u 6 weeks Orders: Orders XR femur RT 2V 11/06/23 S72.91XA - Unspecified fracture of right femur, initial encounter for closed fracture Coding Level of Care Code Global (18837) Diagnoses Zahra-prosthetic femoral shaft fracture M97.8XXA; Z96.649
== END 2023-11-06 13:59 | disposition home or self-care (01) ==
LOC: HO.HOS 13:38
PROVIDERS: PCP Internal Medicine; Visit Provider Orthopaedic Surgery
DX: M97.01XD Periprosthetic fracture around internal prosthetic right hip joint, subsequent encounter (principal); Z96.641 Presence of right artificial hip joint
CPT/HCPCS: 99213

== ENCOUNTER 2024-02-12 08:29 | Outpatient (REF) | payer OTHER, SELFPAY ==
--- NOTE | ~2024-02-12 | XR_ITS ---
EXAMINATION: XR FEMUR RIGHT XR KNEE RIGHT CLINICAL INFORMATION: History of fracture COMPARISON: 11/06/2023 TECHNIQUE: Right femur, 2 views Right knee, 3 views FINDINGS: Right femur: The femoral head is well-positioned within the intact acetabulum. The hip joint space is maintained. Again noted is an intact retrograde femoral nail with presence of proximal and distal interlocking screws. No osteolysis around the hardware. There is a healing spiral fracture of the distal femoral metadiaphysis. The distal femoral fragment is chronically, medially displaced and there is 1 cm of cortical bone offset medially. Interval increased bridging bone formation is seen around the fracture site. Right knee: Alignment is normal at the patellofemoral and tibiofemoral compartments. No evidence of loosening of the components of the right total knee arthroplasty. No new periprosthetic fracture. No knee joint effusion. The AP view includes the left knee in the [id number]. The visualized components of the left total knee arthroplasty are in normal position. XR/XR knee RT 3V IMPRESSION: * There is progressive healing of a spiral fracture of the distal femoral metadiaphysis. * No evidence of loosening of the right femoral fixation hardware. Also, no evidence of loosening of the right total knee arthroplasty components. There is anatomic alignment at the right knee.
--- NOTE | ~2024-02-12 | XR_ITS ---
EXAMINATION: XR FEMUR RIGHT XR KNEE RIGHT CLINICAL INFORMATION: History of fracture COMPARISON: 11/06/2023 TECHNIQUE: Right femur, 2 views Right knee, 3 views FINDINGS: Right femur: The femoral head is well-positioned within the intact acetabulum. The hip joint space is maintained. Again noted is an intact retrograde femoral nail with presence of proximal and distal interlocking screws. No osteolysis around the hardware. There is a healing spiral fracture of the distal femoral metadiaphysis. The distal femoral fragment is chronically, medially displaced and there is 1 cm of cortical bone offset medially. Interval increased bridging bone formation is seen around the fracture site. Right knee: Alignment is normal at the patellofemoral and tibiofemoral compartments. No evidence of loosening of the components of the right total knee arthroplasty. No new periprosthetic fracture. No knee joint effusion. The AP view includes the left knee in the [id number]. The visualized components of the left total knee arthroplasty are in normal position. XR/XR femur RT 2V IMPRESSION: * There is progressive healing of a spiral fracture of the distal femoral metadiaphysis. * No evidence of loosening of the right femoral fixation hardware. Also, no evidence of loosening of the right total knee arthroplasty components. There is anatomic alignment at the right knee.
== END 2024-02-12 08:30 | disposition home or self-care (01) ==
LOC: HO.HOSX 08:29
PROVIDERS: Visit Provider Orthopaedic Surgery
DX: S72.401D Unspecified fracture of lower end of right femur, subsequent encounter for closed fracture with routine healing (principal); M97.8XXD Periprosthetic fracture around other internal prosthetic joint, subsequent encounter; M54.50 Low back pain, unspecified; M25.569 Pain in unspecified knee; Z96.651 Presence of right artificial knee joint; Z98.890 Other specified postprocedural states; X58.XXXD Exposure to other specified factors, subsequent encounter
CPT/HCPCS: 73552; 73562; 99212

== ENCOUNTER 2024-02-12 10:38 | Outpatient (AMB) | payer OTHER, SELFPAY ==
--- NOTE | 2024-02-12 10:38 | A.OFFVIS_ITS ---
Vital Signs 02/12/24 10:39 Height 5 ft 8 in Weight 175 lb BMI 26.6 Intake Visit Reasons: OV- RT tka/Rt IMN Intake Note: Jeremiah is a 73 year old male who presents today for a follow up appointment s/p right femur retrograde IMN, 07/28/23 due to periprosthetic fracture s/p right TKA 06/20/23. Patient reports he is doing well and has no complaint of his knees. His primary concern today is low back pain. Allergies Latex, Natural Rubber Allergy (Verified 02/12/24 11:01) Rash HPI HPI OV- RT tka/Rt IMN: Details: Jeremiah is a 73 year old male who presents today for a follow up appointment s/p right femur retrograde IMN, 07/28/23 due to periprosthetic fracture s/p right TKA 06/20/23. Patient reports he is doing well and has no complaint of his knees. His primary concern today is low back pain. PFSH Medical History Anemia Fall BPH (benign prostatic hyperplasia) Hyperlipidemia Hypertension Hx of renal calculi Osteoarthritis of right knee Chronic allergic rhinitis Chronic cough Asthma Hypothyroidism Surgical History Status post total knee replacement, right Hx of cystoscopy H/O lithotripsy Hx of colonoscopy History of total left knee replacement (TKR) Social History Household Members: Spouse Housing: Apartment Are you a primary critical care clinical nurse specialist to a significant other at home: No Do you presently have visiting nurse or other home services: Yes Comment: sleeping Patient Tobacco Use Status: Never used Tobacco Second Hand Smoke Exposure: No service: No Current occupational status: retired Physical Exam Vital Signs: BMI result Body Mass Index 26.6 Extrem Other: walking normally trace right knee effusion inc c/d/i full ROM right knee Results Reviewed Results Reviewed: I personally reviewed relevant radiographs. Healing right femoral shaft periprosthetic fracture with e/o healing and no hardware complications Assessment & Plan Assessment & Plan (1) Zahra-prosthetic femoral shaft fracture: Code(s): M97.8XXA - Periprosthetic fracture around other internal prosthetic joint, initial encounter; Z96.649 - Presence of unspecified artificial hip joint Category: Medical Plan: Continue activity as tolerated Follow up on a as needed basis Orders: Orders XR femur RT 2V Today S72.401A - Unspecified fracture of lower end of right femur, initial encounter for closed fracture XR knee standing BI Today M25.569 - Pain in unspecified knee
[2024-02-12 10:39] VITALS: BMI 26.6
== END 2024-02-12 11:15 | disposition home or self-care (01) ==
LOC: HO.HOS 10:38
PROVIDERS: PCP Internal Medicine; Visit Provider Orthopaedic Surgery
DX: M97.8XXD Periprosthetic fracture around other internal prosthetic joint, subsequent encounter (principal); Z96.641 Presence of right artificial hip joint
CPT/HCPCS: 99213

== ENCOUNTER 2024-09-27 13:00 | Outpatient (AMB) | payer OTHER, SELFPAY ==
[2024-09-27 13:13] VITALS: BP 138/74; PULSE 66; O2SAT 96; BMI 28.2
--- NOTE | 2024-09-27 13:13 | MHC.OFFVIS ---
Vital Signs 09/27/24 13:13 Height 5 ft 8 in Weight 185 lb 3.013 oz BMI 28.2 BP 138/74 Blood Pressure Location Lt brachial Position Sitting Pulse 66 Pulse Source Pulse Oximeter Pulse Oximetry (%) 96 Oxygen Delivery Method Room Air Intake Visit Reasons: Asthma Chief Electrician Required: No Allergies Latex, Natural Rubber Allergy (Verified 09/27/24 13:15) Rash HPI Comments Details: The patient is a 73-year-old gentleman with a known history of asthma with a positive methacholine challenge who apparently had been followed closely by a local mold sheet cleaner. Subsequently his mold sheet cleaner left the area and he is getting settled with the new pulmonary office. Overall the patient has been doing well from a respiratory status. He has been taking the Flovent twice a day for many years with good response. He also uses his albuterol twice a day when he does take the Flovent. Seems like he has been able to have good control of his asthma with his regimen. The patient also has issues with cough and specially at nighttime. He does bring up some phlegm that wakes him up at nighttime. Sometimes he chokes up with the phlegm. He states that he does have allergies. He is not sure when he is allergic 2. Will have to do on allergy testing. The meantime will treating for allergic rhinitis resulting in the postnasal drip in the upper airway cough syndrome. Back in 2019 the patient did have a series case of COVID-19 requiring a prolonged hospitalization. The patient did recover. We did review his chest x-ray during that time demonstrating extensive airspace disease left more than right. Now on examination he does have some crackles suggesting some residual scarring from the severe pneumonia. Otherwise patient is doing well denies any other complaints. 09/06/2023 the patient is here for a pulmonary follow-up visit. The patient overall has been doing well from a respiratory status. Unfortunately,he did undergo a total knee replacement without any complications but then fell fracturing his femur and also injuring the prosthetic area. He required additional surgery with internal fixation of the femur exploration of the knee. The patient did have a chest x-ray while in the hospital back in July without any acute disease which is reassuring. During the hospitalization he was noted to be anemic most likely from the injury in the surgery. He feels tired weak and he still has significant amount of pain at that site. Will do some blood work. 09/27/2024 the patient is here for a pulmonary follow-up visit. Overall he is doing well. The patient has been tolerating his inhalers well without any significant adverse effects. Now fluticasone will not be available on therefore will switch him over to Arnuity. Otherwise uses his rescue inhaler less than 2 times a week. He has not had any recent x-rays will plan to repeat the x-ray prior to the next visit. The patient continues with his allergy medicine. The were season although worse asthma symptoms for him we are during the winter season. Therefore if he develops any worsening symptoms he will call. Otherwise will plan to follow-up in a year's time with a chest x-ray. [facility] Medical History Anemia Fall BPH (benign prostatic hyperplasia) Hyperlipidemia Hypertension Hx of renal calculi Osteoarthritis of right knee Chronic allergic rhinitis Chronic cough Asthma Hypothyroidism Surgical History Status post total knee replacement, right Hx of cystoscopy H/O lithotripsy Hx of colonoscopy History of total left knee replacement (TKR) Social History Household Members: Spouse Housing: Apartment Are you a primary floor care technician to a significant other at home: No Do you presently have visiting nurse or other home services: Yes Comment: sleeping Patient Tobacco Use Status: Never used Tobacco Second Hand Smoke Exposure: No service: No Current occupational status: retired Review of Systems Const Denies difficulty sleeping, Reports fatigue and Denies headache(s) Eyes Denies change in vision ENT Denies headache(s), Reports nasal congestion, Reports nasal discharge and Reports post nasal drip Card Denies chest pain and Denies dyspnea on exertion Resp Reports cough, Denies dyspnea on exertion and Denies wheezing GI Reports no additional complaints Musc Reports as per HPI, Reports abnormal gait, Reports arthralgias, Reports joint swelling and Reports limited range of motion Skin/Breast Denies rash Neuro Reports no additional complaints, Reports abnormal gait and Denies headache(s) Endo Reports fatigue Aller/Immun Denies wheezing Physical Exam Vital Signs: Last Vital Signs Pulse 66 09/27/24 13:13 BP 138/74 09/27/24 13:13 Pulse Ox 96 09/27/24 13:13 Oxygen Delivery Method Room Air 09/27/24 13:13 BMI result Body Mass Index 28.2 Const General: alert Neck Neck: Yes normal visual inspection, Yes full ROM and Yes no lymphadenopathy Chest Chest palpation & inspection: normal inspection of the chest Resp Effort & Inspection: normal respiratory effort Auscultation: clear to auscultation bilaterally and no crackles Cardio Rate: regular rate Rhythm: regular rhythm Heart sounds: S1 normal heart sound present and S2 normal heart sound present GI Palpation (GI): Soft to palpation and nontender Auscultation: normal bowel sounds Skin General skin exam: rashes and/or lesions noted Assessment & Plan Assessment & Plan (1) Asthma: Code(s): J45.909 - Unspecified asthma, uncomplicated Category: Medical Qualifiers: Asthma complication type: uncomplicated Asthma persistence: persistent Asthma severity: moderate Qualified Code(s): J45.40 - Moderate persistent asthma, uncomplicated (2) Chronic cough: Code(s): R05.3 - Chronic cough Category: Medical (3) Chronic allergic rhinitis: Code(s): J30.9 - Allergic rhinitis, unspecified Category: Medical Plan start Arnuity Short-acting beta agonist as needed Continue loratadine Continue fluticasone continue singular CXR F/U 12 months Orders: Orders XR chest 2V 09/27/24 R05.3 - Chronic cough Medications: New fluticasone furoate 100 mcg/actuation (Arnuity Ellipta) 1 inh inhalation DAILY 30 ea 11RF 30 days albuterol sulfate 90 mcg/actuation 2 puffs inhalation Q4H PRN 8.5 grams 11RF wheezing Refilled loratadine 10 mg PO DAILY 30 tabs 11RF 30 days montelukast 10 mg PO BEDTIME 90 tabs 3RF J45.909 - Unspecified asthma, uncomplicated Coding Level of Care Code Est Pt Level 4 (02738) Diagnoses Moderate persistent asthma without complication J45.40 Asthma complication type: uncomplicated Asthma persistence: persistent Asthma severity: moderate Chronic cough R05.3 Chronic allergic rhinitis J30.9 Time Spent (min) 16
== END 2024-09-27 13:31 | disposition home or self-care (01) ==
PROVIDERS: PCP Internal Medicine; Visit Provider Hospitalist
DX: J45.40 Moderate persistent asthma, uncomplicated (principal); R05.3 Chronic cough; J30.9 Allergic rhinitis, unspecified
CPT/HCPCS: 99214

== ENCOUNTER → 2024-09-27 13:00 | Outpatient (BNVA) | payer OTHER, SELFPAY | PROVIDERS: PCP Internal Medicine; Visit Provider Hospitalist | DX: J45.40 Moderate persistent asthma, uncomplicated (principal); J30.9 Allergic rhinitis, unspecified; R05.3 Chronic cough | CPT/HCPCS: 99212 ==

== ENCOUNTER 2025-10-17 12:46 | Outpatient (AMB) | payer OTHER, SELFPAY ==
--- OUTSIDE RECORDS SUMMARY | 2025-10-14 10:30 | XMS_ITS | Encounter Summary ---
Author Organization [facility] Address [address] [place] [address] Care Team Providers Care Finish Photographer Name Role Phone Lester Rivera MD Primary Care Provider [phone] Reason for Referral * Consultation (Routine) - Authorized Specialty Diagnoses / Procedures Referred By Contact Referred To Contact Podiatry / Orthopaedic Surgery Diagnoses Fungal infection of toenail Carol Back NP [address] [place] [address] Phone: tel: fax: Orthopedic Surgery [facility] [address] [place] [phone] Phone: tel: fax: Referral ID Status Reason Start Date Expiration Date Visits Requested Visits Authorized [id number] Authorized Specialty Services Required 10/14/2026 1 1 Reason for Visit * Reason Comments Nail Problem Encounter Details Date Type Department Care Team (Late st Contact Info) Description 10/14/2025 10:30 AM EST Office Visit Adult Medicine [facility] [address] [place] [phone] Carol Back NP [address] [place] [phone] Fungal infection of toenail (Primary Dx) Social History Tobacco Use Types Packs/Day Years Used Date Smoking Tobacco: Never Smokeless Tobacco: Never Tobacco Cessation:Counseling Given: Not Answered Alcohol Use Standard Drinks/Week Comments No 0 (1 standard drink = 0.6 oz pur e alcohol) Sex and Gender Information Value Date Recorded Sex Assigned at Not on file Legal Sex Male 4:17 AM EST Gender Identity Not on file Sexual Orientation Not on file documented as of this encounter Last Filed Vital Signs Vital Sign Reading Time Taken Comments Blood Pressure 138/70 10/14/2025 10:40 AM EST Pulse 78 10/14/2025 10:40 AM EST Temperature 36 C (96.8 F) 10/14/2025 10:40 AM EST Respiratory Rate - - Oxygen Saturation 96% 10/14/2025 10: 40 AM EST Inhaled Oxygen Concentration - - Weight 84.2 kg (185 lb 11.2 oz) 025 10:40 AM EST Height 172.7 cm (5' 7.99 ) 10/14/2025 1 0:40 AM EST Body Mass Index 28.24 10/14/2025 10:40 AM EST documented in this encounter Patient Instructions * Attachments The following attachments cannot be sent through Care Everywhere. * Onychomycosis (Bulgarian) documented in this encounter Ordered Prescriptions Prescription Sig Dispense Quantity Refills Last Filled Start Date End Date ciclopirox (PENLAC) 8 % solution Apply topically at bedtime. Apply over nail and surrounding skin. Apply daily over previous coat. After seven (7) days, may remove with alcohol and continue cycle. 6.6 mL 10/14/2025 6 documented in this encounter Progress Notes * Carol Back NP - 10/14/2025 10:30 AM EST PATIENT'S PCP: Lester Rivera MD LAST VISIT IN THIS DEPARTMENT: 10/13/2025 I have obtained verbal consent from Jeremiah Thomas prior to the recording. I have advised Jeremiah Thomas that he may refuse the recording and require the recording to be turned off at any time duringthis encounter. SUBJECTIVE History of Present Illness The patient presents for evaluation of his toenails. Primarily polish speaking, interpretor Cort[place], ID # [id number] He reports experiencing pain in his toenails, which appear to be curving inward. The nail on his right great toe appears more elevated than the others and is causing discomfort. He also experiences pain in the surrounding area of the nail. The pain intensifies when he wears shoes or walks. He has observed some redness around the skin of the toe. This condition has been present for approximately 4months and has been progressively worsening. He has no history of diabetes. Review Of System See HPI PAST MEDICAL HISTORY: Patient Active Problem List Diagnosis Date Noted Kidney stones 09/27/2024 Chronic constipation 10/10/2018 Diverticulosis of colon 10/10/2018 Internal hemorrhoids 10/10/2018 Allergic rhinitis due to cat hair 06/12/2018 Allergic rhinitis 01/10/2017 Essential hypertension 06/01/2016 Asthma 12/24/2015 Heartburn 12/24/2015 Vitamin B12 deficiency 12/24/2015 Hyperlipidemia 06/10/2015 Hypothyroidism 06/10/2015 Surgical History[1] SOCIAL HISTORY: Social History Tobacco Use Smoking status: Never Smokeless tobacco: Never Substance Use Topics Alcohol use: No FAMILY HISTORY: Family History[2] Family Status Relation Name Status Mother Father No partnership data on file OBJECTIVES Vitals: 10/14/25 1040 BP: 138/70 Pulse: 78 Temp: 36 ??C (96.8 ??F) TempSrc: Temporal SpO2: 96% Weight: 84.2 kg (185 lb 11.2 oz) Height: 1.727 m (67.99 ) BP Readings from Last 5 Encounters: 10/14/25 138/70 10/03/25 128/74 07/04/25 136/80 12/24/24 134/78 06/21/24 136/72 Body mass index is 28.24 kg/m??. BMI is greater than 25.0 (above the normal range) - see Plan Wt Readings from Last 5 Encounters: 10/14/25 1040 84.2 kg (185 lb 11.2 oz) 10/03/25 1041 79.4 kg (175 lb) 07/04/25 1209 83 kg (183 lb) 12/24/24 1317 81.6 kg (180 lb) 06/21/24 0836 82.9 kg (182 lb 12.8 oz) Allergies[3] Active Medications: Current Outpatient Medications Medication Instructions albuterol HFA (PROAIR HFA ; PROVENTIL HFA ; VENTOLIN HFA) 90 mcg/actuation inhaler 2 puffs, inhalation, Every 4 hours PRN albuterol 2.5 mg, nebulization, Every 4 hours PRN celecoxib (CeleBREX) 200 mg capsule 1 capsule, 2 times daily cholecalciferol (VITAMIN D-3) 1,000 Units, oral, Daily ciclopirox (PENLAC) 8 % solution Topical, Nightly, Apply over nail and surrounding skin. Apply daily over previous coat. After seven (7) days, may remove with alcohol and continue cycle. cyanocobalamin (VITAMIN B-12) 100 mcg, oral, Daily fluticasone furoate (Arnuity Ellipta) 100 mcg/actuation blister with device inhaler 1 puff, oral, Daily fluticasone propionate (FLONASE) 50 mcg/actuation nasal spray 2 sprays, Each Nostril, Daily, Shake gently. Before first use, prime pump. After use, clean tip and replace cap. ibuprofen (ADVIL,MOTRIN) 800 mg, oral, Every 8 hours PRN, for pain levothyroxine (SYNTHROID, LEVOTHROID) 112 mcg, oral, Every morning before breakfast lisinopriL (PRINIVIL,ZESTRIL) 10 mg, oral, Daily loratadine (CLARITIN) 10 mg, oral, Daily naproxen (NAPROSYN) 250 mg, 2 times daily with meals rosuvastatin (CRESTOR) 5 mg, oral, Daily, at bedtime. sildenafiL (VIAGRA) 100 mg, oral, As needed Physical Exam Constitutional: Appearance: Normal appearance. Skin: Comments: Right foot great toe: thickened, yellow toe nail with ragged edges Neurological: Mental Status: He is alert. 1. Fungal infection of toenail Assessment & Plan Onychomycosis The toenails are painful, bending inwards, and have discoloration and thickening, indicating a fungal infection. The condition has been worsening over the past four months. Penlac solution prescribed to apply nightly before bedtime, with instructions to remove the solution with nail lithuanian remover after 7 days and restart the application process. Referral to a superintendent local for further management of the fungal infection. Educational materials on home care for toenail fungal infections provided in Bulgarian. Hemoglobin A1c is 5.2, indicating no risk for diabetes or prediabetes. Instructions were given to avoid tight-fitting shoes and ensure socks are not excessively moist to prevent further fungal growth. Patient understands the plan and is in agreement with the plan. Health Maintenance Due Topic Date Due Falls Risk Assessment Never done Social Influencers of Health Screening Never done Medicare Annual Wellness Visit Never done Depression Screening Never done COVID-19 Vaccine (2024- season) 2025 Carol Back NP [facility]ULT [facility] [address] Today's documentation was made using voice recognition software.This note may contain grammatical errors secondary to this software. [1] Past Surgical History: Procedure Laterality Date COLONOSCOPY 08/14/15 PROCEDURE: HISTORICAL COLONOSCOPY; COMMENT: repeat in 5 years COLONOSCOPY W/ POLYPECTOMY 06/09/2018 PROCEDURE: RI COLSC FLX W/RMVL OF TUMOR POLYP LESION SNARE TQ; COMMENT: hyperplastic polyp, tics and hemorrhoids; poor bowel prep. Repeat using 8 liter, 48 hour Colyte prep LITHOTRIPSY PROCEDURE: HISTORICAL LITHOTRIPSY; COMMENT: kidney stones OTHER SURGICAL HISTORY 08/03/2018 PROCEDURE: COLON CA SCRN NOT HI RSK IND; COMMENT: tics and hemorrhoids; repeat in 10 yrs (optional)using 8 liter, 48 hour Colyte prep [2] No family history on file. [3] No Known Allergies documented in this encounter Plan of Treatment Upcoming Encounters Date Type Department Care Team (Late st Contact Info) Description 04/23/2026 1:00 PM EDT Office Visit [address] [phone] Lester Rivera MD [address] [place] [address] Scheduled Referrals Name Type Priority Associated Diagnoses Order Schedule Ambulatory referral to Podiatry Outpatient Referral Routine Fungal infection of toenail 1 Occurrences starting 10/14/2025 until 10/14/2026 documented as of this encounter Visit Diagnoses Diagnosis Fungal infection of toenail- Primary documented in this encounter Additional Health Concerns Assessment Noted Time PHQ-9 Depression Total Score: 0 10/14/20 25 10:41 AM EST documented as of this encounter Care Teams Finish Photographer Relationship Specialty Start Date End Date Lester Rivera MD [address] [place] [phone] PCP - General Internal Medicine 07/12/19 documented as of this encounter
--- OUTSIDE RECORDS SUMMARY | 2025-10-17 12:49 | XMS_ITS | Clinical Summary ---
Author Organization [facility] [address] [facility] Address [address] [place] [address] Phone Care Team Providers Care Batch Maker Name Role Phone Lester Rivera MD Primary Care Provider [phone] Allergies No known active allergies Medications celecoxib (CeleBREX) 200 mg capsule Take 1 capsule (200 mg total) by mouth 2 (two) times a day. 07/29/20 23 Active naproxen (NAPROSYN) 250 mg tablet Take 1 tablet (250 mg total) by mouth 2 (two) times a day with meals. Active albuterol 2.5 mg /3 mL (0.083 %) nebulizer solutionIndicat ions:Asthma, unspecified asthma severity, unspecified whether complicated, unspecified whether persistent Take 3 mL (2.5 mg total) by nebulization every 4 (four) hours if needed for wheezing. 75 mL 1 12/25/19 25 Active albuterol HFA (PROAIR HFA ; PROVENTIL HFA ; VENTOLIN HFA) 90 mcg/actuation inhaler Inhale 2 puffs by mouth every 4 (four) hours if needed for wheezing. 6.7 g 1 12/25/19 25 Active cholecalciferol (VITAMIN D-3) 25 mcg (1,000 unit) tablet Take 1 tablet (1,000 Units total) by mouth 1 (one) time each day. 90 tablet 2 07/04/20 25 Active ibuprofen (ADVIL,MOTRIN) 800 mg tablet Take 1 tablet (800 mg total) by mouth every 8 (eight) hours if needed for mild pain or moderate pain. for pain 90 tablet 1 07/04/20 25 Active fluticasone furoate (Arnuity Ellipta) 100 mcg/actuation blister with device inhaler Take 1 puff by mouth 1 (one) time each day. 1 each 5 10/03/20 25 Active cyanocobalamin (VITAMIN B-12) 100 mcg tablet Take 1 tablet (100 mcg total) by mouth 1 (one) time each day. 90 tablet 1 10/03/20 25 Active fluticasone propionate (FLONASE) 50 mcg/actuation nasal spray Administer 2 sprays into each nostril 1 (one) time each day. Shake gently. Before first use, prime pump. After use, clean tip and replace cap. 16 g 1 10/03/20 25 Active levothyroxine (SYNTHROID, LEVOTHROID) 112 mcg tablet Take 1 tablet (112 mcg total) by mouth 1 (one) time each day before breakfast. 90 tablet 1 10/03/20 25 028 Active lisinopriL (PRINIVIL,ZESTR IL) 10 mg tablet Take 1 tablet (10 mg total) by mouth 1 (one) time each day. 90 tablet 1 10/03/20 25 Active loratadine (CLARITIN) 10 mg tablet Take 1 tablet (10 mg total) by mouth 1 (one) time each day. 90 tablet 1 10/03/20 25 Active rosuvastatin (CRESTOR) 5 mg tablet Take 1 tablet (5 mg total) by mouth 1 (one) time each day. at bedtime. 90 tablet 1 10/03/20 25 Active sildenafiL (VIAGRA) 100 mg tablet Take 1 tablet (100 mg total) by mouth if needed for erectile dysfunction. 10 tablet 1 10/03/20 25 Active ciclopirox (PENLAC) 8 % solution Apply topically at bedtime. Apply over nail and surrounding skin. Apply daily over previous coat. After seven (7) days, may remove with alcohol and continue cycle. 6.6 mL 10/14/20 25 026 Active fluticasone propionate (FLONASE) 50 mcg/actuation nasal spray Administer 2 sprays into each nostril 1 (one) time each day. Shake gently. Before first use, prime pump. After use, clean tip and replace cap. 16 g 1 12/25/19 25 025 Discontin ued(Reord er) sildenafiL (VIAGRA) 100 mg tablet Take 1 tablet (100 mg total) by mouth if needed for erectile dysfunction. 10 tablet 1 12/25/19 25 025 Discontin ued(Reord er) Arnuity Ellipta 100 mcg/actuation blister with device inhaler INHALE 1 PUFF BY MOUTH 1 TIME EACH DAY 1 each 5 03/19/20 25 025 Discontin ued(Reord er) cyanocobalamin (VITAMIN B-12) 100 mcg tablet TAKE 1 TABLET BY MOUTH EVERY DAY 90 tablet 1 04/09/20 25 025 Discontin ued(Reord er) loratadine (CLARITIN) 10 mg tablet Take 1 tablet (10 mg total) by mouth 1 (one) time each day. 90 tablet 2 07/04/20 25 025 Discontin ued(Reord er) lisinopriL (PRINIVIL,ZESTR IL) 10 mg tablet Take 1 tablet (10 mg total) by mouth 1 (one) time each day. 90 tablet 1 07/04/20 25 025 Discontin ued(Reord er) rosuvastatin (CRESTOR) 5 mg tablet Take 1 tablet (5 mg total) by mouth 1 (one) time each day. at bedtime. 90 tablet 2 07/04/20 25 025 Discontin ued(Reord er) levothyroxine (SYNTHROID, LEVOTHROID) 112 mcg tablet Take 1 tablet (112 mcg total) by mouth 1 (one) time each day before breakfast. 90 tablet 1 07/04/20 25 025 Discontin ued(Reord er) Active Problems Problem Noted Date Diagnosed Date Kidney stones 09/27/2024 Chronic constipation 10/10/2018 Diverticulosis of colon 10/10/2018 Internal hemorrhoids 10/10/2018 Allergic rhinitis due to cat hair 06/12/2018 Allergic rhinitis 01/10/2017 Essential hypertension 06/01/2016 Asthma 12/24/2015 Overview (09/27/2024): Sees Dr. Robert Garrett at [facility] Heartburn 12/24/2015 Vitamin B12 deficiency 12/24/2015 Hyperlipidemia 06/10/2015 Hypothyroidism 06/10/2015 Encounters Date Type Department Care Team Description 10/14/2025 10:30 AM EST Office Visit Adult [address] [phone] Carol Back, JARROD Fungal infection of toenail (Primary Dx) 10/13/2025 Telephone Adult [address] [phone] Lester Rivera MD 10/03/2025 11:30 AM EST Lab Draw [address] Vitamin D deficiency; Vitamin B12 deficiency; Hypothyroidism, unspecified type; Screening for diabetes mellitus; Essential hypertension 10/03/2025 11:00 AM EST Office Visit Adult [address] [phone] Tomeka Hoang PA Essential hypertension (Primary Dx); Pure hypercholesterolemia; Hypothyroidism, unspecified type; Screening for diabetes mellitus; Vitamin B12 deficiency; Vitamin D deficiency; Allergic rhinitis, unspecified seasonality, unspecified trigger; Moderate persistent asthma without complication from Last 3 Months Immunizations Immunization Administration Dates Next Due COVID-19 (Pfizer/Comirnaty) 12yo and older 10/08/2023 Influenza Split 09/09/2013 Influenza trivalent, 0.5mL ( Fluad) 65yo and older 07/17/2024,09/25/2023,10/08/2021,12/03,07/15/2019,07/10/2018,07/25/2017 ,07/04/2016 Influenza trivalent, 0.5mL ( Fluzone High-dose) 65yo and older 06/16/2025,09/25/2023,10/08/2021,12/03,07/15/2019,07/10/2018,07/25/2017 ,07/08/2016,07/04/2016 Influenza trivalent, 0.5mL, preservative free (Fluarix; FluLaval; Fluzone) ages 6mo and older (Afluria) 3 years and older 07/08/2015 Influenza trivalent, with pr eservative (Fluzone; Afluria) 6mo and older 07/08/2015,09/16/2014 Pfizer (ages 12 & older) Biv alent, COVID-19 10/08/2023 Pneumococcal conjugate 13 va lent (Prevnar 13, PCV13) 2mo and older 07/08/2016,07/08/2015 Pneumococcal polysaccharide 23 valent (Pneumovax 23) 2yo and older 03/21/2018,08/08/2013 RSV, bivalent, protein subun it RSVpreF, 0.5mL, Preservative Free (ABRYSVO) 50yo and older or 32 through 36 wks of 06/16/2025 Td Tetanus diptheria (Tdvax) 7yo and older 11/06/2012 Tdap Tetanus diptheria acell ular pertussis (Boostrix; Adacel) 7yo and older 10/03/2025,10/07/2015 Zoster Live 11/05/2014 Zoster recombinant (Shingrix ) 19yo and older 04/05/2022,12/10/2021 Surgical History Surgery Date Site/Laterality Comments LITHOTRIPSY PROCEDURE: HISTORICAL LITHOTRIPSY; COMMENT: kidney stones COLONOSCOPY 08/14/15 PROCEDURE: HISTORICAL COLONOSCOPY; COMMENT: repeat in 5 years COLONOSCOPY W/ POLYPECTOMY 06/09/2018 PROCEDURE: CT COLSC FLX W/RMVL OF TUMOR POLYP LESION SNARE TQ; COMMENT: hyperplastic polyp, tics and hemorrhoids; poor bowel prep. Repeat using 8 liter, 48 hour Colyte prep OTHER SURGICAL HISTORY 08/03/2018 PROCEDURE: COLON CA SCRN NOT HI RSK IND; COMMENT: tics and hemorrhoids; repeat in 10 yrs (optional) using 8 liter, 48 hour Colyte prep Medical History Medical History Date Comments Hyperlipidemia 06/10/2015 DX:Hyperlipidemi a Hypothyroidism 06/10/2015 DX:Hypothyroidis m Kidney stones DX:Kidney stones Essential hypertension 06/01/2016 DX:Essent ial hypertension Allergic rhinitis 01/10/2017 DX:Allergic rh initis Chronic constipation 10/10/2018 DX:Chronic constipation Diverticulosis of colon 10/10/2018 DX:Diver ticulosis of colon Internal hemorrhoids 10/10/2018 DX:Internal hemorrhoids Family History Relation Name Status Comments Father Mother Social History Tobacco Use Types Packs/Day Years [...] on file Sexual Orientation Not on file Last Filed Vital Signs Vital Sign Reading Time Taken Comments Blood Pressure 138/70 10/14/2025 10:40 AM EST Pulse 78 10/14/2025 10:40 AM EST Temperature 36 C (96.8 F) 10/14/2025 10:40 AM EST Respiratory Rate 16 10/03/2025 10:4 1 AM EST Oxygen Saturation 96% 10/14/2025 10: 40 AM EST Inhaled Oxygen Concentration - - Weight 84.2 kg (185 lb 11.2 oz) 025 10:40 AM EST Height 172.7 cm (5' 7.99 ) 10/14/2025 1 0:40 AM EST Body Mass Index 28.24 10/14/2025 10:40 AM EST Plan of Treatment Upcoming Encounters Date Type Department Care Team (Late st Contact Info) Description 04/23/2026 1:00 PM EDT Office Visit Adult Medicine [address] [phone] Lester Rivera MD [address] [place] [phone] Health Maintenance Due Date Last Done Comments Falls Risk Assessment 10/01/2022 Medicare Annual Wellness Visit 10/01/2022 Social Influencers of Health Screening 10/01/2022 COVID-19 Vaccine ( season) 2025 08/14/2024, 10/08/2023, 10/08/2023, Additional history exists Hypertension/CHF/CAD Annual BMP Blood Test 10/03/2026 10/03/2025, 07/04/2025, 06/21/2024, Additional history exists Cholesterol Screening (Lipid Panel) 07/04/2030 07/04/2025, 06/21/2024, 06/21/2024 DTaP,Tdap,and Td Vaccines (4 - Td or Tdap) 10/03/2035 10/03/2025, 10/07/2015, 11/06/2012 Hepatitis C Screening Completed 10/07/2015 Pneumococcal Vaccine: 50+ Years Completed 03/21/2018, 07/08/2016, 07/08/2015, Additional history exists Colorectal Cancer Screening: Colonoscopy Discontinued 08/03/2018 Zoster Vaccines Completed 04/05/2022, 11/23, 11/05/2014 Influenza Vaccine Completed 06/16/2025, , 09/25/2023, Additional history exists RSV Immunization Adult Patients Completed 06/16/2025 Depression Screening Completed 10/14/2025 HIB Vaccines Aged Out No longer eligi ble based on patient's age to complete this topic HPV Vaccines Aged Out No longer eligi ble based on patient's age to complete this topic Hepatitis A Vaccines Aged Out No long er eligible based on patient's age to complete this topic Hepatitis B Vaccines Aged Out No long er eligible based on patient's age to complete this topic IPV Vaccines Aged Out No longer eligi ble based on patient's age to complete this topic MMR Vaccines Aged Out No longer eligi ble based on patient's age to complete this topic Meningococcal ACWY Vaccine Aged Out N o longer eligible based on patient's age to complete this topic Meningococcal B Vaccine Aged Out No l onger eligible based on patient's age to complete this topic RSV Immunization Patients Under 20 months Aged Out No longer eligible based on patient's age to complete this topic Varicella Vaccines Aged Out No longer eligible based on patient's age to complete this topic Procedures Procedure Name Priority Date/Time Associated Diagnosis Comments BASIC METABOLIC PANEL Routine 10/03/2025 11:38 AM EST Essential hypertension HEMOGLOBIN A1C Routine 10/03/2025 11:38 AM EST Screening for diabetes mellitus THYROID STIMULATING HORMONE WITH REFLEX TO FREE T4 AND FREE T3 Routine 10/03/2025 11:38 AM EST Hypothyroidism, unspecified type VITAMIN B12 Routine 10/03/2025 11:38 AM EST Vitamin B12 deficiency VITAMIN D 25 HYDROXY Routine 10/03/2025 11:38 AM EST Vitamin D deficiency LIPID PANEL WITH REFLEX TO DIRECT LDL Routine 07/04/2025 12:46 PM EDT Pure hypercholesterolemia COLONOSCOPY Routine 08/03/2018 HEPATITIS C SCREENING Routine 10/07/2015 from Last 3 Months or Most Recently Relevant to Health Maintenance Results * Thyroid stimulating hormone with reflex to free t4 and free t3 (10/03/2025 11:38 AM EST) [facility] TSH 1.52 0.40 - 4.00 mcIU/mL 10/03/2025 4:07 PM EST [facility] Blood Venous blood specimen / Unknown Venipuncture / Unknown 10/03/2025 11:38 AM EST 10/03/2025 11:38 AM EST Tomeka SUTTON LAB BLOOD ORDERABLES Fi nal Result Performing Organization Address City/[facility]/ZIP Co de Phone Number [facility] [address] [place] [address], [place] [phone] * Vitamin D 25 hydroxy (10/03/2025 11:38 AM EST) [facility] Vit D, 25-Hydroxy 32.8 30.0 - 80.0 ng/mL 10/03/2025 4:07 PM EST [facility] Blood Venous blood specimen / Unknown Venipuncture / Unknown 10/03/2025 11:38 AM EST 10/03/2025 11:38 AM EST Tomeka SUTTON LAB BLOOD ORDERABLES Fi nal Result Performing Organization Address City/[facility]/ZIP Co de Phone Number [facility] [address] [place] [address], [place] [phone] * Hemoglobin A1c (10/03/2025 11:38 AM EST) [facility] Hemoglobin A1C 5.2 <6.5 % LAB CHEMISTRY METHOD 10/04/2025 1:37 PM EST [facility] Mean Bld Glu Estim. 103 mg/dL LAB CHEMISTRY METHOD 10/04/2025 1:[address] [facility] Blood Venous blood specimen / Unknown Venipuncture / Unknown 10/03/2025 11:38 AM EST 10/03/2025 11:38 AM EST [facility] BLOOD ORDERABLES Fi nal Result Performing Organization Address City/[facility]/ZIP Co de Phone Number [facility] [address] [place] [address], [place] [phone] * Vitamin B12 (10/03/2025 11:38 AM EST) Pathologist [facility] Vitamin B-12 386 211 - 911 pcg/mL 10/03/2025 4:[address] [facility] Blood Venous blood specimen / Unknown Venipuncture / Unknown 10/03/2025 11:38 AM EST 10/03/2025 11:38 AM EST [facility] BLOOD ORDERABLES Fi nal Result Performing Organization Address City/[facility]/ZIP Co de Phone Number [facility] [address] [place] [address], [place] [phone] * (ABNORMAL) Basic metabolic panel (10/03/2025 11:38 AM EST) Sodium 142 133 - 145 mmol/L 10/03/2025 4:[address] [facility] Potassium 4.5 3.5 - 5.5 mmol/L 10/03/2025 4:[address] [facility] Chloride 104 96 - 110 mmol/L 10/03/2025 4:[address] [facility] CO2 30 21 - 32 mmol/L 10/03/2025 4:[address] [facility] Anion Gap 8 3 - 11 10/03/2025 4:[address] [facility] Glucose 88 70 - 100 mg/dL 10/03/2025 4:[address] [facility] BUN 12 5 - 25 mg/dL 10/03/2025 4:[address] [facility] Creatinine 1.32(H) 0.70 - 1.30 mg/dL 10/03/2025 4:[address] [facility] eGFR 56(L) >=60 mL/min/1. 73m2 10/03/2025 4:[address] [facility] Comment:Calculation based on the Chronic Kidney Disease Epidemiology Collaboration (CKD-EPI) equation refit without adjustment for race. BUN/Creatinine Ratio 9.1 10/03/2025 4:[address] [facility] Calcium 8.8 8.5 - 10.5 mg/dL 10/03/2025 4:[address] [facility] Blood Venous blood specimen / Unknown Venipuncture / Unknown 10/03/2025 11:38 AM EST 10/03/2025 11:38 AM EST Tomeka SUTTON LAB BLOOD ORDERABLES Fi nal Result [facility] [address] [place] [address], * (ABNORMAL) Lipid panel with reflex to direct LDL (07/04/2025 12:46 PM EDT) Cholesterol 136 0 - 200 mg/dL LAB CHEMISTRY METHOD 07/04/2025 5:26 PM EDT [facility] Triglycerides 402(H) 0 - 150 mg/dL LAB CHEMISTRY METHOD 07/04/2025 5:26 PM EDT [facility] HDL 36(L) >=40 mg/dL LAB CHEMISTRY METHOD 07/04/2025 5:26 PM EDT [facility] LDL Calculated 20 0 - 100 mg/dL LAB CHEMISTRY METHOD 07/04/2025 5:26 PM EDT [facility] Comment: Unable to calculate when triglycerides >400 mg/dL. Estimated LDL Calculated using equation: Total cholesterol - HDL cholesterol - (Triglycerides/5) VLDL Cholesterol Reddy 80.4 mg/dL LAB CHEMISTRY METHOD 07/04/2025 5:26 PM EDT [facility] Comment:Unable to calculate when triglycerides >400 mg/dL. Non HDL Chol. (LDL+VLDL) 100 <145 mg/dL LAB CHEMISTRY METHOD 07/04/2025 5:26 PM EDT [facility] Comment:Unable to calculate when triglycerides >400 mg/dL. Chol/HDL Ratio 3.8 0.0 - 4.4 LAB CHEMISTRY METHOD 07/04/2025 5:26 PM EDT [facility] Blood Venous blood specimen / Unknown Venipuncture / Unknown 07/04/2025 12:46 PM EDT 07/04/2025 12:46 PM EDT Lester Rivera MD LAB BLOOD ORDERABLES Final Resu lt [facility] [address] [place] [address], * Colonoscopy (08/03/2018) Pathologist [facility] Colonoscopy no interpretation , abstracted Anatomical Region Laterality Modality Other Historical Provider HEALTH MAINTENANCE Final Result * Hepatitis C Screening (10/07/2015) [facility] Hepatitis C Screening abstracted Historical Provider HEALTH MAINTENANCE Final Result from Last 3 Months or Most Recently Relevant to Health Maintenance Insurance [employer] MEDICARE Member Subscriber Plan / Payer (Ef fective 2014-Present) Name:Hector REESo Relation to Subscriber:Self Name:Jeremiah Thomas Payer ID:[id number] Group ID:[id number] Type:Not on file Address: [place] [address] [address] [id number] Care Teams Batch Maker Relationship Specialty Start Date End Date Lester Rivera MD [address] [place] [phone] PCP - General Internal Medicine 07/12/19
--- OUTSIDE RECORDS SUMMARY | 2025-10-17 12:49 | XMS_ITS | Encounter Summary ---
Author [facility] Address [address] [place] [address] Care Team Providers Care Computer Field Technician Name Role Phone Lester Rivera MD Primary Care Provider [phone] Reason for Visit * Reason Onset Date Comments Foot Pain 10/13/2025 Encounter Details Date Type Department Care Team (Late st Contact Info) Description 10/13/2025 Telephone Adult Medicine [address] [phone] Lester Rivera MD [address] [place] [address] Social History Tobacco Use Types Packs/Day Years Used Date Smoking Tobacco: Never Smokeless Tobacco: Never Alcohol Use Standard Drinks/Week Comments No 0 (1 standard drink = 0.6 oz pur e alcohol) Sex and Gender Information Value Date Recorded Sex Assigned at Not on file Legal Sex Male 4:17 AM EST Gender Identity Not on file Sexual Orientation Not on file documented as of this encounter Progress Notes * Madison Bryan RN - 10/13/2025 1:51 PM EST Called and spoke with pt. Pt c/o right foot pain x month no known injury no redness no swelling no warmth to touch. Using otc meds without relief. Appt for tomorrow with care team . * Melyssa Hall - 10/13/2025 11:39 AM EST Patient call requires triage: Symptoms patient is presenting: right foot pain states he's been muscle spasms How long has patient had these symptoms?: couple months For ALL patients calling to schedule any appointment (routine, sick visit, follow up, consult, etc.) in the outpatient setting please ask the following questions: Do you have fever of higher than 101, sore throat with difficulty swallowing or severe shortness ofbreath? no If YES to any of these above symptoms, send a message to triage and do not book. Red dot. If no, an audio or video visit should be booked. Have you had close contact with someone with Coronavirus in the last 14 days? no Have you traveled abroad? no Have you traveled recently to another state outside of [place], [place], [place], [place], [place], [place], [place]? no o If yes, did you quarantine for 14 days or have a negative covid test? no If yes to any of the above, patient is not to be scheduled in office until after 14 day quarantine or negative covid test. If pain or injury related was it due to an accident at work or from a motor vehicle accident? If yes, date of accident/Injury: No If yes, gather 3rd alliance party insurance information Third Constitution Party Information: not applicable PCP: Lester Rivera MD Payor: [facility] MEDICARE / Plan: [employer] ONE C[employer] / Product Type: *No Product type* / documented in this encounter Plan of Treatment Upcoming Encounters Date Type Department Care Team (Late st Contact Info) Description 04/23/2026 1:00 PM EDT Office Visit Adult Medicine [address] [phone] Lester Rivera MD [address] [place] [address] documented as of this encounter Visit Diagnoses Not on filedocumented in this encounter Care Teams Computer Field Technician Relationship Specialty Start Date End Date Lester Rivera MD [address] [place] [address] PCP - General Internal Medicine 07/12/19 documented as of this encounter
[2025-10-17 12:54] VITALS: BP 140/70; PULSE 69; O2SAT 96; BMI 27.8
--- NOTE | 2025-10-17 12:54 | MHC.OFFVIS ---
Vital Signs 10/17/25 12:54 Height 5 ft 8 in Weight 182 lb 15.739 oz BMI 27.8 BP 140/70 H Blood Pressure Location Lt brachial Position Sitting Pulse 69 Pulse Source Pulse Oximeter Pulse Oximetry (%) 96 Oxygen Delivery Method Room Air Intake Visit Reasons: Asthma [employer] Required: No Equipment Operator Warehouse: Equipment [employer] offered & declined Accompanied by: Self / Same As Patient Allergies Latex, Natural Rubber Allergy (Verified 10/17/25 12:57) Rash HPI Comments Details: The patient is a 75-year-old gentleman with a known history of asthma with a positive methacholine challenge who apparently had been followed closely by a local home service advisor. Subsequently his home service advisor left the area and he is getting settled with the new pulmonary office. Overall the patient has been doing well from a respiratory status. He has been taking the Flovent twice a day for many years with good response. He also uses his albuterol twice a day when he does take the Flovent. Seems like he has been able to have good control of his asthma with his regimen. The patient also has issues with cough and specially at nighttime. He does bring up some phlegm that wakes him up at nighttime. Sometimes he chokes up with the phlegm. He states that he does have allergies. He is not sure when he is allergic 2. Will have to do on allergy testing. The meantime will treating for allergic rhinitis resulting in the postnasal drip in the upper airway cough syndrome. Back in 2019 the patient did have a series case of COVID-19 requiring a prolonged hospitalization. The patient did recover. We did review his chest x-ray during that time demonstrating extensive airspace disease left more than right. Now on examination he does have some crackles suggesting some residual scarring from the severe pneumonia. Otherwise patient is doing well denies any other complaints. 09/06/2023 the patient is here for a pulmonary follow-up visit. The patient overall has been doing well from a respiratory status. Unfortunately,he did undergo a total knee replacement without any complications but then fell fracturing his femur and also injuring the prosthetic area. He required additional surgery with internal fixation of the femur exploration of the knee. The patient did have a chest x-ray while in the hospital back in July without any acute disease which is reassuring. During the hospitalization he was noted to be anemic most likely from the injury in the surgery. He feels tired weak and he still has significant amount of pain at that site. Will do some blood work. 09/27/2024 the patient is here for a pulmonary follow-up visit. Overall he is doing well. The patient has been tolerating his inhalers well without any significant adverse effects. Now fluticasone will not be available on therefore will switch him over to Arnuity. Otherwise uses his rescue inhaler less than 2 times a week. He has not had any recent x-rays will plan to repeat the x-ray prior to the next visit. The patient continues with his allergy medicine. The were season although worse asthma symptoms for him we are during the winter season. Therefore if he develops any worsening symptoms he will call. Otherwise will plan to follow-up in a year's time with a chest x-ray. 10/17/2025 the patient is here for pulmonary follow-up visit. Overall he is doing okay he does complaint of nasal congestion moderate severity with postnasal drip. The phlegm seems to be little thicker and yellowish in color. Worse at nighttime. Moderate severity in addition to that he has been using the Arnuity inhaler and also his rescue inhaler. Asthma has been well controlled. He did have x-ray ordered but he did not have ones done since 2022. Be normal. I will put another x-ray in addition to sinus x-rays if he continues with a cough. He was start Afrin for about 3-5 days he knows to stop it to avoid the rebound effect and also treat him with doxycycline for chronic sinusitis. If the patient is not better then he will come in and get the x-rays done. He will follow-up in a year's time. If any issues arise she can always call further recommendations. [facility] Medical History Anemia Fall BPH (benign prostatic hyperplasia) Hyperlipidemia Hypertension Hx of renal calculi Osteoarthritis of right knee Chronic allergic rhinitis Chronic cough Asthma Hypothyroidism Surgical History Status post total knee replacement, right Hx of cystoscopy H/O lithotripsy Hx of colonoscopy History of total left knee replacement (TKR) Social History Household Members: Spouse Housing: Apartment Are you a primary palliative care nurse to a significant other at home: No Do you presently have visiting nurse or other home services: Yes Comment: sleeping Patient Tobacco Use Status: Never used Tobacco Second Hand Smoke Exposure: No service: No Current occupational status: retired Review of Systems Const Denies difficulty sleeping, Reports fatigue and Denies headache(s) Eyes Denies change in vision ENT Denies headache(s), Reports nasal congestion, Reports nasal discharge, Reports nasal obstruction and Reports post nasal drip Card Denies chest pain and Denies dyspnea on exertion Resp Reports cough, Denies dyspnea on exertion and Denies wheezing GI Reports no additional complaints Musc Reports as per HPI, Reports abnormal gait, Reports arthralgias, Reports joint swelling and Reports limited range of motion Skin/Breast Denies rash Neuro Reports no additional complaints, Reports abnormal gait and Denies headache(s) Endo Reports fatigue Aller/Immun Denies wheezing Physical Exam Vital Signs: Last Vital Signs Pulse 69 10/17/25 12:54 BP 140/70 H 10/17/25 12:54 Pulse Ox 96 10/17/25 12:54 Oxygen Delivery Method Room Air 10/17/25 12:54 BMI result Body Mass Index 27.8 Const General: alert Neck Neck: Yes normal visual inspection, Yes full ROM and Yes no lymphadenopathy Chest Chest palpation & inspection: normal inspection of the chest Resp Effort & Inspection: normal respiratory effort Auscultation: clear to auscultation bilaterally and no crackles Cardio Rate: regular rate Rhythm: regular rhythm Heart sounds: S1 normal heart sound present and S2 normal heart sound present GI Palpation (GI): Soft to palpation and nontender Auscultation: normal bowel sounds Skin General skin exam: rashes and/or lesions noted Assessment & Plan Assessment & Plan (1) Chronic cough: Code(s): R05.3 - Chronic cough Category: Medical (2) Asthma: Code(s): J45.909 - Unspecified asthma, uncomplicated Category: Medical Qualifiers: Asthma severity: moderate Asthma persistence: persistent Asthma complication type: uncomplicated Qualified Code(s): J45.40 - Moderate persistent asthma, uncomplicated (3) Chronic allergic rhinitis: Code(s): J30.9 - Allergic rhinitis, unspecified Category: Medical Plan continue Arnuity Short-acting beta agonist as needed treat for sinusitis Continue loratadine Continue fluticasone continue singular CXR/sinus xray F/U 12 months Orders: Orders XR chest 2V 10/17/25 R05.3 - Chronic cough XR sinus min 3V 10/17/25 R05.3 - Chronic cough Medications: New oxymetazoline 0.05% (Afrin (oxymetazoline)) 2 sprays intranasal Q12H PRN 22 mL 0RF nasal congestion 5 days doxycycline monohydrate 100 mg PO BID 28 tabs 0RF 14 days Coding Level of Care Code Est Pt Level 4 (96856) Diagnoses Chronic cough R05.3 Moderate persistent asthma without complication J45.40 Asthma severity: moderate Asthma persistence: persistent Asthma complication type: uncomplicated Chronic allergic rhinitis J30.9 Time Spent (min) 16
== END 2025-10-17 13:12 | disposition home or self-care (01) ==
LOC: HO.HPS 12:47
PROVIDERS: PCP Internal Medicine; Visit Provider Hospitalist
DX: R05.3 Chronic cough (principal); J45.40 Moderate persistent asthma, uncomplicated; J30.9 Allergic rhinitis, unspecified
CPT/HCPCS: 99214

== ENCOUNTER → 2025-10-17 12:46 | Outpatient (BNVA) | payer OTHER, SELFPAY | PROVIDERS: PCP Internal Medicine; Visit Provider Hospitalist | DX: J45.40 Moderate persistent asthma, uncomplicated (principal); R05.3 Chronic cough; J30.9 Allergic rhinitis, unspecified; Z79.899 Other long term (current) drug therapy | CPT/HCPCS: 99212 ==